=== PATIENT | female | born 1985 | race Caucasian/White ===

== ENCOUNTER 2025-04-13 19:51 | Emergency (ER) | payer MEDICAID, SELFPAY ==
--- OUTSIDE RECORDS SUMMARY | 2025-01-26 08:15 | XMS_ITS ---
Author Organization [facility] Servic es Address [address] [place] [address] Care Team Providers Care Die Presser Name Role Phone Swathi Osorio Primary Care Provider Sangita Miller [phone] REASON FOR VISIT APPT WITH NOLBERTO AT 1:00PM Social History Sex Assigned At : Social History Observation Description Sex Assigned At Female Encounters Encounter Location Date Provider Diagnosis [facility] [address] [facility] [address] 2024 Sangita Miller Plan Of Treatment Next Appt Details Provider Name:Sangita Miller, 04/21/2025 12:30:00 PM, [address] [place], [address], Provider Name:Sharla rincon, 04/21/2025 01:00:00 PM, [address] [place], [address], Provider Name:Tonia Cooper , 06/15/2025 04:00:00 PM, [address], [place], [address], Provider Name:Sangita Miller, 08/04/2025 10:15:00 AM, [address] [facility] [place], [address], Provider Name:Swathi huston, 08/04/2025 11:00:00 AM, [address] [facility] [place], [address], Progress Notes * KEYA GRACIA:1985 (39 yo F)Acc No.[id number]:01/26/2025 Patient: ANDRÉS OLIVEROS Appointment Provider: Florecita Miller :1985 A ge:39 Y S ex:Female Date:01/26/2025 Address:[address] [place], [place] [id number] Pcp:Swathi Osorio Subjective: * Chief Complaints: * A PPT WITH NOLBERTO AT 1:00PM Billing Information: * Procedure Codes: * Electronic signature of NERY Dumont FNP on 04/13/2025 at 08:13 PM EDT Sign off status: Pending * Appointment Provider: Florecita Miller Date: 0 01/26/2025 Generated for Aysha johnson/Johnnie/Larsitting on: 1 08:13 PM EDT
--- OUTSIDE RECORDS SUMMARY | 2025-01-26 09:00 | XMS_ITS ---
Author Organization [facility] Servic es Address [address] [place] [address] Care Team Providers Care Edger Saw Operator Name Role Phone Swathi Osorio Primary Care Provider Parisa Gómez Unavailable [phone] REASON FOR VISIT 1 MONTH F/U Social History Sex Assigned At : Social History Observation Description Sex Assigned At Female Encounters Encounter Location Date Provider Diagnosis [facility] [address] [place] [address] 01/26/2025 Parisa Gómez Plan Of Treatment Next Appt Details Provider Name:Sangita Miller, 04/21/2025 12:30:00 PM, [address] [place], [address], Provider Name:Sharla rincon, 04/21/2025 01:00:00 PM, [address] [place], [address], Provider Name:Tonia Cooper , 06/15/2025 04:00:00 PM, [address], [place], [address], Provider Name:Sangita Miller, 08/04/2025 10:15:00 AM, [address] [place], [address], Provider Name:Swathi huston, 08/04/2025 11:00:00 AM, [address] [facility] [place] [place], [address], Progress Notes * OCTAVIO GRACIAB:1985 (39 yo F)Acc No.[id number]:01/26/2025 Progress Notes Patient: ANDRÉS OLIVEROS Provider: Johnna Gómez :1985 A ge:39 Y S ex:Female Date:01/26/2025 Address:[address] [place], [place] [phone] Pcp:Swathi Osorio Subjective: * Chief Complaints: * 1 MONTH F/U * Electronic signature of Kenneth Gómez NP on 04/13/2025 at 08:13 PM EDT Sign off status: Pending * Provider: Johnna Gómez Date: 0 01/26/2025 Generated for Aysha johnson/Johnnie/Luli on: 1 08:13 PM EDT
--- OUTSIDE RECORDS SUMMARY | 2025-04-13 20:13 | XMS_ITS | Clinical Summary ---
Author Organization [facility] Address [address] 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 Active ascorbic acid (Vitamin C) 500 mg tablet Take 1 tablet (500 mg) by mouth 2 times a day. Active menthol (Biofreeze, menthol,) 4 % gel gel Apply 1 Application topically 3 times a day as needed. Active bisacodyl (Dulcolax, bisacodyl,) 10 mg suppository Insert 1 suppository (10 mg) into the rectum once daily as needed for constipation. Active busPIRone (Buspar) 5 mg tablet Take 1 tablet (5 mg) by mouth 2 times a day. Active cholecalciferol (Vitamin D-3) 25 MCG (1000 UT) capsule Take 1 capsule (25 mcg) by mouth once daily. Active cyclobenzaprine (Flexeril) 5 mg tablet Take 1 tablet (5 mg) by mouth 3 times a day. Active sodium phosphates (Fleet Enema) 19-7 gram/118 mL enema enema Insert 133 mL (1 enema) into the rectum once daily as needed for constipation. Active furosemide (Lasix) 40 mg tablet Take 1 tablet (40 mg) by mouth once daily. Active gabapentin (Neurontin) 600 mg tablet Take 3 tablets (1,800 mg) by mouth 2 times a day. Active potassium phosphate, monobasic, (K-Phos) 500 mg tablet Take 1 tablet (500 mg) by mouth once daily. Active levETIRAcetam (Keppra) 1,000 mg tablet Take 1 tablet (1,000 mg) by mouth once daily. Active levETIRAcetam (Keppra) 1,000 mg tablet Take 2 tablets (2,000 mg) by mouth once daily at bedtime. Active lamoTRIgine (LaMICtal) 200 mg tablet Take 1 tablet (200 mg) by mouth 2 times a day. Active lamoTRIgine (LaMICtal) 25 mg tablet Take 2 tablets (50 mg) by mouth 2 times a day. Active loratadine (Claritin) 10 mg tablet Take 1 tablet (10 mg) by mouth once daily. Active meclizine (Antivert) 25 mg tablet Take 1 tablet (25 mg) by mouth 3 times a day as needed for dizziness. Active midodrine (Proamatine) 2.5 mg tablet Take 1 tablet (2.5 mg) by mouth 3 times daily (morning, midday, late afternoon). Active melatonin 3 mg tablet Take 2 tablets (6 mg) by mouth as needed at bedtime for sleep. Active polyethylene glycol (Glycolax, Miralax) 17 gram packet Take 17 g by mouth every other day. Even days Active oxybutynin (Ditropan) 5 mg tablet Take 1 tablet (5 mg) by mouth 3 times a day as needed. Active bismuth subsalicylate (Pepto Bismol) 262 mg/15 mL suspension Take 30 mL (524 mg) by mouth every 6 hours if needed for indigestion. Active magnesium hydroxide (Garcia Milk of Magnesia) 400 mg/5 mL suspension Take 30 mL by mouth once daily as needed for constipation. Active pyridoxine (Vitamin B-6) 100 mg tablet Take 1 tablet (100 mg) by mouth once daily. Active QUEtiapine (SEROquel) 100 mg tablet Take 1.5 tablets (150 mg) by mouth once daily at bedtime. Active sennosides (Senokot) 8.6 mg tablet Take 1 tablet (8.6 mg) by mouth once daily at bedtime. Active sertraline (Zoloft) 100 mg tablet Take 2 tablets (200 mg) by mouth once daily. Active benzonatate (Tessalon) 100 mg capsule Take 1 capsule (100 mg) by mouth 3 times a day as needed for cough. Do not crush or chew. Active ondansetron (Zofran) 4 mg tablet Take 1 tablet (4 mg) by mouth every 8 hours if needed for nausea or vomiting. Active acetaminophen (Tylenol) 325 mg tablet Take 2 tablets (650 mg) by mouth every 6 hours if needed for mild pain (1 - 3). Max 3gm/24hr Active lactobacillus acidophilus & bulgar (Lactinex) 1 million cell chewable tablet Chew 1 tablet once daily. Start 05/26/24 x 14days Active benzocaine (Orajel) 10 % mucosal gel Use 1 Application in the mouth or throat every 4 hours if needed. Apply to tongue Active buPROPion (Wellbutrin) 75 mg tablet Take 1 tablet (75 mg) by mouth once daily. Active lidocaine 4 % patch Place 1 patch on the skin once daily as needed for mild pain (1 - 3). Remove & discard patch within 12 hours or as directed by MD. Active chlorhexidine (Peridex) 0.12 % solution Use 15 mL in the mouth or throat 2 times a day. Active prazosin (Minipress) 1 mg capsule Take 1 capsule (1 mg) by mouth once daily. Active omeprazole OTC (PriLOSEC OTC) 20 mg EC tablet Take 1 tablet (20 mg) by mouth once daily. Do not crush, chew, or split. Active risperiDONE (RisperDAL) 0.5 mg tablet Take 1 tablet (0.5 mg) by mouth 2 times a day. Active tiZANidine (Zanaflex) 2 mg tablet Take 1 tablet (2 mg) by mouth 2 times a day. 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 Obstructive uropathy 06/07/2024 Hydronephrosis with urinary obstruction due to renal calculus 06/07/2024 Staghorn calculus 06/07/2024 ESBL (extended spectrum beta -lactamase) producing bacteria infection 06/07/2024 Hyponatremia 06/07/2024 Family History Medical History Relation Name Comments Acute myocardial infarction Other Grandparent Cardiac arrhythmia Other Grandparent Primary malignant neoplasm of lung Other Grandp arent Relation Name Status Comments Other Grandparent Social History Tobacco Use Types Packs/Day Years Used Date Smoking Tobacco: Never Smokeless Tobacco: Never Tobacco Cessation:Counseling Given: Not Answered Alcohol Use Standard Drinks/Week Comments Never 0 (1 standard drink = 0.6 oz pur e alcohol) [facility] Utilities Answer Date Recorded In the past 12 months has th e electric, gas, oil, or water company threatened to shut off services in your home? No 06/08/2024 Humiliation, Afraid, Rape, and Kick questionnair e Answer Date Recorded Within the last year, have y ou been afraid of your partner or ex-partner? No 06/08/2024 Within the last year, have y ou been humiliated or emotionally abused in other ways by your partner or ex-partner? No Within the last year, have y ou been kicked, hit, slapped, or otherwise physically hurt by your partner or ex-partner? No 06/08/2024 Within the last year, have y ou been raped or forced to have any kind of sexual activity by your partner or ex-partner? No 06/08/2024 AUDIT-C Answer Date Recorded Q1: How often do you have a drink containing alcohol? Never 06/08/2024 Q2: How many drinks containi ng alcohol do you have on a typical day when you are drinking? Patient does not drink Q3: How often do you have si x or more drinks on one occasion? Never 06/08/2024 Overall Financial Resource Strain (CARDIA) Answe r Date Recorded How hard is it for you to pa y for the very basics like food, housing, medical care, and heating? Not hard at all 06/08/2024 PHQ-2 Answer Date Recorded Patient Health Questionnaire-2 Score 0 06/08/2024 Hunger Vital Sign Answer Date Recorded Within the past 12 months, y ou worried that your food would run out before you got the money to buy more. Never true 06/08/20 24 Within the past 12 months, t he food you bought just didn't last and you didn't have money to get more. Never true 06/08/2024 PRAPARE - Transportation Answer Date Re corded In the past 12 months, has l ack of transportation kept you from medical appointments or from getting medications? No 05/29 In the past 12 months, has l ack of transportation kept you from meetings, work, or from getting things needed for daily living? No 06/08/2024 Housing Stability Vital Sign Answer Reyes e Recorded In the last 12 months, was t here a time when you were not able to pay the mortgage or rent on time? No 06/08/2024 In the past 12 months, how m any times have you moved where you were living? 1 06/08/2024 At any time in the past 12 m [facility], were you homeless or living in a assisted (including now)? No 06/08/2024 Comments Unknown Sex and Gender Information Value Date Recorded Sex Assigned at Not on file Legal Sex Female 1:39 PM EST Gender Identity Not on file Sexual Orientation Not on file Last Filed Vital Signs Vital Sign Reading Time Taken Comments Blood Pressure 112/89 06/22/2024 9:19 AM EST Pulse 103 06/22/2024 9:19 AM EST Temperature 36.5 C (97.7 F) 06/22/2024 9:19 AM EST Respiratory Rate 18 06/22/2024 9:19 AM EST Oxygen Saturation 92% 06/22/2024 9:19 AM EST ra Inhaled Oxygen Concentration - - Weight 107 kg (235 lb 14.3 oz) 06/22/2024 9:19 A M EST Height 152 cm (4' 11.84 ) 06/08/2024 2:00 AM EST Body Mass Index 46.31 06/08/2024 2:00 AM EST Plan of Treatment Health Maintenance Due Date Last Done Comments HIV Screening 1985 Lipid Panel 1985 Yearly Adult Physical 1985 Hepatitis C Screening 10/02/2003 Hepatitis B Vaccines (1 of 3 - 19+ 3-dose series) 2004 Cervical Cancer Screening 2006 HPV/Cotest 2006 Pap Smear 2006 DTaP/Tdap/Td Vaccines (1 - Tdap) 10/02/2007 HPV Vaccines (1 - 3-dose standard series) 2012 Influenza Vaccine (#1) 2025 2, 07/14/2013, 05/22/2009, Additional history exists COVID-19 Vaccine ( season) 2025 08/06/2022, 02/15/2022, 10/09/2020, Additional history exists Diabetes Screening 06/10/2027 06/10/2024, 1 08/10/2023, 06/08/2024 Zoster Vaccines (1 of 2) 10/02/2035 MMR Vaccines Completed 01/31/1998 Pneumococcal Vaccine: Pediatrics and At-Risk Adult Patients Aged Out 07/14/2013 No longer eligible based on patient's age to complete this topic HIB Vaccines Aged Out No longer eligi ble based on patient's age to complete this topic Hepatitis A Vaccines Aged Out No long er eligible based on patient's age to complete this topic IPV Vaccines Aged Out No longer eligi ble based on patient's age to complete this topic Meningococcal Vaccine Aged Out No cal cornel eligible based on patient's age to complete this topic Rotavirus Vaccines Aged Out No longer eligible based on patient's age to complete this topic Procedures Procedure Name Priority Date/Time Associated Diagnosis Comments BASIC METABOLIC PANEL Pending Discharge 06/10/2024 6:07 AM EST from Last 3 Months or Most Recently Relevant to Health Maintenance Results * (ABNORMAL) Basic metabolic panel (06/10/2024 6:07 AM EST) Glucose 132(H) 74 - 99 mg/dL LAB CHEMISTRY METHOD 06/10/2024 7:18 AM EST [facility] [place] [place] [facility] Sodium 134(L) 136 - 145 mmol/L LAB CHEMISTRY METHOD 06/10/2024 7:18 AM EST [facility] [place] [place] [facility] Potassium 3.6 3.5 - 5.3 mmol/L LAB CHEMISTRY METHOD 06/10/2024 7:18 AM EST [facility] [place] [place] [facility] Comment:MILD HEMOLYSIS DETEC ABY. The result may be falsely elevated due to hemolysis or other interferents. Clinical correlation is recommended. Repeat testing may be considered. Chloride 102 98 - 107 mmol/L LAB CHEMISTRY METHOD 06/10/2024 7:18 AM EST [facility] [place] [place] [facility] Bicarbonate 23 21 - 32 mmol/L LAB CHEMISTRY METHOD 06/10/2024 7:18 AM EST [facility] [place] [place] [facility] Anion Gap 13 10 - 20 mmol/L LAB CHEMISTRY METHOD 06/10/2024 7:18 AM EST [facility] [place] [place] [facility] Urea Nitrogen 17 6 - 23 mg/dL LAB CHEMISTRY METHOD 06/10/2024 7:18 AM EST [facility] [place] [place] [facility] Creatinine 0.51 0.50 - 1.05 mg/dL LAB CHEMISTRY METHOD 06/10/2024 7:18 AM EST [facility] [place] [place] [facility] eGFR >90 >60 mL/min/1. 73m*2 LAB CHEMISTRY METHOD 06/10/2024 7:18 AM EST [facility] [place] [place] [facility] Comment: Calculations of estimated GFR are performed using the 2020 CKD-EPI Study Refit equation without the race variable for the IDMS-Traceable creatinine methods. https://jasn.asnjournals.org/content/early/ASN.0291722986 Calcium 8.6 8.6 - 10.3 mg/dL LAB CHEMISTRY METHOD 06/10/2024 7:18 AM EST [facility] [place] [place] [facility] Blood Venous blood specimen / Unknown Venipuncture / Unknown 06/10/2024 6:07 AM EST 06/10/2024 6:34 AM EST Arlene Gallegos STRATEGIC MARKETING ASSOCIATE-CHECKROOM ATTENDANT LAB BLOOD ORDERABLES Fi nal Result [facility] [place] [place] [facility] [id number] [id number] from Last 3 Months or Most Recently Relevant to Health Maintenance Insurance MEDICAID MEDICAID Advance Directives For more information, please contact: [phone] (Available ) Documents on File Type Date Recorded 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 Unable t o reach or identify Proxy presumed Care Teams Malt House Loader Relationship Specialty Start Date End Date Abi Le MD [address] [place] [address] [address] [place] [id number] PCP - General Internal Medicine 06/08/24
--- OUTSIDE RECORDS SUMMARY | 2025-04-13 20:14 | XMS_ITS | Patient Health Record ---
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 Akshat Welsh Unavailable [phone] Sangita Miller Unavailable [phone] Zuly Guzman Unavailable [phone] Shon John Unavailable [phone] Akshat Parson Unavailable [phone] Skylar John Unavailable [phone] Parisa Gómez Unavailable [phone] Allergies Allergen (clinical drug ingredient) Drug/Non Drug Allergy documented on EMR Reaction Allergy Type Onset Date Status amoxicillin / clavulanate Augmentin Unknown Drug Allergy Active Grapefruit Flavor Unknown Drug Allergy Active baclofen Baclofen Unknown Drug Allergy Active Reason For Referral No Information Medications Medication SIG (Take, Route, Frequency, Duration) Notes Start Date End Date Status Meclizine HCl 25 MG Tablet 1 tablet as needed Orally every 12 hrs Active Cyclobenzaprine HCl 5 MG Tablet TAKE 1 TAB BY MOUTH ONCE EVERY DAY Active Acetaminophen Extra Strength 500 MG Tablet 2 tablets Orally every 8 hours; Duration: 30 days As needed for pain or fever greater than 100.1 03/06/2025 05/04/2025 Active Pepto Bismol Active oxyCODONE HCl 5 MG Tablet 1 tablet as needed Orally every 6 hrs Active Pamplin 5-325 tablet Active Bacitracin 500 UNIT/GM Ointment APPLY TOPICALLY TO SITE AROUND SUPRAPUBIC TUBE FOUR TIMES DAILY FOR 5 DAYS External; Duration: 7 Days Active Zanaflex 4 MG Tablet 1 tablet at bedtime as needed Orally Once a day Active LaMICtal 25 MG Tablet 1 tablet Orally; Duration: 30 days Active Naproxen 500 MG Tablet Oral; Duration: 1 5 Days Active HYDROcodone-Acetaminoph en 5-325 MG Tablet Oral; Duration: 4 Days Active Desitin 40 % Paste as directed Externally Active Chlorhexidine 0.12% rinse Acti ve Lidocaine 4 % Patch 1 patch as needed Externally Four times a day Active Advil 200 MG Tablet 1 tablet with food or milk as needed Orally Three times a day Active Albuterol Sulfate (2.5 MG/3ML) 0.083% Nebulization Solution 3 mL as needed Inhalation every 6 hrs Active lamoTRIgine 200 MG Tablet TAKE 1 TAB BY MOUTH TWICE A DAY (SEIZURES) Active levETIRAcetam 1000 MG Tablet 1 tablet Orally every 12 hrs Active Furosemide 40 MG Tablet TAKE 1 TAB BY MO UTH ONCE EVERY DAY (EDEMA) Active Calcium Carbonate 500mg Ac tive Benzonatate 100 MG Capsule 1 capsule as needed Orally Three times a day Active Prazosin HCl 2 MG Capsule 1 capsule at bedtime Orally Once a day; Duration: 30 days 04/23/2025 Active buPROPion HCl 75 MG Tablet 2 tablets Oral daily; Duration: 30 days Active D3 High Potency 25 MCG Capsule TAKE 1 CAP BY MOUTH ONCE EVERY DAY (VITAMIN D DEFICIENCY) Active Midodrine HCl 2.5 MG Tablet TAKE 1 TAB BY MOUTH THREE TIMES A DAY (LOW BP) HOLD IF SBP OVER 130 Active Systane 0.4-0.3 % Solution as directed Ophthalmic Active PriLOSEC OTC 20 MG Tablet Delayed Release 1 tablet 1/2 to 1 hour before morning meal Orally Once a day; Duration: 90 days Active Ondansetron 4 MG Tablet Disintegrating 1 tablet on the tongue and allow to dissolve Orally Once a day Active tiZANidine HCl 2 MG Tablet TAKE 1 TAB BY MOUTH TWICE A DAY (SPASMS) Active Loratadine 10 MG Tablet TAKE 1 TAB BY MO UTH ONCE EVERY DAY (ALLERGIES) Active Vitamin B-6 100 MG Tablet TAKE 1 TAB BY MOUTH ONCE EVERY DAY (SUPPLEMENT) Active Vitamin C 500 MG Tablet TAKE 1 TAB BY MO UTH TWICE A DAY FOR SUPPLEMENTAL VIT C Active Gabapentin 600 MG Tablet TAKE 3 TABS (1800MG) BY MOUTH TWICE A DAY Active Calmoseptine 0.44-20.6 % Ointment as directed Externally 3 times a day; Duration: 30 days 03/10/2025 03/05/2026 Active Depo-Provera 150 MG/ML Suspension Prefilled Syringe 1 mL Intramuscular every 3 months; Duration: 30 days 02/01/2025 05/31/2025 Active Keppra 1000 MG Tablet 1 tablet in AM 2 tablets in PM Orally every 12 hrs; Duration: 90 days 1000mg every morning and 2000mg at bedtime Active QUEtiapine Fumarate 150 MG Tablet 1 tablet at bedtime Orally Once a day; Duration: 30 days Active Myrbetriq 50 MG Tablet Extended Release 24 Hour Oral; Duration: 30 Days Active buPROPion HCl 75 MG Tablet 2 tablets in the AM Orally daily; Duration: 30 days Active busPIRone HCl 30 MG Tablet 1 tablet Orally Twice a day; Duration: 30 days 04/23/2025 Active Prazosin HCl 2 MG Capsule 1 capsule at bedtime Orally Once a day; Duration: 30 days 04/23/2025 Active RisperDAL 0.5 MG Tablet 1 tablet Orally twice a day; Duration: 30 days Active Sertraline HCl 100 MG Tablet 2 tablets Orally Once a day; Duration: 30 days Active Potassium Citrate ER 10 MEQ (1080 MG) Tablet Extended Release 1 tablet with meals Oral 3 times a day; Duration: 30 days Active Melatonin 3 MG Tablet 1 tablet at bedtim e Orally Once a day; Duration: 30 days 11/17/2024 Active Claritin 10 MG Tablet 1 tablet Orally On ce a day Active FiberCon 625 MG Tablet 2 tablets as need ed Orally Three times a day Active Polyethylene Glycol 3350 17 GM Packet 1 packet mixed with 8 ounces of fluid Orally Once a day Active Senokot 8.6 MG Tablet 2 tablets at bedti me as needed Orally Once a day; Duration: 30 days Active LORazepam 0.5 MG Tablet 1 tablet Orally twice a day; Duration: 10 days As needed 12/06/2024 Active Acetaminophen Extra Strength 500 MG Tablet 1 tablet as needed Orally every 8 hours; Duration: 30 days Active oxyBUTYnin Chloride ER 10 MG Tablet Extended Release 24 Hour 1 tablet Orally Once a day; Duration: 30 days Active Social History Tobacco Use: Social History Observation Description Date Details (start date - stop date) Never Smoker NA - NA Sex Assigned At : Social History Observation Description Sex Assigned At Female Social History General Social Info Question Answer Notes Depression Screening (PHQ-9): Little int erest or pleasure in doing things Several days Feeling down, depressed, or hopeless Several day s Trouble falling or staying a sleep, or sleeping too much Not at all Feeling tired or having little energy Not at all Poor appetite or overeating Not at all Feeling bad about yourself-o r that you are a failure or have let yourself or your family down Several days Trouble concentrating on thi ngs, such as reading the newspaper or watching television Not at all Moving or speaking so slowly that other people could have noticed. Or the opposite being so fidgety or restless that you have been moving around a lot more than usual Not at all Thoughts that you would be b angelica off , or of hurting yourself in some way Several days(Consider Suicide Assessment Risk) Total Score 4 Intepretation Minimal Depression Drug/Alcohol: Social Info Question Answer Notes AUDIT-C (Standard) Did you have a drink containing alcohol in the past year? No Points 0 Interpretation Negative Tobacco Use: Social Info Question Answer Notes Tobacco Control (Standard) Tobacco use: Nonsmoker Problems Problem Type SNOMED Code ICD Code Onset Dates Problem Status W/U Status Risk Notes Problem Hypokalemia (90604972) Hypokalemia (E87.6) Active confirmed Problem Moderate recurrent major depression (50334037) Major depressive disorder, recurrent, moderate (F33.1) Active confirmed Problem Posttraumatic stress disorder (87684638) Post-traumatic stress disorder, chronic (F43.12) Active confirmed Problem Muscle weakness (57702952) Muscle weakness (generalized) (M62.81) Active confirmed Problem Calculus of kidney (94354620) Calculus of kidney (N20.0) Active confirmed Problem Neurogenic dysfunction of the urinary bladder (262341762) Neuromuscular dysfunction of bladder, unspecified (N31.9) Active confirmed Problem Mixed incontinence (134082179) Mixed incontinence (N39.46) Active confirmed Problem Oral phase dysphagia (955260243) Dysphagia, oral phase (R13.11) Active confirmed Problem Oropharyngeal dysphagia (12610775) Dysphagia, oropharyngeal phase (R13.12) Active confirmed Problem Unspecified symptoms and signs involving the genitourinary system (R39.9) Active confirmed Problem Dysarthria (4132418) Dysarthria and anarthria (R47.1) Active confirmed Problem Reduced mobility (9984973) Other reduced mobility (Z74.09) Active confirmed Problem Needs assistance at home (068006403) Need for assistance at home and no other household member able to render care (Z74.2) Active confirmed Problem History of urinary stone (006132354) Personal history of urinary calculi (Z87.442) Active confirmed Problem Other cystostomy status (Z93.59) Active confirmed Problem Anxiety (39249614) Anxiety (F41.9) Active confirmed Problem Obesity (277762578) Obesity (BMI 30-39.9) (E66.9) Active confirmed Problem Pressure ulcer (L89.90) Active confirmed Problem Constipation (42627395) Constipation (K59.00) Active confirmed Problem Constipation (12069142) Constipation, unspecified constipation type (K59.00) Active confirmed Problem Edema (692027535) Edema, unspecified type (R60.9) Active confirmed Problem Hydronephrosis (01822092) Hydronephrosis, unspecified hydronephrosis type (N13.30) Active confirmed Problem Cerebral palsy (687065273) Cerebral palsy, unspecified type (G80.9) Active confirmed Problem Dysmenorrhea (178510042) Painful menstrual periods (N94.6) Active confirmed Problem Seizure (12256137) Convulsions, unspecified convulsion type (R56.9) Active confirmed Problem Developmental delay (307196029) Developmental disability (F89) Active confirmed Problem Allergic rhinitis (06521644) Chronic allergic rhinitis (J30.9) Active confirmed Vital Signs Heart Rate 100 /min 03/06/2025 Temperature 98.1 degrees Fahrenheit 03/06/2025 Respiratory Rate 18 /min 12/12/2024 Oximetry 95 % 03/06/2025 Blood pressure diastolic 86 mm Hg 03/06/2025 Height 60 in 03/06/2025 Blood pressure systolic 139 mm Hg 03/06/2025 Weight 230 lbs 03/06/2025 BMI 44.91 kg/m2 03/06/2025 Encounters Encounter Location Date Provider Diagnosis [facility] [address] [place] [address] 11/04/2024 [facility] [address] [place] [address] 11/07/2024 [facility] [address] [place] [address] 11/07/2024 [facility] [address] [place] [address] 11/09/2024 [facility] [address] [place] [address] 11/18/2024 [facility] [address] [place] [address] 11/23/2024 [facility] [address] [place] [address] 11/25/2024 [facility] [address] [place] [address] 11/30/2024 [facility] [address] [place] [address] 12/02/2024 [facility] [address] [place] [address] 12/06/2024 [facility] [address] [place] [address] 12/07/2024 [facility] [address] [place] [address] 12/09/2024 [facility] [address] [place] [address] 12/12/2024 [facility] [address] [place] [address] 12/12/2024 [facility] [address] [place] [address] 12/13/2024 [facility] [address] [place] [address] 12/14/2024 [facility] [address] [place] [address] 12/19/2024 [facility] [address] [place] [address] 01/03/2025 [facility] [address] [place] [address] 01/10/2025 [facility] [address] [place] [address] 01/20/2025 [facility] [address] [place] [address] 01/23/2025 [facility] [address] [place] [address] 01/24/2025 [facility] [address] [place] [address] 01/24/2025 [facility] [address] [place] [address] 01/24/2025 [facility] [address] [place] [address] 01/25/2025 [facility] [address] [place] [address] 01/25/2025 [facility] [address] [place] [address] 02/08/2025 [facility] [address] [place] [address] 02/14/2025 [facility] [address] [place] [address] 02/21/2025 [place] [address] [place] [address] 02/21/2025 [facility] [address] [place] [address] 02/21/2025 [facility] [address] [place] [address] 03/07/2025 [facility] [address] [place] [address] 03/07/2025 [facility] [address] [place] [address] 03/09/2025 [facility] [address] [place] [address] 03/10/2025 Swathi Osorio Pressure ulcer L89.9 0 [facility] [address] [place] [address] 03/15/2025 Swathi Osorio [facility] [address] [place] [address] 03/29/2025 Swathi Osorio [facility] [place] [address] 03/30/2025 Swathi Osorio [facility] [place] [address] 03/31/2025 [place] [address] [place] [address] 03/31/2025 Swathimanas Osorio [place] [address] [place] [address] 01/03/2025 [facility] [place] [address] [place] [address] 01/03/2025 [facility] [address] [place] [address] 01/23/2025 Sangita Paul [facility] [address] [place] [address] 12/12/2024 Sangita Miller [facility] [address] [place] [address] 12/01/2024 Sangita Paul [facility] [address] [place] [address] 01/30/2025 Sangita Miller Lack of access to transportation Z91.89 [place] [address] [place] [address] 03/06/2025 Swathi Osorio Generalized pain R52 ; UTI (urinary tract infection) N39.0 ; Constipation K59.00 and Hypotension I95.9 [place] [address] [place] [address] 12/01/2024 Akshat Parson Major depressive disorder, recurrent, moderate F33.[address] [address] 02/01/2025 Swathi Osorio Painful menstrual periods N94.[address] [address] 02/01/2025 Sangita Miller Lack of access to transportation Z91.[address] [address] 03/06/2025 Sangita Miller Lack of access to transportation Z91.[address] [place] [address] 01/30/2025 Akshat Welsh Cracked tooth K03.81 ; Encounter for dental examination and cleaning with abnormal findings Z01.21 and Other dental procedure status Z98.[address] [address] 12/06/2024 Kip Soviak Anxiety F41.[address] [address] 01/23/2025 Kip Soviak Anxiety F41.[address] [place] [address] 11/04/2024 Parisa Gómez Cerebral palsy, unspecified type G80.9 ; Major depressive disorder, recurrent, moderate F33.1 ; Neuromuscular dysfunction of bladder, unspecified N31.9 ; Anxiety F41.9 ; Constipation, unspecified constipation type K59.00 and Help needed for obtaining assistive device Z75.[address] [address] 12/12/2024 Skylar John Mixed incontinence N39.46 ; Cerebral palsy, unspecified type G80.9 ; Anxiety F41.9 ; Muscle weakness (generalized) M62.81 ; Developmental disability F89 ; Encounter to establish care with new provider Z76.89 and Convulsions, unspecified convulsion type R56.[address] [address] 11/04/2024 Sangita Miller [address] [address] 12/06/2024 Sangita Miller Assessments Encounter Date Diagnosis (ICD Code) Assessment Notes Treatment Notes Treatment Clinical Notes Section Notes 02/01/2025 Painful menstrual periods (ICD-10 - N94.6) Patient has never been sexually active. She is experiencing heavy menses and pain. Cycles are regular, monthly. We did discuss possible PST MANAGER evaluation. She requires tayler lift for transfering. Discussed control pills vs. Depo Provera. Patient would like to proceed with Depo Provera. 03/06/2025 Generalized pain (ICD-10 - R52) 03/10/2025 Pressure ulcer (ICD-10 - L89.90) 03/06/2025 Lack of access to transportation (ICD-10 - Z91.89) Pt transported to and from appointment 03/06/2025 UTI (urinary tract infection) (ICD-10 - N39.0) Continue fosfomycin as directed by ER until gone. 02/01/2025 Lack of access to transportation (ICD-10 - Z91.89) Pt transported to and from appointment 11/04/2024 Cerebral palsy, unspecified type (ICD-10 - G80.9) Hx of cerebral palsy. Continue with current medication regimen and monitor for any changes in muscle tone or adverse effects. Discussed importance of stretching and strenthening exercises at home. Adaptive equipment request have been sent. Patient verbalizes understanding. 12/01/2024 Major depressive disorder, recurrent, moderate (ICD-10 - F33.1) 12/06/2024 Anxiety (ICD-10 - F41.9) Patient will increase buspirone to 30 mg twice a day, patient will also increase prazosin to 2 mg and add lorazepam 0.5 mg as needed for increased anxiety. Follow up in 30 days to discuss and evaluate. Recommended treatment is: _ FDA approved medication for this age group include Selective Serotonin Reuptake Inhibitors (SSRI) and Selective Norepinephrine Reuptake Inhibitors (SNRI). . Selective serotonin reuptake inhibitors? can cause nausea, headache, upset stomach, diarrhea, constipation, anxiety, irritability, and sexual dysfunction. . Please monitor for worsening of symptoms, especially suicidal ideations or morbid thoughts, and call office and or go to the emergency department immediately. Pt does not endorse exhibiting symptoms aligning with ellen. . The patient verbalizes understanding with all questions answered thoroughly and is in agreement with treatment plan. . Continue current treatment plan Patient/Guardian will call sooner if symptoms worsen. Patient understands to go to ER if needed if symptoms become severe. Crisis Intervention plan was discussed and agreed upon. Patient/Guardian will call 911 in case of emergency. Emergency contact information was provided to the patient/guardian. 12/12/2024 Mixed incontinence (ICD-10 - N39.46) 12/12/2024 Cerebral palsy, unspecified type (ICD-10 - G80.9) 01/23/2025 Anxiety (ICD-10 - F41.9) Recommended treatment is: _ FDA approved medication for this age group include Selective Serotonin Reuptake Inhibitors (SSRI) and Selective Norepinephrine Reuptake Inhibitors (SNRI). . Selective serotonin reuptake inhibitors? can cause nausea, headache, upset stomach, diarrhea, constipation, anxiety, irritability, and sexual dysfunction. . Please monitor for worsening of symptoms, especially suicidal ideations or morbid thoughts, and call office and or go to the emergency department immediately. Pt does not endorse exhibiting symptoms aligning with ellen. . The patient verbalizes understanding with all questions answered thoroughly and is in agreement with treatment plan. . Continue current treatment plan Patient/Guardian will call sooner if symptoms worsen. Patient understands to go to ER if needed if symptoms become severe. Crisis Intervention plan was discussed and agreed upon. Patient/Guardian will call 911 in case of emergency. Emergency contact information was provided to the patient/guardian. 01/30/2025 Lack of access to transportation (ICD-10 - Z91.89) Pt transported to and from appointment 01/30/2025 Cracked tooth (ICD-10 - K03.81) 01/30/2025 Encounter for dental examination and cleaning with abnormal findings (ICD-10 - Z01.21) 12/12/2024 Anxiety (ICD-10 - F41.9) 11/04/2024 Major depressive disorder, recurrent, moderate (ICD-10 - F33.1) Discussed setting up appointment with [facility] behvaioral health provider for further treatment and medication management. Discussed calling 911 or goig to ER if SI/HI presents. Patient verbalizes understanding. 03/06/2025 Constipation (ICD-10 - K59.00) Patient had episode of constipation last week. Has BM this morning. Still feels constipated. She does have 3 PRN medications available; MiraLax, Colace, and senakot. I encourage care provider to utilize PRN medications. 03/06/2025 Hypotension (ICD-10 - I95.9) Patient has not been taking midodrine due to parameters. Care provider states it has been over 3 weeks now. Will discontinue midodrine. 11/04/2024 Neuromuscular dysfunction of bladder, unspecified (ICD-10 - N31.9) Continue following with Urology in [facility] for management and mdeication as prescribed. Paperwork faxed for urinary incontinece supplies. 12/12/2024 Muscle weakness (generalized) (ICD-10 - M62.81) 01/30/2025 Other dental procedure status (ICD-10 - Z98.818) 11/04/2024 Anxiety (ICD-10 - F41.9) Discussed setting up an appointment with [facility] behavioral health provider for further treatment and medication management. Discussed calling 911 or going to ER if SI/HI presents. Patient verbalizes understanding. 11/04/2024 Constipation, unspecified constipation type (ICD-10 - K59.00) Discussed with patient importance of encouraging fluid intake throughout day, adding more natural fiber intake with fruits and vegetables.Disc ussed using stool softener daily to mainitain regular bowel movements. Colace sent to [facility]. 12/12/2024 Developmental disability (ICD-10 - F89) 12/12/2024 Encounter to establish care with new provider (ICD-10 - Z76.89) Patient presents to establish care in our clinic. Counseled on getting at least 150mins/week of physical activity, maintaining a diet rich in fruits and vegetables and moderation of alcohol intake. Patient can follow up annually for physical exam and PRN. Patient verbalized understanding. Patients care is complex. Will follow up in 4 weeks. Would like an updated medication list from pharmacy or from care provider. Scripts for Shower care, briefs and perianal wipes given to case management assistant. Patient will need the shower chair for the remainder of her life to assist in completing her activities of daily living safely. Patient is dependent upon care givers for bathing, transferring and uses a electric wheel chair for transportation. Discussed preventive care including vaccinations, vision care, dental care, HTN screening, depression screening, cancer screening, and women's or men's health as appropriate for age and risk factors. Follow up in one month. Patient will need one hour for appointments. 11/04/2024 Help needed for obtaining assistive device (ICD-10 - Z75.8) Discussed need of shower chair, raised toilet seat. digital BP cuff, tayler sling, and urinary incontinence supplies. Rx and paperwork faxed for supplies. 12/12/2024 Convulsions, unspecified convulsion type (ICD-10 - R56.9) Keppra refill sent to [facility] [place]. Patient has been with out Keppra for 2 days. All future refills to be sent to [facility] pharmacy and placed in bubble packs. 12/12/2024 Other Body Mass Index: Care Instructions material was printed 02/01/2025 Other Body Mass Index: Care Instructions material was published, Body Mass Index: Care Instructions material was printed 03/06/2025 Other Body Mass Index: Care Instructions material was published, Body Mass Index: Care Instructions material was printed Plan Of Treatment Next Appt Details Provider Name:Sangita Miller, 04/21/2025 12:30:00 PM, [address] [place], [address], Provider Name:Sharla rincon, 04/21/2025 01:00:00 PM, [address], [place], [address], Provider Name:Tonia Kenneth , 06/15/2025 04:00:00 PM, [address], [place], [address], Provider Name:Sangita Miller, 08/04/2025 10:15:00 AM, [address] [place], [address], Provider Name:Swathi huston, 08/04/2025 11:00:00 AM, [address], [place], [address], Insurance Providers Payer Name Payer Address Payer Phone Subscriber Number Group Number Insured Name Patient Relationship to Insured Coverage Start Date Coverage End Date [place] [address] [place] [address] [id number] ANDRÉS GRACIA Self - patient is the insured 5 DENTAL [place] [address] [place] [address] [id number] ANDRÉS GRACIA Self - patient is the insured 5 Medical (General) History Medical History History ICD Code Cerebral Palsy Scoliosis Seizures kidney stones Surgical History Surgery Date(Month/Year) Tendon released in upper legs 1988 Surgery for pigeon chest 1997 Stents for Kidney stones Hospitalization History Reason Date(Month/Year) flu 2024
[2025-04-13 20:22] VITALS: PULSE 101; TEMP 37.4; O2SAT 95; BMI 44.9
--- NOTE | 2025-04-13 20:30 | ED.GENADUL1 ---
HPI HPI - General Adult General Chief complaint: Urogenital-Female Stated complaint: ABOMINAL PAIN LEFT SIDE/ HAS KIDNEY STONES Time Seen by Provider: 04/13/25 20:00 History of Present Illness HPI narrative: This 39-year-old female with a history of cerebral palsy who is wheelchair dependent and has a suprapubic Naidu catheter and a history of kidney stones presents for evaluation of left flank pain with radiation into the left lower quadrant with nausea. She has not had any vomiting. She also has been having bowel issues with intermittent constipation. She has as needed orders for senna and MiraLAX. She took a stool softener earlier today but has not had a bowel movement. She was recently seen by her [facility] urologist and told that she had kidney stones in both kidneys. Is unclear if she had any ureteral stones at that time. She was also seen by her residence life director for her bowel issues. Upon arrival she has a low-grade fever at 99.4. She denies any chest pain or shortness of breath. She is here with her construction foreman. She typically gets her care at [facility] but states that they are mean to her there so she came to this facility instead. She is also currently on doxycycline for a small sore underneath her abdominal fold. Related Data Home Medications ?Medication ?Instructions ?Recorded ?Confirmed acetaminophen 500 mg tablet mg 04/13/25 ascorbic acid (vitamin C) 500 mg 04/13/25 tablet (Vitamin C) bupropion HCl 75 mg tablet mg PO 04/13/25 buspirone 30 mg tablet mg 04/13/25 buspirone 5 mg tablet mg 04/13/25 cholecalciferol (vitamin D3) 25 04/13/25 mcg (1,000 unit) capsule cyclobenzaprine 5 mg tablet mg 04/13/25 docusate sodium 100 mg capsule mg PO 04/13/25 doxycycline hyclate 100 mg capsule mg 04/13/25 furosemide 40 mg tablet mg 04/13/25 gabapentin 600 mg tablet mg 04/13/25 lamotrigine 200 mg tablet mg 04/13/25 melatonin 3 mg tablet mg 04/13/25 melatonin 5 mg tablet mg 04/13/25 potassium phosphate, monobasic 500 1,000 mg PO QID 04/13/25 04/13/25 mg soluble tablet (K-Phos Original) Allergies Allergy/AdvReac Type Severity Reaction Status Date / Time amoxicillin (From Augmentin) Allergy Intermediate Unknown Verified 04/13/25 20:32 clavulanic acid (From Allergy Intermediate Unknown Verified 04/13/25 20:32 Augmentin) Opioid HPI Opioid Management Most Recent Opioid Data: Last Pain Scale 9 Today, 20:52 Review of Systems ROS Status of ROS 10 or more systems reviewed and unremarkable except as noted in history and below PFSH PFSH Social History Little interest or pleasure in doing things: not at all Feeling down, depressed, or hopeless: not at all Exam Narrative Exam Narrative: Vital signs and Nursing Notes reviewed: Patient's temperature is mildly elevated 99.4, she has normal respiratory rate, pulse is mildly elevated at 101, she is not hypoxic with pulse ox of 95% on room air General: Awake, alert, oriented, chronically disabled adult female, no respiratory distress-she is able to provide a reasonable history HEENT: Normocephalic atraumatic, mucous membranes are moist and pink, eyes are clear, normal conjunctiva, vision is grossly intact, posterior pharynx is normal in appearance. Chest: Lungs are clear to auscultation with good air entry, there is no wheezing rhonchi or rales appreciated no accessory muscle use, patient is speaking in complete sentences-no chest wall tenderness to palpation CVS: Regular rate and rhythm S1-S2, no murmurs rubs or gallops, pulses are brisk and equal bilaterally ABD: Obese, soft, nondistended, mild tenderness in the left lower quadrant, no rebound guarding or rigidity Extremities: He is muscle wasting of the lower extremities with mild flexion contracture of the feet Skin: Normal in appearance without rash,pallor, petechiae or purpura Neuro: At baseline with a history of cerebral palsy Constitutional Vital Signs, click to edit/add: Last Vital Signs Temp 99.4 F 04/13/25 20:22 Pulse 101 H 04/13/25 20:22 Resp 16 04/13/25 20:22 Pulse Ox 95 04/13/25 20:22 O2 Del Method Room Air 04/13/25 20:22 Course Vital Signs Vital signs: Vital Signs Temperature 99.4 F 04/13/25 20:22 Pulse Rate 101 H 04/13/25 20:22 Respiratory Rate 16 04/13/25 20:22 Pulse Oximetry 95 04/13/25 20:22 Oxygen Delivery Method Room Air 10/16/25 20:22 Temperature 99.4 F 04/13/25 20:22 Pulse Rate 101 H 04/13/25 20:22 Respiratory Rate 16 04/13/25 20:22 Pulse Oximetry 95 04/13/25 20:22 Oxygen Delivery Method Room Air 04/13/25 20:22 Medical Decision Making MDM Narrative Medical decision making narrative: This 39-year-old female with a history of kidney stones and cerebral palsy who has a suprapubic catheter is brought to the emergency department by her construction foreman for evaluation of left flank pain and left lower quadrant abdominal pain. The patient sees Dr. Santo, Urology at [facility]. She states she saw him on Thursday and prior to that had an ultrasound and KUB. She was told that she had a lot of kidney stones bilaterally. She was told she needed to follow-up closely if she started to have pain. Patient started having left lower quadrant abdominal pain in the past 24 hours with nausea. She has not vomited. She does have a suprapubic catheter. She is on oral doxycycline for a skin infection underneath her abdominal pannus. She is awake alert oriented, vital signs are stable with a mild elevation in her temperature at 99.4 and a pulse of 101. An IV was placed and she was medicated with IV fluids, Zofran and Toradol. On reevaluation her nausea has improved but she is still having pain and was given IV morphine for better pain control. Her white count is elevated at 15.4 with a stable hemoglobin. Electrolytes are normal. Lactic acid is 1.1. Urine is positive for nitrites, greater than 100 white blood cells per high-power field and culture is pending. Her construction foreman did state to me that she is colonized which makes sense since she has a suprapubic Naidu catheter. She was empirically treated with IV Cipro pending culture results. CT scan abdomen pelvis shows a large amount of constipation and 9 mm stone in the left uteropelvic junction with hydronephrosis. Her BUN and creatinine are stable. Due to the fact that she is a [facility] patient I consulted with [facility] urology. The plan is to send her home with pain medication, nausea medication, oral antibiotics and close follow-up with urology at [facility] for further evaluation and management. The patient and her construction foreman are in agreement with this plan. She will be discharged home with a prescription for Zofran, Cipro and Percocet to use until she can be seen by urology. She also is on as needed medications for constipation that I suggested she take on a daily basis especially in light of the fact that she is going to be on narcotic analgesics. Lab Data Lab results reviewed: Yes I reviewed the patient's lab results Labs: Lab Results 04/13/25 04/13/25 Range/Units 20:30 21:20 WBC 15.2 H (4.0-11.0) 10^3/uL RBC 4.78 (4.20-5.40) 10^6/uL Hgb 12.0 (12.0-16.0) g/dL Hct 38.8 (36.0-48.0) % MCV 81.2 (81.0-99.0) fL MCH 25.1 L (26.7-34.0) pg MCHC 30.9 (29.9-35.2) g/dL RDW 15.9 H (11.0-15.0) % Plt Count 258 (150-450) 10^3/uL MPV 10.0 (9.5-13.5) fL Neut % (Auto) 84.2 H (43.0-75.0) % Lymph % (Auto) 9.0 L (20.5-60.0) % [place] % (Auto) 4.9 (1.7-12.0) % Eos % (Auto) 1.1 (0.9-7.0) % Baso % (Auto) 0.3 (0.2-2.0) % Neut # (Auto) 12.8 H (1.4-6.5) 10^3/uL Lymph # (Auto) 1.4 (1.2-3.8) 10^3/uL Vernon # (Auto) 0.7 (0.3-0.8) 10^3/uL Eos # (Auto) 0.2 (0.0-0.7) 10^3/uL Baso # (Auto) 0.1 (0.0-0.1) 10^3/uL Abs Immat Gran (auto) 0.07 H (0.00-0.03) 10^3/uL Imm/Tot Granulo (auto) 0.5 (0.0-0.5) % Sodium 140 (136-145) mmol/L Potassium 4.1 (3.5-5.1) mmol/L Chloride 101 (98-107) mmol/L Carbon Dioxide 28.4 (21.0-32.0) mmol/L Anion Gap 14.7 BUN 18.0 (7.0-18.0) mg/dL Creatinine 0.70 (0.55-1.02) mg/dL Est GFR ( Amer) >60 (>=60 mL/min/1.73m^2) Est GFR (Non-Af Amer) >60 (>=60 mL/min/1.73m^2) BUN/Creatinine Ratio 25.7 Glucose 122 H (74-106) mg/dL Lactate 1.1 (0.4-2.0) mmol/L Calcium 9.5 (8.5-10.1) mg/dL Total Bilirubin 0.2 (0.2-1.0) mg/dL AST 6 L (15-37) U/L ALT 23 (14-59) U/L Alkaline Phosphatase 117 H (46-116) U/L Total Protein 8.9 H (6.4-8.2) g/dL Albumin 3.7 (3.4-5.0) g/dL Globulin 5.2 g/dL Albumin/Globulin Ratio 0.7 Urine Color Lt. yellow (YELLOW) Urine Clarity Cloudy A (CLEAR) Urine pH 7.0 (5.0-9.0) Ur Specific [place] 1.010 (1.005-1.025) Urine Protein Trace (NEG/TRACE) mg/dL Urine Glucose (UA) Negative (NEGATIVE) mg/dL Urine Ketones Negative (NEGATIVE) mg/dL Urine Occult Blood Trace-l (NEGATIVE) Urine Nitrite Positive A (NEGATIVE) Urine Bilirubin Negative (NEGATIVE) Urine Urobilinogen 0.2 (0.2-1.0) EU/dL Ur Leukocyte Esterase Large A (NEGATIVE) Urine RBC 0-2 (0-2) #/HPF Urine WBC >100 A (NONE SEEN) #/HPF Ur Squamous Epith Cells Few A (NONE/RARE) #/LPF Urine Crystals Seen A (None Seen) #/HPF Triple Phos Crystals Rare Urine Bacteria Large A (NONE SEEN) #/HPF Urine Casts Seen A (NONE SEEN) #/LPF Hyaline Casts Rare Urine Mucus Trace A (NONE SEEN) Ur Culture Indicated? Yes-[facility] Imaging Data CT scan - abdomen: Attestation: I have reviewed the pertinent imaging results. Radiologist's impression: ITS Impressions Abdomen/Pelvis CT 04/13/25 20:48 IMPRESSION: There is a 9 mm stone in the proximal left ureter near the ureteropelvic junction. There is left-sided hydronephrosis. There are nonobstructing stones in the renal collecting systems bilaterally measuring up to 1.2 cm in greatest dimension on the left and 2.1 cm in greatest dimension on the right. There is a moderate to large amount of stool in the colon suggesting constipation. Impression dictated by: Valentin Cuevas M.D. 04/13/2025 9:51 PM Dictation Location: [employer] Electronically authenticated by: [id number] Y Date: 04/13/2025 21:51 Discharge Plan Discharge Chief Complaint: Urogenital-Female Clinical Impression: Urinary tract infection, Kidney stone on left side, Constipation Patient Disposition: Home, Self-Care Time of Disposition Decision: 22:46 Condition: Good Prescriptions / Home Meds: No Action K-Phos Original 500 mg tablet,soluble 1,000 mg PO QID lamotrigine 200 mg tablet furosemide 40 mg tablet buspirone 5 mg tablet gabapentin 600 mg tablet doxycycline hyclate 100 mg capsule melatonin 3 mg tablet acetaminophen 500 mg tablet ascorbic acid (vitamin C) [Vitamin C] 500 mg tablet buspirone 30 mg tablet bupropion HCl 75 mg tablet PO docusate sodium 100 mg capsule PO cholecalciferol (vitamin D3) 25 mcg (1,000 unit) capsule cyclobenzaprine 5 mg tablet melatonin 5 mg tablet Print Language: Wallisian Instructions: Constipation (DC), Kidney Stones (ED), Hydronephrosis (ED) Referrals: LOUISA JACOBSEN [Primary Care Provider] - 1 week
--- NOTE | 2025-04-13 20:48 | CT_ITS ---
[address] [address] Patient Name: ANDRÉS GRACIA MRN: [id number] date: 1985 Sex: F Assigned Patient Location: ER Current Patient Location: .[facility] Accession/Order Number: [id number] Exam Date: 04/13/2025 21:08 Report Date: 04/13/2025 21:51 At the request of: ADENIKE SOSA MD Procedure: CT abdomen pelvis wo con CT abdomen pelvis wo con 04/13/2025 9:18 PM SIGNS AND SYMPTOMS: ^Left flank pain, bowel issues TECHNIQUE: Multidetector ct axial images of the abdomen and pelvis were obtained without IV contrast. Multiplanar reformats were performed and reviewed to further define anatomy and possible pathology. CT was performed with one or more of the following dose reduction techniques: Automated exposure control, adjustment of the mA and/or kV according to patient size, or use of iterative reconstruction technique. COMPARISON: None. FINDINGS: Lower Chest: Within normal limits. ABDOMEN: Liver: Within normal limits. Bile Ducts: Normal caliber. Gallbladder: No calcified gallstones. Normal caliber wall. Pancreas: Within normal limits. Spleen: Within normal limits. Adrenals: Within normal limits. Kidneys: There is left-sided hydronephrosis. There are nonobstructing stones in the renal collecting systems bilaterally measuring up to 1.2 cm in greatest dimension on the left and 2.1 cm in greatest dimension on the right. Pelvis: Reproductive Organs: No pelvic masses. Ureters: There is a 9 mm stone in the proximal left ureter near the ureteropelvic junction. Bladder: There is a suprapubic catheter. Bowel: There are uncomplicated colonic diverticula. There is no evidence of bowel obstruction. There is a moderate to large amount of stool in the colon suggesting constipation. Mesenteric Lymph Nodes: No enlarged mesenteric lymph nodes. Peritoneum: No ascites or free air, no fluid collection. Vessels: within normal limits Retroperitoneum: Within normal limits. Abdominal Wall: Within normal limits. Bones: Degenerative changes are noted in the hips and sacroiliac joints. Degenerative changes are noted in the lumbar spine. CT/CT abdomen pelvis wo con IMPRESSION: There is a 9 mm stone in the proximal left ureter near the ureteropelvic junction. There is left-sided hydronephrosis. There are nonobstructing stones in the renal collecting systems bilaterally measuring up to 1.2 cm in greatest dimension on the left and 2.1 cm in greatest dimension on the right. There is a moderate to large amount of stool in the colon suggesting constipation. Impression dictated by: Valentin Cuevas M.D. 04/13/2025 9:51 PM Dictation Location: [place] [address] Electronically authenticated by: [id number] Y Date: 04/13/2025 21:51
[2025-04-13] MEDS: KETOROLAC TROMETHAMINE 30 MG/ML VIAL IVP (21:01)
[2025-04-13] MEDS: 0.9 % SODIUM CHLORIDE 1,000 ML 1000 ML IV (21:01)
[2025-04-13 21:03] LABS: Hematocrit 38.8 % (36.0-48.0); Hemoglobin 12.0 g/dL (12.0-16.0); Immature Granulocytes Abs Auto 0.07 10^3/uL (0.00-0.03); Immature Granulocytes Pct Auto 0.5 % (0.0-0.5); Lymphocytes Absolute Auto 1.4 10^3/uL (1.2-3.8); Mean Corpuscular HGB Conc 30.9 g/dL (29.9-35.2); Mean Corpuscular Hemoglobin 25.1 pg (26.7-34.0); Mean Corpuscular Volume 81.2 fL (81.0-99.0); Platelet Count 258 10^3/uL (150-450); Red Blood Count 4.78 10^6/uL (4.20-5.40); White Blood Count 15.2 10^3/uL (4.0-11.0)
[2025-04-13 21:22] LABS: Lactate/Lactic Acid 1.1 mmol/L (0.4-2.0)
[2025-04-13 21:25] LABS: Alanine Aminotransferase 23 U/L (14-59); Albumin Globulin Ratio 0.7; Albumin Level 3.7 g/dL (3.4-5.0); Alkaline Phosphatase 117 U/L (46-116); Anion Gap 14.7; Aspartate Amino Transferase 6 U/L (15-37); Blood Urea Nitrogen 18.0 mg/dL (7.0-18.0); Calcium 9.5 mg/dL (8.5-10.1); Carbon Dioxide 28.4 mmol/L (21.0-32.0); Chloride 101 mmol/L (98-107); Estimated GFR (African America >60 (>=60 mL/min/1.73m^2); Estimated GFR (Non-African Ame >60 (>=60 mL/min/1.73m^2); Globulin 5.2 g/dL; Glucose 122 mg/dL (74-106); Potassium 4.1 mmol/L (3.5-5.1); Sodium 140 mmol/L (136-145); Total Protein 8.9 g/dL (6.4-8.2)
[2025-04-13 21:26] LABS: Glucose Urine UA NEGATIVE (NEGATIVE)
[2025-04-13 21:36] LABS: Crystals Seen? Seen #/HPF (None Seen); Urine Culture Indicated YES-FRMC
[2025-04-13 21:38] LABS: Cast Seen? SEEN #/LPF (NONE SEEN)
[2025-04-13] MEDS: MORPHINE SULFATE 4 MG/ML VIAL IV (22:26)
[2025-04-13] MEDS: CIPROFLOXACIN IN 5 % DEXTROSE 400 MG/200 ML PREMIX 200 MG IV (22:26)
[2025-04-13] MEDS: OXYCODONE HCL/ACETAMINOPHEN 5MG/325MG 1 TAB PO (23:40)
[2025-04-13] MEDS: ONDANSETRON 4 MG RAPDIS TABLET SL (23:40)
[2025-04-13] MEDS: OXYCODONE HCL/ACETAMINOPHEN 5MG/325MG 2 TAB PO (23:40)
--- NOTE | 2025-04-13 23:59 | PC.NURSE ---
Patient arrived to ED in personal electric wheelchair. She has hx of cerebral palsy and is non ambulatory. She is a tayler lift at home for transfers and has her own lift under her at time of arrival. Our tayler lift isnt compatible with her sling, so a slide sheet is used along with three nurses and her personal chiropractic care to transfer the patient from wheelchair to bed.
== END 2025-04-14 00:07 | disposition home or self-care (01) ==
PROVIDERS: Emergency Provider Emergency Medicine
DX: N13.6 Pyonephrosis (principal); G80.9 Cerebral palsy, unspecified; Z99.3 Dependence on wheelchair; Z87.442 Personal history of urinary calculi; R50.9 Fever, unspecified; K59.00 Constipation, unspecified; R11.0 Nausea
CPT/HCPCS: 36415; 74176; 80053; 81001; 83605; 85025; 87086; 87088; 87186; 96365; 96375; 99285; J0744; J1885; J2270; J2405; Q0162

== ENCOUNTER 2025-04-22 16:19 | Emergency (ER) | payer MEDICAID, SELFPAY ==
--- OUTSIDE RECORDS SUMMARY | 2025-04-10 09:00 | XMS_ITS | Encounter Summary ---
Author Organization [facility] Address [facility] [address] Care Team Providers Care Sales Operations Director Name Role Phone Isaias Saleh MD Unavailable [phone] Source Comments In the event this information is protected by the Federal Confidentiality of Alcohol and Drug AbusePatient Records regulations: The Federal rules restrict any use of the information to criminally investigate or prosecute any alcohol or drug abuse patient.[facility] Reason for Referral * MRI/CT (Routine) - AuthorizedSpecialtyDiagnoses / ProceduresReferred By ContactReferred To ContactCT IMAGING Diagnoses Calculus of kidney Procedures CT FLANK WO IVCON CT ABD & PELVIS W/O CONTRAST Axel Ruth MD [address] [place] [address] Phone: tel: fax: [facility] [address] Referral IDStatusReasonStart DateExpiration DateVisits RequestedVisits [id number] Auto-Generated Referral Reason for Visit * ReasonCommentsEstablished Patient Encounter Details DateTypeDepartmentCare Team (Latest Contact Info)Rmsrfxdvgpl81/13/2025 9:00 AM EDTOffice Visit Urology [address] [address] Axel Ruth MD [address] [place] [address] Neurogenic bladder (Primary Dx); Calculus of kidney; Presence of indwelling urinary catheter; Recurrent urinary tract infection Social History Tobacco UseTypesPacks/DayYears UsedDateSmoking Tobacco: NeverSmokeless Tobacco: NeverAlcohol UseStandard Drinks/WeekCommentsNot Asked0 (1 standard drink = 0.6 oz pure alcohol)[facility] UtilitiesAnswerDate RecordedIn the past 12 months has the electric, gas, oil, or water [employer] threatened to shut off services in your home?No08/10/2024Overall Financial Resource Strain (CARDIA)AnswerDate Recorded How hard is it for you to pay for the very basics like food, housing, medical care, and heating?Not hard at all07/22/2022Hunger Vital SignAnswerDate Recorded Within the past 12 months, you worried that your food would run out before you got the money to buymore.Never true08/10/2024Within the past 12 months, the food you bought just didn't last and you didn't have money to get more.Never true 08/10/2024PRAPARE - TransportationAnswerDate RecordedIn the past 12 months, has lack of transportation kept you from medical appointments or from getting medications?No08/10/2024In the past 12 months, has lack of transportation kept you from meetings, work, or from getting things needed for daily living?No 08/10/2024Housing Stability Vital SignAnswerDate RecordedUnable to Pay for Housing in the Last YearNot on file10/06/2023In the last 12 months, how many places have you lived?In the last 12 months, was there a time when you did not have a steady place to sleep or slept in ashelter (including now)?No 10/06/2023Housing Stability Vital SignAnswerDate RecordedIn the last 12 months, was there a time when you were not able to pay the mortgage or rent on time?No 08/10/2024In the past 12 months, how many times have you moved where you were living?t any time in the past 12 months, were you homeless or living in a intermediate (including now)?No08/10/2024rea Deprivation IndexAnswerDate RecordedNational Score (1-100), lower number is lower hdcq516911/17/2024State Score (1-10), lower number is lower [id number] from: https://www.neighborhoodatlas.[facility].edu/. Last address used for calculation3 spring11/17/2024CommentsNoSex and Gender Information ValueDate RecordedSex Assigned at LzcklUfophc80/30/2025 6:31 PM ESTLegal Sex Kmrifq7405/30/2012 8:16 AM ESTGender FggtornbEbwehd89/30/2025 6:31 PM ESTSexual OrientationNot on filedocumented as of this encounter Functional Status * Are you deaf or do you have serious difficulty hearing?AnswerDate of FifqsaucckRwtvtzQz50/12/2025 2:00 PM Ashli Mcgrath RN * Are you blind or do you have serious difficulty seeing, even when wearing glasses?AnswerDate of GsfebizaodAvyrhaQj58/12/2025 2:00 PM Ashli Mcgrath RN * Do you have serious difficulty walking or climbing stairs?AnswerDate of MkfydrzdtcPdlujjFyl17/12/2025 2:00 PM Ashli Mcgrath RN * Do you have difficulty dressing or bathing?AnswerDate of AssessmentAuthorYes 08/10/2024 2:00 PM Ashli Mcgrath RN * Because of a physical, mental, or emotional condition, do you have difficulty doing errands alone such as visiting a doctor's office or shopping?AnswerDate of FbypuftzwzGmcwmzKki76/12/2025 2:00 PM Ashli Mcgrath RN documented as of this encounter Mental Status * Because of a physical, mental, or emotional condition, do you have serious difficulty concentrating, remembering, or making decisions?AnswerEntry Date JhzhzkYpn23/12/2025 2:00 PM Ashli Mcgrath RN documented in this encounter Progress Notes * Axel Ruth MD - 04/10/2025 9:28 AM EDT [facility] NEW PATIENT HISTORY AND PHYSICAL EXAM PATIENT INFO: Devorah Lerma 39 year old PCP: No primary care provider on file. Date of Service: April 10, 2025 CHIEF COMPLAINT: Nephrolithiasis HPI: Recording using ambient Bliz[employer] software for draft documentation of the visit was discussed with the patient/authorized manufacturers representative; all questions welcomed and answered. Patient/authorized manufacturers representative agreed to proceed The patient is a 39-year-old female on wheel chair with nephrolithiasis and a chronic indwelling urinary catheter, presenting for evaluation of recurrent urinary tract infections and follow-up of kidney stones. Accompanied by Saundra. Interval Visit 08/31/24 38 year old year-old female with bilateral nephrolithiasis, recent right PCNL. Preoperative imagingshowed a left staghorn stone. She already had a right PCNL with antegrade URS and laser lithotripsyto address her right stone burden on 08/08/24, she underwent left PCNL on 08/22/24 Stone composition Calculus Composition 1 90% Calcium Phosphate 80% Calcium Phosphate 80% Calcium Phosphate 90% Calcium Phosphate Calculus Composition 2 10% Minor Components 20% Magnesium Ammonium Phosphate 20% Magnesium AmmoniumPhosphate 10% Minor Components Stone culture proteus and yovana glabrata We will keep the patient on ow dose of Cipro 250 mg for 6 months, we will start her on Methenamine 1 gr bid for 6 months, no other oral alternative to protect her due to multiple Abx allergies We will increase dose of anticholinergic Ditropan to 10 mg daily Interval Visit 11/03/24 The patient is a 39-year-old female with a history of nephrolithiasis, presenting for follow-up. Nephrolithiasis: - History of nephrolithiasis with previous PCNL surgeries on both the right and left sides. - Previously prescribed ciprofloxacin 250 mg daily; discontinued after a few weeks by retirement physicians. - Recent ER visit on 10/26 for left flank pain, catheter dysfunction, and UTI. - Pain was described as sharp and localized to the left side and lower back; has since resolved. - Currently no pain, no ever or chills - Currently residing in a alf; uncertain about current medication administration. KUB Not conclusive evidence of a right kidney stone. US not performed Interval Visit 04/10/25 The patient is a 39-year-old female with a history of nephrolithiasis, presenting for follow-up. Nephrolithiasis: - Known bilateral renal calculi. - 2 ED visits since October due to renal pain. - Passed a stone approximately one month ago. - Reports frequent UTIs, with one hospitalization. - Current antibiotic therapy with clindamycin BID for a cutaneous infection. - Indwelling urinary catheter, changed every four weeks. - Recent catheter change noted to be difficult, with crystallization observed. IMAGING: Imaging Reviewed. Radiology report may be copied below for ease of reference. Imaging: - Renal imaging: Bilateral nephrolithiasis; nonobstructing. Left kidney with small calculi; right kidney with larger calculi. Ultrasound on 04/03/25 NO HYDRONEPHROSIS. BILATERAL NEPHROLITHIASIS, right several less than 1.1 cm nonobstructing right renal stones, worse since 11/15/2024, left 1 cm nonobstructing left upper renal stone, improved since 11/15/2024. KUB on 04/03/25: Right side nephrolithiasis, unchanged PATHOLOGY: Stone Analysis: as above Urine Culture LABS: Creatinine Date Value Ref Range Status 08/25/2024 0.40 (L) 0.58 - 0.96 mg/dL Final 08/24/2024 0.53 (L) 0.58 - 0.96 mg/dL Final 08/23/2024 0.63 0.58 - 0.96 mg/dL Final 08/22/2024 0.57 (L) 0.58 - 0.96 mg/dL Final URINALYSIS: Specific [place], Ur Date Value Ref Range Status 08/22/2024 1.010 1.005 - 1.030 Final Glucose, Urine Date Value Ref Range Status 08/22/2024 Negative Negative Final Bilirubin, Urine Date Value Ref Range Status 08/22/2024 Negative Negative Final Ketones, Urine Date Value Ref Range Status 08/22/2024 Negative Negative Final Hemoglobin/Blood,Ur Date Value Ref Range Status 08/22/2024 Trace (A) Negative Final Protein, Urine Date Value Ref Range Status 08/22/2024 Negative Negative Final Nitrites Date Value Ref Range Status 08/22/2024 Positive (A) Negative Final WBC, Urine Date Value Ref Range Status 08/22/2024 >20 /HPF (A) 0-5 /HPF Final HISTORIES PAST MEDICAL HISTORY Diagnosis Date Anxiety and depression Cauda equina syndrome with neurogenic bladder (HCC) Cerebral palsy (HCC) History of COVID-19 Nephrolithiasis Obesity Other specified infantile cerebral palsy Recurrent UTI Urge incontinence PAST SURGICAL HISTORY Procedure Laterality Date PAST SURGICAL HISTORY OF ureteral stent PAST SURGICAL HISTORY OF Right ureteral stent extraction SOCIAL HISTORY[1] ALLERGIES: ALLERGIES Allergen Reactions Baclofen Mental Status Change The pt has seizures from this medication Amoxicillin-Pot Cla* Diarrhea masssive amounts of diarrhea stools UP TO HER ELBOWS Grapefruit Other: See Comments MEDICATIONS: Current Outpatient Medications Medication Sig CALCIUM CITRATE PO Take by mouth. oxybutynin ER (DITROPAN XL) 10 mg 24 hr tablet Take 1 tablet by mouth once daily. ondansetron (ZOFRAN) 4 mg tablet Take 1 tablet by mouth every 8 hours as needed for nausea/vomitingfor up to 30 doses. acetaminophen (TYLENOL) 325 mg tablet Take 2 tablets by mouth every 6 hours as needed for pain for up to 40 doses. (Patient taking differently: Take 1,000 mg by mouth every 6 hours as needed for pain.) Ibuprofen 200 mg cap Take 3 capsules by mouth every 8 hours as needed for pain (for pain). lamoTRIgine (LAMICTAL) 25 mg tablet Take 50 mg by mouth two times a day. Take with lamotrigine 200 mg to total 250 mg Senna 8.6 mg tab Take 8.6 mg by mouth daily at bedtime. (Patient taking differently: Take 8.6 mg bymouth once daily as needed for constipation.) buPROPion (WELLBUTRIN) 75 mg tablet Take 75 mg by mouth once daily. calcium carbonate (TUMS) 500 mg chew Take 500 mg by mouth every 8 hours as needed (indigestion). cholecalciferol (VITAMIN D3) 1,000 unit tab tablet Take 1,000 Units by mouth once daily. omeprazole (PRILOSEC) 20 mg capsule Take 20 mg by mouth once daily. Chlorhexidine Gluconate (PERIDEX) 0.12 % solution Use 15 mL as instructed every 12 hours as needed (mouth pain). lidocaine (SALONPAS) 4 % patch Apply 1 Patch as directed at bedtime as needed. prazosin (MINIPRESS) 1 mg cap Take 1 mg by mouth daily at bedtime. oxybutynin (DITROPAN) 5 mg tablet Take 1 tablet by mouth three times a day. (Patient taking differently: Take 1 tablet by mouth three times a day.) bismuth subsalicylate (BISMATROL) 262 mg/15 mL oral liquid Take 30 mL by mouth every 6 hours as needed. Until diarrhea stops, for a total of 16 ounces, then d/c. zinc oxide-cod liver oil (DESITIN 40%) 40 % paste Apply 1 application to affected area as needed. ascorbic acid, vitamin C, (VITAMIN C) 500 mg tablet Take 500 mg by mouth two times a day. busPIRone (BUSPAR) 5 mg tablet Take 5 mg by mouth two times a day. (Patient taking differently: Take 30 mg by mouth two times a day.) polyethylene glycol 3350 17 gram packet Take 17 g by mouth once daily. Dissolve dose in 4 - 8 ounces of liquid and take as directed. tiZANidine (ZANAFLEX) 2 mg tablet Take 2 mg by mouth two times a day. pyridoxine, vitamin B6, (VITAMIN B6) 100 mg tablet Take 100 mg by mouth once daily. melatonin 3 mg capsules Take 6 mg by mouth daily at bedtime. bisacodyl (DULCOLAX) 10 mg supp 10 mg by RECTAL route once daily as needed for constipation (if no results from MOM). cyclobenzaprine (FLEXERIL) 5 mg tablet Take 5 mg by mouth three times a day. For bladder spasm potassium phosphate, monobasic (K-PHOS ORIGINAL) 500 mg tablet Take 500 mg by mouth once daily. furosemide (LASIX) 40 mg tablet Take 40 mg by mouth once daily. loratadine (CLARITIN) 10 mg tablet Take 10 mg by mouth once daily. QUEtiapine 150 mg tablet Take 150 mg by mouth daily at bedtime. risperiDONE (RISPERDAL) 0.5 mg tablet Take 0.5 mg by mouth twice daily. GABAPENTIN 600 MG TAB Take 1,800 mg by mouth three times a day. lamoTRIgine (LAMICTAL) 200 mg tablet Take 200 mg by mouth two times a day. Take with 2 x 25 mg tablet to total 250 mg sertraline (ZOLOFT) 100 mg tablet Take 200 mg by mouth once daily. levETIRAcetam (KEPPRA) 1,000 mg tablet Take by mouth. Take 1 tablet (1000 mg) in AM and 2 tablets (2000 mg) in PM ciprofloxacin HCl (CIPRO) 500 mg tablet TAKE 1 TABLET BY MOUTH TWICE DAILY HOLD ZANAFLEX WHILE USING (Patient not taking: Reported on 04/10/2025) oxybutynin ER (DITROPAN XL) 10 mg 24 hr tablet Take 1 tablet by mouth once daily. (Patient not taking: Reported on 04/10/2025) Methenamine Hippurate (HIPREX) 1 gram tablet Take 1 tablet by mouth two times a day. (Patient not taking: Reported on 04/10/2025) guaiFENesin (MUCINEX) 600 mg 12 hr tablet Take 1 tablet by mouth two times a day as needed for cold/allergy symptoms. (Patient not taking: Reported on 04/10/2025) albuterol (PROVENTIL) 2.5 mg /3 mL (0.083 %) nebulizer solution Use 2.5 mg via nebulizer every 6 hours as needed for wheezing/shortness of breath. (Patient not taking: Reported on 04/10/2025) benzonatate (TESSALON PERLE) 100 mg capsule Take 100 mg by mouth every 8 hours as needed for cough.(Patient not taking: Reported on 04/10/2025) meclizine (ANTIVERT) 25 mg tab Take 25 mg by mouth every 8 hours as needed (dizziness). (Patient not taking: Reported on 04/10/2025) menthol (BIOFREEZE, MENTHOL,) 4 % topical gel Apply 1 Application to affected area every 8 hours asneeded (low back pain). (Patient not taking: Reported on 04/10/2025) sodium phosphate-sodium bisphosphate (FLEET ENEMA) enema 1 Enema by RECTAL route once daily as needed for constipation (if no results from suppository). (Patient not taking: Reported on 04/10/2025) midodrine (PROAMATINE) 2.5 mg tablet Take 2.5 mg by mouth three times daily. (Patient not taking: Reported on 04/10/2025) magnesium hydroxide (MOM) 400 mg/5 mL suspension Take 30 mL by mouth once daily as needed for constipation (if no BM in 3 days). (Patient not taking: Reported on 04/10/2025) No current facility-administered medications for this visit. REVIEW OF SYSTEMS Skin: (+) abdominal open lesion General: In Wheelchair No weight loss, malaise or fevers., SEE HPI Respiratory: Negative for cough, wheezing or shortness of breath. Cardiovascular: Negative for chest pain, leg swelling or palpitations. Anticoagulation meds - No Genitourinary: see HPI PHYSICAL EXAMINATION LMP 02/06/2009 There is no height or weight on file to calculate BMI. General: No acute distress Cardiovascular: No Cyanosis, No edema. Respiratory: Non labored breathing, no cough, no use of accessory muscles. PROBLEMS & PLAN: 1. Calculus of kidney, bilateral kidney stones, non obstructive - ICD9: 592.0, ICD10: N20.0 2. Neurogenic bladder 3. Presence of indwelling urinary catheter - ICD9: V45.89, ICD10: Z96.0 4. Recurrent urinary tract infection - ICD9: 599.0, ICD10: N39.0 - Bilateral renal calculi noted, with larger stones on the right side. Previous CT scan was orderedbut not completed; reordering CT scan to assess for any changes in stone size or position. - Scheduled follow-up in [address] results and evaluate the need for further intervention. - Advised patient to monitor for symptoms such as fever, infection, or pain and to report any emergency room visits related to these symptoms. - Catheter changes every 4 weeks; recent difficulty with catheter removal due to crystallization noted. Advised that urine samples for culture should be taken during catheter changes if infection is suspected. No additional antibiotics prescribed at this time. - Multiple recent UTIs reported. Currently on clindamycin twice daily for a separate skin infection. Urine appears clear; emphasized the importance of obtaining urine samples during catheter changes for accurate culture results. Monitor for signs of infection and report any new symptoms. The patient decided to proceed with the above plan. The patient was given the opportunity to have all questions answered and appeared to be satisfied with our discussion. Some elements of this note may be copied from previous versions, however, all data and information has been reviewed and verified and is accurate for today October 06, 2024 Axel Ruth MD Urology Associate Staff Electronically signed Medical Decision Making: Problems: Moderate: 2+ stable chronic illnesses Data: Unique test result(s) reviewed: 1 Independent interpretation of test from other physician/QHCP Risk: Moderate: Moderate risk from testing/treatment Medical Decision Making Level: 4 - Moderate [1] Social History Tobacco Use Smoking status: Never Smokeless tobacco: Never documented in this encounter Plan of Treatment DateTypeDepartmentCare Team (Latest Contact Info)Ztspynwomdm59/30/2025 11:30 AM EDTOffice Visit Gynecology [address] [place] [phone] Shaye Pittman DO [address] [place] [address] Menorrhagia with regular cycle [N92.0] Patient interested in injections to help her hqunxkg8105/01/2025 9:20 AM ESTHospital Encounter Admitting [address] [place] [address] Axel Ruth MD [address] [place] [address] Nephrolithiasis [N20.0]05/01/2025 9:20 AM EST - 05/01/2025 12:00 PM ESTSurgery Admitting [address] [place] [id number] Axel Ruth MD [address] [place] [address] CYSTOURETHROSCOPY W/ URETEROSCOPY AND/OR PYELOSCOPY W/ LITHOTRIPSY INCLUDE INSERTION OF INDWELLING URETERAL STENT05/04/2025 10:30 AM ESTOffice Visit Urology [address] [address] Axel Ruth MD [address] [place] [address] Surgical consult will bring cyidvzh9007/11/2025 9:00 AM ESTAppointment Radiology [address] [address] [address] FLANK WO IVCON07/11/2025 9:30 AM ESTOffice Visit Urology [address] [address] Farzana Davis APRN.ELECTRICIAN [employer]ING [address] [place] [address] 3 month f/u with CT prior per cc chartNameTypePriorityAssociated DiagnosesOrder ScheduleCT FLANK WO IVCONRadiologyRoutine Calculus of kidney Expected: 07/11/2025, Expires: 05/10/2026NamePriorityAssociated Diagnoses Date/TimeCYSTOURETHROSCOPY W/ URETEROSCOPY AND/OR PYELOSCOPY W/ LITHOTRIPSY INCLUDE INSERTION OF INDWELLING URETERAL STENT Nephrolithiasis 05/01/2025 9:20 AM ESTdocumented as of this encounter Visit Diagnoses Diagnosis Neurogenic bladder- Primary Neurogenic bladder, NOS Calculus of kidney Presence of indwelling urinary catheter Other postprocedural status Recurrent urinary tract infection Urinary tract infection, site not specified Nephrolithiasis Calculus of kidney documented in this encounter Care Teams Team MemberRelationshipSpecialtyStart DateEnd Date Isaias Saleh MD [address] [facility] [place] [id number] ReferringUrology02/26/22documented as of this encounter
--- OUTSIDE RECORDS SUMMARY | 2025-04-14 11:44 | XMS_ITS | Encounter Summary ---
Author Organization [facility] Address [address] [place] [address] Care Team Providers Care Cold Rolling Coordinator Name Role Phone sIaias Saleh MD Unavailable [phone] William Cruz CNP Unavailable [phone] Source Comments In the event this information is protected by the Federal Confidentiality of Alcohol and Drug AbusePatient Records regulations: The Federal rules restrict any use of the information to criminally investigate or prosecute any alcohol or drug abuse patient.[facility] Reason for Referral * Transition of Care (Routine)SpecialtyDiagnoses / ProceduresReferred By Contact Referred To ContactINFECTIOUS DISEASES [facility] [address] [place] [phone] Phone: tel: Referral IDStatusReasonStart DateExpiration DateVisits RequestedVisits Authorized PCP Requested Referral Reason for Visit * ReasonCommentsFlank PainSeen at OSH and told she has left kidney stone, unable to flush suprapubic catheter this morning * Auth/Cert (Routine)SpecialtyDiagnoses / ProceduresReferred By ContactReferred To ContactHOSP INPATIENT Diagnoses Kidney stone Kidney stones Procedures [facility] [address] [place] [address] Phone: tel: Referral IDStatusReasonStart DateExpiration DateVisits RequestedVisits [id number] Encounter Details DateTypeDepartmentCare Team (Latest Contact Info)Zhcwjfafvgy44/17/2025 11:44 AM EDT - 04/16/2025 4:01 PM EDTHospital Encounter [facility] G[address] [place] [address] Maribell Alba MD [address] [id number] Kidney stone [N20.0] Discharge Disposition: Home Social History Tobacco UseTypesPacks/DayYears UsedDateSmoking Tobacco: NeverSmokeless Tobacco: NeverAlcohol UseStandard Drinks/WeekCommentsNot Asked0 (1 standard drink = 0.6 oz pure alcohol)Overall Financial Resource Strain (CARDIA)AnswerDate RecordedHow hard is it for you to pay for the very basics like food, housing, medical care, and heating?Not hard at all07/22/2022Housing Stability Vital SignAnswerDate RecordedUnable to Pay for Housing in the Last YearNot on file10/06/2023In the last 12 months, how many places have you lived?In the last 12 months, was there a time when you did not have a steady place to sleep or slept in a half-way (including now)?No10/06/2023Housing Stability Vital SignAnswerDate RecordedIn the last 12 months, was there a time when you were not able to pay the mortgage or rent on time?No08/10/2024In the past 12 months, how many times have you moved where you were living?t any time in the past 12 months, were you homeless or living in a half-way (including now)?No08/10/2024 Hunger Vital SignAnswerDate RecordedWithin the past 12 months, you worried that your food would run out before you got the money to buymore.Never true04/16/2025 Within the past 12 months, the food you bought just didn't last and you didn't have money to get more.Never true04/16/2025PRAPARE - TransportationAnswerDate RecordedIn the past 12 months, has lack of transportation kept you from medical appointments or from getting medications?No04/16/2025In the past 12 months, has lack of transportation kept you from meetings, work, or from getting things needed for daily living?No04/16/2025Housing Stability Vital SignAnswerDate RecordedIn the last 12 months, was there a time when you were not able to pay the mortgage or rent on time?No04/16/2025Number of Times Moved in the Last Year Not on file04/16/2025t any time in the past 12 months, were you homeless or living in a half-way (including now)?No04/16/2025HC UtilitiesAnswerDate Recorded In the past 12 months has the electric, gas, oil, or water company threatened to shut off services in your home?04/16/2025rea Deprivation IndexAnswerDate RecordedNational Score (1-100), lower number is lower zrpm702311/17/2024State Score (1-10), lower number is lower vbfe618Data from: https://www.neighborhoodatlas.medicine.[facility].edu/. Last address used for calculation3 spring11/17/2024CommentsNoSex and Gender Information ValueDate RecordedSex Assigned at XfdtvDmmvnk68/30/2025 6:31 PM ESTLegal Sex Qkfnub9305/30/2012 8:16 AM ESTGender LhgdcpduLxvoyd71/30/2025 6:31 PM ESTSexual OrientationNot on filedocumented as of this encounter Last Filed Vital Signs Vital SignReadingTime TakenCommentsBlood Hcjbxdtw759/7204/16/2025 1:35 PM EDT Ndlft008004/16/2025 1:35 PM ZZBDfgqssuqxag95.3 ??C (97.3 ??F)04/16/2025 7:16 AM EDTRespiratory Xzbd9114 1:35 PM EDTOxygen Lbcsyyvzgf86%04/16/2025 7:16 AM EDTInhaled Oxygen Concentration--Rxagmh422.3 kg (230 lb)04/14/2025 11:43 AM CKDSrjyos497.4 cm (5')04/14/2025 11:43 AM EDTBody Mass Index44.9204/14/2025 11:43 AM EDTdocumented in this encounter Functional Status * Are you deaf or do you have serious difficulty hearing?AnswerDate of BjgxeekjmqXtftpnGu57/19/2025 3:00 PM Bernice Carmona RN * Are you blind or do you have serious difficulty seeing, even when wearing glasses?AnswerDate of VurbxzapvgYarluwVr10/19/2025 3:00 PM Bernice Carmona RN * Do you have serious difficulty walking or climbing stairs?AnswerDate of XkmixnabvgHgiareOud15/19/2025 3:00 PM Bernice Carmona RN * Do you have difficulty dressing or bathing?AnswerDate of AssessmentAuthorYes 04/16/2025 3:00 PM Bernice Carmona RN * Because of a physical, mental, or emotional condition, do you have difficulty doing errands alone such as visiting a doctor's office or shopping?AnswerDate of FbasvepgfjUpytztDj93/19/2025 3:00 PM Bernice Carmona RN documented as of this encounter Mental Status * Because of a physical, mental, or emotional condition, do you have serious difficulty concentrating, remembering, or making decisions?AnswerEntry Date LrknmzKl79/19/2025 3:00 PM Bernice Carmona RN documented in this encounter Discharge Instructions * Discharge Instr - Other Orders* Godwin Mcmahon MD - 04/15/2025 3:16 PM EDT Instructions for My Care at Home or Healthcare Facility Cystoscopies and other Genitourinary Endoscopy The following instructions will help you know what to expect in the days following your procedure. Do not, however, hesitate to call if you have questions or concerns. Activities You can resume your normal activities as tolerated. Diet Start with clear liquids or light foods and if you are feeling well enough, progress to your normaleating pattern. Make sure to drink a lot of fluids to keep your urine clear. Pain Control You may use acetaminophen (Tylenol??), or naproxen (Aleve??), or ibuprofen (Advil??/Motrin??) for discomfort. Be sure to eat something before taking naproxen (Aleve??) or ibuprofen. Antibiotics: Please take Cefdinir 300 mg po twice daily x 7 days Special Instructions You will be required to urinate before leaving the recovery room. The first few times you urinate, you may feel some burning and your urine may be somewhat bloody. Gradually your urine should clear and become more yellow in color. Drinking lots of fluids is important and will help speed this process. If you start to pass large clots or have a fever of 102 or greater, please notify the doctor???s office or call the [facility] batch plant operator at [phone] and ask for the urology resident loss prevention associate. If you are unable to urinate after 8 hours and become uncomfortable, go to the [facility] Emergency Room. If a catheter is in place, empty the bag when full. Follow the instructions given to you in the hospital. Your catheter will be removed during your office visit. Follow up: If not already arranged, the physician's office should call or mail you follow- up information. Please call the physician's office or appointment line ([phone]) if you do not receive your follow-up appointment, it is not listed at the end of this document, or if you need to reschedule as the cur rently scheduled appointment is inconvenient for you. What is a ureteral stent? A ureteral stent (also called a double J stent) is a soft, hollow tube about 10- to 12 inches long made of a flexible plastic material. It is a very thin tube about the size of a coffee swizzle stick. It isplaced in the ureter, which is the muscular tube that drains urine from the kidney to the bladder. Each end of the stent is shaped like a pigtail. One end of the tube sits in the kidney, and one endsits in the bladder as an anchor. What does a ureteral stent do? A ureteral stent holds the ureter open. Without thestent, urine may not be able to drain from the kidney to the bladder. The stent is kept in place until swelling from the procedure goes down or any blockage has been cleared. When is a ureteral stent used? A stent is used in a number of situations. Your surgeon will decide if a stent is necessary at the end of your procedure. Does a ureteral stent cause any symptoms? The degree of discomfort varies from patient topatient. Some patients do not experience any symptoms while the stent is in place.However, when there are symptoms, one of the more commonly seen is bladder irritation. Bladder irritation can cause: ? an increase in the number of times needed to pass urine (frequency) ? a feeling of the need to pass urine ???right now??? (urgency) ? a feeling that the bladder has not completely emptied ? painful urination, including a burning sensation, bladder and kidney pain, and/ or groin pain Some patients experience leakage of urine, especially women. Stents can also make you feel tired. Almost every patient will see blood in his/her urine while the stent is in place. The bleeding can ???come and go.?? Please note that you may actually see more blood in your urine as you start to feel better. This is because as you feel better, you begin to increase your activity. Activity causes the stent to irritate the lining of the bladder and ureter as it moves up and down with your movements. Your urine may range incolor from pink to mckeon red. Stent At-Home Instructions One third of patients will have some cramps in the kidney after the stent is removed that usually resolves after 48 hours. Follow these steps to decrease or relieve any symptoms you may have while the ureteral stent is in place: ? Drink liquids. The most important step is to drink 1?? to 2 liters of fluids a day. Fluids keep the ureter clear and draining well, decrease the amount of blood in the urine, and reduce the risk ofinfection. Fluids also help keep kidney stones and bladder stones from redeveloping. ? Take medications as prescribed. The most common medication used to treat ureteral stent ???spasms?? is oxybutynin or ditropan. Sometimes Flomax?? is used as well or instead. These medications calmdown the ureter and bladder. (They act like a ???sedative?? for the urinary tract.) ? Take pain medication only as needed. Narcotic pain pills are known to cause constipation, which can make your symptoms worse. ? Use heat to increase your comfort level. Taking a hot shower or bath or using a heating pad can increase your comfort level. (Be CAREFUL. Don???t keep the temperature so high that you might burn yourself) Pain while passing urine, should improve with TIME and by taking your medications as directed untilyour stents are finally removed. How is a stent removed? Typically, a stent is removed using a cystoscope. Cystoscopy is an outpatient procedure that only takes a few minutes to perform and causes very little discomfort. It is performed in aprocedure room on floor Q9. A cystoscope is a small flexible scope that is inserted into the urethra. Before the cystoscope is inserted, a local anesthetic gel (lidocaine) is used to numb the urethra. Because this is an in-office procedure, you do NOT need a stage driver to take you home. Also, there are no dietary restrictions before your procedure. You may eat and drink as you normally do. Please takeall of your medications as directed. There is no need to stop taking blood thinners such as coumadin or aspirin. Your urologist may decide to attach a ???pull-out?? string to the stent. This string hangs out of the urethra (the opening where urine exits the body). The stent is easily removed by pulling on the string that is attached to the stent. On rare occasions, the string breaks and the stent can???t be easily removed. In this case, the stent is removed by cystoscopy. Note: If a string is left, it is uncommon for a stent to fall out on its own. If you notice that the stent has passed with your urine, please call the office. It may or may not need to be replaced. When can my stent be removed? You will be told when your stent can be removed. For stents with ???pull-out?? strings attached, the stents are usually removed 3 to 4 days after the procedure. In most patients, ureteral stents need to remain in place for a longer period of time (typically 5-14 days).If you do not have a stent with a ???pull-out??? string attached or the string breaks anddoesn???t come out, an in-office appointment needs to be made to have the stent removed.Please call your doctor???s office to make an appointment and/or to check if one has already been made for you. When should I call my doctor???s office for possible immediate help? Call the doctor???s office: - If your urine is the color of tomato juice or if you are seeing blood clots. - If you are having constant and unbearable pain associated with the stent. - If you have symptoms of a urinary tract infection (temperature > than 101F) pain while passingurine, or generally not feeling well). - It the stent gets dislodged or falls out. - If you notice a significant change in the amount of blood in your urine. - If you need to be reassured that the symptoms you are having are normal parts of the healing process. Follow Up: YOU HAVE FOLLOW UP WITH DR. MELGAR on 05/04, FOLLOW UP HAS BEEN REQUESTED FOR AN EARLIER DATE. IFYOU DO NOT HEAR ANYTHING BY THE MIDDLE OF THE WEEK CALL THE NUMBERS BELOW Important Phone Numbers to make appointments: Urology Office and Appointment Line: [phone] [facility] (Not Urology) Appointment Line: [phone] [facility] Radiology: [phone] [facility] Interventional Radiology: [phone] Outpatient Lab: [phone] or [phone] documented in this encounter Medications at Time of Discharge MedicationSigDispense QuantityRefillsLast FilledStart DateEnd Date ondansetron (ZOFRAN) 4 mg tablet Take 1 tablet by mouth every 8 hours as needed for nausea/vomiting for up to 30 doses. 30 tablet 08/25/2024 Ibuprofen 200 mg cap Take 3 capsules by mouth every 8 hours as needed for pain (for pain).08/10/2024 albuterol (PROVENTIL) 2.5 mg /3 mL (0.083 %) nebulizer solution Use 2.5 mg via nebulizer every 6 hours as needed for wheezing/shortness of breath. lamoTRIgine (LAMICTAL) 25 mg tablet Take 50 mg by mouth two times a day. Take with lamotrigine 200 mg to total 250 mg Senna 8.6 mg tab Take 8.6 mg by mouth daily at bedtime. buPROPion (WELLBUTRIN) 75 mg tablet Take 75 [...] Take 1 mg by mouth daily at bedtime.07/13/2024 bismuth subsalicylate (BISMATROL) 262 mg/15 mL oral liquid Take 30 mL by mouth every 6 hours as needed. Until diarrhea stops, for a total of 16 ounces, then d/c. 473 mL zinc oxide-cod liver oil (DESITIN 40%) 40 % paste Apply 1 application to affected area as needed.10/08/2023 ascorbic acid, vitamin C, (VITAMIN C) 500 mg tablet Take 500 mg by mouth two times a day. busPIRone (BUSPAR) 5 mg tablet Take 5 mg by mouth two times a day. polyethylene glycol 3350 17 gram packet Take 17 g by mouth once daily. Dissolve dose in 4 - 8 ounces of liquid and take as directed. tiZANidine (ZANAFLEX) 2 mg tablet Take 2 mg by mouth two times a day.05/24/2023 pyridoxine, vitamin B6, (VITAMIN B6) 100 mg [...] three times a day. For bladder spasm sodium phosphate-sodium bisphosphate (FLEET ENEMA) enema 1 Enema by RECTAL route once daily as needed for constipation (if no results from suppository). potassium phosphate, monobasic (K-PHOS ORIGINAL) 500 mg [...] Take 200 mg by mouth once daily. 0 levETIRAcetam (KEPPRA) 1,000 mg tablet Take by mouth. Take 1 tablet (1000 mg) in AM and 2 tablets (2000 mg) in PM 0 tamsulosin (FLOMAX) 0.4 mg Take 1 capsule by mouth once daily. Stop two days after your stent is removed. 30 capsule 04/16/2025 12:40 PM EDT1 acetaminophen (TYLENOL) 500 mg tablet Take 2 tablets by mouth every 6 hours as needed for pain. 120 tablet 04/16/2025 12:40 PM EDT1 oxybutynin (DITROPAN) 5 mg tablet Take 1 tablet by mouth three times a day. 90 tablet 04/16/2025 12:40 PM EDT1 cefdinir (OMNICEF) 300 mg capsule Take 1 capsule by mouth two times a day for 7 days. 14 capsule 04/16/2025 12:40 PM EDT151 CALCIUM CITRATE PO Take by mouth.documented as of this encounter Progress Notes * Godwin Mcmahon MD - 04/16/2025 4:01 PM EDT Documentation Query Please specify a diagnosis associated with the Clinical Indicators for this patient Obesity Class 3 This document will become part of the patient's medical record. * Vin Vogt RN - 04/16/2025 12:16 PM EDT CARE MANAGEMENT: ASSESSMENT AND DISCHARGE PLAN SERVICE DATE: April 16, 2025 SERVICE TIME: 12:16 PM PCP: No primary care provider on file. Primary Contact: Extended Emergency Contact Information Primary Emergency Contact: ISRA ESCOBEDO Mobile Relation: Brother Secondary Emergency Contact: Yenny Lerma Mobile Relation: Sister Preferred language: [place]IZ[place] Mother: LÁZARO ESCOBEDO Admission Status: Inpatient Insurance Provider: [place] Discharge Planning requested by: Per Department Practice Potential Transition Plans No Services Indicated Advance Directives Current Living Arrangements and Support Lives with: Alone Type of Residence: Assisted Living Facility Does the patient have to climb stairs at home?: No Support: Other: See Comment USP/Nurse How do you manage to accomplish the following: Needs Assistance: Ambulation, Bathe/Shower, Dress, Meals/Meal Prep, Medication Management, Going tothe bathroom Dependent: Transportation to appointments/community Current Services/Equipment Current Post-Acute Service(s): DME Current DME Type: Wheelchair-electric Discharge Planning Patient Goal(s): General wellness, Be able to go home [place] of Choice Explained: [place] of [place] Given: No Reason Not Given: No placements necessary Are you interested in bedside delivery of your medications? Yes Discharge Planning Participant(s): Family Patient/Family Comments: Caregiver Assessment: Caregiver is ready, willing and able to meet the patient's needs as recommended by the inter-professional team: Yes Name of Caregiver: AL and nurse Transport at Discharge: Transportation Arrangements: Car Needs Prior to Discharge: Needs Prior to Discharge: None, Ready for Discharge Post-Acute Discharge Plan: At this time, the patient has no skilled needs. CM will continue to follow for post-acute needs based on hospital course. The patient will be transported home at d/c by AL via private auto. SIGNATURE: Vin Vogt RN PATIENT NAME: Devorah Lerma DATE: April 16, 2025 TIME: 12:16 PM * Godwin Mcmahon MD - 04/16/2025 7:09 AM EDT Images from the original note were not included. [facility] UROLOGY POST OP CHECK Name: Devorah Lerma Bed: G090 033/G090-33 Date: 04/16/2025 After Hours Urology Service Pager: [phone] ASSESSMENT AND PLAN Devorah Lerma is a 39 year old female with PMHx of Cerebral palsy, SPT, and nephrolithiasis s/p right PCNL in July who presents today for sudden onset left flank pain found to have 8 mm UPJ stone on left kidney with hydro now status post left ureteral stent on 04/15/25. Interval/daily plan: - AFVSS, SBP: 110-140s, H:R 70-100s, on RA - WC: 8.91 (9.88), Hb: 9.8 (9.8), Cr: 0.65 (0.87) - Robust UOP: 3.3L, culture growing mixed microbiota - Doing significantly better Daily Plan: - Continue flomax, PRN trospium - Pain control with PO analgesia - Will ask lab to speciate her urine culture - Confirm with ID home going abx plan, likely home today - Will ask for earlier f/u with stone team #Neuro - Pain control with PO analgesia #CV/Resp -HDS -Encourage IS -HTN monitor SBP #GI -Diet: Regular -Colace, Zofran # -SCr: stable -UOP: Continue to monitor -Lisa: Continue SPT to gravity drainage - IVF: 100cc/hr #Activity - OOB to chair and Ambulate with assistance. Stressed importance of getting out of bed #DVT prophylaxis - SCDs, SQH #ID/Antibiotics - Perioperative antibiotics - Zosyn #Secondary Dx/Complications- The following problems are present on admission at this time: Cerebral Palsy POA: Yes, continue routine care Neurogenic Bladder POA: Yes, continue SPT to gravity drainge Nephrolithiasis POA: Yes, now s/p above mentioned surgery Godwin Mcmahon MD Urology Resident PGY-2 Pager: [phone] Kidney Transplant Pager: [phone] For weekend or after hours issues [place] [phone] ([facility]) or [phone] ([place]) SUBJECTIVE -See above OBJECTIVE: Vital Signs BP 113/53 Pulse 73 Temp 36.7 ??C (98.1 ??F) (Oral) Resp 20 Ht 152.4 cm (5') Wt 104.3 kg (230 lb) LMP 02/06/2009 SpO2 91% BMI 44.92 kg/m?? Input and Output Intake/Output Summary (Last 24 hours) at 04/16/2025 0709 Last data filed at 04/16/2025 0459 Gross per 24 hour Intake 3590 ml Output 3375 ml Net 215 ml Participation of a fellow, resident, medical student, or advanced practice provider student in performing the sensitive examination was discussed with the patient or authorized claim representative. The patient or authorized claim representative has agreed to proceed with the sensitive examination. Physical Exam General: Well-appearing, no acute distress CV: Warm and well perfused Lungs: Unlabored breathing on RA Abdomen: soft, non-tender, non-distended, no flank tenderness : SPT draining clear pink Recent Labs 04/16/25 0039 04/15/25 0641 04/14/25 1247 WBC 8.91 9.88 11.47* HB 9.8* 9.8* 10.3* HCT 31.8* 31.9* 34.1* PLT 164 175 205 NA 140 136 135* K 3.7 4.5 5.1 CHLOR 100 101 99 CO2 27 25 27 BUN 15 22* 22* CREAT 0.65 0.87 0.89 GLUC 179* 131* 113* Imaging Reviewed * Annelise Breaux MD - 04/15/2025 9:06 PM EDT Images from the original note were not included. [facility] UROLOGY POST OP CHECK Name: Devorah Lerma Bed: G090 033/G090-33 Date: 04/15/2025 After Hours Urology Service Pager: [phone] ASSESSMENT AND PLAN Devorah Lerma is a 39 year old female with PMHx of Cerebral palsy, SPT, and nephrolithiasis s/p right PCNL in July who presents today for sudden onset left flank pain found to have 8 mm UPJ stone on left kidney with hydro now status post left ureteral stent on 04/15/25. Interval/daily plan: - AF, SBP: 130-140s, HR: 90s, on RA - WC 9.88 (11), Scr 0.87, UOP 800cc in OR, 650cc since SPT placement - Tolerating Regular Diet, pain well controlled and improved since OR Daily Plan: - Continue flomax, PRN trospium - Pain control with PO analgesia - IV meropenem perioperatively #Neuro - Pain control with PO analgesia #CV/Resp -HDS -Encourage IS -HTN monitor SBP #GI -Diet: Regular -Colace, Zofran # -SCr: stable -UOP: Continue to monitor -Lisa: Continue SPT to gravity drainage - IVF: 100cc/hr #Activity - OOB to chair and Ambulate with assistance. Stressed importance of getting out of bed #DVT prophylaxis - SCDs, SQH #ID/Antibiotics - Perioperative antibiotics - Zosyn #Secondary Dx/Complications- The following problems are present on admission at this time: Cerebral Palsy POA: Yes, continue routine care Neurogenic Bladder POA: Yes, continue SPT to gravity drainge Nephrolithiasis POA: Yes, now s/p above mentioned surgery Annelise Breaux MD Resident PGY-2 [facility] Pager [phone] After hours and on weekend loss prevention associate pager [phone] SUBJECTIVE -See above OBJECTIVE: Vital Signs BP 138/73 Pulse 94 Temp 37.2 ??C (99 ??F) (Oral) Resp 20 Ht 152.4 cm (5') Wt 104.3 kg (230 lb) LMP 02/06/2009 SpO2 91% BMI 44.92 kg/m?? Input and Output Intake/Output Summary (Last 24 hours) at 04/15/2025 2106 Last data filed at 04/15/2025 1816 Gross per 24 hour Intake 2300 ml Output 2125 ml Net 175 ml Participation of a fellow, resident, medical student, or advanced practice provider student in performing the sensitive examination was discussed with the patient or authorized claim representative. The patient or authorized claim representative has agreed to proceed with the sensitive examination. Physical Exam General: Well-appearing, no acute distress CV: Warm and well perfused Lungs: Unlabored breathing on RA Abdomen: soft, non-tender, non-distended, no flank tenderness : SPT draining clear pink Recent Labs 04/15/25 0641 04/14/25 1247 WBC 9.88 11.47* HB 9.8* 10.3* HCT 31.9* 34.1* PLT 175 205 NA 136 135* K 4.5 5.1 CHLOR 101 99 CO2 25 27 BUN 22* 22* CREAT 0.87 0.89 GLUC 131* 113* Imaging Reviewed * Godwin Mcmahon MD - 04/15/2025 6:36 AM EDT Images from the original note were not included. [facility] UROLOGY PROGRESS NOTE Name: Devorah Lerma Bed: [id number] Date: 04/15/2025 After Hours Urology Service Pager: [phone] ASSESSMENT AND PLAN Devorah Lerma is a 39 year old female with PMHx of Cerebral palsy, SPT, and nephrolithiasis s/p right PCNL in July who presents today for sudden onset left flank pain found to have 8 mm UPJ stone on left kidney with hydro. Interval/daily plan: - AF, SBP: 100-120s, HR: 80-100s, on 0.5L NC - SPT catheter exchanged in the ED, UA appeared dirty expected iso of chronic lisa, culture in progress, 300 cc - AM labs in process - Endorsing severe L flank pain Daily Plan: - To OR for Cystoscopy with Left Ureteral Stent Placement - Ok for diet afterwards - Possible PM discharge #Neuro - Pain control with PO/IV analgesia #CV/Resp -HDS -Encourage IS -HTN monitor SBP #GI -Diet: NPO, ok for diet afterwards -Colace, Zofran # -SCr: stable -UOP: Continue to monitor -Lisa: Continue SPT to gravity drainage #Activity - OOB to chair and Ambulate with assistance. Stressed importance of getting out of bed #DVT prophylaxis - SCDs, SQH #ID/Antibiotics - Perioperative antibiotics - Zosyn #Secondary Dx/Complications- The following problems are present on admission at this time: Cerebral Palsy POA: Yes, continue routine care Neurogenic Bladder POA: Yes, continue SPT to gravity drainge Nephrolithiasis POA: Yes, now s/p above mentioned surgery #Discharge teaching - routine #Disposition - pending course Plan discussed with Dr. Meneses. Godwin Mcmahon MD Urology Resident PGY-2 Pager: [phone] Kidney Transplant Pager: [phone] For weekend or after hours issues [place] [phone] ([facility]) or [phone] ([place]) SUBJECTIVE -See above OBJECTIVE: Vital Signs BP 101/54 Pulse 81 Temp 36.4 ??C (97.5 ??F) (Oral) Resp 18 Ht 152.4 cm (5') Wt 104.3 kg (230 lb) LMP 02/06/2009 SpO2 100% BMI 44.92 kg/m?? Input and Output Intake/Output Summary (Last 24 hours) at 04/15/2025 0637 Last data filed at 04/15/2025 0559 Gross per 24 hour Intake 0 ml Output 300 ml Net -300 ml Urine output 300 cc Drains N/A Participation of a fellow, resident, medical student, or advanced practice provider student in performing the sensitive examination was discussed with the patient or authorized claim representative. The patient or authorized claim representative has agreed to proceed with the sensitive examination. Physical Exam General: Well-appearing, no acute distress CV: Warm and well perfused Lungs: Unlabored breathing on RA Abdomen: soft, non-tender, non-distended : Lisa catheter present and Urine clear, significant L CVA tenderness Recent Labs 04/14/25 1247 WBC 11.47* HB 10.3* HCT 34.1* PLT 205 NA 135* K 5.1 CHLOR 99 CO2 27 BUN 22* CREAT 0.89 GLUC 113* Imaging Reviewed documented in this encounter Consult Notes * Sonal Hutchinson MD - 04/16/2025 8:53 AM EDT Images from the original note were not included. INFECTIOUS DISEASE CONSULT SERVICE PROGRESS NOTE Date: April 16, 2025 Patient Name: Devorah Lerma Interval Events: s/p cystoscopy and insertion of indwelling JJ stent MEDICATIONS Medications reviewed. Current Facility-Administered Medications Medication Dose Route Frequency furosemide 40 mg tab(s) (LASIX) 40 mg ORAL DAILY prazosin 1 mg cap(s) (MINIPRESS) 1 mg ORAL AT BEDTIME bisacodyl 10 mg suppository (DULCOLAX) 10 mg RECTAL DAILY PRN bismuth subsalicylate 524 mg oral liquid (BISMATROL) 524 mg ORAL q 6 H PRN calcium carbonate 500 mg chewable tab(s) (TUMS) 500 mg ORAL q 8 H PRN polyethylene glycol 3350 17 g packet 17 g ORAL DAILY senna 8.6 mg tab(s) (SENOKOT) 8.6 mg ORAL DAILY PRN buPROPion 75 mg tab(s) (WELLBUTRIN) 75 mg ORAL DAILY busPIRone 30 mg tab(s) (BUSPAR) 30 mg ORAL BID QUEtiapine 150 mg tab(s) (SEROquel) 150 mg ORAL AT BEDTIME sertraline 200 mg tab(s) (ZOLOFT) 200 mg ORAL DAILY acetaminophen 1,000 mg tab(s) (TYLENOL) 1,000 mg ORAL q 6 H cyclobenzaprine 5 mg tab(s) (FLEXERIL) 5 mg ORAL TID gabapentin 1,800 mg tab(s) (NEURONTIN) 1,800 mg ORAL TID lamoTRIgine (LaMICtal) tab(s) 250 mg 250 mg ORAL BID levETIRAcetam 1,000 mg tab(s) (KEPPRA) 1,000 mg ORAL DAILY levETIRAcetam 2,000 mg tab(s) (KEPPRA) 2,000 mg ORAL AT BEDTIME lidocaine 4 % 1 patch (SALONPAS) 1 patch TRANSDERMAL AT BEDTIME PRN docusate sodium 100 mg cap(s) (COLACE) 100 mg ORAL BID NaCl 0.9% iv flush bag 20 mL INTRAVENOUS PRN lactated ringers iv infusion 100 mL/hr INTRAVENOUS CONTINUOUS traMADol 50 mg tab(s) (ULTRAM) 50 mg ORAL q 6 H PRN ondansetron (PF) 4 mg injection (ZOFRAN) 4 mg INTRAVENOUS q 6 H PRN heparin 5,000 Units injection 5,000 Units SUBCUTANEOUS q 8 H trospium 20 mg tab(s) (SANCTURA) 20 mg ORAL BID AC pantoprazole DR 20 mg tab(s) (PROTONIX) 20 mg ORAL DAILY (6 AM) phosphorus 500 mg tab(s) (K PHOS NEUTRAL) 500 mg ORAL AT BEDTIME melatonin 6 mg tab(s) 6 mg ORAL DAILY (8 PM) meropenem 1 g in NaCl 0.9% 100 mL Vial-Bag (MERREM) 1 g INTRAVENOUS q 8 H tamsulosin 0.4 mg cap(s) (FLOMAX) 0.4 mg ORAL DAILY EXAMINATION: BP 113/69 Pulse 92 Temp 36.7 ??C (98.1 ??F) (Oral) Resp 19 Ht 152.4 cm (5') Wt 104.3 kg (230 lb) LMP 02/06/2009 SpO2 97% BMI 44.92 kg/m?? Temp (24hrs), Av.9 ??C (98.5 ??F), Min:36.5 ??C (97.7 ??F), Max:37.6 ??C (99.7 ??F) GENERAL APPEARANCE: awake in no acute distress SKIN: negative rash HEAD/SINUSES: No significant findings. EYES: conjunctiva clear ABDOMEN: Soft, Nontender, nondistended NEURO: Alert, following commands LABORATORY DATA: WBC (k/uL) Date Value 04/16/2025 8.91 04/15/2025 9.88 04/14/2025 11.47 03/06/2009 6.90 Hemoglobin (g/dL) Date Value 04/16/2025 9.8 04/15/2025 9.8 04/14/2025 10.3 03/06/2009 12.9 Platelet Count (k/uL) Date Value 04/16/2025 164 04/15/2025 175 04/14/2025 205 03/06/2009 230 Creatinine (mg/dL) Date Value 04/16/2025 0.65 04/15/2025 0.87 04/14/2025 0.89 03/06/2009 0.58 MICROBIOLOGY DATA: reviewed IMAGING DATA: reviewed ASSESSMENT: Problem list carried forward from most recent note and updated as needed 39 year old F with cerebral palsy,. s/p SPT, nephrolithiasis s/p R percutaneous nephrolithotomy 08/09/2024, stone cx on 08/09 with Pseudomonas, E faecalis, proteus mirabilis Admitted on 08/22/2024, with ESBL E coli in urine cx; s/p L percutaneous lithotomy on 08/23/2024. Stone cx few Proteus mirabilis and few C glabrata Had abd pain, OSH CT 04/13 with L sided hydro and nonobstructing stones in renal collecting systemps, 9mm stone in proximal L ureter near the ureteropelvic junction Presented at ER here on 04/14 as unable to flush the SPT, flank pain, urinary leakage; SPT changed in ER and admitted s/p cystoscopy and insertion of indwelling JJ stent Urine cx with mixed microbiota on 04/14 but is now updated to in process Prior stone cx in 07/2024 with few proteus mirabilis She has been afebrile RECOMMENDATIONS: Continue meropenem Per team would like to d/c today; pt would also like to leave today to see her mom Can switch to cefdinir 300 mg po BID x 7days on discharge Advised team to follow pending urine cultures I have performed the following services under complex antimicrobial therapy counseling and treatment: Engaged in complex medical decision-making associated with antimicrobial prescribing. Sonal Hutchinson MD Staff, Department of Infectious Disease April 16, 2025 9:31 AM * Sonal Hutchinson MD - 04/15/2025 8:20 AM EDTAssociated Order(s): CONSULT TO INFECTIOUS DISEASES INITIAL CONSULT INFECTIOUS DISEASE SERVICE DATE: 04/15/2025 We were asked to evaluate Miss Devorah Lerma, a 39 year old yo female by Dr. Daryl Meneses for UTI. Our findings and recommendations will be communicated through the shared medical record. Subjective HPI: 39 year old F with cerebral palsy,. s/p SPT, nephrolithiasis s/p R percutaneous nephrolithotomy 08/09/2024. Stone cx on 08/09 with Pseudomonas, E faecalis, proteus mirabilis. Admitted on 08/22/2024, with ESBL E coli in urin cx. Underwent L percutaneous lithotomy on 08/23/2024. Stone cx few Proteus mirabilis and few C glabrata. Followed by Urology. Was previously on low dose cipro 250 mg and methenamine. She had abd pain and was seen at OSH Er, underwent CT abd pelvis on 04/13 with L sided hydro andnonobstructing stones in renal collecting systemps, 9mm stone in proximal L ureter near the ureteropelvic junction. Presented at ER here on 04/14 as unable to flush the SPT. Has also been having L flank pain and urinary leakage. Admitted and SPT was changed in ER. Started on piptazo. Currently afebrile. Per pt she had nausea, no vomiting. Still has L flank pain. She is constipated. No SELLERS, sore throat.Has runny nose from allergies. Also has cough, but no sputum, no Shortness of Breath or chest pain.No new joint pains. Current other medications reviewed. Current Facility-Administered Medications Medication Dose Route Frequency furosemide 40 mg tab(s) (LASIX) 40 mg ORAL DAILY prazosin 1 mg cap(s) (MINIPRESS) 1 mg ORAL AT BEDTIME bisacodyl 10 mg suppository (DULCOLAX) 10 mg RECTAL DAILY PRN bismuth subsalicylate 524 mg oral liquid (BISMATROL) 524 mg ORAL q 6 H PRN calcium carbonate 500 mg chewable tab(s) (TUMS) 500 mg ORAL q 8 H PRN polyethylene glycol 3350 17 g packet 17 g ORAL DAILY senna 8.6 mg tab(s) (SENOKOT) 8.6 mg ORAL DAILY PRN buPROPion 75 mg tab(s) (WELLBUTRIN) 75 mg ORAL DAILY busPIRone 30 mg tab(s) (BUSPAR) 30 mg ORAL BID QUEtiapine 150 mg tab(s) (SEROquel) 150 mg ORAL AT BEDTIME sertraline 200 mg tab(s) (ZOLOFT) 200 mg ORAL DAILY acetaminophen 1,000 mg tab(s) (TYLENOL) 1,000 mg ORAL q 6 H cyclobenzaprine 5 mg tab(s) (FLEXERIL) 5 mg ORAL TID gabapentin 1,800 mg tab(s) (NEURONTIN) 1,800 mg ORAL TID lamoTRIgine (LaMICtal) tab(s) 250 mg 250 mg ORAL BID levETIRAcetam 1,000 mg tab(s) (KEPPRA) 1,000 mg ORAL DAILY levETIRAcetam 2,000 mg tab(s) (KEPPRA) 2,000 mg ORAL AT BEDTIME lidocaine 4 % 1 patch (SALONPAS) 1 patch TRANSDERMAL AT BEDTIME PRN docusate sodium 100 mg cap(s) (COLACE) 100 mg ORAL BID NaCl 0.9% iv flush bag 20 mL INTRAVENOUS PRN lactated ringers iv infusion 100 mL/hr INTRAVENOUS CONTINUOUS traMADol 50 mg tab(s) (ULTRAM) 50 mg ORAL q 6 H PRN HYDROmorphone 0.2 mg injection (DILAUDID) 0.2 mg INTRAVENOUS q 3 H PRN ondansetron (PF) 4 mg injection (ZOFRAN) 4 mg INTRAVENOUS q 6 H PRN heparin 5,000 Units injection 5,000 Units SUBCUTANEOUS q 8 H piperacillin-tazobactam iv piggyback 3.375 g in dextrose (iso-osmotic) 50 mL (ZOSYN) 3.375 g INTRAVENOUS q 6 H lidocaine patch - REMOVE OTHER ONCE And lidocaine - VERIFY PATCH OTHER ONCE trospium 20 mg tab(s) (SANCTURA) 20 mg ORAL BID AC pantoprazole DR 20 mg tab(s) (PROTONIX) 20 mg ORAL DAILY (6 AM) phosphorus 500 mg tab(s) (K PHOS NEUTRAL) 500 mg ORAL AT BEDTIME Immunization History Administered Date(s) Administered COVID-19 original vaccine, age 5 yr - 11 yr, monovalent (Animated Speech) 02/15/2022 COVID-19 original vaccine, full dose, monovalent (MODERNA) 09/11/2020 10/09/2020 COVID-19 vaccine, age 12+ yr, bivalent (MODERNA) 08/06/2022 PAST MEDICAL HISTORY Diagnosis Date Anxiety and depression Cauda equina syndrome with neurogenic bladder (HCC) Cerebral palsy (HCC) History of COVID-19 Nephrolithiasis Obesity Other specified infantile cerebral palsy Recurrent UTI Urge incontinence PAST SURGICAL HISTORY Procedure Laterality Date PAST SURGICAL HISTORY OF ureteral stent PAST SURGICAL HISTORY OF Right ureteral stent extraction SOCIAL HISTORY[1] No family history on file. ALLERGIES Allergen Reactions Baclofen Mental Status Change The pt has seizures from this medication Amoxicillin-Pot Cla* Diarrhea masssive amounts of diarrhea stools UP TO HER ELBOWS Grapefruit Other: See Comments REVIEW OF SYSTEMS: All other systems reviewed and negative unless otherwise stated in the HPI Objective PHYSICAL EXAM: BP 119/62 Pulse 94 Temp 37.4 ??C (99.3 ??F) (Oral) Resp 18 Ht 152.4 cm (5') Wt 104.3 kg (230 lb) LMP 02/06/2009 SpO2 92% BMI 44.92 kg/m?? Temp (24hrs), Av ??C (98.6 ??F), Min:36.4 ??C (97.5 ??F), Max:37.5 ??C (99.5 ??F) GENERAL APPEARANCE: awake in no acute distress SKIN: negative rash HEAD/SINUSES: No significant findings. EYES: conjunctiva clear OROPHARYNX: dry oral mucosa LUNGS: Clear to auscultation anteriorly HEART: Regular rate and rhythm ABDOMEN: Soft, +SPT EXTREMITIES: B edema NEURO: Alert, following commands LABS: WBC (k/uL) Date Value 04/14/2025 11.47 08/25/2024 5.19 08/24/2024 8.32 08/23/2024 5.90 08/22/2024 7.77 03/06/2009 6.90 Creatinine (mg/dL) Date Value 04/14/2025 0.89 08/25/2024 0.40 08/24/2024 0.53 08/23/2024 0.63 08/22/2024 0.57 03/06/2009 0.58 Lab Results Component Value Date NEUTP 83.0 04/14/2025 NEUTP 62.9 03/06/2009 ABSNEUT 9.52 04/14/2025 ABSNEUT 4.34 03/06/2009 LYMPHP 8.6 04/14/2025 LYMPHP 25.7 03/06/2009 ABSLYMPH 0.99 04/14/2025 ABSLYMPH 1.77 03/06/2009 ABSMONO 0.71 04/14/2025 ABSMONO 0.55 03/06/2009 EODINP 1.6 04/14/2025 EODINP 3.0 03/06/2009 ABSEOSIN 0.18 04/14/2025 ABSEOSIN 0.21 03/06/2009 BASOP 0.3 04/14/2025 BASOP 0.4 03/06/2009 ABSBASO 0.03 04/14/2025 ABSBASO 0.03 03/06/2009 Lab Results Component Value Date PLT 205 04/14/2025 PLT 230 03/06/2009 HB 10.3 04/14/2025 HB 12.9 03/06/2009 HCT 34.1 04/14/2025 HCT 40.8 03/06/2009 ALB 3.9 08/22/2024 CA 9.9 04/14/2025 CA 9.9 03/06/2009 TBILI 0.2 08/22/2024 ALKPHOS 98 08/22/2024 AST 26 08/22/2024 GLUC 113 04/14/2025 GLUC 78 03/06/2009 BUN 22 04/14/2025 BUN 13 03/06/2009 NA 135 04/14/2025 NA 140 03/06/2009 K 5.1 04/14/2025 K 4.5 03/06/2009 CHLOR 99 04/14/2025 CHLOR 103 03/06/2009 CO2 27 04/14/2025 CO2 27 03/06/2009 ANION 9 04/14/2025 ANION 10 03/06/2009 ALT 23 08/22/2024 MICROBIOLOGY: 04/14/2025 urine cx pending IMAGING: reviewed Impression/Recommendations 39 year old F with cerebral palsy,. s/p SPT, nephrolithiasis s/p R percutaneous nephrolithotomy 08/09/2024, stone cx on 08/09 with Pseudomonas, E faecalis, proteus mirabilis Admitted on 08/22/2024, with ESBL E coli in urine cx; s/p L percutaneous lithotomy on 08/23/2024. Stone cx few Proteus mirabilis and few C glabrata Had abd pain, OSH CT 04/13 with L sided hydro and nonobstructing stones in renal collecting systemps, 9mm stone in proximal L ureter near the ureteropelvic junction Presented at ER here on 04/14 as unable to flush the SPT, flank pain, urinary leakage; SPT changed in ER and admitted PLAN: Can switch piptazo to meropenem 1 g IV q 8 hours pending cultures Follow urine cx Plans for cystoscopy with L ureteral stent placement I have performed the following services under complex antimicrobial therapy counseling and treatment: Engaged in complex medical decision-making associated with antimicrobial prescribing. Thank you very much for inviting us to participate in the care of this patient. SIGNATURE: Sonal Hutchinson MD PATIENT NAME: Devorah Lerma DATE: April 15, 2025 TIME: 8:20 AM [1] Social History Tobacco Use Smoking status: Never Smokeless tobacco: Never documented in this encounter ED Notes * May Layton RN - 04/14/2025 8:38 PM EDT Pt's family member at bedside departed with pt's personal motorized wheelchair. * Chelsea Orellana RN - 04/14/2025 12:24 PM EDT Pt presents to ED with left sided flank pain, inability to flush suprapubic catheter this AM, Pt has diagnosis of renal stones in bilateral ureters. Pt endorsing feeling weak and fatigued. Denies fevers at home, Pt is afebrile upon arrival to ED with a low grade temp of 99.5 F. Pt denies chills. * Maribell Alba MD - 04/14/2025 11:55 AM EDTAssociated Order(s): US BLADDER (POC) ED USE ONLY ED Provider Note Patient Name: Devorah Lerma : 1985 SERVICE DATE: 04/14/25 History Patient presents with: Flank Pain: Seen at OSH and told she has left kidney stone, unable to flush suprapubic catheter this morning 39 year old female with pmh seizure disorder, cerebral palsy, suprapubic catheter, recurrent UTI, obesity, cauda equina presenting for suprapubic catheter complaint. She recently had a left sided 8 mm ureteral stone diagnosed at OSH last night. Since then, patient has had no drainage out of her suprapubic catheter. Home health has been unable to flush the catheter. She has chronic abdominal woundbut her left flank pain is new. Caregivers present also reports that patient has had some urine leakage suspected from her vagina. She usually has no urine leakage due to the presence of her suprapubic catheter. Patient is currently endorsing nausea but no vomiting or diarrhea. She is also endorsing chills but no objective fever. She is denying chest pain, shortness of breath, headache. Chart review shows: Sees Dr. Ruth for urology care, last visit 04/10. Per that note, patient has recurrent bilateral nephrolithiasis. She had a right PCNL with anterograde URS and laser lithotripsy for rightstone burden on 08/08 and another left PCNL for left staghorn stone on 08/22 PAST MEDICAL HISTORY Diagnosis Date ??? Anxiety and depression ??? Cauda equina syndrome with neurogenic bladder (HCC) ??? Cerebral palsy (HCC) ??? History of COVID-19 ??? Nephrolithiasis ??? Obesity ??? Other specified infantile cerebral palsy ??? Recurrent UTI ??? Urge incontinence PAST SURGICAL HISTORY Procedure Laterality Date ??? PAST SURGICAL HISTORY OF ureteral stent ??? PAST SURGICAL HISTORY OF Right ureteral stent extraction No family history on file. Social History[1] ALLERGIES Allergen Reactions ??? Baclofen Mental Status Change The pt has seizures from this medication ??? Amoxicillin-Pot Cla* Diarrhea masssive amounts of diarrhea stools UP TO HER ELBOWS ??? Grapefruit Other: See Comments Review of Systems Physical Exam Vitals [04/14/25 1143] BP Pulse Temp Temp src Resp SpO2 Weight Height 117/82 (!) 109 36.8 ??C (98.2 ??F) Oral 20 95 % 104.3 kg (230 lb) 1.524 m (5') Physical Exam Constitutional: General: She is not in acute distress. Appearance: She is obese. She is ill-appearing. She is not toxic-appearing. HENT: Head: Normocephalic and atraumatic. Mouth/Throat: Mouth: Mucous membranes are dry. Pharynx: Oropharynx is clear. Cardiovascular: Rate and Rhythm: Regular rhythm. Tachycardia present. Pulses: Normal pulses. Heart sounds: Normal heart sounds. No murmur heard. No friction rub. No gallop. Pulmonary: Effort: No respiratory distress. Breath sounds: Normal breath sounds. No stridor. No wheezing, rhonchi or rales. Abdominal: General: There is no distension. Palpations: Abdomen is soft. Tenderness: There is abdominal tenderness (Left-sided abdominal tenderness). There is left CVA tenderness. There is no right CVA tenderness, guarding or rebound. Comments: Prepubic catheter in place, no obvious erythema or swelling around the insertion site Musculoskeletal: Right lower leg: No edema. Left lower leg: No edema. Skin: General: Skin is warm and dry. Capillary Refill: Capillary refill takes less than 2 seconds. Coloration: Skin is not jaundiced or pale. Findings: No erythema or rash. Neurological: Mental Status: She is alert and oriented to person, place, and time. Mental status is at baseline. Diagnostic Testing ED Labs Ordered and Reviewed - No data to display Limited Ultrasound Bladder Examination US BLADDER (POC) ED USE ONLY Date/Time: 04/15/2025 9:10 AM Performed by: Maribell Alba MD Authorized by: Maribell Alba MD Indication: Patient has Urinary retention and requires examination for assessment for outlet obstruction. Procedure in detail: Using the curvilinear probe, the bladder was examined in both axial and sagittal planes and volumetrically was No Yes still images or video images were saved for this exam. Conclusion: Ultrasound of bladder was Negative for urinary outflow obstruction. This limited imaging study was performed by: Resident/KATHI with Attending supervision. Dr. alba supervised and interpreted this ultrasound exam. I was present for the entire procedure. Maribell Alba MD ED Course / Clinical Impression ED Course as of 04/14/252124 Charly Hernandez's Documentation ThuApr 14, 2025 1309 WBC(!): 11.47 1309 Desatting to 90 while sleeping, was put on 0.5 L NC 1411 Performed bladder scan, bladder appears decompressed, balloon adequately placed, no obvious obstruction 1533 Severe flank pain, will give Percocet 1650 Inserted new suprapubic catheter, no drainage yet Clinical Impressions as of 04/14/252124 Left nephrolithiasis Suprapubic catheter dysfunction, initial encounter Hydronephrosis with urinary obstruction due to ureteral calculus MDM / Disposition / Plan 39 year old female with pmh seizure disorder, cerebral palsy, suprapubic catheter, recurrent UTI, obesity, cauda equina presenting for suprapubic catheter complaint and left-sided flank pain. Patientwas seen at an outside hospital yesterday and was diagnosed with an 8 mm left ureteral stone. Sincelast night her suprapubic catheter has had no output. Initially tachycardic, normotensive, satting well room air, afebrile. Exam shows left-sided abdominal tenderness and left CVA tenderness, suprapubic catheter in place with no obvious erythema or swelling around the insertion site, 300 mL dark yellow urine in Lisa bag. Lab work shows mild leukocytosis. Bladder ultrasound shows decompressed bladder with suprapubic catheter in place. Due to unclear issues with suprapubic catheter, it was replaced and small urine drained into bag. CT abdomen pelvis from outside hospital showed left ureteral stone 8 mm in size with hydronephrosis. Patient's symptoms were managed with Toradol, Percocet, Zofran, and she was given a total of 1.5 L IV fluid. Urology was consulted and recommended admission for ureteral stenting tomorrow. History and Record Review External record(s) reviewed: prior outpatient record and prior labs/imaging. Findings from review of outpatient records: OP meds Findings from review of prior labs/imaging: Previous Renal Function Panel Reviewed 08/24/2024: BUN 10; Creatinine 0.53 (L); Estimated Glomerular Filtration Rate 122 08/25/2024: BUN 5 (L); Creatinine 0.40 (L); Estimated Glomerular Filtration Rate 130 04/14/2025: BUN 22 (H); Creatinine 0.89; Estimated Glomerular Filtration Rate 85 Previous CBC Reviewed 08/24/2024: Hemoglobin 9.8 (L); Platelet Count 221; WBC 8.32 08/25/2024: Hemoglobin 8.3 (L); Platelet Count 166; WBC 5.19 04/14/2025: Hemoglobin 10.3 (L); Platelet Count 205; WBC 11.47 (H) Differential Diagnoses - Left ureteral stone is more likely for the following reason(s): consistent with imaging and suggested by H&P - Hydronephrosis is more likely for the following reason(s): suggested by H&P and consistent with imaging - UTI is more likely for the following reason(s): Pending UA at time of signout, suggested by H&P - Pyelonephritis is less likely for the following reason(s): no evidence on imaging Management Management of the patient was discussed with:quality compliance consultant, admitting team, quality compliance consultant and admitting team Radiology Reports US BLADDER (POC) ED USE ONLY Final Result XR CHEST 1V FRONTAL PORT Final Result IMPRESSION: Shallow lung volumes. No focal infiltrate or consolidation. Information Assurance Engineer: PSCB Transcribe Date/Time: Apr 14 2025 2:03P Dictated by : REID DANIELLE MD This examination was interpreted and the report reviewed and electronically signed by: REID DANIELLE MD on Apr 14 2025 2:07PM EST Meds Given During Visit ED Medication Administration from 04/14/2025 1136 to 04/14/2025 2204 Date/Time Order Dose Route Action 04/14/2025 1313 EDT keTORolac 15 mg injection (Toradol) 15 mg INTRAVENOUS Given 04/14/2025 1313 EDT ondansetron (PF) 4 mg injection (ZOFRAN) 4 mg INTRAVENOUS Given 04/14/2025 1321 EDT lactated ringers 500 mL iv bolus 500 mL INTRAVENOUS New Bag/Syringe/Bottle 04/14/2025 1351 EDT lactated ringers 500 mL iv bolus 0 mL INTRAVENOUS Infusion Complete 04/14/2025 1612 EDT oxyCODONE-acetaminophen 5-325 mg 2 tablet (PERCOCET) 2 tablet ORAL Given 04/14/2025 1730 EDT lactated ringers 1,000 mL iv bolus 1,000 mL INTRAVENOUS New Bag/Syringe/Bottle 04/14/2025 1845 EDT lactated ringers 1,000 mL iv bolus -- INTRAVENOUS Rate/Dose Change 04/14/20251952 EDT lactated ringers 1,000 mL iv bolus 0 mL INTRAVENOUS Infusion Complete 04/14/20251999 EDT lactated ringers 1,000 mL iv bolus 0 mL INTRAVENOUS Infusion Complete 04/14/20252099 EDT risperiDONE 0.5 mg tab(s) (RisperDAL) 0.5 mg ORAL Not Given 04/14/20252099 EDT levETIRAcetam 1,000 mg tab(s) (KEPPRA) 1,000 mg ORAL Not Given 04/14/20252099 EDT potassium phosphate, monobasic 500 mg tab(s) (K-PHOS Original) 500 mg ORAL Not Given 04/14/20252099 EDT lactated ringers iv infusion -- INTRAVENOUS Canceled Entry 04/14/20251919 EDT acetaminophen 1,000 mg tab(s) (TYLENOL) 1,000 mg ORAL Given 04/14/20251919 EDT lidocaine 4 % 1 patch (SALONPAS) 1 patch TRANSDERMAL Given Disposition The patient was admitted. Counseled patient regarding radiology results, suspected diagnosis and lab results. Admitted to Regular Nursing Floor. SIGNATURE: MD VIN Potter JAMES 04/14/252150 Attending Note I evaluated the patient and personally participated in the nunez components. I agree with the resident's findings and plan with the following revisions and/or additions: Past Medical History Active Ambulatory Problems Seizure disorder (HCC) Date Noted: 03/06/2009 Cerebral palsy (HCC) Date Noted: 03/06/2009 Recurrent UTI Date Noted: 03/06/2009 Suprapubic catheter (HCC) Date Noted: 03/11/2022 Flank pain Date Noted: 03/11/2022 Chronic bilateral low back pain without sciatica Date Noted: 03/11/2022 Gallstones Date Noted: 03/11/2022 Staghorn calculus Date Noted: 05/24/2022 Hyperoxaluria Date Noted: 11/18/2022 Pyuria Date Noted: 11/18/2022 Abnormal urinalysis Date Noted: 06/30/2023 Renal calculi Date Noted: 10/03/2023 Chest pain on breathing Date Noted: 10/04/2023 Obesity, Class III, BMI >= 40 Date Noted: 10/05/2023 Dysphagia Date Noted: 10/07/2023 Enterococcal infection Date Noted: 10/08/2023 Proteus mirabilis infection Date Noted: 10/08/2023 Cauda equina syndrome (HCC) Date Noted: 07/21/2024 Anxiety and depression Date Noted: 07/22/2024 COVID-19 Date Noted: 07/22/2024 Orthostatic hypotension Date Noted: 07/22/2024 GERD (gastroesophageal reflux disease) Date Noted: 07/22/2024 Other specified anemias Date Noted: 07/22/2024 Influenza A Date Noted: 07/31/2024 Pseudomonas infection Date Noted: 08/01/2024 Enterococcus faecalis infection Date Noted: 08/01/2024 Nephrolithiasis Date Noted: 08/01/2024 Acute respiratory failure with hypoxia (HCC) Date Noted: 08/03/2024 Stridor Date Noted: 08/03/2024 Kidney stone Date Noted: 08/22/2024 Resolved Ambulatory Problems No Resolved Ambulatory Problems Past Medical History: No date: Cauda equina syndrome with neurogenic bladder (HCC) No date: History of COVID-19 No date: Obesity No date: Other specified infantile cerebral palsy No date: Urge incontinence Medications: No current facility-administered medications on file prior to encounter. Current Outpatient Medications on File Prior to Encounter Medication Sig ??? CALCIUM CITRATE PO Take by mouth. ??? ciprofloxacin HCl (CIPRO) 500 mg tablet TAKE 1 TABLET BY MOUTH TWICE DAILY HOLD ZANAFLEX WHILE USING (Patient not taking: Reported on 04/10/2025) ??? oxybutynin ER (DITROPAN XL) 10 mg 24 hr tablet Take 1 tablet by mouth once daily. ??? oxybutynin ER (DITROPAN XL) 10 mg 24 hr tablet Take 1 tablet by mouth once daily. (Patient not taking: Reported on 04/10/2025) ??? Methenamine Hippurate (HIPREX) 1 gram tablet Take 1 tablet by mouth two times a day. (Patient not taking: Reported on 04/10/2025) ??? ondansetron (ZOFRAN) 4 mg tablet Take 1 tablet by mouth every 8 hours as needed for nausea/vomiting for up to 30 doses. ??? acetaminophen (TYLENOL) 325 mg tablet Take 2 tablets by mouth every 6 hours as needed for pain for up to 40 doses. (Patient taking differently: Take 1,000 mg by mouth every 6 hours as needed for pain.) ??? Ibuprofen 200 mg cap Take 3 capsules by mouth every 8 hours as needed for pain (for pain). ??? guaiFENesin (MUCINEX) 600 mg 12 hr tablet Take 1 tablet by mouth two times a day as needed for cold/allergy symptoms. (Patient not taking: Reported on 04/10/2025) ??? albuterol (PROVENTIL) 2.5 mg /3 mL (0.083 %) nebulizer solution Use 2.5 mg via nebulizer every 6 hours as needed for wheezing/shortness of breath. (Patient not taking: Reported on 04/10/2025) ??? lamoTRIgine (LAMICTAL) 25 mg tablet Take 50 mg by mouth two times a day. Take with lamotrigine 200 mg to total 250 mg ??? Senna 8.6 mg tab Take 8.6 mg by mouth daily at bedtime. (Patient taking differently: Take 8.6 mg by mouth once daily as needed for constipation.) ??? buPROPion (WELLBUTRIN) 75 mg tablet Take 75 mg by mouth once daily. ??? calcium carbonate (TUMS) 500 mg chew Take 500 mg by mouth every 8 hours as needed (indigestion). ??? cholecalciferol (VITAMIN D3) 1,000 unit tab tablet Take 1,000 Units by mouth once daily. ??? benzonatate (TESSALON PERLE) 100 mg capsule Take 100 mg by mouth every 8 hours as needed for cough. (Patient not taking: Reported on 04/10/2025) ??? omeprazole (PRILOSEC) 20 mg capsule Take 20 mg by mouth once daily. ??? Chlorhexidine Gluconate (PERIDEX) 0.12 % solution Use 15 mL as instructed every 12 hours as needed (mouth pain). ??? lidocaine (SALONPAS) 4 % patch Apply 1 Patch as directed at bedtime as needed. ??? meclizine (ANTIVERT) 25 mg tab Take 25 mg by mouth every 8 hours as needed (dizziness). (Patient not taking: Reported on 04/10/2025) ??? menthol (BIOFREEZE, MENTHOL,) 4 % topical gel Apply 1 Application to affected area every 8 hours as needed (low back pain). (Patient not taking: Reported on 04/10/2025) ??? prazosin (MINIPRESS) 1 mg cap Take 1 mg by mouth daily at bedtime. ??? oxybutynin (DITROPAN) 5 mg tablet Take 1 tablet by mouth three times a day. (Patient taking differently: Take 1 tablet by mouth three times a day.) ??? bismuth subsalicylate (BISMATROL) 262 mg/15 mL oral liquid Take 30 mL by mouth every 6 hours asneeded. Until diarrhea stops, for a total of 16 ounces, then d/c. ??? zinc oxide-cod liver oil (DESITIN 40%) 40 % paste Apply 1 application to affected area as needed. ??? ascorbic acid, vitamin C, (VITAMIN C) 500 mg tablet Take 500 mg by mouth two times a day. ??? busPIRone (BUSPAR) 5 mg tablet Take 5 mg by mouth two times a day. (Patient taking differently:Take 30 mg by mouth two times a day.) ??? polyethylene glycol 3350 17 gram packet Take 17 g by mouth once daily. Dissolve dose in 4 - 8 ounces of liquid and take as directed. ??? tiZANidine (ZANAFLEX) 2 mg tablet Take 2 mg by mouth two times a day. ??? pyridoxine, vitamin B6, (VITAMIN B6) 100 mg tablet Take 100 mg by mouth once daily. ??? melatonin 3 mg capsules Take 6 mg by mouth daily at bedtime. ??? bisacodyl (DULCOLAX) 10 mg supp 10 mg by RECTAL route once daily as needed for constipation (ifno results from MOM). ??? cyclobenzaprine (FLEXERIL) 5 mg tablet Take 5 mg by mouth three times a day. For bladder spasm ??? sodium phosphate-sodium bisphosphate (FLEET ENEMA) enema 1 Enema by RECTAL route once daily as needed for constipation (if no results from suppository). (Patient not taking: Reported on 04/10/2025) ??? potassium phosphate, monobasic (K-PHOS ORIGINAL) 500 mg tablet Take 500 mg by mouth once daily. ??? furosemide (LASIX) 40 mg tablet Take 40 mg by mouth once daily. ??? loratadine (CLARITIN) 10 mg tablet Take 10 mg by mouth once daily. ??? midodrine (PROAMATINE) 2.5 mg tablet Take 2.5 mg by mouth three times daily. (Patient not taking: Reported on 04/10/2025) ??? magnesium hydroxide (MOM) 400 mg/5 mL suspension Take 30 mL by mouth once daily as needed for constipation (if no BM in 3 days). (Patient not taking: Reported on 04/10/2025) ??? QUEtiapine 150 mg tablet Take 150 mg by mouth daily at bedtime. ??? risperiDONE (RISPERDAL) 0.5 mg tablet Take 0.5 mg by mouth twice daily. ??? GABAPENTIN 600 MG TAB Take 1,800 mg by mouth three times a day. ??? lamoTRIgine (LAMICTAL) 200 mg tablet Take 200 mg by mouth two times a day. Take with 2 x 25 mg tablet to total 250 mg ??? sertraline (ZOLOFT) 100 mg tablet Take 200 mg by mouth once daily. ??? levETIRAcetam (KEPPRA) 1,000 mg tablet Take by mouth. Take 1 tablet (1000 mg) in AM and 2 tablets (2000 mg) in PM Physical Examination: General Appearance: Age-appropriate patient in no distress HENT: NCAT, moist mucous membranes, no gross deformities, normal conjunctive and sclera Lungs: Clear bilaterally without rales, rhonchi, or wheezes, good air entry Cardiac: Regular rhythm, normal rate Abd: Nondistended, obese with SP catheter in place without bleeding or surrounding erythema, normalbowel sounds, grossly benign Neuro: Alert, appropriate with normal speech Emergency Department Course: The Electronic Medical Records have been reviewed ED Medication Administration from 04/14/2025 1136 to 04/14/2025 2204 Date/Time Order Dose Route Action 04/14/2025 1313 EDT keTORolac 15 mg injection (Toradol) 15 mg INTRAVENOUS Given 04/14/2025 1313 EDT ondansetron (PF) 4 mg injection (ZOFRAN) 4 mg INTRAVENOUS Given 04/14/2025 1321 EDT lactated ringers 500 mL iv bolus 500 mL INTRAVENOUS New Bag/Syringe/Bottle 04/14/2025 1351 EDT lactated ringers 500 mL iv bolus 0 mL INTRAVENOUS Infusion Complete 04/14/2025 1612 EDT oxyCODONE-acetaminophen 5-325 mg 2 tablet (PERCOCET) 2 tablet ORAL Given 04/14/2025 1730 EDT lactated ringers 1,000 mL iv bolus 1,000 mL INTRAVENOUS New Bag/Syringe/Bottle 04/14/2025 1845 EDT lactated ringers 1,000 mL iv bolus -- INTRAVENOUS Rate/Dose Change 04/14/2025 1953 EDT lactated ringers 1,000 mL iv bolus 0 mL INTRAVENOUS Infusion Complete 04/14/20251999 EDT lactated ringers 1,000 mL iv bolus 0 mL INTRAVENOUS Infusion Complete 04/14/20252099 EDT risperiDONE 0.5 mg tab(s) (RisperDAL) 0.5 mg ORAL Not Given 04/14/20252099 EDT levETIRAcetam 1,000 mg tab(s) (KEPPRA) 1,000 mg ORAL Not Given 04/14/20252099 EDT potassium phosphate, monobasic 500 mg tab(s) (K-PHOS Original) 500 mg ORAL Not Given 04/14/20252099 EDT lactated ringers iv infusion -- INTRAVENOUS Canceled Entry 04/14/20251919 EDT acetaminophen 1,000 mg tab(s) (TYLENOL) 1,000 mg ORAL Given 04/14/20251919 EDT lidocaine 4 % 1 patch (SALONPAS) 1 patch TRANSDERMAL Given SEE ABOVE ED STAFF ATTENDING [facility] Emergency Department Diagnosis Clinical Impression ICD-10-CM 1. Left nephrolithiasis N20.0 SURGICAL REQUEST - ADD ON CASE 2. Suprapubic catheter dysfunction, initial encounter T83.010A 3. Hydronephrosis with urinary obstruction due to ureteral calculus N13.2 Medical decision making: The patient is resting comfortably in bed, nontoxic, cooperative, NAD, and appropriate for Regular Nursing Floor admission at this time. Given an opportunity to ask questions and all were answered, and agrees with plan. There is no indication for ICU care and the patient is stable. Disposition: Admit to regular nursing floor Condition: Improved and stable Maribell Alba MD, FACEP Signature: Maribell Alba MD Date: 04/15/2025 Time: 8:18 AM MARIBELL ALBA 04/15/25 0821 [1] Social History Tobacco Use ??? Smoking status: Never ??? Smokeless tobacco: Never Substance and Sexual Activity ??? Alcohol use: Not on file ??? Drug use: Not on file ??? Sexual activity: Not on file MARIBELL ALBA 04/15/25 0912 * New Snider MD - 04/14/2025 11:47 AM EDT ED TRIAGE PROVIDER NOTE Patient Name: Devorah Lerma Service Date: 04/14/25 BRIEF HPI: This is a 39 year old female who presents to the ED with: 39-year-old female with history of suprapubic catheter was diagnosed with a reported 8 mm left- sided ureteral stone at an outside hospital. She is followed by urology at our institution. This morning she noted that she did not have any significant urine output from her suprapubic catheter and her home health aide was unable to flush it. She does complain of some left sided flank pain. BRIEF EXAM: NAD Awake and Alert Non labored breathing INITIAL WORKUP AND DECISION MAKING: Orders Placed This Encounter BASIC METABOLIC PNL CBC + DIFF PT/INR Urinalysis w Microscopic, reflex Culture SIGNATURE: New Snider MD documented in this encounter Miscellaneous Notes * Plan of Care - Arlene Sharma [facility] - 04/16/2025 2:55 PM EDT Images from the original note were not included. DISCHARGE MEDICATION REVIEW BY PHARMACY Patient Name: Devorah Lerma Account #: Data Unavailable Admission Date: 04/14/2025 Date of Contact: April 16, 2025 Time of Contact: 2:55 PM Medication list was reviewed by a Pharmacist for drug interactions or drug related problems:Yes Below is a summary of pharmacist recommendations discussed with LIP: No recommendations at this time from discharge medication list. Arlene Sharma [facility] Pager: [phone] 04/16/2025 2:55 PM Medication List START taking these medications cefdinir 300 mg capsule Commonly known as: OMNICEF Take 1 capsule by mouth two times a day for 7 days. tamsulosin 0.4 mg Commonly known as: FLOMAX Take 1 capsule by mouth once daily. Stop two days after your stent is removed. CHANGE how you take these medications acetaminophen 500 mg tablet Commonly known as: TYLENOL Take 2 tablets by mouth every 6 hours as needed for pain. What changed: medication strength how much to take * oxybutynin ER 10 mg 24 hr tablet Commonly known as: DITROPAN XL Take 1 tablet by mouth once daily. What changed: Another medication with the same name was removed. Continue taking this medication, and follow the directions you see here. * oxybutynin 5 mg tablet Commonly known as: DITROPAN Take 1 tablet by mouth three times a day. What changed: Another medication with the same name was removed. Continue taking this medication, and follow the directions you see here. * This list has 2 medication(s) that are the same as other medications prescribed for you. Read thedirections carefully, and ask your doctor or other care provider to review them with you. CONTINUE taking these medications bisacodyl 10 mg Supp Commonly known as: DULCOLAX bismuth subsalicylate 262 mg/15 mL oral liquid Commonly known as: BISMATROL Take 30 mL by mouth every 6 hours as needed. Until diarrhea stops, for a total of 16 ounces, then d/c. buPROPion 75 mg tablet Commonly known as: WELLBUTRIN busPIRone 5 mg tablet Commonly known as: BUSPAR CALCIUM CITRATE PO Chlorhexidine Gluconate 0.12 % solution Commonly known as: PERIDEX cholecalciferol 1,000 unit Tab tablet Commonly known as: VITAMIN D3 cyclobenzaprine 5 mg tablet Commonly known as: FLEXERIL furosemide 40 mg tablet Commonly known as: LASIX gabapentin 600 mg tablet Commonly known as: NEURONTIN Ibuprofen 200 mg Cap Take 3 capsules by mouth every 8 hours as needed for pain (for pain). * lamoTRIgine 25 mg tablet Commonly known as: LaMICtal * lamoTRIgine 200 mg tablet Commonly known as: LaMICtal levETIRAcetam 1,000 mg tablet Commonly known as: KEPPRA lidocaine 4 % patch Commonly known as: SALONPAS loratadine 10 mg tablet Commonly known as: CLARITIN melatonin 3 mg capsules omeprazole 20 mg capsule Commonly known as: PriLOSEC ondansetron 4 mg tablet Commonly known as: ZOFRAN Take 1 tablet by mouth every 8 hours as needed for nausea/vomiting for up to 30 doses. polyethylene glycol 3350 17 gram packet potassium phosphate, monobasic 500 mg tablet Commonly known as: K-PHOS Original prazosin 1 mg Cap Commonly known as: MINIPRESS pyridoxine (vitamin B6) 100 mg tablet Commonly known as: VITAMIN B6 QUEtiapine 150 mg tablet risperiDONE 0.5 mg tablet Commonly known as: RisperDAL senna 8.6 mg Tab sertraline 100 mg tablet Commonly known as: ZOLOFT tiZANidine 2 mg tablet Commonly known as: ZANAFLEX TUMS 500 mg Chew Generic drug: calcium carbonate VITAMIN C 500 mg tablet Generic drug: ascorbic acid (vitamin C) zinc oxide-cod liver oil 40 % paste Commonly known as: DESITIN 40% Apply 1 application to affected area as needed. * This list has 2 medication(s) that are the same as other medications prescribed for you. Read thedirections carefully, and ask your doctor or other care provider to review them with you. STOP taking these medications benzonatate 100 mg capsule Commonly known as: TESSALON PERLE BIOFREEZE (MENTHOL) 4 % topical gel Generic drug: menthol ciprofloxacin HCl 500 mg tablet Commonly known as: CIPRO guaiFENesin 600 mg 12 hr tablet Commonly known as: MUCINEX magnesium hydroxide 400 mg/5 mL suspension Commonly known as: MOM meclizine 25 mg Tab Commonly known as: ANTIVERT Methenamine Hippurate 1 gram tablet Commonly known as: HIPREX midodrine 2.5 mg tablet Commonly known as: PROAMATINE ASK your doctor about these medications albuterol 2.5 mg /3 mL (0.083 %) nebulizer solution Commonly known as: PROVENTIL FLEET ENEMA enema Generic drug: sodium phosphate-sodium bisphosphate Where to Get Your Medications These medications were sent to [facility] [address] [place] [address] Hours: Thursday-Thursday 7am-8pm, Thursday, Thursday and Holidays 9am-5pm acetaminophen 500 mg tablet cefdinir 300 mg capsule oxybutynin 5 mg tablet tamsulosin 0.4 mg * Plan of Care - Mike Gaffney CPhT - 04/16/2025 8:37 AM EDT Images from the original note were not included. PHARMACY BEDSIDE DELIVERY SERVICE Patient Name: Devorah Lerma The marked outpatient medications were Filled at: [facility] and delivered to the patient's bedside to PT Medication List START taking these medications cefdinir 300 mg capsule Commonly known as: OMNICEF Take 1 capsule by mouth two times a day for 7 days. DELIVERED tamsulosin 0.4 mg Commonly known as: FLOMAX Take 1 capsule by mouth once daily. Stop two days after your stent is removed. DELIVERED CHANGE how you take these medications acetaminophen 500 mg tablet Commonly known as: TYLENOL Take 2 tablets by mouth every 6 hours as needed for pain. What changed: medication strength how much to take DELIVERED * oxybutynin ER 10 mg 24 hr tablet Commonly known as: DITROPAN XL Take 1 tablet by mouth once daily. What changed: Another medication with the same name was removed. Continue taking this medication, and follow the directions you see here. * oxybutynin 5 mg tablet Commonly known as: DITROPAN Take 1 tablet by mouth three times a day. What changed: Another medication with the same name was removed. Continue taking this medication, and follow the directions you see here. DELIVERED * This list has 2 medication(s) that are the same as other medications prescribed for you. Read thedirections carefully, and ask your doctor or other care provider to review them with you. CONTINUE taking these medications bisacodyl 10 mg Supp Commonly known as: DULCOLAX bismuth subsalicylate 262 mg/15 mL oral liquid Commonly known as: BISMATROL Take 30 mL by mouth every 6 hours as needed. Until diarrhea stops, for a total of 16 ounces, then d/c. buPROPion 75 mg tablet Commonly known as: WELLBUTRIN busPIRone 5 mg tablet Commonly known as: BUSPAR CALCIUM CITRATE PO Chlorhexidine Gluconate 0.12 % solution Commonly known as: PERIDEX cholecalciferol 1,000 unit Tab tablet Commonly known as: VITAMIN D3 cyclobenzaprine 5 mg tablet Commonly known as: FLEXERIL furosemide 40 mg tablet Commonly known as: LASIX gabapentin 600 mg tablet Commonly known as: NEURONTIN Ibuprofen 200 mg Cap Take 3 capsules by mouth every 8 hours as needed for pain (for pain). * lamoTRIgine 25 mg tablet Commonly known as: LaMICtal * lamoTRIgine 200 mg tablet Commonly known as: LaMICtal levETIRAcetam 1,000 mg tablet Commonly known as: KEPPRA lidocaine 4 % patch Commonly known as: SALONPAS loratadine 10 mg tablet Commonly known as: CLARITIN melatonin 3 mg capsules omeprazole 20 mg capsule Commonly known as: PriLOSEC ondansetron 4 mg tablet Commonly known as: ZOFRAN Take 1 tablet by mouth every 8 hours as needed for nausea/vomiting for up to 30 doses. polyethylene glycol 3350 17 gram packet potassium phosphate, monobasic 500 mg tablet Commonly known as: K-PHOS Original prazosin 1 mg Cap Commonly known as: MINIPRESS pyridoxine (vitamin B6) 100 mg tablet Commonly known as: VITAMIN B6 QUEtiapine 150 mg tablet risperiDONE 0.5 mg tablet Commonly known as: RisperDAL senna 8.6 mg Tab sertraline 100 mg tablet Commonly known as: ZOLOFT tiZANidine 2 mg tablet Commonly known as: ZANAFLEX TUMS 500 mg Chew Generic drug: calcium carbonate VITAMIN C 500 mg tablet Generic drug: ascorbic acid (vitamin C) zinc oxide-cod liver oil 40 % paste Commonly known as: DESITIN 40% Apply 1 application to affected area as needed. * This list has 2 medication(s) that are the same as other medications prescribed for you. Read thedirections carefully, and ask your doctor or other care provider to review them with you. You might also be taking other medications not listed above. If you have questions about any of your other medications, talk to the person who prescribed them or your Primary Care Provider. STOP taking these medications benzonatate 100 mg capsule Commonly known as: TESSALON PERLE BIOFREEZE (MENTHOL) 4 % topical gel Generic drug: menthol ciprofloxacin HCl 500 mg tablet Commonly known as: CIPRO guaiFENesin 600 mg 12 hr tablet Commonly known as: MUCINEX magnesium hydroxide 400 mg/5 mL suspension Commonly known as: MOM meclizine 25 mg Tab Commonly known as: ANTIVERT Methenamine Hippurate 1 gram tablet Commonly known as: HIPREX midodrine 2.5 mg tablet Commonly known as: PROAMATINE ASK your doctor about these medications albuterol 2.5 mg /3 mL (0.083 %) nebulizer solution Commonly known as: PROVENTIL FLEET ENEMA enema Generic drug: sodium phosphate-sodium bisphosphate Mike Gaffney CPhT April 16, 2025 8:37 AM documented in this encounter Plan of Treatment DateTypeDepartmentCare Team (Latest Contact Info)Plpeew[place]ago06/30/2025 11:30 AM EDTOffice Visit Gynecology [address] [phone] Shaye Pittman DO [address] [place] [address] Menorrhagia with regular cycle [N92.0] Patient interested in injections to help her ujxwyzo9305/01/2025 9:20 AM ESTHospital Encounter Admitting [facility] [place] [address] Axel Ruth MD [address] [place] [address] Nephrolithiasis [N20.0]05/01/2025 9:20 AM EST - 05/01/2025 12:00 PM ESTSurgery Admitting [address] [place] [address] [place] [address] [place] [id number] CYSTOURETHROSCOPY W/ URETEROSCOPY AND/OR PYELOSCOPY W/ LITHOTRIPSY INCLUDE INSERTION OF INDWELLING URETERAL STENT05/04/2025 10:30 AM ESTOffice Visit Urology [address] [address] Axel Ruth MD [address] [place] [address] Surgical consult will bring ocaedax9507/11/2025 9:00 AM ESTAppointment Radiology [address] [address] [address] FLANK WO IVCON07/11/2025 9:30 AM ESTOffice Visit Urology [address] [address] Farzana Davis, EVA.[employer] [address] [place] [address] 3 month f/u with CT prior per cc chartNamePriorityAssociated DiagnosesDate/Time CYSTOURETHROSCOPY W/ URETEROSCOPY AND/OR PYELOSCOPY W/ LITHOTRIPSY INCLUDE INSERTION OF INDWELLING URETERAL STENT Nephrolithiasis 05/01/2025 9:20 AM ESTdocumented as of this encounter Procedures Procedure NamePriorityDate/TimeAssociated DiagnosisCommentsLAB EXTRA TUBES Tpxbipw7904/16/2025 5:38 AM EDT EXTRA DRAW TTLKNJmlfdsw99/19/2025 5:38 AM EDTURINE VMATQSPOhmrrwj37/19/2025 5:09 AM EDT URINALYSIS (WITH MICROSCOPIC) WITH CULTURE IF KQTLHMCFJEdafyqr39/19/2025 5:09 AM EDT COMPLETE BLOOD SQERHAeetvmj86/19/2025 12:39 AM EDT BASIC METABOLIC XZFVLHpxyqrt24/19/2025 12:39 AM EDT CYSTO W/INSERT URETERAL STENT04/15/2025 2:13 PM EDT Left nephrolithiasis HCG QUAL [id number] 1:12 PM EDT COMPLETE BLOOD OZSQLZgltulu93/18/2025 6:41 AM EDT BASIC METABOLIC KJVTJWnxqmdf28/18/2025 6:41 AM EDT URINE PFBJTZVSJUI74/17/2025 7:35 PM EDT URINALYSIS (WITH MICROSCOPIC) WITH CULTURE IF WPTGQIGHTGRRO76/17/2025 7:35 PM EDT US BLADDER (POC) ED USE KXZCLGIN58/17/2025 3:07 PM EDT XR CHEST 1V FRONTAL LDOHMFXM92/17/2025 2:02 PM EDT CYSTATIN CAdd-on04/14/2025 12:47 PM EDT PROTHROMBIN RMCMVLFE75/17/2025 12:47 PM EDT CBC + XNMQMPQA71/17/2025 12:47 PM EDT BASIC METABOLIC NLCFMOMUG56/17/2025 12:47 PM EDT documented in this encounter Results * EXTRA DRAW URINE (04/16/2025 5:38 AM EDT)Specimen (Source)Anatomical Location / LateralityCollection Method / VolumeCollection TimeReceived TimeUrineURINE SPECIMEN / Irtbknn3704/16/2025 5:38 AM EDT1 5:38 AM EDT Narrative Authorizing ProviderResult TypeResult StatusMaribell Alba MDLABORATORYFinal ResultPerforming OrganizationAddressCity/State/ZIP CodePhone Number [facility] [address] [place] [address], * URINE CULTURE IF INDICATED (04/16/2025 5:09 AM EDT)ComponentValueRef RangeTest MethodAnalysis TimePerformed AtPathologist SignatureCulture, Urine<10,000 CFU/ml Normal urogenital flora04/17/2025 7:00 AM [facility]TC[facility] Specimen (Source)Anatomical Location / LateralityCollection Method / Volume Collection TimeReceived TimeUrineURINE SPECIMEN OBTAINED VIA SUPRAPUBIC INDWELLING URINARY CATHETER / UnknownNon Blood / Jclngsn3104/16/2025 5:09 AM EDT 04/16/2025 5:36 AM EDT Narrative Authorizing ProviderResult TypeResult StatusMaribell Alba MDMICROBIOLOGYFinal ResultPerforming OrganizationAddressCity/State/ZIP CodePhone Number [facility] [address] * (ABNORMAL) URINALYSIS (WITH MICROSCOPIC) WITH CULTURE IF INDICATED (04/16/2025 5:09 AM EDT)ComponentValueRef RangeTest MethodAnalysis TimePerformed At Pathologist GlocueqwcXvqazGsnetkTfbsns78/19/2025 6:25 AM [facility] LABClarityCloudy(A)Clear04/16/2025 6:25 AM [facility] Glucose, QfvstHwjpkoxrTmliukut16/19/2025 6:25 AM [facility] Bilirubin, PtytrWbfwbelbAmxeavfa20/19/2025 6:25 AM [facility] LABKetones, VxjzbEzxbmuaqUcibjkok06/19/2025 6:25 AM [facility] LABSpecific [place], Ur1.0191.005 - 1.5681304/16/2025 6:25 AM [facility] LABHemoglobin/Blood,Ur2+(A)Uvzzpndt90/19/2025 6:25 AM [facility] LABpH, Urine7.05.0 - 8.010 6:25 AM [facility] LABProtein, Urine1+(A)Eiouzmbu33/19/2025 6:25 AM [facility] LABUrobilinogen1.0 EU/dL0.2-1.0 EU/dL04/16/2025 6:25 AM [facility] WOQQgututejCyaiwrllJusbsrli74/19/2025 6:25 AM [facility] LABLeuk Esterase3+(A)Uuvykwtn81/19/2025 6:25 AM [facility] WBC, Urine>20 /HPF(A)0-5 /HPF04/16/2025 6:25 AM [facility] RBC, Urine>20 /HPF(A)0-2 /HPF04/16/2025 6:25 AM [facility] Bacteria uL1,140.6(H)Negative uL04/16/2025 6:25 AM [facility] LABSquamous Epithelial CellsModerate/HPF04/16/2025 6:25 AM [facility] LABCasts, Hyaline4-10 /LPF(A)0 /LP04/16/2025 6:25 AM [facility] LABSpecimen (Source)Anatomical Location / LateralityCollection Method / VolumeCollection TimeReceived TimeUrineURINE SPECIMEN OBTAINED VIA SUPRAPUBIC INDWELLING URINARY CATHETER / UnknownNon Blood / Xwuevuf3704/16/2025 5:09 AM EDT1 5:36 AM EDT Narrative [facility] - 04/16/2025 6:25 AM EDT Urine received in non-preservative tube. Interpret results with caution. To ensure optimal and accurate results, transfer urine to the BD Vacutainer Plus urine preservative tube. This test was developed and its performance characteristics determined by [facility]'s [facility] Pathology and Laboratory Medicine [place] ([facility]). It has not been cleared or approved by the FDA. -[facility] is regulated under CLIA as qualified to perform high-complexity testing. Thistest is used for clinical purposes. It should not be regarded as investigational or for research. Authorizing ProviderResult TypeResult StatusMaribell Alba MDLABORATORYFinal ResultPerforming OrganizationAddressCity/State/ZIP CodePhone Number [facility] [address] * (ABNORMAL) BASIC METABOLIC PANEL (04/16/2025 12:39 AM EDT)ComponentValueRef RangeTest MethodAnalysis TimePerformed AtPathologist EyoxrqubdCazkqok866(H)74 - 99 mg/dL04/16/2025 1:55 AM [facility] LABComment: The [place] Diabetes Association (ADA) provides guidance for cutoff values for fasting glucose andrandom glucose. The ADA defines fasting as no caloric intake for at least 8 hours. Fasting plasma glucose results between 100 to 125 mg/dL indicate increased risk for diabetes (prediabetes). Fasting plasma glucose results greater than or equal to 126 mg/dL meet the criteria for diagnosis of diabetes. In the absence of unequivocal hyperglycemia, results should be confirmed by repeat testing. In a patient with classic symptoms of hyperglycemia or hyperglycemic crisis, random plasma glucose results greater than or equal to 200 mg/dL meet the criteria for diagnosis of diabetes. Reference: Standards of Medical Care in Diabetes 2016, [place] Diabetes Association. Diabetes Care. 2016.39(Suppl 1). JYZ769 - 21 mg/dL04/16/2025 1:55 AM [facility] LABCreatinine0.65 0.58 - 0.96 mg/dL04/16/2025 1:55 AM [facility] OXDGxolmc836174 - 144 mmol/L1 1:55 AM [facility] LABPotassium3.73.7 - 5.1 mmol/L1 1:55 AM [facility] QHJEohzixmr39480 - 107 mmol/L 04/16/2025 1:55 AM [facility] RWFJI94026 - 30 mmol/L1 1:55 AM [facility] LABAnion Zsn534 - 15 mmol/L1 1:55 AM [facility] LABCalcium, Total9.48.5 - 10.2 mg/dL04/16/2025 1:55 AM [facility] LABEstimated Glomerular Filtration Dxbx336>=60 mL/min/1.73m 04/16/2025 1:55 AM [facility] LABComment:Estimated Glomerular Filtration Rate (eGFR) is calculated using the 2020 CKD-EPI creatinine equation. This equation utilizes serum creatinine, sex, and age as parameters. The creatinine assay has traceable calibration to isotope dilution-mass spectrometry. Refer to KDIGO guidelines for clinical interpretation. In patients with unstable renal function, e.g. those with acute kidney injury, the eGFRmay not accurately reflect actual GFR.Specimen (Source)Anatomical Location / LateralityCollection Method / VolumeCollection TimeReceived TimeBloodBLOOD SPECIMEN / UnknownVenipuncture / Rqmqzip4904/16/2025 12:39 AM EDT1 1:06 AM EDT Narrative Authorizing ProviderResult TypeResult StatusMaribell Alba MDLABORATORYFinal ResultPerforming OrganizationAddressCity/State/ZIP CodePhone Number [facility] [address] * (ABNORMAL) COMPLETE BLOOD COUNT (04/16/2025 12:39 AM EDT)ComponentValueRef RangeTest MethodAnalysis TimePerformed AtPathologist SignatureWBC8.913.70 - 11.00 k/uL04/16/2025 1:28 AM EDTCKETTERING MEMOR[facility] MAIN LABRBC3.87(L)3.90 - 5.20 m/uL04/16/2025 1:28 AM [facility] LABHemoglobin9.8(L)11.5 - 15.5 g/dL04/16/2025 1:28 AM [facility] DQLZbqezctbbp64.8(L)36.0 - 46.0 %04/16/2025 1:28 AM [facility] LOZDXH54.280.0 - 100.0 fL 04/16/2025 1:28 AM [facility] PQRIFN22.3(L)26.0 - 34.0 pg 04/16/2025 1:28 AM [facility] OWLZKSO22.830.5 - 36.0 g/dL 04/16/2025 1:28 AM [facility] LABRDW-CV15.9(H)11.5 - 15.0 % 04/16/2025 1:28 AM [facility] LABPlatelet Kweqy060947 - 400 k/uL 04/16/2025 1:28 AM [facility] XEIPLI02.99.0 - 12.7 fL04/16/2025 1:28 AM [facility] LABAbsolute nRBC<0.01<0.01 k/uL04/16/2025 1:28 AM [facility] LABSpecimen (Source)Anatomical Location / LateralityCollection Method / VolumeCollection TimeReceived TimeBloodBLOOD SPECIMEN / UnknownVenipuncture / Kodvpgf7104/16/2025 12:39 AM EDT1 1:06 AM EDT Narrative Authorizing ProviderResult TypeResult StatusJocelinemayte Alba [facility]PITALORATORYFinal ResultPerforming OrganizationAddressCity/State/ZIP CodePhone Number [facility] [address] [place] [id number], * HCG, QUALITATIVE, URINE (04/15/2025 1:12 PM EDT)ComponentValueRef RangeTest MethodAnalysis TimePerformed AtPathologist SignatureHCG Qualitative, JleroAczrtzpmDhiyctqp24/18/2025 1:39 PM EDTCKETTERING MEMORIAL [facility] MAIN LABComment: This test is intended to aid in the early detection of . Very dilute urine samples, as indicated by a low specific gravity, may not contain claim representative levels of hCG. This test detects intact hCG only. This test does not reliably detect hCG degradation products, including free-beta subunit and beta-core fragment. Therefore, this test may show reduced reactivity in urine after 8 weeks gestation. A number of conditions other than , including trophoblastic disease and certain non-trophoblastic neoplasms cause elevated levels of hCG. As with any assay employing mouse antibodies, the possibility exists for interference by human anti-mouse antibodies (HAMA) in the specimen. The test provides a presumptive diagnosis for .Specimen (Source)Anatomical Location / LateralityCollection Method / VolumeCollection TimeReceived TimeUrineURINE SPECIMEN / UnknownNon Blood / Zolgwzd0704/15/2025 1:12 PM EDT1 1:16 PM EDT Narrative Authorizing ProviderResult TypeResult Kimberlee Kevin Queen JOLIEPARADISETORYFinal ResultPerforming OrganizationAddressCity/State/ZIP CodePhone Number [facility] [address] [place] [phone], * (ABNORMAL) BASIC METABOLIC PANEL (04/15/2025 6:41 AM EDT)ComponentValueRef RangeTest MethodAnalysis TimePerformed AtPathologist FuneupofoZabocoe524(H)74 - 99 mg/dL04/15/2025 8:48 AM EDCH[facility] MAIN LABComment: The [place] Diabetes Association (ADA) provides guidance for cutoff values for fasting glucose andrandom glucose. The ADA defines fasting as no caloric intake for at least 8 hours. Fasting plasma glucose results between 100 to 125 mg/dL indicate increased risk for diabetes (prediabetes). Fasting plasma glucose results greater than or equal to 126 mg/dL meet the criteria for diagnosis of diabetes. In the absence of unequivocal hyperglycemia, results should be confirmed by repeat testing. In a patient with classic symptoms of hyperglycemia or hyperglycemic crisis, random plasma glucose results greater than or equal to 200 mg/dL meet the criteria for diagnosis of diabetes. Reference: Standards of Medical Care in Diabetes 2016, [place] [employer]. Diabetes Care. 2016.39(Suppl 1). BUN22(H)7 - 21 mg/dL04/15/2025 8:48 AM [facility] LABCreatinine 0.870.58 - 0.96 mg/dL04/15/2025 8:48 AM [facility] QKQNwyzwq418126 - 144 mmol/L1 8:48 AM [facility] LABPotassium4.53.7 - 5.1 mmol/L1 8:48 AM [facility] QFKSepabpqm41553 - 107 mmol/L1 8:48 AM [facility] MEKLR67873 - 30 mmol/L 04/15/2025 8:48 AM [facility] LABAnion Ulg280 - 15 mmol/L 04/15/2025 8:48 AM [facility] LABCalcium, Total9.28.5 - 10.2 mg/dL 04/15/2025 8:48 AM [facility] LABEstimated Glomerular Filtration Rate87>=60 mL/min/1.73m 04/15/2025 8:48 AM [facility] LABComment:Estimated Glomerular Filtration Rate (eGFR) is calculated using the 2020 CKD-EPI creatinine equation. This equation utilizes serum creatinine, sex, and age as parameters. The creatinine assay has traceable calibration to isotope dilution-mass spectrometry. Refer to KDIGO guidelines for clinical interpretation. In patients with unstable renal function, e.g. those with acute kidney injury, the eGFRmay not accurately reflect actual GFR.Specimen (Source)Anatomical Location / LateralityCollection Method / VolumeCollection TimeReceived TimeBloodBLOOD SPECIMEN / UnknownVenipuncture / Gfvatsv0504/15/2025 6:41 AM EDT1 7:02 AM EDT Narrative Authorizing ProviderResult TypeResult StatusJohn R Alba MDLABORATORYFinal ResultPerforming OrganizationAddressCity/State/ZIP CodePhone Number [facility] [address] * (ABNORMAL) COMPLETE BLOOD COUNT (04/15/2025 6:41 AM EDT)ComponentValueRef RangeTest MethodAnalysis TimePerformed AtPathologist SignatureWBC9.883.70 - 11.00 k/uL04/15/2025 8:24 AM EDTCKETTERING [facility] MA[facility] LABRBC3.86(L)3.90 - 5.20 m/uL04/15/2025 8:24 AM [facility] LABHemoglobin9.8(L)11.5 - 15.5 g/dL04/15/2025 8:24 AM [facility] YPBEfzgjvddsw37.9(L)36.0 - 46.0 %04/15/2025 8:24 AM [facility] OESMZK44.680.0 - 100.0 fL 04/15/2025 8:24 AM [facility] LAKXNE09.4(L)26.0 - 34.0 pg 04/15/2025 8:24 AM [facility] WJKMTWT50.730.5 - 36.0 g/dL 04/15/2025 8:24 AM [facility] LABRDW-CV16.2(H)11.5 - 15.0 % 04/15/2025 8:24 AM [facility] LABPlatelet Ayrdk090046 - 400 k/uL 04/15/2025 8:24 AM [facility] YLLMLU01.59.0 - 12.7 fL04/15/2025 8:24 AM [facility] LABAbsolute nRBC<0.01<0.01 k/uL04/15/2025 8:24 AM [facility] LABSpecimen (Source)Anatomical Location / LateralityCollection Method / VolumeCollection TimeReceived TimeBloodBLOOD SPECIMEN / UnknownVenipuncture / Zdzyqmh3304/15/2025 6:41 AM EDT1 7:03 AM EDT Narrative Authorizing ProviderResult TypeResult StatusMaribell Alba MDLABORATORYFinal ResultPerforming OrganizationAddressCity/State/ZIP CodePhone Number [facility] [address] [place] [address], * (ABNORMAL) URINE CULTURE IF INDICATED (04/14/2025 7:35 PM EDT)ComponentValue Ref RangeTest MethodAnalysis TimePerformed AtPathologist SignatureCulture, UrineMixed microbiota:04/18/2025 6:52 AM EDTCKETTERING MEM[facility]IAL [facility] MAIN LABCulture, Urine>=100,000 CFU/ml Proteus mirabilis(A) MINIMUM INHIBITORY CONCENTRATION(VITEK) 04/18/2025 6:52 AM EDTCKETTERING MEMORIAL [facility] MAIN LABComment:Culture, Urine10,000 - <50,000 CFU/ml Klebsiella pneumoniae(A)04/18/2025 6:52 AM EDTCKETTERING MEMORIAL [facility] MAIN LABComment:Insignificant colony count. No further workup.Specimen (Source) Anatomical Location / LateralityCollection Method / VolumeCollection Time Received TimeUrineMID-STREAM URINE SPECIMEN / UnknownNon Blood / Unknown 04/14/2025 7:35 PM EDT1 8:00 PM EDT Narrative [facility] - 04/18/2025 6:52 AM EDT Testing or reporting of additional agents was requested. This test was developed and its performance characteristics determined by the [facility]'s [facility] Laboratory Medicine [place] ([facility]). It has not been cleared or approved by the FDA. [facility] is regulated under CLIA as qualified to perform high-complexity testing. This test is used for clinical purposes. It should not be regarded as investigational or for research. OrganismAntibioticMethodSusceptibilityProteus mirabilisAmpicillinMINIMUM INHIBITORY CONCENTRATION(VITEK) >=32: Resistant Proteus mirabilisCefazolinMINIMUM INHIBITORY CONCENTRATION(VITEK) <=4: Susceptible Comment:For uncomplicated urinary tract infections, cefazolin results can be used to predict susceptibilityor resistance to cephalexin.Proteus mirabilis CeftriaxoneMINIMUM INHIBITORY CONCENTRATION(VITEK) <=1: Susceptible Proteus mirabilisCefepimeMINIMUM INHIBITORY CONCENTRATION(VITEK) <=1: Susceptible Proteus mirabilisErtapenemMINIMUM INHIBITORY CONCENTRATION(VITEK) <=0.5: Susceptible Proteus mirabilisMeropenemMINIMUM INHIBITORY CONCENTRATION(VITEK) <=0.25: Susceptible Proteus mirabilisAmpicillin/SulbactMINIMUM INHIBITORY CONCENTRATION(VITEK) 4: Susceptible Proteus mirabilisPiperacillin/TazobacMINIMUM INHIBITORY CONCENTRATION(VITEK) <=4: Susceptible Proteus mirabilisGentamicinMINIMUM INHIBITORY CONCENTRATION(VITEK) <=1: Susceptible Proteus mirabilisTobramycinMINIMUM INHIBITORY CONCENTRATION(VITEK) <=1: Susceptible Proteus mirabilisTrimeth sulfamethMINIMUM INHIBITORY CONCENTRATION(VITEK) >=320: Resistant Proteus mirabilisCiprofloxacinMINIMUM INHIBITORY CONCENTRATION(VITEK) >=4: Resistant Proteus mirabilisNitrofurantoinMINIMUM INHIBITORY CONCENTRATION(VITEK) 64: Resistant Authorizing ProviderResult TypeResult StatusDenangie Snider [facility] REGION[facility] MEDICAL CENTERICROBIOLOGYEdited Result - FinalPerforming OrganizationAddressCity/State/ZIP CodePhone Number [facility] [address] * (ABNORMAL) URINALYSIS (WITH MICROSCOPIC) WITH CULTURE IF INDICATED (04/14/2025 7:35 PM EDT)ComponentValueRef RangeTest MethodAnalysis TimePerformed At Pathologist PdbvlbsmiTtjaeQcqcsdViiyyr90/17/2025 8:20 PM EDTCLEVEL[facility] MAIN LABClarityTurbid(A)Clear04/14/2025 8:20 PM EDTCLEVELAND [facility]INIC [facility] LAB Glucose, HfxdvWjqotclqKaxlbdum66/17/2025 8:20 PM [facility]TCP[facility] Bilirubin, PxenqSxivujybAfkmhyps21/17/2025 8:20 PM EDTCLEVELAND CLINIC MAIN LABKetones, FlbwqTsjmcrrpBitprsdo63/17/2025 8:20 PM EDTCLEVELAND CLINIC MAIN LABSpecific [place], Ur1.0171.005 - 1.0496504/14/2025 8:20 PM EDTCPARKVIEW [facility]ALTHAND [facility]IN[facility] MAIN LABHemoglobin/Blood,Ur2+(A)Jpblymfo08/17/2025 8:20 PM EDTCLEVELAND CLINIC MAIN LABpH, Urine6.55.0 - 8.010 8:20 PM EDTCKETTERING [facility] LABProtein, UrineTrace(A)Olwlhggz57/17/2025 8:20 PM EDTCKETTERING [facility] MAIN LABUrobilinogen0.2 EU/dL0.2-1.0 EU/dL04/14/2025 8:20 PM EDTCKETTERING [facility]IN TTIEbufavkiBirfhdquKonvofix61/17/2025 8:20 PM EDTCKETTERING [facility] MAIN LABLeuk Esterase3+(A)Qhuueemz04/17/2025 8:20 PM EDTCKETTERING MEM[facility] MAIN LABWBC, Urine>20 /HPF(A)0-5 /HPF04/14/2025 8:20 PM EDTCKETTERING [facility] MAIN LABRBC, Urine>20 /HPF(A)0-2 /HPF04/14/2025 8:20 PM EDTCKETTERING [facility] MAIN LABBacteria uL7,080.3(H)Negative uL04/14/2025 8:20 PM EDTCKETTERING MEMORIAL [facility] MAIN LABSquamous Epithelial CellsModerate/HPF04/14/2025 8:20 PM EDCH[facility] MAIN LABCasts, Hyaline4-10 /LPF(A)0 /LPF10 8:20 PM EDTCKETTERING MEMORIAL [facility] MAIN LABSpecimen (Source)Anatomical Location / LateralityCollection Method / VolumeCollection TimeReceived TimeUrineMID-STREAM URINE SPECIMEN / UnknownNon Blood / Ykpyifw4604/14/2025 7:35 PM EDT1 8:00 PM EDT Narrative [facility] - 04/14/2025 8:20 PM EDT This test was developed and its performance characteristics determined by [facility]'s Daryl Townsend [facility] Pathology and Laboratory Medicine [place] (- [facility]). It has not been cleared or approved by the FDA. [facility] is regulated under CLIA as qualified to perform high-complexity testing. This test is used for clinical purposes. It should not be regarded as investigational or for research. Authorizing ProviderResult TypeResult StatusNew Snider MDLABORATORYFinal Result Performing OrganizationAddressCity/State/ZIP CodePhone Number [facility] [address] [place] [address], [place] * US BLADDER (POC) ED USE ONLY (04/14/2025 3:07 PM EDT)Anatomical Region LateralityModalityOtherSpecimen (Source)Anatomical Location / Laterality Collection Method / VolumeCollection TimeReceived Time04/14/2025 3:07 PM EDT Narrative 04/15/2025 9:10 AM EDT Maribell Alba MD 04/15/2025 9:12 AM Limited Ultrasound Bladder Examination US BLADDER (POC) ED USE ONLY Date/Time: 04/15/2025 9:10 AM Performed by: Maribell Alba MD Authorized by: Maribell Alba MD ?? Indication: Patient has Urinary retention and requires examination for assessment for outlet obstruction. Procedure in detail: Using the curvilinear probe, the bladder was examined in both axial and sagittal planes and volumetrically was No Yes still images or video images were saved for this exam. Conclusion: Ultrasound of bladder was Negative for urinary outflow obstruction. This limited imaging study was performed by: Resident/KATHI with Attending supervision. Dr. alba supervised and interpreted this ultrasound exam. I was present for the entire procedure. Maribell Alba MD Authorizing ProviderResult TypeResult StatusJohn Kevin Alba MDIMAGESEdited Result - Final * XR CHEST 1V FRONTAL PORT (04/14/2025 2:02 PM EDT)Anatomical RegionLaterality ModalityChestRadiographic ImagingSpecimen (Source)Anatomical Location / LateralityCollection Method / VolumeCollection TimeReceived Time04/14/2025 2:02 PM EDT Impressions 04/14/2025 2:09 PM EDT IMPRESSION: Shallow lung volumes. ??No focal infiltrate or consolidation. Information Assurance Engineer: ANJELICAB ?? Transcribe Date/Time: Apr 14 2025 ??2:03P Dictated by : REID DANIELLE MD This examination was interpreted and the report reviewed and electronically signed by: REID DANIELLE MD on Apr 14 2025 ??2:07PM ??EST Narrative 04/14/2025 2:09 PM EDT * * *Final Report* * * DATE OF EXAM: Apr 14 2025 ??2:02PM ?? EGX ?? [id number] ??- ??XR CHEST 1V FRONTAL PORT ??/ PROCEDURE REASON: Other ? * * * * Physician Interpretation * * * * EXAMINATION: ??CHEST RADIOGRAPH (PORTABLE SINGLE VIEW AP) Exam Date/Time: ??04/14/2025 2:02 PM CLINICAL HISTORY: Other, Hypoxia MQ: ??XCPR_5 Comparison: ??07/31/2024 RESULT: Lines, tubes, and devices: ??None. Lungs and pleura: ??Shallow lung volumes with prominence of the bronchovascular lung markings. ??No focal infiltrate or consolidation. ?? There is patchy linear atelectasis in the right midlung. ??No pleural effusion or pneumothorax. Cardiomediastinal silhouette: ??Stable cardiomediastinal silhouette, accentuated by portable AP technique and pectus excavatum visible on 04/13/2025 CT abdomen/pelvis.. Other: ??. Procedure Note Provider, [facility] - 04/14/2025 * * *Final Report* * * DATE OF EXAM: Apr 14 2025 2:02PM EGX 5376 - XR CHEST 1V FRONTAL PORT / PROCEDURE REASON: Other * * * * Physician Interpretation * * * * EXAMINATION: CHEST RADIOGRAPH (PORTABLE SINGLE VIEW AP) Exam Date/Time: 04/14/2025 2:02 PM CLINICAL HISTORY: Other, Hypoxia MQ: XCPR_5 Comparison: 07/31/2024 RESULT: Lines, tubes, and devices: None. Lungs and pleura: Shallow lung volumes with prominence of the bronchovascular lung markings. No focal infiltrate or consolidation. There is patchy linear atelectasis in the right midlung. No pleural effusion or pneumothorax. Cardiomediastinal silhouette: Stable cardiomediastinal silhouette, accentuated by portable AP technique and pectus excavatum visible on 04/13/2025 CT abdomen/pelvis.. Other: . IMPRESSION IMPRESSION: Shallow lung volumes. No focal infiltrate or consolidation. Information Assurance Engineer: [email or web address] Transcribe Date/Time: Apr 14 2025 2:03P Dictated by : REID DANIELLE MD This examination was interpreted and the report reviewed and electronically signed by: REID DANIELLE MD on Apr 14 2025 2:07PM EST Authorizing ProviderResult TypeResult StatusJohn R Alba MDRAD-PAMAFinal Result * (ABNORMAL) CYSTATIN C (04/14/2025 12:47 PM EDT)ComponentValueRef RangeTest MethodAnalysis TimePerformed AtPathologist SignatureCystatin C1.89(H)0.61 - 0.95 mg/L1 10:22 PM EDTCKETTERING MEM[facility] MAIN LABCystatin C eGFR34(L) >=60 mL/min/1.73m 04/14/2025 10:22 PM EDTCKETTERING MEMORIAL [facility] MAIN LABComment:Estimated Glomerular Filtration Rate (eGFR) is calculated using the 2012 CKD-EPI cystatin C equation. This equation utilizes serum cystatin C, sex, and age as parameters. The cystatin C assay has traceable calibration to the ERM-DA471/[facility] reference material. Refer to KDIGO guidelines for clinical interpretation. In patients with unstable renal function, e.g. those with acute kidney injury, the eGFR may not accurately reflect actual GFR.Specimen (Source)Anatomical Location / LateralityCollection Method / VolumeCollection TimeReceived TimeBloodBLOOD SPECIMEN / UnknownVenipuncture / Dinuwua2504/14/2025 12:47 PM EDT1 12:57 PM EDT Narrative Authorizing ProviderResult TypeResult StatusMaribell Alba MDLABORATORYFinal ResultPerforming OrganizationAddressCity/State/ZIP CodePhone Number [facility] [address] * PROTHROMBIN TIME (04/14/2025 12:47 PM EDT)ComponentValueRef RangeTest Method Analysis TimePerformed AtPathologist SignaturePT Sec11.59.7 - 13.0 sec 04/14/2025 1:09 PM EDTCCITY HOSPITAL LABINR1.10.9 - 1. 1:09 PM EDTCKETTERING MEMORIAL HOSPITAL MAIN LABComment: Vitamin K Antagonist (VKA) Therapeutic Range: INR 2 to 3 (Target INR of 2.5) Note: For patients treated with VKA drugs, such as warfarin, the [place] [employer] 2012 Guideline recommends a therapeutic INR range of 2 to 3 (target INR of 2.5). This recommendation includes high-risk patients with antiphospholipid syndrome with previous arterial or venous thromboembolism, current-generation mechanical or bioprosthetic aortic heart valve replacement. Note: Patients with mechanical aortic valve replacement and additional risk factors for thromboembolic events (atrial fibrillation, previous thromboembolism, LV dysfunction, hypercoagulable conditions) or an older generation mechanical AVR (i.e., ball in-Cage) or any mechanical MVR should have a INR therapeutic range of 2.5 to 3.5 (target INR of 3). Aspen GH, et al. Chest 2012, 141:7S-47S Savanah RA, et al. [facility] 2017, 70: 252-289 Specimen (Source)Anatomical Location / LateralityCollection Method / Volume Collection TimeReceived TimeBloodBLOOD SPECIMEN / UnknownVenipuncture / Unknown 04/14/2025 12:47 PM EDT1 12:57 PM EDT Narrative Authorizing ProviderResult TypeResult StatusDenangie Snider MDLABORATORYFinal Result Performing OrganizationAddressCity/State/ZIP CodePhone Number [facility] [address] * (ABNORMAL) COMPLETE BLOOD COUNT AND DIFFERENTIAL (04/14/2025 12:47 PM EDT) ComponentValueRef RangeTest MethodAnalysis TimePerformed AtPathologist ErxyasujfCCW81.47(H)3.70 - 11.00 k/uL04/14/2025 1:02 PM [facility] LABRBC4.193.90 - 5.20 m/uL04/14/2025 1:02 PM [facility] Qcfnyyoxbx22.3(L)11.5 - 15.5 g/dL04/14/2025 1:02 PM [facility] ZEAMmrbdrmfno19.1(L)36.0 - 46.0 %04/14/2025 1:02 PM [facility] JAQYVW98.480.0 - 100.0 fL04/14/2025 1:02 PM [facility] LABMCH 24.6(L)26.0 - 34.0 pg04/14/2025 1:02 PM [facility] MAMZWOB00.2 (L)30.5 - 36.0 g/dL04/14/2025 1:02 PM [facility] LABRDW-CV15.9 (H)11.5 - 15.0 %04/14/2025 1:02 [facility] LABPlatelet Count [id number] - 400 k/uL04/14/2025 1:02 PM [facility] LABMPV9.69.0 - 12.7 fL04/14/2025 1:02 PM [facility] LABNeutrophils %83.0% 04/14/2025 1:02 PM [facility] LABAbs Neut9.52(H)1.45 - 7.50 k/uL 04/14/2025 1:02 PM [facility] LABLymphocytes %8.6%04/14/2025 1:02 PM [facility] LABAbs Lymph0.99(L)1.00 - 4.00 k/uL04/14/2025 1:02 PM [facility] LABMonocytes %6.2%04/14/2025 1:02 PM EDT [facility] LABAbs Mono0.71<0.87 k/uL04/14/2025 1:02 PM [facility] LABEosinophils %1.6%04/14/2025 1:02 PM [facility] LABAbs Eosin0.18<0.46 k/uL04/14/2025 1:02 PM [facility] Basophils %0.3%04/14/2025 1:02 PM [facility] LABAbs Baso0.03 <0.11 k/uL04/14/2025 1:02 PM [facility] LABImmature Granulocytes %0.3%04/14/2025 1:02 PM [facility] LABAbs Immature Gran0.04 <0.10 k/uL04/14/2025 1:02 PM [facility] LABNRBC0.0/100 WBC 04/14/2025 1:02 PM [facility] LABAbsolute nRBC<0.01<0.01 k/uL 04/14/2025 1:02 PM [facility] LABDiff JqmbNldn18/17/2025 1:[facility] LABSpecimen (Source)Anatomical Location / Laterality Collection Method / VolumeCollection TimeReceived TimeBloodBLOOD SPECIMEN / UnknownVenipuncture / Frzqonj2604/14/2025 12:47 PM EDT1 12:57 PM EDT Narrative Authorizing ProviderResult TypeResult StatusNew Snider MDLABORATORYFinal Result Performing OrganizationAddressCity/State/ZIP CodePhone Number [facility] [address] * (ABNORMAL) BASIC METABOLIC PANEL (04/14/2025 12:47 PM EDT)ComponentValueRef RangeTest MethodAnalysis TimePerformed AtPathologist SyoiqccwqQkdguds608(H)74 - 99 mg/dL04/14/2025 1:15 PM [facility] LABComment: The [place] [employer] (ADA) provides guidance for cutoff values for fasting glucose andrandom glucose. The ADA defines fasting as no caloric intake for at least 8 hours. Fasting plasma glucose results between 100 to 125 mg/dL indicate increased risk for diabetes (prediabetes). Fasting plasma glucose results greater than or equal to 126 mg/dL meet the criteria for diagnosis of diabetes. In the absence of unequivocal hyperglycemia, results should be confirmed by repeat testing. In a patient with classic symptoms of hyperglycemia or hyperglycemic crisis, random plasma glucose results greater than or equal to 200 mg/dL meet the criteria for diagnosis of diabetes. Reference: Standards of Medical Care in Diabetes 2016, [place] [employer]. Diabetes Care. 2016.39(Suppl 1). BUN22(H)7 - 21 mg/dL04/14/2025 1:15 PM [facility] LABCreatinine 0.890.58 - 0.96 mg/dL04/14/2025 1:15 PM [facility] EISJsqbon705(L) 136 - 144 mmol/L1 1:15 PM [facility] LABPotassium5.13.7 - 5.1 mmol/L1 1:15 PM [facility] RGQQcruywrg1865 - 107 mmol/L1 1:15 PM [facility] VBJFE01762 - 30 mmol/L 04/14/2025 1:15 PM [facility] LABAnion Gap98 - 15 mmol/L1 1:15 PM [facility] LABCalcium, Total9.98.5 - 10.2 mg/dL04/14/2025 1:15 PM [facility] LABEstimated Glomerular Filtration Rate85>=60 mL/min/1.73m 04/14/2025 1:15 PM [facility] LABComment:Estimated Glomerular Filtration Rate (eGFR) is calculated using the 2020 CKD-EPI creatinine equation. This equation utilizes serum creatinine, sex, and age as parameters. The creatinine assay has traceable calibration to isotope dilution-mass spectrometry. Refer to KDIGO guidelines for clinical interpretation. In patients with unstable renal function, e.g. those with acute kidney injury, the eGFRmay not accurately reflect actual GFR.Specimen (Source)Anatomical Location / LateralityCollection Method / VolumeCollection TimeReceived TimeBloodBLOOD SPECIMEN / UnknownVenipuncture / Gdsjjxc8404/14/2025 12:47 PM EDT1 12:57 PM EDT Narrative Authorizing ProviderResult TypeResult StatusNew Snider MDLABORATORYFinal Result Performing OrganizationAddressCity/State/ZIP CodePhone Number [facility] [address] documented in this encounter Visit Diagnoses Diagnosis Kidney stone- Primary Calculus of kidney Left nephrolithiasis Suprapubic catheter dysfunction, initial encounter Hydronephrosis with urinary obstruction due to ureteral calculus Hydronephrosis with urinary obstruction due to ureteral calculus Left nephrolithiasis Complicated UTI (urinary tract infection) Urinary tract infection, site not specified Kidney stones Calculus of kidney Nephrolithiasis Calculus of kidney documented in this encounter Admitting Diagnoses Diagnosis Kidney stone Calculus of kidney Kidney stones Calculus of kidney documented in this encounter Administered Medications Medication OrderMAR ActionAction DateDoseRateSite acetaminophen 1,000 mg tab(s) (TYLENOL) 1,000 mg, ORAL, EVERY 6 HOURS, First dose on Thu04/14/25 at 2100, Until Discontinued Given04/16/2025 2:00 PM EDT1,000 beTgqoi3704/16/2025 4:50 AM EDT1,000 mgGiven 04/15/2025 11:00 PM EDT1,000 mg acetaminophen 1,000 mg tab(s) (TYLENOL) 1,000 mg, ORAL, ONCE, 1 dose, On Thu04/14/25 at 1900 Given04/14/2025 7:20 PM EDT1,000 mg buPROPion 75 mg tab(s) (WELLBUTRIN) 75 mg, ORAL, DAILY, First dose on Thu04/15/25 at 0900, Until Discontinued Given04/16/2025 9:38 AM EDT75 shKanjq6104/15/2025 8:16 AM EDT75 mg busPIRone 30 mg tab(s) (BUSPAR) 30 mg, ORAL, 2 TIMES DAILY, First dose on Thu04/14/25 at 2100, Until Discontinued Given04/16/2025 9:37 AM EDT30 pfGbkta9504/15/2025 10:14 PM EDT30 xiSwfky7104/15/2025 8:17 AM EDT30 mg cyclobenzaprine 5 mg tab(s) (FLEXERIL) 5 mg, ORAL, 3 TIMES DAILY, First dose on Thu04/14/25 at 2100, Until Discontinued Given04/16/2025 2:00 PM EDT5 abHsbns1604/16/2025 9:38 AM EDT5 fkNgrxg6704/15/2025 10:15 PM EDT5 mg docusate sodium 100 mg cap(s) (COLACE) 100 mg, ORAL, 2 TIMES DAILY, First dose on Thu04/14/25 at 2100, Until Discontinued, Swallow whole;DO NOT crush, chew, or open. Given04/16/2025 9:37 AM HLW999 wqYjmcw7204/15/2025 10:15 PM KGW927 mgGiven 04/15/2025 8:17 AM JMD398 mg furosemide 40 mg tab(s) (LASIX) 40 mg, ORAL, DAILY, First dose on Thu04/15/25 at 0900, Until Discontinued Given04/16/2025 9:38 AM EDT40 nuSfbmx6404/15/2025 8:17 AM EDT40 mg gabapentin 1,800 mg tab(s) (NEURONTIN) 1,800 mg, ORAL, 3 TIMES DAILY, First dose on Thu04/14/25 at 2100, Until Discontinued Given10/ 2:00 PM EDT1,800 tgBtzdk1504/16/2025 9:38 AM EDT1,800 mgGiven 04/15/2025 10:12 PM EDT1,800 mg heparin 5,000 Units injection 5,000 Units, SUBCUTANEOUS, EVERY 8 HOURS, First dose on 04/15/25 at 0600, Until Discontinued Given04/16/2025 5:00 AM EDT5,000 UnitsArm, ZmapnPmttu42/18/2025 10:13 PM EDT 5,000 UnitsAbdomen, LLQ HYDROmorphone 0.2 mg injection (DILAUDID) 0.2 mg, INTRAVENOUS, EVERY 3 HOURS NEEDED, Starting on Thu04/14/25 at 2038, Until 04/15/25 at 2322, breakthrough pain, When patient is NPO or pain not relieved by oral pain medication Caution: IV hydromorphone is approximately 8 times MORE POTENT than IV morphine. For example, ailmgyrzjmiqt1re IV = morphine 8mg IV Given04/15/2025 9:53 AM EDT0.2 mg hydrOXYzine HCl 25 mg tab(s) (ATARAX) 25 mg, ORAL, ONCE, 1 dose, On Thu04/16/25 at 1300 Given04/16/2025 2:00 PM EDT25 mg keTORolac 15 mg injection (Toradol) 15 mg, INTRAVENOUS, ONCE, 1 dose, On Thu04/14/25 at 1330, Ketorolac (Toradol) is indicated for theshort-term (up to 5 days) management of moderately severe acute pain. Continuation of ketorolac (Toradol) beyond 5 days increases the risk of developing serious adverse events. Please verify the duration of therapy for ketorolac (Toradol)., Pharmacist may modify dose per [facility] dose optimization consult agreement: Yes Given04/14/2025 1:13 PM EDT15 mg lactated ringers 1,000 mL iv bolus 1,000 mL, INTRAVENOUS, at 999 mL/hr, Administer over 1 Hours, ONCE, 1 dose, On Thu04/14/25 at 1730 Rate/Dose Pjfwbe2704/14/2025 6:45 PM TIB424 mL/hrNew Bag/Syringe/Qiofwk1504/14/2025 5:30 PM EDT1,000 mL999 mL/hr lactated ringers 500 mL iv bolus 500 mL, INTRAVENOUS, at 999 mL/hr, Administer over 0.5 Hours, ONCE, 1 dose, On Thu04/14/25 at 1330 New Bag/Syringe/Qpsqzs7804/14/2025 1:21 PM VNR942 mL999 mL/hr lactated ringers iv infusion 100 mL/hr, INTRAVENOUS, CONTINUOUS, Starting on Thu04/14/25 at 2100, Until Thu04/16/25 at 1801 New Bag/Syringe/Rzcfyu4204/16/2025 9:54 AM KJZ318 mL/hr100 mL/hrNew Bag/Syringe/Zgxytd9104/15/2025 10:31 PM JDC840 mL/hr100 mL/hrNew Bag/Syringe/Fgvheo9204/15/2025 12:25 AM OSP153 mL/hr100 mL/hr lactated ringers iv infusion 100 mL/hr, INTRAVENOUS, CONTINUOUS, Starting on 04/15/25 at 1530, Until 04/15/25 at 1637, Recovery or Phase I (only) Rate Ohjaly3004/15/2025 3:26 PM QUH181 mL/hr100 mL/hr lamoTRIgine (LaMICtal) tab(s) 250 mg 250 mg, ORAL, 2 TIMES DAILY, First dose on Thu04/14/25 at 2100, Until Discontinued Given04/16/2025 9:38 AM MUR629 gkUyvqz0704/15/2025 10:15 PM BXV805 mgGiven 04/15/2025 8:17 AM KXM614 mg levETIRAcetam 1,000 mg tab(s) (KEPPRA) 1,000 mg, ORAL, DAILY, First dose on Thu04/14/25 at 2100, Until Discontinued Given04/16/2025 9:38 AM EDT1,000 luHgxwt3404/15/2025 8:17 AM EDT1,000 mg levETIRAcetam 2,000 mg tab(s) (KEPPRA) 2,000 mg, ORAL, AT BEDTIME, First dose on Thu04/14/25 at 2100, Until Discontinued Given04/15/2025 10:12 PM EDT2,000 fjKgsgf6504/14/2025 11:16 PM EDT2,000 mg lidocaine 4 % 1 patch (SALONPAS) 1 patch, TRANSDERMAL, ONCE, 1 dose, On Thu04/14/25 at 1900, APPLY TO: left flank - Remove patch after 12 hours. Given04/14/2025 7:20 PM EDT1 patchOther melatonin 6 mg tab(s) 6 mg, ORAL, DAILY AT 8 PM, First dose on Thu04/15/25 at 2000, Until Discontinued Given04/15/2025 10:15 PM EDT6 mg meropenem 1 g in NaCl 0.9% 100 mL Vial-Bag (MERREM) 1 g, INTRAVENOUS, at 200 mL/hr, Administer over 30 Minutes, EVERY 8 HOURS, First dose on Thu04/15/25 at 1530, Until Discontinued, Antimicrobial indication: Empiric, Infectious source(s): Urinary/renal, Pharmacist may modify dose per [facility] dose optimization consult agreement: Yes New Bag/Syringe/Ugdrgv3004/16/2025 4:50 AM EDT1 g200 mL/hrNew Bag/Syringe/Bottle 04/15/2025 10:13 PM EDT1 g200 mL/hr ondansetron (PF) 4 mg injection (ZOFRAN) 4 mg, INTRAVENOUS, ONCE, 1 dose, On Thu04/14/25 at 1330, Give IV push over 2 minutes Given04/14/2025 1:13 PM EDT4 mg oxyCODONE-acetaminophen 5-325 mg 2 tablet (PERCOCET) 2 tablet, ORAL, STAT, 1 dose, On Thu04/14/25 at 1600 Given04/14/2025 4:12 PM [address] 20 mg tab(s) (PROTONIX) 20 mg, ORAL, DAILY AT 6 AM, First dose on Thu04/15/25 at 0600, Until Discontinued, omeprazole tab/cap(s) (PRILOSEC) substituted to pantoprazole tab(s) (PROTONIX) per [facility]acy [facility] Therapeutics Committee Swallow whole; DO NOT crush or chew. Given04/16/2025 5:00 AM EDT20 ueXsqcy0404/15/2025 6:05 AM EDT20 mg phosphorus 500 mg tab(s) (K PHOS NEUTRAL) 500 mg, ORAL, AT BEDTIME, First dose on Thu04/14/25 at 2200, Until Discontinued, Administer with 180 mL to 240 mL of water. Given04/15/2025 10:14 PM VVO187 xlSwvdj73/ 11:16 PM UCV159 mg piperacillin-tazobactam iv piggyback 3.375 g in dextrose (iso-osmotic) 50 mL (ZOSYN) 3.375 g, INTRAVENOUS, at 100 mL/hr, Administer over 30 Minutes, EVERY 6 HOURS, First dose on Thu04/14/25 at 2100, Until Discontinued, Refrigerate, Antimicrobial indication: Empiric, Infectious source(s): Urinary/renal, Pharmacist may modify dose per [facility] dose optimization consult agreement: Yes New Bag/Syringe/Sbiqld0904/15/2025 1:15 PM EDT3.375 g100 mL/hrNew Bag/Syringe/Vqjyig3404/15/2025 6:05 AM EDT3.375 g100 mL/hrNew Bag/Syringe/Bottle 04/15/2025 12:25 AM EDT3.375 g100 mL/hr polyethylene glycol 3350 17 g packet 17 g, ORAL, DAILY, First dose on Thu04/15/25 at 0900, Until Discontinued, Mix powder in 240 ml (8 oz) of water before admin. NOTE: 1 packet=1 tablespoonful=1 capful Given04/16/2025 9:39 AM EDT17 vQglpo4504/15/2025 8:18 AM EDT17 g prazosin 1 mg cap(s) (MINIPRESS) 1 mg, ORAL, AT BEDTIME, First dose on Thu04/14/25 at 2100, Until Discontinued Given04/15/2025 10:00 PM EDT1 mg QUEtiapine 150 mg tab(s) (SEROquel) 150 mg, ORAL, AT BEDTIME, First dose on Thu04/14/25 at 2100, Until Discontinued Given04/15/2025 10:15 PM WZC856 neOvvcw9104/14/2025 11:16 PM YGM888 mg sertraline 200 mg tab(s) (ZOLOFT) 200 mg, ORAL, DAILY, First dose on Thu04/15/25 at 0900, Until Discontinued Given04/16/2025 9:38 AM BZS045 ooPdoxg5404/15/2025 8:17 AM UMP000 mg tamsulosin 0.4 mg cap(s) (FLOMAX) 0.4 mg, ORAL, DAILY, First dose on Thu04/15/25 at 1730, Until Discontinued, Swallow whole; DO NOT crush, chew, or open. Given04/16/2025 9:38 AM EDT0.4 roYcqrn0004/15/2025 5:53 PM EDT0.4 mg traMADol 50 mg tab(s) (ULTRAM) 50 mg, ORAL, EVERY 6 HOURS NEEDED, Starting on Thu04/14/25 at 2038, Until Thu04/16/25 at 1801,Moderate Pain (4-6) - Enteral, Severe Pain (>/=7) - Enteral Given04/15/2025 8:16 AM EDT50 mg trospium 20 mg tab(s) (SANCTURA) 20 mg, ORAL, 2 TIMES DAILY BEFORE MEALS, First dose on Thu04/15/25 at 0700, Until Discontinued, oxybutynin ER tab(s) (DITROPAN) substituted to trospium IR tab(s) (SANCTURA) per Pharmacy & Therapeutics Committee Given04/16/2025 6:00 AM EDT20 fyJvouq5204/15/2025 5:53 PM EDT20 arBjybn5604/15/2025 6:05 AM EDT20 mgdocumented in this encounter Active and Recently Administered Medications Times are shown in EDT.Medication Order/ acetaminophen 1,000 mg tab(s) (TYLENOL) 1,000 mg, ORAL, EVERY 6 HOURS, First dose on Thu04/14/25 at 2100, Until Discontinued * 2316 (Given - Provider: Kelly Escobar RN) * 0605 (Given - Provider: Kelly Escobar RN) * 1200 (Not Given - Provider: Isabell Merchant RN - Reason: Hold for Procedure/Surgery) * 1428 (Held on Transfer - Provider: Reg In Adtr - Reason: Hold Unreviewed Transfer Orders) * 1711 (Released - Provider: Isabell Merchant RN) * 1753 (Given - Provider: Isabell Merchant RN) * 2300 (Given - Provider: Rosalva Carlos RN) * 0450 (Given - Provider: Rosalva Carlos RN) * 1400 (Given - Provider: Bernice Watson RN) acetaminophen 1,000 mg tab(s) (TYLENOL) (COMPLETED) 1,000 mg, ORAL, ONCE, 1 dose, On Thu04/14/25 at 1900 * 1920 (Given - Provider: May Latyon RN) buPROPion 75 mg tab(s) (WELLBUTRIN) 75 mg, ORAL, DAILY, First dose on Thu04/15/25 at 0900, Until Discontinued * 0816 (Given - Provider: Isabell Merchant RN) * 1428 (Held on Transfer - Provider: Reg In Adtr - Reason: Hold Unreviewed Transfer Orders) * 1711 (Released - Provider: Isabell Merchant RN) * 0938 (Given - Provider: Bernice Watson, ROLAND) busPIRone 30 mg tab(s) (BUSPAR) 30 mg, ORAL, 2 TIMES DAILY, First dose on Thu04/14/25 at 2100, Until Discontinued * 2316 (Given - Provider: Kelly Escobar RN) * 0817 (Given - Provider: Isabell Merchant RN) * 1428 (Held on Transfer - Provider: Reg In Adtr - Reason: Hold Unreviewed Transfer Orders) * 1711 (Released - Provider: Isabell Merchant RN) * 2214 (Given - Provider: Rosalva Carlos RN) * 0937 (Given - Provider: Bernice Watson, ROLAND) cyclobenzaprine 5 mg tab(s) (FLEXERIL) 5 mg, ORAL, 3 TIMES DAILY, First dose on Thu04/14/25 at 2100, Until Discontinued * 2315 (Given - Provider: Kelly Escobar, ROLAND) * 0900 (Given - Provider: Isabell Merchant RN) * 1300 (Not Given - Provider: Isabell Merchant RN - Reason: Hold for Procedure/Surgery) * 1428 (Held on Transfer - Provider: Reg In Adtr - Reason: Hold Unreviewed Transfer Orders) * 1711 (Released - Provider: Isabell Merchant RN) * 2215 (Given - Provider: Rosalva Carlos RN) * 0938 (Given - Provider: Bernice Watson, ROLAND) * 1400 (Given - Provider: Bernice Watson, ROLAND) docusate sodium 100 mg cap(s) (COLACE) 100 mg, ORAL, 2 TIMES DAILY, First dose on Thu04/14/25 at 2100, Until Discontinued, Swallow whole;DO NOT crush, chew, or open. * 2316 (Given - Provider: Kelly Escobar RN) * 0817 (Given - Provider: Isabell Merchant RN) * 1428 (Held on Transfer - Provider: Reg In Adtr - Reason: Hold Unreviewed Transfer Orders) * 1711 (Released - Provider: Isabell Merchant RN) * 2215 (Given - Provider: Rosalva Carlos RN) * 0937 (Given - Provider: Bernice Watson RN) furosemide 40 mg tab(s) (LASIX) 40 mg, ORAL, DAILY, First dose on 04/15/25 at 0900, Until Discontinued * 0817 (Given - Provider: Isabell Merchant RN) * 1428 (Held on Transfer - Provider: Reg In Adtr - Reason: Hold Unreviewed Transfer Orders) * 171 (Released - Provider: Isabell Merchant RN) * 0938 (Given - Provider: Bernice Watson RN) gabapentin 1,800 mg tab(s) (NEURONTIN) 1,800 mg, ORAL, 3 TIMES DAILY, First dose on Thu04/14/25 at 2100, Until Discontinued * 2316 (Given - Provider: Kelly Escobar RN) * 0817 (Given - Provider: Isabell Merchant RN) * 1300 (Not Given - Provider: Isabell Merchant RN - Reason: Hold for Procedure/Surgery) * 1428 (Held on Transfer - Provider: Reg In Adtr - Reason: Hold Unreviewed Transfer Orders) * 171 (Released - Provider: Isabell Merchant RN) * 2212 (Given - Provider: Rosalva Carlos, ROLAND) * 0938 (Given - Provider: Bernice Watson, ROLAND) * 1400 (Given - Provider: Bernice Watson, ROLAND) heparin 5,000 Units injection 5,000 Units, SUBCUTANEOUS, EVERY 8 HOURS, First dose on 04/15/25 at 0600, Until Discontinued * 0605 (Not Given - Provider: Kelly Escobar RN - Reason: Patient Declined. LIP Notified) * 1400 (Not Given - Provider: Isabell Merchant RN - Reason: Hold for Procedure/Surgery) * 1428 (Held on Transfer - Provider: Reg In Adtr - Reason: Hold Unreviewed Transfer Orders) * 1711 (Released - Provider: Isabell Merchant RN) * 2213 (Given - Provider: Rosalva Carlos RN) * 0500 (Given - Provider: Rosalva Carlos RN) * 1400 (Not Given - Provider: Bernice Watson, ROLAND - Reason: Patient Declined. LIP Notified) hydrOXYzine HCl 25 mg tab(s) (ATARAX) (COMPLETED) 25 mg, ORAL, ONCE, 1 dose, On Thu04/16/25 at 1300 * 1400 (Given - Provider: Bernice Watson, ROLAND) keTORolac 15 mg injection (Toradol) (COMPLETED) 15 mg, INTRAVENOUS, ONCE, 1 dose, On Thu04/14/25 at 1330, Ketorolac (Toradol) is indicated for theshort-term (up to 5 days) management of moderately severe acute pain. Continuation of ketorolac (Toradol) beyond 5 days increases the risk of developing serious adverse events. Please verify the duration of therapy for ketorolac (Toradol)., Pharmacist may modify dose per [facility] dose optimization consult agreement: Yes * 1313 (Given - Provider: Chelsea Orellana RN) lactated ringers 1,000 mL iv bolus (COMPLETED) 1,000 mL, INTRAVENOUS, at 999 mL/hr, Administer over 1 Hours, ONCE, 1 dose, On Thu04/14/25 at 1730 * 1730 (New Bag/Syringe/Bottle - Provider: Chelsea Orellana RN) * 1845 (Rate/Dose Change - Provider: aMy Layton RN - Comment: rate slowed due to pt bending herarm) * 195 (Infusion Complete - Provider: May Layton, ROLAND) * 1999 (Infusion Complete - Provider: May Layton, ROLAND) lactated ringers 500 mL iv bolus (COMPLETED) 500 mL, INTRAVENOUS, at 999 mL/hr, Administer over 0.5 Hours, ONCE, 1 dose, On Thu04/14/25 at 1330 * 1321 (New Bag/Syringe/Bottle - Provider: Chelsea Orellana RN) * 1351 (Infusion Complete - Provider: Chelsea Orellana RN) lamoTRIgine (LaMICtal) tab(s) 250 mg 250 mg, ORAL, 2 TIMES DAILY, First dose on Thu04/14/25 at 2100, Until Discontinued * 2100 (Due) * 0817 (Given - Provider: Isabell Merchant RN) * 1428 (Held on Transfer - Provider: Reg In Adtr - Reason: Hold Unreviewed Transfer Orders) * 1711 (Released - Provider: Isabell Merchant RN) * 2215 (Given - Provider: Rosalva Carlos RN) * 0938 (Given - Provider: Bernice Watson RN) levETIRAcetam 1,000 mg tab(s) (KEPPRA) 1,000 mg, ORAL, DAILY, First dose on Thu04/14/25 at 2100, Until Discontinued * 2099 (Not Given - Provider: Kelly Escobar RN - Reason: Other (specify) - Comment: pt states takes only 2000mg at bedtime) * 0817 (Given - Provider: Isabell Merchant RN) * 1428 (Held on Transfer - Provider: Reg In Adtr - Reason: Hold Unreviewed Transfer Orders) * 171 (Released - Provider: Isabell Merchant RN) * 0938 (Given - Provider: Bernice Watson RN) levETIRAcetam 2,000 mg tab(s) (KEPPRA) 2,000 mg, ORAL, AT BEDTIME, First dose on Thu04/14/25 at 2100, Until Discontinued * 2316 (Given - Provider: Kelly Escobar RN) * 1428 (Held on Transfer - Provider: Reg In Adtr - Reason: Hold Unreviewed Transfer Orders) * 171 (Released - Provider: Isabell Merchant RN) * 221 (Given - Provider: Rosalva Carlos RN) lidocaine 4 % 1 patch (SALONPAS) (COMPLETED)(Linked Group 1) 1 patch, TRANSDERMAL, ONCE, 1 dose, On Thu04/14/25 at 1900, APPLY TO: left flank - Remove patch after 12 hours. * 1920 (Given - Provider: May Layton RN - Comment: left flank) melatonin 6 mg tab(s) 6 mg, ORAL, DAILY AT 8 PM, First dose on Thu04/15/25 at 2000, Until Discontinued * 1428 (Held on Transfer - Provider: Reg In Adtr - Reason: Hold Unreviewed Transfer Orders) * 1711 (Released - Provider: Isabell Merchant RN) * 2215 (Given - Provider: Rosalva Carlos RN) meropenem 1 g in NaCl 0.9% 100 mL Vial-Bag (MERREM) 1 g, INTRAVENOUS, at 200 mL/hr, Administer over 30 Minutes, EVERY 8 HOURS, First dose on 04/15/25 at 1530, Until Discontinued, Antimicrobial indication: Empiric, Infectious source(s): Urinary/renal, Pharmacist may modify dose per [facility] dose optimization consult agreement: Yes * 1530 (Not Given - Provider: Isabell Merchant RN - Reason: Hold for Procedure/Surgery) * 2213 (New Bag/Syringe/Bottle - Provider: Rosalva Carlos RN) * 2243 (Infusion Complete - Provider: Rosalva Carlos RN) * 0450 (New Bag/Syringe/Bottle - Provider: Rosalva Carlos RN) * 0520 (Infusion Complete - Provider: Rosalva Carlos RN) * 1400 (Due) ondansetron (PF) 4 mg injection (ZOFRAN) (COMPLETED) 4 mg, INTRAVENOUS, ONCE, 1 dose, On Thu04/14/25 at 1330, Give IV push over 2 minutes * 1313 (Given - Provider: Chelsea Orellana RN) oxyCODONE-acetaminophen 5-325 mg 2 tablet (PERCOCET) (COMPLETED) 2 tablet, ORAL, STAT, 1 dose, On Thu04/14/25 at 1600 * 1612 (Given - Provider: Chelsea Orellana RN) pantoprazole DR 20 mg tab(s) (PROTONIX) 20 mg, ORAL, DAILY AT 6 AM, First dose on Thu04/15/25 at 0600, Until Discontinued, omeprazole tab/cap(s) (PRILOSEC) substituted to pantoprazole tab(s) (PROTONIX) per [facility]acy [facility] The[facility] Committee Swallow whole; DO NOT crush or chew. * 0605 (Given - Provider: Kelly Escobar RN) * 1428 (Held on Transfer - Provider: Reg In Adtr - Reason: Hold Unreviewed Transfer Orders) * 1711 (Released - Provider: Isabell Merchant RN) * 0500 (Given - Provider: Rosalva Carlos RN) phosphorus 500 mg tab(s) (K PHOS NEUTRAL) 500 mg, ORAL, AT BEDTIME, First dose on Thu04/14/25 at 2200, Until Discontinued, Administer with 180 mL to 240 mL of water. * 2316 (Given - Provider: Kelly Escobar RN) * 1428 (Held on Transfer - Provider: Reg In Adtr - Reason: Hold Unreviewed Transfer Orders) * 1711 (Released - Provider: Isabell Merchant RN) * 2214 (Given - Provider: Rosalva Carlos RN) piperacillin-tazobactam iv piggyback 3.375 g in dextrose (iso-osmotic) 50 mL (ZOSYN) (CANCELED) 3.375 g, INTRAVENOUS, at 100 mL/hr, Administer over 30 Minutes, EVERY 6 HOURS, First dose on Thu04/14/25 at 2100, Until Discontinued, Refrigerate, Antimicrobial indication: Empiric, Infectious source(s): Urinary/renal, Pharmacist may modify dose per [facility] dose optimization consult agreement: Yes * 0025 (New Bag/Syringe/Bottle - Provider: Kelly Escobar RN) * 0055 (Infusion Complete - Provider: Kelly Escobar RN) * 0605 (New Bag/Syringe/Bottle - Provider: Kelly Escobar RN) * 0635 (Infusion Complete - Provider: Isabell Merchant RN) * 1315 (New Bag/Syringe/Bottle - Provider: Isabell Merchant RN) * 1345 (Infusion Complete - Provider: Isabell Merchant RN) * 1428 (Held on Transfer - Provider: Reg In Adtr - Reason: Hold Unreviewed Transfer Orders) * 1449 (Released - Provider: Godwin Mcmahon MD) polyethylene glycol 3350 17 g packet 17 g, ORAL, DAILY, First dose on Thu04/15/25 at 0900, Until Discontinued, Mix powder in 240 ml (8 oz) of water before admin. NOTE: 1 packet=1 tablespoonful=1 capful * 0818 (Given - Provider: Isabell Merchant RN) * 1428 (Held on Transfer - Provider: Reg In Adtr - Reason: Hold Unreviewed Transfer Orders) * 1711 (Released - Provider: Isabell Merchant RN) * 0939 (Given - Provider: Bernice Watson, ROLAND) prazosin 1 mg cap(s) (MINIPRESS) 1 mg, ORAL, AT BEDTIME, First dose on Thu04/14/25 at 2100, Until Discontinued * 2100 (Due) * 1428 (Held on Transfer - Provider: Reg In Adtr - Reason: Hold Unreviewed Transfer Orders) * 1711 (Released - Provider: Isabell Merchant RN) * 2200 (Given - Provider: Rosalva Carlos RN) QUEtiapine 150 mg tab(s) (SEROquel) 150 mg, ORAL, AT BEDTIME, First dose on Thu04/14/25 at 2100, Until Discontinued * 2316 (Given - Provider: Kelly Escobar RN) * 1428 (Held on Transfer - Provider: Reg In Adtr - Reason: Hold Unreviewed Transfer Orders) * 1711 (Released - Provider: Isabell Merchant RN) * 2215 (Given - Provider: Rosalva Carlos RN) sertraline 200 mg tab(s) (ZOLOFT) 200 mg, ORAL, DAILY, First dose on Thu04/15/25 at 0900, Until Discontinued * 0817 (Given - Provider: Isabell Merchant RN) * 1428 (Held on Transfer - Provider: Reg In Adtr - Reason: Hold Unreviewed Transfer Orders) * 1711 (Released - Provider: Isabell Merchant RN) * 0938 (Given - Provider: Bernice Watson, ROLAND) tamsulosin 0.4 mg cap(s) (FLOMAX) 0.4 mg, ORAL, DAILY, First dose on 04/15/25 at 1730, Until Discontinued, Swallow whole; DO NOT crush, chew, or open. * 1753 (Given - Provider: Isabell Merchant RN) * 0938 (Given - Provider: Bernice Watson, ROLAND) trospium 20 mg tab(s) (SANCTURA) 20 mg, ORAL, 2 TIMES DAILY BEFORE MEALS, First dose on 04/15/25 at 0700, Until Discontinued, oxybutynin ER tab(s) (DITROPAN) substituted to trospium IR tab(s) (SANCTURA) per [facility] The[facility] * 0605 (Given - Provider: Kelly Escobar RN) * 1428 (Held on Transfer - Provider: Reg In Adtr - Reason: Hold Unreviewed Transfer Orders) * 1600 (Canceled Entry - Provider: Isabell Merchant RN) * 1711 (Released - Provider: Isabell Merchant RN) * 1753 (Given - Provider: Isabell Merchant RN) * 0600 (Given - Provider: Rosalva Carlos RN) * 1600 (Due) Medication Order/ lactated ringers iv infusion 100 mL/hr, INTRAVENOUS, CONTINUOUS, Starting on Thu04/14/25 at 2100, Until 04/16/25 at 1801 * 2100 (Canceled Entry - Provider: Kelly Escobar RN) * 0025 (New Bag/Syringe/Bottle - Provider: Kelly Escobar RN) * 1428 (Held on Transfer - Provider: Reg In Adtr - Reason: Hold Unreviewed Transfer Orders) * 1711 (Released - Provider: Isabell Merchant RN) * 2231 (New Bag/Syringe/Bottle - Provider: Rosalva Carlos RN) * 0954 (New Bag/Syringe/Bottle - Provider: Bernice Watson RN) * 1801 (Due: Order Ending - Provider: Reg In Adtr - Comment: [Order ends at this time. Document the following action when infusion is complete: Infusion Complete]) lactated ringers iv infusion (CANCELED) 100 mL/hr, INTRAVENOUS, CONTINUOUS, Starting on 04/15/25 at 1530, Until 04/15/25 at 1637, Recovery or Phase I (only) * 1526 (Rate Verify - Provider: Skylar Arauz, ROLAND) * 1637 (Infusion Complete - Provider: Isabell Merchant RN - Comment: [Order ends at this time. Document the following action when infusion is complete: Infusion Complete]) Medication Order/ bisacodyl 10 mg suppository (DULCOLAX) 10 mg, RECTAL, ONCE DAILY NEEDED, Starting on Thu04/14/25 at 2038, Until 04/16/25 at 1801, Constipation - Second Line - Rectal, FOR RECTAL USE * 1428 (Held on Transfer - Provider: Reg In Adtr - Reason: Hold Unreviewed Transfer Orders) * 1711 (Released - Provider: Isabell Merchant, ROLAND) bismuth subsalicylate 524 mg oral liquid (BISMATROL) 524 mg, ORAL, EVERY 6 HOURS NEEDED, Starting on Thu04/14/25 at 2038, Until 04/16/25 at 1801, GI upset, Shake Well. Max Dose = 4200 mg/day * 1428 (Held on Transfer - Provider: Reg In Adtr - Reason: Hold Unreviewed Transfer Orders) * 1711 (Released - Provider: Isabell Merchant, ROLAND) calcium carbonate 500 mg chewable tab(s) (TUMS) 500 mg, ORAL, EVERY 8 HOURS NEEDED, Starting on Thu04/14/25 at 2038, Until 04/16/25 at 1801, indigestion, product contains 500 mg calcium carbonate (equivalent to 200 mg elemental calcium) * 1428 (Held on Transfer - Provider: Reg In Adtr - Reason: Hold Unreviewed Transfer Orders) * 1711 (Released - Provider: Isabell Merchant, RN) HYDROmorphone 0.2 mg injection (DILAUDID) (CANCELED) 0.2 mg, INTRAVENOUS, EVERY 3 HOURS NEEDED, Starting on Thu04/14/25 at 2038, Until 04/15/25 at 2322, breakthrough pain, When patient is NPO or pain not relieved by oral pain medication Caution: IV hydromorphone is approximately 8 times MORE POTENT than IV morphine. For example, [id number] IV = morphine 8mg IV * 0953 (Given - Provider: Isabell Merchant, ROLAND) * 1428 (Held on Transfer - Provider: Reg In Adtr - Reason: Hold Unreviewed Transfer Orders) * 1711 (Released - Provider: Isabell Merchant, ROLAND) lidocaine 4 % 1 patch (SALONPAS) 1 patch, TRANSDERMAL, AT BEDTIME NEEDED, Starting on Thu04/14/25 at 2038, Until 04/16/25 [id number], pain, APPLY TO: BACK - Remove patch after 12 hours. * 1428 (Held on Transfer - Provider: Reg In Adtr - Reason: Hold Unreviewed Transfer Orders) * 1711 (Released - Provider: Iasbell Merchant, RN) NaCl 0.9% iv flush bag 20 mL, INTRAVENOUS, NEEDED, Starting on Thu04/14/25 at 2037, Until Thu04/16/25 at 1801, See admin instructions, If no compatible primary is already running, infuse NaCl 0.9% as primary to flush tubing after non-chemotherapy, non-immunotherapy intermittent infusions. Administer at the same rateas intermittent infusion. Select the Flush Bag file on smart pump. * 1428 (Held on Transfer - Provider: Reg In Adtr - Reason: Hold Unreviewed Transfer Orders) * 1711 (Released - Provider: Isabell Merchant, RN) ondansetron (PF) 4 mg injection (ZOFRAN) 4 mg, INTRAVENOUS, EVERY 6 HOURS NEEDED, Starting on Thu04/14/25 at 2037, Until Thu04/16/25 [id number], Nausea/Vomiting - First Line - Parenteral, Give IV push over 2 minutes * 1428 (Held on Transfer - Provider: Reg In Adtr - Reason: Hold Unreviewed Transfer Orders) * 1711 (Released - Provider: Isabell Merchant, RN) senna 8.6 mg tab(s) (SENOKOT) 8.6 mg, ORAL, ONCE DAILY NEEDED, Starting on Thu04/14/25 at 2037, Until Thu04/16/25 at 1801, Constipation - First Line - Enteral * 1428 (Held on Transfer - Provider: Reg In Adtr - Reason: Hold Unreviewed Transfer Orders) * 1711 (Released - Provider: Isabell Merchant, RN) traMADol 50 mg tab(s) (ULTRAM) 50 mg, ORAL, EVERY 6 HOURS NEEDED, Starting on Thu04/14/25 at 2037, Until 04/16/25 at 1801,Moderate Pain (4-6) - Enteral, Severe Pain (>/=7) - Enteral * 0816 (Given - Provider: Isabell Merchant, RN) * 1428 (Held on Transfer - Provider: Reg In Adtr - Reason: Hold Unreviewed Transfer Orders) * 1711 (Released - Provider: Isabell Merchant, RN) Order Group 1: lidocaine 4 % 1 patch (SALONPAS) (COMPLETED)Jump to med 1 patch, TRANSDERMAL, ONCE, 1 dose, On Thu04/14/25 at 1900, APPLY TO: left flank - Remove patch after 12 hours. And lidocaine patch - REMOVE () ONCE, Remove patch for 12 hours per day. THIS IS USED ONLY TO DOCUMENT PATCH REMOVAL. Use Remvd Patch action. And lidocaine - VERIFY PATCH () ONCE, THIS IS USED ONLY TO DOCUMENT THAT THE PATCH IS VERIFIED ON OR OFF PER ORDER. Use Patch On or Patch Off action. documented in this encounter Care Teams Team MemberRelationshipSpecialtyStart DateEnd Date Isaias Saleh MD [address] [place] [id number] ReferringUrology02/26/22 William Cruz, [employer] [address] [place] [address] ReferringFamily Ymolbcid25/15/25documented as of this encounter
--- OUTSIDE RECORDS SUMMARY | 2025-04-14 20:35 | XMS_ITS | Continuity of Care Document ---
Author Organization [facility] Address [address] [place] [address] Phone Care Team Providers Care Sand Caster Apprentice Name Role Phone Jonnie, Ashli Alexander DO Attending Provider Care Teams Patient Care Team Team Status: Inactive Member Role/Relationship Status Dates Ashli Cristina DO Attending Provider Active Start: April 13, 2025 End: April 13, 2025 Chief Complaint and Reason for Visit Chief Complaint Admit Date Unknown April 13, 2025 9 :20pm Social History Smoking Status Unknown if ever smoked Observation Status Observation Response Date of Response Legal Sex Female (finding) Sex Assigned At BirthFemaleApril 1985 Procedures Procedure Date Performed Status Urine Culture April 13, 2025 active Advance Directives Advance Directive Response Recorded Date/ Time Advance Directives No July 4:22pm Insurance Providers Guarantor Devorah Lerma Address [address] [phone] Info.Home Phone: Coverage Status Update:2025 Payer Group Member ID Coverage Type Subscriber Relationship to Subscriber Effective Date Expiration Date Medicaid Id: [id number] L Smith Id: [id number] [address] [facility] [address] Home Phone: Email: DECLINED [id number] Medicaid [id number] L Smith Id: [id number] [address] [facility] [place] [address] Home Phone: Email: DECLINED [id number] Encounters Encounter Location(s) Arrival/Admit Date Discharge/Departure Date Discharge/Departure Disposition Provider(s) Departed Referred -[facility] April 13, 2025 9:20pm April 13, 2025 9:21pm Discharged to home care or self care (routine discharge) Ashli Alexander Marker , DO Plan of Treatment Future Tests Future scheduled test information is unavailable Pending Tests Test Name Ordered Date Scheduled Date Urine Culture April 13, 2025 9:20pm Future Visits Future appointment information is unavailable Future Procedures Procedure Name Ordered Date Scheduled Date Urine Culture April 14, 2025 1:05pm Octobe r 2024 9:20pm Future Medications Future medication information is unavailable Patient Instructions Patient instructions are unavailable
--- OUTSIDE RECORDS SUMMARY | 2025-04-15 13:15 | XMS_ITS | Encounter Summary ---
Author Organization [facility] Address [address] [place] [address] Care Team Providers Care Cage Maker Name Role Phone Isaias Saleh MD Unavailable [phone] William Cruz CNP Unavailable [phone] Source Comments In the event this information is protected by the Federal Confidentiality of Alcohol and Drug AbusePatient Records regulations: The Federal rules restrict any use of the information to criminally investigate or prosecute any alcohol or drug abuse patient.[facility] Reason for Visit * ReasonCommentsFlank PainSeen at OSH and told she has left kidney stone, unable to flush suprapubic catheter this morning * Auth/Cert (Routine)SpecialtyDiagnoses / ProceduresReferred By ContactReferred To ContactHOSP INPATIENT Diagnoses Kidney stone Kidney stones Procedures NA HOSP MAIN [address] [place] [address] Phone: tel: Referral IDStatusReasonStart DateExpiration DateVisits RequestedVisits [id number] Encounter Details DateTypeDepartmentCare Team (Latest Contact Info)Pyruqofokhy74/18/2025 1:15 PM EDT - 04/15/2025 2:56 PM EDTSurgery Admitting [address] [place] [address] Daryl Meneses MD [address] [place] [address] CYSTOSCOPY, INSERTION STENT URETERAL J Surgery Details Date/TimeStatusLocationORServicePatient ClassCase ClassCase TypeTrauma Case? 04/15/2025 1:15 PMPosted[facility] MAIN ZKUJCWBLLC82XoiyhmjNbqnjygocRegtdkSxrog 1 ProcedureLRBAnesOp RegionWound ClassCommentsCYSTOSCOPY, INSERTION STENT URETERAL JLeftGeneralBladderClean Contaminated SurgeonSurgeon RoleServsaint francis hospital & medical centerDaryl Kenyon, SHMmtlgbfVazvyct3Bahgr, Alireza, ARIesident - Iwnvusjwq5bmxqlacfnq in this encounter Social History Tobacco UseTypesPacks/DayYears UsedDateSmoking Tobacco: NeverSmokeless [...] times have you moved where you were living?002/12/2025At any time in the past 12 months, [...] or from getting things needed for daily living?04/16/2025Housing Stability Vital SignAnswerDate RecordedIn the last 12 [...] threatened to shut off services in your home?No04/16/2025rea Deprivation IndexAnswerDate RecordedNational Score (1-100), lower number is lower gvkd070311/17/2024State Score (1-10), lower number is lower ducj585Data from: https://www.neighborhoodatlas.medicine.[facility].edu/. Last address used for calculation3 spring11/17/2024CommentsNoSex and Gender Information ValueDate RecordedSex Assigned at SawkfFhxjyl34/30/2025 6:31 PM ESTLegal Sex Tusbew9505/30/2012 8:16 AM ESTGender VexwezqjIeypos17/30/2025 6:31 PM ESTSexual OrientationNot on filedocumented as of this encounter Last Filed Vital Signs Vital SignReadingTime TakenCommentsBlood Iytobync830/7410 12:03 PM EDT Yatmw25666 12:03 PM AWSUshcebiaonx19.6 ??C (99.7 ??F)04/15/2025 12:03 PM EDTRespiratory Lwji7436 12:03 PM EDTOxygen Zipkbxmfib17%04/15/2025 12:03 PM EDTInhaled Oxygen Concentration--Nojquc184.3 kg (230 lb)04/14/2025 11:43 AM UUSJmwnff749.4 cm (5')04/14/2025 11:43 AM EDTBody Mass Index44.9204/14/2025 11:43 AM EDTdocumented in this encounter Functional Status * Are you deaf or do you have serious difficulty hearing?AnswerDate of MujtkvykyzFxsuyzPo08/19/2025 3:00 PM Bernice Carmona RN * Are you blind or do you have serious difficulty seeing, even when wearing glasses?AnswerDate of ZisotrwyneXzzjdiRr19/19/2025 3:00 PM Bernice Carmona RN * Do you have serious difficulty walking or climbing stairs?AnswerDate of IjpqmhbizuKekjkqTfd01/19/2025 3:00 PM Bernice Carmona RN * Do you have difficulty dressing or bathing?AnswerDate of AssessmentAuthorYes 04/16/2025 3:00 PM Bernice Carmona RN * Because of a physical, mental, or emotional condition, do you have difficulty doing errands alone such as visiting a doctor's office or shopping?AnswerDate of KvivakxclnRkdxvuEl30/19/2025 3:00 PM Bernice Carmona RN documented as of this encounter Mental Status * Because of a physical, mental, or emotional condition, do you have serious difficulty concentrating, remembering, or making decisions?AnswerEntry Date HcyggeUp12/19/2025 3:00 PM Bernice Carmona RN documented in [...] notify the doctor???s office or call the [facility] veterinary x ray operator at [phone] and ask for the urology resident insulation machine operator. If you are unable to urinate after 8 hours and become uncomfortable, go to the [facility] Emergency Room. If a catheter is in place, empty the bag when full. Follow the instructions given to you in the hospital. Your catheter will be removed during your office visit. Follow up: If not already arranged, the physician's office should call or mail you follow- up information. Please call the physician's office or appointment line ([phone]) if you do not receive your follow-up [...] in-office procedure, you do NOT need a test car driver to take you home. Also, there [...] make appointments: Urology Office and Appointment Line: [phone] [facility] (Not Urology) Appointment Line: [phone] [facility] Radiology: [phone] [facility] Interventional Radiology: [phone] Outpatient Lab: [phone] or [phone] documented in this encounter Medications at Time [...] ESCOBEDO Mobile Relation: Brother Secondary Emergency Contact: LermaYenny Mobile Relation: Sister Preferred language: PERSIAN Mother: LÁZARO ESCOBEDO Admission Status: Inpatient Insurance Provider: [place] Discharge Planning requested by: Per Department Practice Potential Transition Plans No Services Indicated Advance Directives Current Living Arrangements and Support Lives with: Alone Type of Residence: Assisted Living Facility Does the patient have to climb stairs at home?: No Support: Other: See Comment correction/Nurse How do you manage to accomplish the following: Needs Assistance: Ambulation, Bathe/Shower, Dress, Meals/Meal Prep, Medication Management, Going tothe bathroom Dependent: Transportation to appointments/community Current Services/Equipment Current Post-Acute Service(s): DME Current DME Type: Wheelchair-electric Discharge Planning Patient Goal(s): General wellness, Be able to go home [place] of Choice Explained: [place] of [place] Given: No Reason Not Given: [...] from the original note were not included. [facility] UROLOGY POST OP CHECK Name: Devorah Lerma Bed: G090 033/[id number] Date: 04/16/2025 After Hours Urology Service Pager: [phone] ASSESSMENT AND PLAN Devorah Lerma is a [...] Godwin Mcmahon MD Urology Resident PGY-2 Pager: [phone] Kidney Transplant Pager: [phone] For weekend or after hours issues [place] [phone] ([facility]) [place] [phone] ([place]) SUBJECTIVE -See above OBJECTIVE: Vital Signs BP [...] was discussed with the patient or authorized vendor representatives. The patient or authorized vendor representatives has agreed to proceed with the sensitive [...] from the original note were not included. [facility] UROLOGY POST OP CHECK Name: Devorah Lerma Bed: G090 033/[id number] Date: 04/15/2025 After Hours Urology Service Pager: [phone] ASSESSMENT AND PLAN Devorah Lerma is a [...] surgery Annelise Breaux MD Resident PGY-2 Urology [facility]ney [place] [facility] Pager [phone] After hours and on weekend insulation machine operator pager [phone] SUBJECTIVE -See above OBJECTIVE: Vital Signs BP 138/73 Pulse 94 Temp 37.2 ??C (99 ??F) (Oral) Resp 20 Ht 152.4 cm (5') Wt 104.3 kg (230 lb) LMP 02/06/2009 SpO2 91% BMI 44.92 kg/m?? Input and Output Intake/Output Summary (Last 24 hours) at 04/15/20252105 Last data filed at 04/15/2025 1816 Gross per 24 hour Intake 2300 ml Output 2125 ml Net 175 ml Participation of a fellow, resident, medical student, or advanced practice provider student in performing the sensitive examination was discussed with the patient or authorized vendor representatives. The patient or authorized vendor representatives has agreed to proceed with the sensitive [...] from the original note were not included. [facility] UROLOGY PROGRESS NOTE Name: Devorah Lerma Bed: G090 033/G090-33 Date: 04/15/2025 After Hours Urology Service Pager: [phone] ASSESSMENT AND PLAN Devorah Lerma is a [...] Godwin Mcmahon MD Urology Resident PGY-2 Pager: [phone] Kidney Transplant Pager: [phone] For weekend or after hours issues [place] [phone] ([facility]) or [phone] ([place]) SUBJECTIVE -See above OBJECTIVE: Vital Signs BP [...] was discussed with the patient or authorized vendor representatives. The patient or authorized vendor representatives has agreed to proceed with the sensitive [...] age 5 yr - 11 yr, monovalent ([employer]) 02/15/2022 COVID-19 original vaccine, full dose, monovalent [...] Management Management of the patient was discussed with:job service consultant, admitting team, job service consultant and admitting team Radiology Reports US BLADDER (POC) ED USE ONLY Final Result XR CHEST 1V FRONTAL PORT Final Result IMPRESSION: Shallow lung volumes. No focal infiltrate or consolidation. Technical Service Engineer: PSCB Transcribe Date/Time: Apr 14 2025 [...] TRANSDERMAL Given SEE ABOVE ED STAFF ATTENDING [facility] Emergency Department Diagnosis Clinical Impression ICD-10-CM 1. [...] Alba MD Date: 04/15/2025 Time: 8:18 AM QUEEN MARIBELL Kevin 04/15/25 0821 [1] Social History Tobacco Use [...] * Plan of Care - Arlene Sharma [facility] - 04/16/2025 2:55 PM EDT Images from [...] this time from discharge medication list. Arlene Sharma, [facility] Pager: [phone] 04/16/2025 2:55 PM Medication List START taking [...] Your Medications These medications were sent to [facility] [address] [place] [address] Hours: Thursday-Thursday 7am-8pm, Thursday, Thursday and Holidays 9am-5pm acetaminophen 500 mg tablet cefdinir 300 mg capsule oxybutynin 5 mg tablet tamsulosin 0.4 mg * Plan of Care - Mike Gaffney CPhT - 04/16/2025 8:37 AM EDT Images from the original note were not included. PHARMACY BEDSIDE DELIVERY SERVICE Patient Name: Devorah Lerma The marked outpatient medications were Filled at: [facility] and delivered to the patient's bedside [...] Plan of Treatment DateTypeDepartmentCare Team (Latest Contact Info)Swdilkjqlpp08/30/2025 11:30 AM EDTOffice Visit Gynecology [address] [id number] [place] [address] [place] [address] Menorrhagia with regular cycle [N92.0] Patient interested in injections to help her ipzicgj2005/01/2025 9:20 AM ESTHospital Encounter Admitting [facility] [place] [address] Axel Ruth MD [address] [place] [address] Nephrolithiasis [N20.0]05/01/2025 9:20 AM EST - 05/01/2025 12:00 PM ESTSurgery Admitting [facility] [place] [address] Axel Ruth MD [address] [place] [address] CYSTOURETHROSCOPY W/ URETEROSCOPY AND/OR PYELOSCOPY W/ LITHOTRIPSY INCLUDE INSERTION OF INDWELLING URETERAL STENT05/04/2025 10:30 AM ESTOffice Visit Urology [address] [address] Axel Ruth MD [address] [place] [address] Surgical consult will bring furmdus2407/11/2025 9:00 AM ESTAppointment Radiology [address] [address] [address] FLANK WO IVCON07/11/2025 9:30 AM ESTOffice Visit Urology [address] [address] Farzana Davis, EVA.IN SERVICE EDUCATOR [address] [place] [address] 3 month f/u with CT prior per cc chartNamePriorityAssociated DiagnosesDate/Time CYSTOURETHROSCOPY W/ URETEROSCOPY AND/OR PYELOSCOPY W/ LITHOTRIPSY INCLUDE INSERTION OF INDWELLING URETERAL STENT Nephrolithiasis 05/01/2025 9:20 AM ESTdocumented as of this encounter Procedures Procedure NamePriorityDate/TimeAssociated DiagnosisCommentsLAB EXTRA TUBES Hpggsaj1704/16/2025 5:38 AM EDT EXTRA DRAW OPFRHCawduyj24/19/2025 5:38 AM EDTURINE CEKLPCALasfuvk98/19/2025 5:09 AM EDT URINALYSIS (WITH MICROSCOPIC) WITH CULTURE IF SYEHKQFMZAvblrzd70/19/2025 5:09 AM EDT COMPLETE BLOOD UPFCPIaqaoma65/19/2025 12:39 AM EDT BASIC METABOLIC DUHNXDfbhogb91/19/2025 12:39 AM EDT CYSTO W/INSERT URETERAL STENT04/15/2025 2:13 PM EDT Left nephrolithiasis HCG QUAL RCYTLP25 1:12 PM EDT COMPLETE BLOOD XJINYWxhdbtu07/18/2025 6:41 AM EDT BASIC METABOLIC VCUYEKbdqmkw65/18/2025 6:41 AM EDT URINE NLMTDCVIIFN02/17/2025 7:35 PM EDT URINALYSIS (WITH MICROSCOPIC) WITH CULTURE IF WULXMIIXIRBEY30/17/2025 7:35 PM EDT US BLADDER (POC) ED USE YJTYRIWB03/17/2025 3:07 PM EDT XR CHEST 1V FRONTAL HGDTZVMT70/17/2025 2:02 PM EDT CYSTATIN CAdd-on04/14/2025 12:47 PM EDT PROTHROMBIN DNMGXJHV76/17/2025 12:47 PM EDT CBC + YSXUGWOK75/17/2025 12:47 PM EDT BASIC METABOLIC HRCNYGESG54/17/2025 12:47 PM EDT documented in this encounter Results * EXTRA DRAW URINE (04/16/2025 5:38 AM EDT)Specimen (Source)Anatomical Location / LateralityCollection Method / VolumeCollection TimeReceived TimeUrineURINE SPECIMEN / Focwuya5504/16/2025 5:38 AM EDT1 5:38 AM EDT Narrative Authorizing ProviderResult TypeResult StatusMaribell Alba MDLABORATORYFinal ResultPerforming OrganizationAddressCity/State/ZIP CodePhone Number [facility] [address] [place] [address] * URINE CULTURE IF INDICATED (04/16/2025 5:09 AM EDT)ComponentValueRef RangeTest MethodAnalysis TimePerformed AtPathologist SignatureCulture, Urine<10,000 CFU/ml Normal urogenital flora04/17/2025 7:00 AM [facility]TCAD[facility] Specimen (Source)Anatomical Location / LateralityCollection Method / Volume Collection TimeReceived TimeUrineURINE SPECIMEN OBTAINED VIA SUPRAPUBIC INDWELLING URINARY CATHETER / UnknownNon Blood / Azqqgyj7804/16/2025 5:09 AM EDT 04/16/2025 5:36 AM EDT Narrative Authorizing ProviderResult TypeResult StatusMaribell Alba MDMICROBIOLOGYFinal ResultPerforming OrganizationAddressCity/State/ZIP CodePhone Number [facility] [address] * (ABNORMAL) URINALYSIS (WITH MICROSCOPIC) WITH CULTURE IF INDICATED (04/16/2025 5:09 AM EDT)ComponentValueRef RangeTest MethodAnalysis TimePerformed At Pathologist WchzwyxqnAtfxeVpsfnfPdstxm41/19/2025 6:25 AM [facility] LABClarityCloudy(A)Clear04/16/2025 6:25 AM [facility] Glucose, ZqkurBwdyetubUjhvvqom73/19/2025 6:25 AM [facility] Bilirubin, LrpotIlgrmqeqYvlraims44/19/2025 6:25 AM [facility] LABKetones, DuoabXopobjmcGnwxwmks91/19/2025 6:25 AM [facility] LABSpecific [place], Ur1.0191.005 - 1.5797304/16/2025 6:25 AM [facility] LABHemoglobin/Blood,Ur2+(A)Tvoyqonr31/19/2025 6:25 AM [facility] LABpH, Urine7.05.0 - 8.010 6:25 AM [facility] LABProtein, Urine1+(A)Nebrwmsr10/19/2025 6:25 AM [facility] LABUrobilinogen1.0 EU/dL0.2-1.0 EU/dL04/16/2025 6:25 AM [facility] REYLxckmuudSugzmpgqTxpvihxr13/19/2025 6:25 AM [facility] LABLeuk Esterase3+(A)Lejyzmph49/19/2025 6:25 AM [facility] WBC, Urine>20 /HPF(A)0-5 /HPF04/16/2025 6:25 AM [facility] RBC, Urine>20 /HPF(A)0-2 /HPF04/16/2025 6:25 AM [facility] Bacteria uL1,140.6(H)Negative uL04/16/2025 6:25 AM [facility] LABSquamous Epithelial CellsModerate/HPF04/16/2025 6:25 AM [facility] LABCasts, Hyaline4-10 /LPF(A)0 /LP04/16/2025 6:25 AM [facility] LABSpecimen (Source)Anatomical Location / LateralityCollection Method / VolumeCollection TimeReceived TimeUrineURINE SPECIMEN OBTAINED VIA SUPRAPUBIC INDWELLING URINARY CATHETER / UnknownNon Blood / Jzmpzzg2904/16/2025 5:09 AM EDT1 5:36 AM EDT Narrative [facility] - 04/16/2025 6:25 AM EDT Urine received in non-preservative tube. Interpret results with caution. To ensure optimal and accurate results, transfer urine to the BD Vacutainer Plus urine preservative tube. This test was developed and its performance characteristics determined by [facility]'s [facility] Pathology [facility] Laboratory Medicine [place] ([facility]). It has not been cleared or approved by the FDA. -[facility] is regulated under CLIA as qualified to perform high-complexity testing. Thistest is used for clinical purposes. It should not be regarded as investigational or for research. Authorizing ProviderResult TypeResult StatusMaribell Alba MDLABORATORYFinal ResultPerforming OrganizationAddressCity/State/ZIP CodePhone Number [facility] [address] * (ABNORMAL) BASIC METABOLIC PANEL (04/16/2025 12:39 AM EDT)ComponentValueRef RangeTest MethodAnalysis TimePerformed AtPathologist KztrbpbxtDorotju305(H)74 - 99 mg/dL04/16/2025 1:55 AM [facility] LABComment: The [place] Diabetes Association (ADA) provides guidance for cutoff [...] Standards of Medical Care in Diabetes 2016, [place] Diabetes Association. Diabetes Care. 2016.39(Suppl 1). NLH797 - 21 mg/dL04/16/2025 1:55 AM [facility] LABCreatinine0.65 0.58 - 0.96 mg/dL04/16/2025 1:55 AM [facility] USTJknsus942334 - 144 mmol/L1 1:55 AM [facility] LABPotassium3.73.7 - 5.1 mmol/L1 1:55 AM [facility] UYMYuzyflxx97480 - 107 mmol/L 04/16/2025 1:55 AM [facility] NCVAA89037 - 30 mmol/L1 1:55 AM [facility] LABAnion Zee739 - 15 mmol/L1 1:55 AM [facility] LABCalcium, Total9.48.5 - 10.2 mg/dL04/16/2025 1:55 AM [facility] LABEstimated Glomerular Filtration Afdu719>=60 mL/min/1.73m 04/16/2025 1:55 AM [facility] MA[facility] LABComment:Estimated Glomerular Filtration Rate (eGFR) [...] VolumeCollection TimeReceived TimeBloodBLOOD SPECIMEN / UnknownVenipuncture / Vewkvxt2904/16/2025 12:39 AM EDT1 1:06 AM EDT Narrative Authorizing ProviderResult TypeResult StatusMaribell Alba MDLABORATORYFinal ResultPerforming OrganizationAddressCity/State/ZIP CodePhone Number [facility] [address] * (ABNORMAL) COMPLETE BLOOD COUNT (04/16/2025 12:39 AM EDT)ComponentValueRef RangeTest MethodAnalysis TimePerformed AtPathologist SignatureWBC8.913.70 - 11.00 k/uL04/16/2025 1:28 AM EDTCADAMS COUNTY [facility] MAIN LABRBC3.87(L)3.90 - 5.20 m/uL04/16/2025 1:28 AM [facility] LABHemoglobin9.8(L)11.5 - 15.5 g/dL04/16/2025 1:28 AM [facility] LBTItzkrygxxz35.8(L)36.0 - 46.0 %04/16/2025 1:28 AM [facility] FWJEKT47.280.0 - 100.0 fL 04/16/2025 1:28 AM [facility] BSHMXO08.3(L)26.0 - 34.0 pg 04/16/2025 1:28 AM [facility] ENUAFXA65.830.5 - 36.0 g/dL 04/16/2025 1:28 AM [facility] LABRDW-CV15.9(H)11.5 - 15.0 % 04/16/2025 1:28 AM [facility] LABPlatelet Xbmdr335813 - 400 k/uL 04/16/2025 1:28 AM [facility] EWOLEN51.99.0 - 12.7 fL04/16/2025 1:28 AM [facility] LABAbsolute nRBC<0.01<0.01 k/uL04/16/2025 1:28 AM [facility] LABSpecimen (Source)Anatomical Location / LateralityCollection Method / VolumeCollection TimeReceived TimeBloodBLOOD SPECIMEN / UnknownVenipuncture / Rkoyirf7504/16/2025 12:39 AM EDT1 1:06 AM EDT Narrative Authorizing ProviderResult TypeResult StatusJocelinemayte Alba [facility] HOSPITALORATORYFinal ResultPerforming OrganizationAddressCity/State/ZIP CodePhone Number [facility] [address] [place] [address], * HCG, QUALITATIVE, URINE (04/15/2025 1:12 PM EDT)ComponentValueRef RangeTest MethodAnalysis TimePerformed AtPathologist SignatureHCG Qualitative, IqavqLxzzitvmHvascpyw98/18/2025 1:39 PM EDLUTHERAN [facility] MAIN LABComment: This test is intended to aid in the early detection of . Very dilute urine samples, as indicated by a low specific gravity, may not contain vendor representatives levels of hCG. This test detects intact [...] TimeReceived TimeUrineURINE SPECIMEN / UnknownNon Blood / Gbrqbpu2004/15/2025 1:12 PM EDT1 1:16 PM EDT Narrative Authorizing ProviderResult TypeResult Kimberlee Kevin Queen JOLIEFISH CREEKTORYFinal ResultPerforming OrganizationAddressCity/State/ZIP CodePhone Number [facility] [address] [place] [address], * (ABNORMAL) BASIC METABOLIC PANEL (04/15/2025 6:41 AM EDT)ComponentValueRef RangeTest MethodAnalysis TimePerformed AtPathologist FtdypzmnyLrpktft690(H)74 - 99 mg/dL04/15/2025 8:48 AM EDLUTHERAN [facility]OSP[facility] MAIN LABComment: The [place] Diabetes Association (ADA) provides guidance for cutoff [...] Standards of Medical Care in Diabetes 2016, [place] Diabetes Association. Diabetes Care. 2016.39(Suppl 1). BUN22(H)7 - 21 mg/dL04/15/2025 8:48 AM [facility] LABCreatinine 0.870.58 - 0.96 mg/dL04/15/2025 8:48 AM [facility] JPOBdobjr750552 - 144 mmol/L1 8:48 AM [facility] LABPotassium4.53.7 - 5.1 mmol/L1 8:48 AM [facility] QYIHchgotbx10830 - 107 mmol/L1 8:48 AM [facility] VTPTO99014 - 30 mmol/L 04/15/2025 8:48 AM [facility] LABAnion Tqz851 - 15 mmol/L 04/15/2025 8:48 AM [facility] LABCalcium, Total9.28.5 - 10.2 mg/dL 04/15/2025 8:48 AM [facility] LABEstimated Glomerular Filtration Rate87>=60 mL/min/1.73m 04/15/2025 8:48 AM [facility] LABComment:Estimated Glomerular Filtration Rate (eGFR) [...] VolumeCollection TimeReceived TimeBloodBLOOD SPECIMEN / UnknownVenipuncture / Kypqbqb6804/15/2025 6:41 AM EDT1 7:02 AM EDT Narrative Authorizing ProviderResult TypeResult StatusMaribell Alba MDLABORATORYFinal ResultPerforming OrganizationAddressCity/State/ZIP CodePhone Number [facility] [address] * (ABNORMAL) COMPLETE BLOOD COUNT (04/15/2025 6:41 AM EDT)ComponentValueRef RangeTest MethodAnalysis TimePerformed AtPathologist SignatureWBC9.883.70 - 11.00 k/uL04/15/2025 8:24 AM EDTCADAMS COUNTY [facility] MAIN LABRBC3.86(L)3.90 - 5.20 m/uL04/15/2025 8:24 AM [facility] LABHemoglobin9.8(L)11.5 - 15.5 g/dL04/15/2025 8:24 AM [facility] KDTHrskbnztxk05.9(L)36.0 - 46.0 %04/15/2025 8:24 AM [facility] XHINEC84.680.0 - 100.0 fL 04/15/2025 8:24 AM [facility] ODCIFW75.4(L)26.0 - 34.0 pg 04/15/2025 8:24 AM [facility] XITVLKT21.730.5 - 36.0 g/dL 04/15/2025 8:24 AM [facility] LABRDW-CV16.2(H)11.5 - 15.0 % 04/15/2025 8:24 AM [facility] LABPlatelet Vvppi150159 - 400 k/uL 04/15/2025 8:24 AM [facility] GSCNQB57.59.0 - 12.7 fL04/15/2025 8:24 AM [facility] LABAbsolute nRBC<0.01<0.01 k/uL04/15/2025 8:24 AM [facility] LABSpecimen (Source)Anatomical Location / LateralityCollection Method / VolumeCollection TimeReceived TimeBloodBLOOD SPECIMEN / UnknownVenipuncture / Ldbkren6104/15/2025 6:41 AM EDT10/ 7:03 AM EDT Narrative Authorizing ProviderResult TypeResult StatusMaribell Alba MDLABORATORYFinal ResultPerforming OrganizationAddressCity/State/ZIP CodePhone Number [facility] [address] * (ABNORMAL) URINE CULTURE IF INDICATED (04/14/2025 7:35 PM EDT)ComponentValue Ref RangeTest MethodAnalysis TimePerformed AtPathologist SignatureCulture, UrineMixed microbiota:04/18/2025 6:52 AM EDTCADAMS COUNTY [facility] MAIN LABCulture, Urine>=100,000 CFU/ml Proteus mirabilis(A) MINIMUM INHIBITORY CONCENTRATION(VITEK) 04/18/2025 6:52 AM EDTCADAMS COUNTY HOS[facility]ITAL MAIN LABComment:Culture, Urine10,000 - <50,000 CFU/ml Klebsiella pneumoniae(A)04/18/2025 6:52 AM EDTCADAMS COUNTY HOSPITAL MAIN LABComment:Insignificant colony count. No further workup.Specimen (Source) Anatomical Location / LateralityCollection Method / VolumeCollection Time Received TimeUrineMID-STREAM URINE SPECIMEN / UnknownNon Blood / Unknown 04/14/2025 7:35 PM EDT1 8:00 PM EDT Narrative [facility] [facility] - 04/18/2025 6:52 AM EDT Testing or reporting of additional agents was requested. This test was developed and its performance characteristics determined by the [facility]'s [facility] [place] ([facility]). It has not been cleared or approved by the FDA. [facility] is regulated under CLIA as qualified [...] 64: Resistant Authorizing ProviderResult TypeResult StatusDenangie Snider [facility] HOSPITALICROBIOLOGYEdited Result - FinalPerforming OrganizationAddressCity/State/ZIP CodePhone Number [facility] [address] * (ABNORMAL) URINALYSIS (WITH MICROSCOPIC) WITH CULTURE IF INDICATED (04/14/2025 7:35 PM EDT)ComponentValueRef RangeTest MethodAnalysis TimePerformed At Pathologist VmdcslddmTxbgeJdnsdxWzzntr64/17/2025 8:20 PM EDTCLEVEL[facility] MAIN LABClarityTurbid(A)Clear04/14/2025 8:20 PM EDTCLEVEL[facility] LAB Glucose, IfhcuGtkuvpcuMnzwhqsk31/17/2025 8:20 PM EDTCAV[facility] Bilirubin, YgsivJlvuyzxqYhqsuznb75/17/2025 8:20 PM EDTCLEVELAND CLINIC MAIN LABKetones, PwkjkNskcnvegSxlaljkv71/17/2025 8:20 PM EDTCAVITA [facility]ALTH SYSTEMAND [facility]INIC MAIN LABSpecific [place], Ur1.0171.005 - 1.7732004/14/2025 8:20 PM EDTCBUC[facility] LABHemoglobin/Blood,Ur2+(A)Njmoeacj69/17/2025 8:20 PM EDTCAVITA [facility]ALTH SYSTEMAND [facility]INIC MAIN LABpH, Urine6.55.0 - 8.010 8:20 PM [facility]TCAD[facility] LABProtein, UrineTrace(A)Qlwokuwj40/17/2025 8:20 PM EDTCADAMS [facility] MAIN LABUrobilinogen0.2 EU/dL0.2-1.0 EU/dL04/14/2025 8:20 PM EDTCADAMS [facility] MAIN LRQVakbkrkcLiwvucfyPbgrujdb27/17/2025 8:20 PM EDLUTHER[facility] MAIN LABLeuk Esterase3+(A)Dkzlpsig83/17/2025 8:20 PM EDTCADAMS [facility] MAIN LABWBC, Urine>20 /HPF(A)0-5 /HPF04/14/2025 8:20 PM EDTCADAMS [facility] MAIN LABRBC, Urine>20 /HPF(A)0-2 /HPF04/14/2025 8:20 PM EDLUTHER[facility] MAIN LABBacteria uL7,080.3(H)Negative uL04/14/2025 8:20 PM EDTCADAMS COUNTY [facility] MAIN LABSquamous Epithelial CellsModerate/HPF04/14/2025 8:20 PM EDLUTHER[facility] MAIN LABCasts, Hyaline4-10 /LPF(A)0 /LPF10 8:20 PM EDLUTHER[facility] MAIN LABSpecimen (Source)Anatomical Location / LateralityCollection Method / VolumeCollection TimeReceived TimeUrineMID-STREAM URINE SPECIMEN / UnknownNon Blood / Jojsdkx9404/14/2025 7:35 PM EDT1 8:00 PM EDT Narrative [facility] - 04/14/2025 8:20 PM EDT This test was developed and its performance characteristics determined by [facility]'s Daryl JTl [facility] Pathology and Laboratory Medicine [place] ([facility]). It has not been cleared or approved by the FDA. [facility] is regulated under CLIA as qualified to perform high-complexity testing. This test is used for clinical purposes. It should not be regarded as investigational or for research. Authorizing ProviderResult TypeResult StatusNew Snider MDLABORATORYFinal Result Performing OrganizationAddressCity/State/ZIP CodePhone Number [facility] [address] [place] [address], * US BLADDER (POC) ED USE ONLY [...] lung volumes. ??No focal infiltrate or consolidation. Technical Service Engineer: ANJELICAB ?? Transcribe Date/Time: Apr 14 [...] CT abdomen/pelvis.. Other: ??. Procedure Note Provider, [facility] - 04/14/2025 * * *Final Report* * [...] lung volumes. No focal infiltrate or consolidation. Technical Service Engineer: RICO Transcribe Date/Time: Apr 14 2025 2:03P Dictated by : REID DANIELLE MD This examination was interpreted and the report reviewed and electronically signed by: REID DANIELLE MD on Apr 14 2025 2:07PM EST Authorizing ProviderResult TypeResult StatusJomayte Alba MDRAD-PAMAFinal Result * (ABNORMAL) CYSTATIN C (04/14/2025 12:47 PM EDT)ComponentValueRef RangeTest MethodAnalysis TimePerformed AtPathologist SignatureCystatin C1.89(H)0.61 - 0.95 mg/L1 10:22 PM EDTCADAMS COUNTY HOSPITAL MAIN LABCystatin C eGFR34(L) >=60 mL/min/1.73m 04/14/2025 10:22 PM EDLUTHERAN [facility]OSPITAL MAIN LABComment:Estimated Glomerular Filtration Rate (eGFR) is calculated using the 2012 CKD-EPI cystatin C equation. This equation utilizes serum cystatin C, sex, and age as parameters. The cystatin C assay has traceable calibration to the ERM-DA471/[facility] reference material. Refer to KDIGO guidelines for clinical interpretation. In patients with unstable renal function, e.g. those with acute kidney injury, the eGFR may not accurately reflect actual GFR.Specimen (Source)Anatomical Location / LateralityCollection Method / VolumeCollection TimeReceived TimeBloodBLOOD SPECIMEN / UnknownVenipuncture / Aeixclh6704/14/2025 12:47 PM EDT1 12:57 PM EDT Narrative Authorizing ProviderResult TypeResult StatusMaribell Alba MDLABORATORYFinal ResultPerforming OrganizationAddressCity/State/ZIP CodePhone Number [facility] [address] * PROTHROMBIN TIME (04/14/2025 12:47 PM EDT)ComponentValueRef RangeTest Method Analysis TimePerformed AtPathologist SignaturePT Sec11.59.7 - 13.0 sec 04/14/2025 1:09 PM EDTCADAMS COUNTY HOSPITAL MAIN LABINR1.10.9 - 1. 1:09 PM EDTCADAMS COUNTY HOS[facility]ITAL MAIN LABComment: Vitamin K Antagonist (VKA) Therapeutic Range: INR 2 to 3 (Target INR of 2.5) Note: For patients treated with VKA drugs, such as warfarin, the [place] [employer] 2012 Guideline recommends [...] Chest 2012, 141:7S-47S Savanah RA, et al. [facility] 2017, 70: 252-289 Specimen (Source)Anatomical Location / LateralityCollection Method / Volume Collection TimeReceived TimeBloodBLOOD SPECIMEN / UnknownVenipuncture / Unknown 04/14/2025 12:47 PM EDT1 12:57 PM EDT Narrative Authorizing ProviderResult TypeResult StatusNew Snider MDLABORATORYFinal Result Performing OrganizationAddressCity/State/[facility] CodePhone Number [facility] [address] * (ABNORMAL) COMPLETE BLOOD COUNT AND DIFFERENTIAL (04/14/2025 12:47 PM EDT) ComponentValueRef RangeTest MethodAnalysis TimePerformed AtPathologist LhektubxpBNT91.47(H)3.70 - 11.00 k/uL04/14/2025 1:02 PM [facility] LABRBC4.193.90 - 5.20 m/uL04/14/2025 1:02 PM [facility] Clpoxtzpnd05.3(L)11.5 - 15.5 g/dL04/14/2025 1:02 PM [facility] VTTZrooadcxxt71.1(L)36.0 - 46.0 %04/14/2025 1:02 PM [facility] RPXZKM03.480.0 - 100.0 fL04/14/2025 1:02 PM [facility] LABMCH 24.6(L)26.0 - 34.0 pg04/14/2025 1:02 PM [facility] AZAMWMP17.2 (L)30.5 - 36.0 g/dL04/14/2025 1:02 PM [facility] LABRDW-CV15.9 (H)11.5 - 15.0 %04/14/2025 1:02 PM EDTCAVITA [facility] MAIN LABPlatelet Count [id number] - 400 k/uL04/14/2025 1:02 PM EDTCAVITA [facility] SYSTEM[facility]IN LABMPV9.69.0 - 12.7 fL04/14/2025 1:02 PM EDTCAVITA [facility] SYSTEM[facility] MAIN LABNeutrophils %83.0% 04/14/2025 1:02 PM EDTCAVITA [facility] SYSTEM[facility] MAIN LABAbs Neut9.52(H)1.45 - 7.50 k/uL 04/14/2025 1:02 PM EDTCAVITA [facility] MAIN LABLymphocytes %8.6%04/14/2025 1:02 PM EDTCAVITA [facility] MAIN LABAbs Lymph0.99(L)1.00 - 4.00 k/uL04/14/2025 1:02 PM EDTCAVITA [facility] SYSTEM[facility] MAIN LABMonocytes %6.2%04/14/2025 1:02 PM EDT [facility] LABAbs Mono0.71<0.87 k/uL04/14/2025 1:02 PM EDTCAVITA [facility]IN LABEosinophils %1.6%04/14/2025 1:02 PM EDTCAVITA [facility] MAIN LABAbs Eosin0.18<0.46 k/uL04/14/2025 1:02 PM EDTCAVITA [facility] LAB Basophils %0.3%04/14/2025 1:02 PM EDTCAV[facility] MAIN LABAbs Baso0.03 <0.11 k/uL04/14/2025 1:02 PM EDTCAVITA [facility] MA[facility] LABImmature Granulocytes %0.3%04/14/2025 1:02 PM EDTCAVITA [facility] SYSTEM[facility] MAIN LABAbs Immature Gran0.04 <0.10 k/uL04/14/2025 1:02 PM EDTCAVITA [facility] MAIN LABNRBC0.0/100 WBC 04/14/2025 1:02 PM EDTCAVITA [facility] SYSTEM[facility] MAIN LABAbsolute nRBC<0.01<0.01 k/uL 04/14/2025 1:02 PM EDTCAVITA [facility] MAIN LABDiff FaheRfqz44/17/2025 1:02 PM EDTCLEVELAND CLINIC MAIN LABSpecimen (Source)Anatomical Location / Laterality Collection Method / VolumeCollection TimeReceived TimeBloodBLOOD SPECIMEN / UnknownVenipuncture / Jlpubeh9504/14/2025 12:47 PM EDT1 12:57 PM EDT Narrative Authorizing ProviderResult TypeResult StatusNew Snider MDLABORATORYFinal Result Performing OrganizationAddressCity/State/ZIP CodePhone Number [facility] [address] * (ABNORMAL) BASIC METABOLIC PANEL (04/14/2025 12:47 PM EDT)ComponentValueRef RangeTest MethodAnalysis TimePerformed AtPathologist GdturqezdAsqmxgv583(H)74 - 99 mg/dL04/14/2025 1:15 PM [facility] LABComment: The [place] [employer] (ADA) provides guidance for cutoff [...] Standards of Medical Care in Diabetes 2016, [place] [employer]. Diabetes Care. 2016.39(Suppl 1). BUN22(H)7 - 21 mg/dL04/14/2025 1:15 PM [facility] LABCreatinine 0.890.58 - 0.96 mg/dL04/14/2025 1:15 PM [facility] RSBUrhpet320(L) 136 - 144 mmol/L1 1:15 PM [facility] LABPotassium5.13.7 - 5.1 mmol/L1 1:15 PM [facility] CRXIubjfpim8936 - 107 mmol/L1 1:15 PM [facility] KSTKY37063 - 30 mmol/L 04/14/2025 1:15 PM [facility] LABAnion Gap98 - 15 mmol/L1 1:15 PM [facility] LABCalcium, Total9.98.5 - 10.2 mg/dL04/14/2025 1:15 PM [facility] LABEstimated Glomerular Filtration Rate85>=60 mL/min/1.73m 04/14/2025 1:15 PM [facility] LABComment:Estimated Glomerular Filtration Rate (eGFR) [...] VolumeCollection TimeReceived TimeBloodBLOOD SPECIMEN / UnknownVenipuncture / Rnivcte9404/14/2025 12:47 PM EDT1 12:57 PM EDT Narrative Authorizing ProviderResult TypeResult StatusNew Snider MDLABORATORYFinal Result Performing OrganizationAddressCity/State/ZIP CodePhone Number [facility] [address] [phone], documented in this encounter Visit Diagnoses Diagnosis Kidney stone- Primary Calculus of kidney Left nephrolithiasis Suprapubic catheter dysfunction, initial encounter Hydronephrosis with urinary obstruction due to ureteral calculus Hydronephrosis with urinary obstruction due to ureteral calculus Left nephrolithiasis Complicated UTI (urinary tract infection) Urinary tract infection, site not specified Left nephrolithiasis Nephrolithiasis Calculus of kidney documented in this encounter Admitting Diagnoses Diagnosis Kidney stone Calculus of kidney Kidney stones Calculus of kidney documented in this encounter Administered Medications Medication OrderMAR ActionAction DateDoseRateSite acetaminophen 1,000 mg tab(s) (TYLENOL) 1,000 mg, ORAL, EVERY 6 HOURS, First dose on Thu04/14/25 at 2100, Until Discontinued Given04/16/2025 2:00 PM EDT1,000 ciTpsqp9804/16/2025 4:50 AM EDT1,000 mgGiven 04/15/2025 11:00 PM EDT1,000 mg buPROPion 75 mg tab(s) (WELLBUTRIN) 75 mg, ORAL, DAILY, First dose on Thu04/15/25 at 0900, Until Discontinued Given04/16/2025 9:38 AM EDT75 jvSpndi3904/15/2025 8:16 AM EDT75 mg busPIRone 30 mg tab(s) (BUSPAR) 30 mg, ORAL, 2 TIMES DAILY, First dose on Thu04/14/25 at 2100, Until Discontinued Given04/16/2025 9:37 AM EDT30 gfFqgxx2804/15/2025 10:14 PM EDT30 wfWzcue3604/15/2025 8:17 AM EDT30 mg cyclobenzaprine 5 mg tab(s) (FLEXERIL) 5 mg, ORAL, 3 TIMES DAILY, First dose on Thu04/14/25 at 2100, Until Discontinued Given04/16/2025 2:00 PM EDT5 niMjbgp3804/16/2025 9:38 AM EDT5 bsXsqbt2304/15/2025 10:15 PM EDT5 mg docusate sodium 100 mg cap(s) (COLACE) 100 mg, ORAL, 2 TIMES DAILY, First dose on Thu04/14/25 at 2100, Until Discontinued, Swallow whole;DO NOT crush, chew, or open. Given04/16/2025 9:37 AM ZDP677 eeRikjn8004/15/2025 10:15 PM TVA524 mgGiven 04/15/2025 8:17 AM IEZ542 mg furosemide 40 mg tab(s) (LASIX) 40 mg, ORAL, DAILY, First dose on Thu04/15/25 at 0900, Until Discontinued Given04/16/2025 9:38 AM EDT40 qbFyhxh0404/15/2025 8:17 AM EDT40 mg gabapentin 1,800 mg tab(s) (NEURONTIN) 1,800 mg, ORAL, 3 TIMES DAILY, First dose on Thu04/14/25 at 2100, Until Discontinued Given04/16/2025 2:00 PM EDT1,800 ccCykzp2704/16/2025 9:38 AM EDT1,800 mgGiven 04/15/2025 10:12 PM EDT1,800 mg heparin 5,000 Units injection 5,000 Units, SUBCUTANEOUS, EVERY 8 HOURS, First dose on Thu04/15/25 at 0600, Until Discontinued Given04/16/2025 5:00 AM EDT5,000 UnitsArm, LedwyFmudm19/18/2025 10:13 PM EDT 5,000 UnitsAbdomen, LLQ lactated ringers iv infusion 100 mL/hr, INTRAVENOUS, CONTINUOUS, Starting on Thu04/14/25 at 2100, Until Thu04/16/25 at 1801 New Bag/Syringe/Bzstgb4804/16/2025 9:54 AM PXF996 mL/hr100 mL/hrNew Bag/Syringe/Otdbmi8304/15/2025 10:31 PM UBN211 mL/hr100 mL/hrNew Bag/Syringe/Qlxrhb6804/15/2025 12:25 AM NOW494 mL/hr100 mL/hr lamoTRIgine (LaMICtal) tab(s) 250 mg 250 mg, ORAL, 2 TIMES DAILY, First dose on Thu04/14/25 at 2100, Until Discontinued Given04/16/2025 9:38 AM ZXA349 cxDpcdk1704/15/2025 10:15 PM BPX972 mgGiven 04/15/2025 8:17 AM IJV480 mg levETIRAcetam 1,000 mg tab(s) (KEPPRA) 1,000 mg, ORAL, DAILY, First dose on Thu04/14/25 at 2100, Until Discontinued Given04/16/2025 9:38 AM EDT1,000 jpMrgfy9504/15/2025 8:17 AM EDT1,000 mg levETIRAcetam 2,000 mg tab(s) (KEPPRA) 2,000 mg, ORAL, AT BEDTIME, First dose on Thu04/14/25 at 2100, Until Discontinued Given04/15/2025 10:12 PM EDT2,000 niBnhbv4104/14/2025 11:16 PM EDT2,000 mg melatonin 6 mg tab(s) 6 mg, ORAL, [...] source(s): Urinary/renal, Pharmacist may modify dose per [facility] dose optimization consult agreement: Yes New Bag/Syringe/Fcccgp5404/16/2025 4:50 AM EDT1 g200 mL/hrNew Bag/Syringe/Bottle 04/15/2025 10:13 PM EDT1 g200 mL/hr pantoprazole DR 20 mg tab(s) (PROTONIX) 20 mg, ORAL, DAILY AT 6 AM, First dose on 04/15/25 at 0600, Until Discontinued, omeprazole tab/cap(s) (PRILOSEC) substituted to pantoprazole tab(s) (PROTONIX) per Pharmacy and Therapeutics Committee Swallow whole; DO NOT crush or chew. Given04/16/2025 5:00 AM EDT20 kvXkyib0604/15/2025 6:05 AM EDT20 mg phosphorus 500 mg tab(s) (K PHOS NEUTRAL) 500 mg, ORAL, AT BEDTIME, First dose on Thu04/14/25 at 2200, Until Discontinued, Administer with 180 mL to 240 mL of water. Given04/15/2025 10:14 PM JBE366 qvJlhgd9404/14/2025 11:16 PM GWW564 mg polyethylene glycol 3350 17 g packet 17 g, ORAL, DAILY, First dose on Thu04/15/25 at 0900, Until Discontinued, Mix powder in 240 ml (8 oz) of water before admin. NOTE: 1 packet=1 tablespoonful=1 capful Given04/16/2025 9:39 AM EDT17 pItyob5304/15/2025 8:18 AM EDT17 g prazosin 1 mg cap(s) (MINIPRESS) 1 mg, ORAL, AT BEDTIME, First dose on Thu04/14/25 at 2100, Until Discontinued Given04/15/2025 10:00 PM EDT1 mg QUEtiapine 150 mg tab(s) (SEROquel) 150 mg, ORAL, AT BEDTIME, First dose on Thu04/14/25 at 2100, Until Discontinued Given04/15/2025 10:15 PM VBD034 buYhbbh1704/14/2025 11:16 PM VPC096 mg sertraline 200 mg tab(s) (ZOLOFT) 200 mg, ORAL, DAILY, First dose on 04/15/25 at 0900, Until Discontinued Given04/16/2025 9:38 AM WMU937 reYsumt1604/15/2025 8:17 AM ARI796 mg tamsulosin 0.4 mg cap(s) (FLOMAX) 0.4 mg, ORAL, DAILY, First dose on 04/15/25 at 1730, Until Discontinued, Swallow whole; DO NOT crush, chew, or open. Given04/16/2025 9:38 AM EDT0.4 lqUnbtl4504/15/2025 5:53 PM EDT0.4 mg traMADol 50 mg tab(s) (ULTRAM) 50 mg, ORAL, EVERY 6 HOURS NEEDED, Starting on Thu04/14/25 at 203, Until Thu04/16/25 at 1801,Moderate Pain (4-6) - Enteral, Severe Pain (>/=7) - Enteral Given04/15/2025 8:16 AM EDT50 mg trospium 20 mg tab(s) (SANCTURA) 20 mg, ORAL, 2 TIMES DAILY BEFORE MEALS, First dose on Thu04/15/25 at 0700, Until Discontinued, oxybutynin ER tab(s) (DITROPAN) substituted to trospium IR tab(s) (SANCTURA) per Pharmacy & Therapeutics Committee Given04/16/2025 6:00 AM EDT20 xgDxfqv2804/15/2025 5:53 PM EDT20 hzWzbse2204/15/2025 6:05 AM EDT20 mgdocumented in this encounter [...] RN) * 1400 (Given - Provider: Bernice Watson, ROLAND) acetaminophen 1,000 mg tab(s) (TYLENOL) (COMPLETED) 1,000 mg, ORAL, ONCE, 1 dose, On Thu04/14/25 at 1900 * 1920 (Given - Provider: May Layton RN) buPROPion 75 mg tab(s) (WELLBUTRIN) 75 mg, ORAL, DAILY, First dose on Thu04/15/25 at 0900, Until Discontinued * 0816 (Given - Provider: Isabell Mecrhant RN) * 1428 (Held on Transfer - [...] Discontinued * 2315 (Given - Provider: Kelly Escobar RN) * 0900 (Given - Provider: Isabell Merchant RN) * 1300 (Not Given - Provider: Isabell Merchant RN - Reason: Hold for Procedure/Surgery) * 1428 (Held on Transfer - Provider: Reg In Adtr - Reason: Hold Unreviewed Transfer Orders) * 1711 (Released - Provider: Isabell Merchant RN) * 2215 (Given - Provider: Rosalva Carlos RN) * 0938 (Given - Provider: Bernice Watson RN) * 1400 (Given - Provider: Bernice Watson RN) docusate sodium 100 mg cap(s) (COLACE) 100 [...] RN) * 2212 (Given - Provider: Rosalva Carlos RN) * 0938 (Given - Provider: Bernice Watson RN) * 1400 (Given - Provider: Bernice Watson RN) heparin 5,000 Units injection 5,000 Units, SUBCUTANEOUS, EVERY 8 HOURS, First dose on Thu04/15/25 at 0600, Until Discontinued * 0605 (Not [...] * 1400 (Not Given - Provider: Bernice Watson RN - Reason: Patient Declined. LIP Notified) hydrOXYzine HCl 25 mg tab(s) (ATARAX) (COMPLETED) 25 mg, ORAL, ONCE, 1 dose, On Thu04/16/25 at 1300 * 1400 (Given - Provider: Bernice Watson RN) keTORolac 15 mg injection (Toradol) (COMPLETED) 15 mg, INTRAVENOUS, ONCE, 1 dose, On Thu04/14/25 at 1330, Ketorolac (Toradol) is indicated for theshort-term (up to 5 days) management of moderately severe acute pain. Continuation of ketorolac (Toradol) beyond 5 days increases the risk of developing serious adverse events. Please verify the duration of therapy for ketorolac (Toradol)., Pharmacist may modify dose per [facility] dose optimization consult agreement: Yes * 1313 (Given - Provider: Chelsea Orellana RN) lactated ringers 1,000 mL iv bolus (COMPLETED) 1,000 mL, INTRAVENOUS, at 999 mL/hr, Administer over 1 Hours, ONCE, 1 dose, On Thu04/14/25 at 1730 * 1730 (New Bag/Syringe/Bottle - Provider: Chelsea Orellana RN) * 184 (Rate/Dose Change - Provider: May Layton RN - Comment: rate slowed due to pt bending herarm) * 1952 (Infusion Complete - Provider: May Layton RN) * 1999 (Infusion Complete - Provider: May Layton, ROLAND) lactated ringers 500 mL iv bolus (COMPLETED) 500 mL, INTRAVENOUS, at 999 mL/hr, Administer over 0.5 Hours, ONCE, 1 dose, On Thu04/14/25 at 1330 * 1321 (New Bag/Syringe/Bottle - Provider: Chelsea Orellana, ROLAND) * 1351 (Infusion Complete - Provider: Chelsea [...] Thu04/14/25 at 2100, Until Discontinued * 2100 (Not Given - Provider: Kelly Escobar RN [...] RN) * 2212 (Given - Provider: Rosalva Carlos RN) lidocaine [...] source(s): Urinary/renal, Pharmacist may modify dose per [facility] dose optimization consult agreement: Yes * 1530 [...] minutes * 1313 (Given - Provider: Chelsea Orellana, ROLAND) oxyCODONE-acetaminophen 5-325 mg 2 tablet (PERCOCET) (COMPLETED) [...] source(s): Urinary/renal, Pharmacist may modify dose per [facility] dose optimization consult agreement: Yes * 0025 (New Bag/Syringe/Bottle - Provider: Kelly Escobar RN) * 0055 (Infusion Complete - Provider: Kelly Escobar RN) * 0605 (New Bag/Syringe/Bottle - Provider: Kelly Escobar RN) * 0635 (Infusion Complete - Provider: Isabell Merchant, ROLAND) * 1315 (New Bag/Syringe/Bottle - Provider: Isabell [...] RN) * 2215 (Given - Provider: Rosalva Carlos, ROLAND) sertraline 200 mg tab(s) (ZOLOFT) 200 mg, [...] 0938 (Given - Provider: Bernice Watson RN) trospium 20 mg tab(s) (SANCTURA) 20 mg, [...] Thu04/14/25 at 2100, Until Thu04/16/25 at 1801 * 2100 (Canceled Entry - Provider: Kelly Escobar RN) * 0025 (New Bag/Syringe/Bottle - Provider: Kelly Escobar RN) * 1428 (Held on Transfer - Provider: Reg In Adtr - Reason: Hold Unreviewed Transfer Orders) * 1711 (Released - Provider: Isabell Merchant RN) * 2231 (New Bag/Syringe/Bottle - Provider: Rosalva Carlos RN) * 0954 (New Bag/Syringe/Bottle - Provider: Bernice Watson, RN) * 1801 (Due: Order Ending - Provider: Reg In Adtr - Comment: [Order ends at this time. Document the following action when infusion is complete: Infusion Complete]) lactated ringers iv infusion (CANCELED) 100 mL/hr, INTRAVENOUS, CONTINUOUS, Starting on 04/15/25 at 1530, Until 04/15/25 at 1637, Recovery or Phase I (only) * 1526 (Rate Verify - Provider: Skylar Arauz RN) * 1637 (Infusion Complete - Provider: Isabell Merchant RN - Comment: [Order ends at this time. Document the following action when infusion is complete: Infusion Complete]) Medication Order bisacodyl 10 mg suppository (DULCOLAX) 10 mg, RECTAL, ONCE DAILY NEEDED, Starting on Thu04/14/25 at 2037, Until 04/16/25 at 1801, Constipation - Second Line - Rectal, FOR RECTAL USE * 1428 (Held on Transfer - Provider: Reg In Adtr - Reason: Hold Unreviewed Transfer Orders) * 1711 (Released - Provider: Isabell Merchant RN) bismuth subsalicylate 524 mg oral liquid (BISMATROL) 524 mg, ORAL, EVERY 6 HOURS NEEDED, Starting on Thu04/14/25 at 2037, Until 04/16/25 at 1801, GI upset, Shake Well. Max Dose = 4200 mg/day * 1428 (Held on Transfer - Provider: Reg In Adtr - Reason: Hold Unreviewed Transfer Orders) * 1711 (Released - Provider: Isabell Merchant RN) calcium carbonate 500 mg chewable tab(s) (TUMS) 500 mg, ORAL, EVERY 8 HOURS NEEDED, Starting on Thu04/14/25 at 2037, Until 04/16/25 at 1801, indigestion, product contains 500 mg calcium carbonate (equivalent to 200 mg elemental calcium) * 1428 (Held on Transfer - Provider: Reg In Adtr - Reason: Hold Unreviewed Transfer Orders) * 1711 (Released - Provider: Isabell Merchant RN) HYDROmorphone 0.2 mg injection (DILAUDID) (CANCELED) 0.2 mg, INTRAVENOUS, EVERY 3 HOURS NEEDED, Starting on Thu04/14/25 at 2037, Until 04/15/25 at 2322, breakthrough pain, When patient is NPO or pain not relieved by oral pain medication Caution: IV hydromorphone is approximately 8 times MORE POTENT than IV morphine. For example, dhpakypotsilx9ud IV = morphine 8mg IV * 0953 (Given - Provider: Isabell Merchant RN) * 1428 (Held on Transfer - Provider: Reg In Adtr - Reason: Hold Unreviewed Transfer Orders) * 1711 (Released - Provider: Isabell Merchant, RN) lidocaine 4 % 1 patch (SALONPAS) 1 patch, TRANSDERMAL, AT BEDTIME NEEDED, Starting on Thu04/14/25 at 2037, Until 04/16/25 [id number], pain, APPLY TO: BACK - Remove patch after 12 hours. * 1428 (Held on Transfer - Provider: Reg In Adtr - Reason: Hold Unreviewed Transfer Orders) * 1711 (Released - Provider: Isabell Merchant RN) NaCl 0.9% iv flush bag 20 mL, INTRAVENOUS, NEEDED, Starting on Thu04/14/25 at 2037, Until 04/16/25 at 1801, See admin instructions, If no [...] Starting on Thu04/14/25 at 2037, Until 04/16/25 [id number], Nausea/Vomiting - First Line - Parenteral, Give IV push over 2 minutes * 1428 (Held on Transfer - Provider: Reg In Adtr - Reason: Hold Unreviewed Transfer Orders) * 1711 (Released - Provider: Isabell Merchant, ROLAND) senna 8.6 mg tab(s) (SENOKOT) 8.6 mg, ORAL, ONCE DAILY NEEDED, Starting on Thu04/14/25 at 2037, Until 04/16/25 at 1801, Constipation - First Line - [...] Enteral * 0816 (Given - Provider: Isabell Merchant RN) * 1428 (Held on Transfer - Provider: Reg In Adtr - Reason: Hold Unreviewed Transfer Orders) * 1711 (Released - Provider: Isabell Merchant RN) Order Group 1: lidocaine 4 % [...] this encounter Care Teams Team MemberRelationshipSpecialtyStart DateEnd Isaias Saleh MD [address] [place] [address] ReferringUrology02/26/22 William Cruz, IN SERVICE EDUCATOR [address] [facility] [place] [address] ReferringFamily Cuvbadfl20/15/25documented as of this encounter
--- OUTSIDE RECORDS SUMMARY | 2025-04-15 14:28 | XMS_ITS | Encounter Summary ---
Author Organization [facility] Address [address] [place] [address] Care Team Providers Care Revenue Field Auditor Name Role Phone Isaias Saleh MD Unavailable [phone] William Cruz CNP Unavailable [phone] Source Comments In the event this information is protected by the Federal Confidentiality of Alcohol and Drug AbusePatient Records regulations: The Federal rules restrict any use of the information to criminally investigate or prosecute any alcohol or drug abuse patient.[facility] Reason for Visit * Auth/Cert (Routine)SpecialtyDiagnoses / ProceduresReferred By ContactReferred To [facility] INPATIENT Diagnoses Kidney stone Kidney stones Procedures NA HOSP MAIN [address] [place] [address] Phone: tel: Referral IDStatusReasonStart DateExpiration DateVisits RequestedVisits [id number] Encounter Details DateTypeDepartmentCare Team (Latest Contact Info)Zrpewzypjse06/18/2025 2:28 PM EDTAnesthesia Event Admitting [address] [place] [address] Brendon Garces MD [address] [place], [place] [id number] Jeb Servin MD [address] [place], [place] [id number] Anesthesia Record Procedure NameResponsible AnesthesiologistAnesthesia Start TimeAnesthesia Stop TimeCYSTOSCOPY, INSERTION STENT URETERAL J (Left: Bladder)Brendon Garces MD 04/15/25 [id number] 5296AodmMxplJdzttDbbmvqk66/18/409443766491Lh StartI have re-evaluated the patient immediately prior to induction.1428An Start Aslv5487Kq InductionI have re-evaluated the patient immediately prior to induction.1435An Nechqozvky5715Uteruirhdk Lxxsm3957Ewzdrywe/Procedure Fcgjx7159Ftpeg Nnmlsow9728 Procedure Ldk4802Aacrwi2088Pd ExtubationPatient : Airway suctioned clear; following commands with adequate responsiveness; strength and spontaneous ventilation confirmed; stable dfddeerdpevi0190pd stop kvcx5527Zozdzpy to RNI completed my handoff to the receiving nurse during which we: 1. Identified the patient 2. Identified the responsible provider 3. Reviewed the pertinent medical history 4. Discussed the surgical course 5. Reviewed intra-op anesthesia management and issues during anesthesia 6. Set expectations for post-procedure period 7. Allowed opportunity for questions and acknowledgement of understanding.1530An Stop* NameTotaldexAMETHasone 4 mg/mL8 mgfentaNYL (PF)50 mcg lidocaine (PF) 1%100 wwlcahyvnu379 onekjyqbsiyzyemcx943 ltvnjejnhtwiGWYZZ24.5 uhYC346 mL * Agents Name ETO2 ETN2O Inspired N2O Set O2% Inspired Sevoflurane Sevoflurane * Blood No blood administrations on file. OlxeEzoqaliEpzyccuxmWqwjrhpBxhoe54/24/25 (originally 08/09); 1145; Y; Pressure Inj; No; Ischium; Right08/22/24 1145 by Skylar Guillaume RNWound08/09/24; 0835; N; Surgical; Flank; Right; 04/15/25; 1456; Lwbsvj46/11/25 0835 by Karen Kirby, RN04/15/25 1456 by Sumi Mitchell, PICkqnk21/24/25; 1143; Y; Other; Rash; Breast; Lower, Right; rash under breast; 04/16/25; Jhkmhm03/24/25 1143 by Skylar Guillaume, RN04/16/25 0000 by Bernice Watson, VENlexj54/25/25; 0830; Surgical; (puncture); Flank; Left, Lower; 04/15/25; 1456; Adflgs71/25/25 0830 by Enrike García, RN04/15/25 1456 by Sumi Mitchell, RNPIV04/14/25; 1246; Left; Forearm; 20 Gauge; Yes; 04/16/25; 1246 by Anahy Ba, Medic 04/16/25 1901 by Adtalexandra, Reg InAirwayEndotracheal Tube; 04/15/25; 1435 (created via procedure documentation); 7 mm; Cuffed; No; 04/15/25; [id number] 1435 by Sis Watson MD04/15/25 1515 by Sis Watson MDGU Surgically Inserted Drain [facility] Facility; Suprapubic; Midline; Pelvic; 04/16/25; 1455 by04/16/25 1901 by Cristiane Reg Indocumented in this encounter Social History Tobacco UseTypesPacks/DayYears [...] place to sleep or slept in a mcfp (including now)?No10/06/2023Housing Stability Vital SignAnswerDate RecordedIn the last 12 months, was there a time when you were not able to pay the mortgage or rent on time?No08/10/2024In the past 12 months, how many times have you moved where you were living?t any time in the past 12 months, were you homeless or living in a mcfp (including now)?No08/10/2024 Hunger Vital SignAnswerDate RecordedWithin the [...] were you homeless or living in a mcfp (including now)?No04/16/2025HC UtilitiesAnswerDate Recorded In the past 12 months has the electric, gas, oil, or water company threatened to shut off services in your home?No04/16/2025rea Deprivation IndexAnswerDate RecordedNational Score (1-100), lower number is lower jmjm250711/17/2024State Score (1-10), lower number is lower ayqs731Data from: https://www.neighborhoodatlas.medicine.[facility].edu/. Last address used for calculationspring11/17/2024CommentsNoSex and Gender Information ValueDate RecordedSex Assigned at KomoeFflvhd95/30/2025 6:31 PM ESTLegal Sex Mmeoty1805/30/2012 8:16 AM ESTGender SnjdhskpYmausp54/30/2025 6:31 PM ESTSexual OrientationNot on filedocumented as of this encounter Last Filed Vital Signs Vital SignReadingTime TakenCommentsBlood Ziruwlzb229/4476804/15/2025 3:13 PM EDT Dhthv18610/18/2025 3:19 PM EDTTemperature--Respiratory Rate--Oxygen Saturation 95%04/15/2025 3:19 PM EDTInhaled Oxygen Concentration--Weight--Height--Body Mass Index--documented in this encounter Functional Status * Are you deaf or do you have serious difficulty hearing?AnswerDate of GhdxlyweooJgoylxQi77/12/2025 2:00 PM Ashli Mcgrath RN * Are you blind or do you have serious difficulty seeing, even when wearing glasses?AnswerDate of OttrerpckiCwhjzpLt09/12/2025 2:00 PM Ashli Mcgrath RN * Do you have serious difficulty walking or climbing stairs?AnswerDate of NyzuzetgsgXukovxAmu29/12/2025 2:00 PM Ashli Mcgrath RN * Do you have difficulty dressing or bathing?AnswerDate of AssessmentAuthorYes 08/10/2024 2:00 PM Ashli Mcgrath RN * Because of a physical, mental, or emotional condition, do you have difficulty doing errands alone such as visiting a doctor's office or shopping?AnswerDate of WxtlilkdqzSkufvcRuz83/12/2025 2:00 PM Ashli Mcgrath RN documented as of this encounter Mental Status * Because of a physical, mental, or emotional condition, do you have serious difficulty concentrating, remembering, or making decisions?AnswerEntry Date EubzdcOyi72/12/2025 2:00 PM Ashli Mcgrath RN documented in this encounter Procedure Notes * Brendon Garces MD - 04/15/2025 3:43 PM EDT POST ANESTHESIA EVALUATION NOTE : 1985 Procedure Summary Date: 04/15/25 [address] Start: 1428 Anesthesia Stop: 1530 Procedure: CYSTOSCOPY, INSERTION STENT URETERAL J (Left: Bladder) Diagnosis: Left nephrolithiasis (Left nephrolithiasis [N20.0]) Surgeons: Daryl Meneses MD Responsible Provider: Brendon Garces MD Anesthesia Type: general ASA Status: 3 - Emergent Anesthesia Type: general Airway Type: ETT Last Vitals Vitals Value Taken Time BP 142/69 04/15/25 15:30 Temp 04/15/25 15:43 Pulse 102 04/15/25 15:41 Resp 22 04/15/25 15:41 SpO2 97 % 04/15/25 15:41 Vitals shown include unfiled device data. Post Anesthesia Patient Status Patient Evaluation: bedside. Anticipated Disposition: inpatient floor planned admission. Neurological Status: aware and responsive. Pulmonary Status: breathing comfortably on room air Airway Control: returned to baseline unsupported. Cardiovascular Status: stable. Pain Management: clinically adequate Postoperative Hydration: acceptable. Intraoperative Events: no significant anesthesia events Post Operative Nausea/Vomiting Status: no significant post operative nausea or vomiting Recommendation: continue current plan of care. Anesthesia Observations No Documentation SIGNATURE: Brendon Melendez MD PATIENT NAME: Devorah Lerma DATE: April 15, 2025 TIME: 3:43 PM CSN: [id number] * Sis Watson MD - 04/15/2025 2:39 PM EDTAssociated Order(s): Airway ANESTHESIOLOGY PROCEDURE NOTE Airway General Information Procedure Start Time/Medication Administration: 04/15/2025 2:35 PM Procedure End Time: 04/15/2025 2:37 PM Patient location during procedure: OR Timeout Performed Pre-procedure: timeout performed Consent Obtained: Yes Patient identity confirmed: arm band and patient Staffing Resident: Aki Brady DO Performed by: resident Indications and Patient Condition Indications for airway management: anesthesia Preoxygenated: yes anesthesia circuit Patient position: sniffing Method: asleep Difficult Mask: No Final Airway Details Final airway type: endotracheal airwayFinal Endotracheal Airway: ETT Cuffed: yes Successful intubation technique: direct laryngoscopy Endotracheal tube insertion site: oral Blade: Mayra Blade size: #4 ETT size (mm): 7.0 Measured from: lips Measurement (cm): 21 Placement verified by: capnometry Cormack-Lehane Classification: grade I - full view of glottis Number of attempts at approach: 1 Failed airway: no Unrecognized esophageal intubation: no Airway not difficult SIGNATURE: Sis Watson MD PATIENT NAME: Devorah Lerma DATE: April 15, 2025 TIME: 2:39 PM CSN: [id number] * Brendon Garces MD - 04/15/2025 2:21 PM EDT ANESTHESIOLOGY DAY OF SURGERY NOTE : 1985 Procedure Information Date/Time: 04/15/25 1315 Procedure: CYSTOSCOPY, INSERTION STENT URETERAL J (Left: Bladder) Location: MAIN OR[facility] Surgeons: Daryl Meneses MD Estimated body mass index is 44.92 kg/m?? as calculated from the following: Height as of this encounter: 152.4 cm (5'). Weight as of this encounter: 104.3 kg (230 lb). Most recent hematocrit and potassium results: Hematocrit 31.9 04/15/2025 Potassium 4.5 04/15/2025 Relevant Problems GI (+) GERD (gastroesophageal reflux disease) -RENAL (+) Hydronephrosis with urinary obstruction due to ureteral calculus (+) Hyperoxaluria (+) Kidney stone (+) Left nephrolithiasis (+) Nephrolithiasis (+) Renal calculi (+) Staghorn calculus NEURO-PSYCH (+) Seizure disorder (HCC) I - PHYSICAL EVALUATION AIRWAY Patient intubated: No. Tracheostomy tube not present Mallampati: II. TM distance: >3 FB. Neck ROM: full ROM without neurological symptoms. Mouth opening: <2 FB. Short neck: yes. Thick neck: yes Microretrognathia/Micronagthia/Recessed Chin: No DENTAL Dental findings: teeth intact. Additional exam findings: no II - ANESTHESIA PLAN ASA Score: 3; emergent. Anesthetic Plan: general Airway type: ETT The patient is not a current smoker. NPO Status: adequate Beta Halima Administration of chronic beta halima medication not planned. Monitoring Plan Monitoring plan: standard ASA. Post Procedure Analgesic Plan Postoperative analgesic plan: parenteral or oral opioids. Informed Consent Anesthetic risks, benefits, alternatives, personnel and consent discussed: yes. Patient / Responsible Green Party agrees to proceed: yes Patient / Surrogate agrees to blood products: Yes DNR status not reviewed with patient and/or family prior to surgery. Significant changes in the patient condition since the History and Physical, not otherwise documented in primary service progress note: no. Potential Anesthesia issues that may suggest increased risk of complications or contraindication toplanned procedure: other. Discussed the possibility of lip / dental damage: no No vitals data found for the desired time range. Facility-Administered Medications as of 04/15/2025 Medication Dose Route Frequency ??? melatonin 6 mg tab(s) 6 mg ORAL DAILY (8 PM) ??? [COMPLETED] keTORolac 15 mg injection (Toradol) 15 mg INTRAVENOUS ONCE ??? [COMPLETED] ondansetron (PF) 4 mg injection (ZOFRAN) 4 mg INTRAVENOUS ONCE ??? [COMPLETED] lactated ringers 500 mL iv bolus 500 mL INTRAVENOUS ONCE ??? [COMPLETED] oxyCODONE-acetaminophen 5-325 mg 2 tablet (PERCOCET) 2 tablet ORAL STAT ??? [COMPLETED] lactated ringers 1,000 mL iv bolus 1,000 mL INTRAVENOUS ONCE ??? furosemide 40 mg tab(s) (LASIX) 40 mg ORAL DAILY ??? prazosin 1 mg cap(s) (MINIPRESS) 1 mg ORAL AT BEDTIME ??? bisacodyl 10 mg suppository (DULCOLAX) 10 mg RECTAL DAILY PRN ??? bismuth subsalicylate 524 mg oral liquid (BISMATROL) 524 mg ORAL q 6 H PRN ??? calcium carbonate 500 mg chewable tab(s) (TUMS) 500 mg ORAL q 8 H PRN ??? polyethylene glycol 3350 17 g packet 17 g ORAL DAILY ??? senna 8.6 mg tab(s) (SENOKOT) 8.6 mg ORAL DAILY PRN ??? buPROPion 75 mg tab(s) (WELLBUTRIN) 75 mg ORAL DAILY ??? busPIRone 30 mg tab(s) (BUSPAR) 30 mg ORAL BID ??? QUEtiapine 150 mg tab(s) (SEROquel) 150 mg ORAL AT BEDTIME ??? sertraline 200 mg tab(s) (ZOLOFT) 200 mg ORAL DAILY ??? acetaminophen 1,000 mg tab(s) (TYLENOL) 1,000 mg ORAL q 6 H ??? cyclobenzaprine 5 mg tab(s) (FLEXERIL) 5 mg ORAL TID ??? gabapentin 1,800 mg tab(s) (NEURONTIN) 1,800 mg ORAL TID ??? lamoTRIgine (LaMICtal) tab(s) 250 mg 250 mg ORAL BID ??? levETIRAcetam 1,000 mg tab(s) (KEPPRA) 1,000 mg ORAL DAILY ??? levETIRAcetam 2,000 mg tab(s) (KEPPRA) 2,000 mg ORAL AT BEDTIME ??? lidocaine 4 % 1 patch (SALONPAS) 1 patch TRANSDERMAL AT BEDTIME PRN ??? docusate sodium 100 mg cap(s) (COLACE) 100 mg ORAL BID ??? NaCl 0.9% iv flush bag 20 mL INTRAVENOUS PRN ??? lactated ringers iv infusion 100 mL/hr INTRAVENOUS CONTINUOUS ??? traMADol 50 mg tab(s) (ULTRAM) 50 mg ORAL q 6 H PRN ??? HYDROmorphone 0.2 mg injection (DILAUDID) 0.2 mg INTRAVENOUS q 3 H PRN ??? ondansetron (PF) 4 mg injection (ZOFRAN) 4 mg INTRAVENOUS q 6 H PRN ??? heparin 5,000 Units injection 5,000 Units SUBCUTANEOUS q 8 H ??? piperacillin-tazobactam iv piggyback 3.375 g in dextrose (iso-osmotic) 50 mL (ZOSYN) 3.375 g INTRAVENOUS q 6 H ??? [COMPLETED] acetaminophen 1,000 mg tab(s) (TYLENOL) 1,000 mg ORAL ONCE ??? [COMPLETED] lidocaine 4 % 1 patch (SALONPAS) 1 patch TRANSDERMAL ONCE And ??? lidocaine patch - REMOVE OTHER ONCE And ??? lidocaine - VERIFY PATCH OTHER ONCE ??? trospium 20 mg tab(s) (SANCTURA) 20 mg ORAL BID AC ??? pantoprazole DR 20 mg tab(s) (PROTONIX) 20 mg ORAL DAILY (6 AM) ??? phosphorus 500 mg tab(s) (K PHOS NEUTRAL) 500 mg ORAL AT BEDTIME Outpatient Medications as of 04/15/2025 Medication Sig ??? CALCIUM CITRATE PO Take by mouth. ??? ciprofloxacin HCl (CIPRO) 500 mg tablet TAKE 1 TABLET BY MOUTH TWICE DAILY HOLD ZANAFLEX WHILE USING (Patient not taking: Reported on 04/10/2025) ??? oxybutynin ER (DITROPAN XL) 10 mg 24 hr tablet Take 1 tablet by mouth once daily. ??? Methenamine Hippurate (HIPREX) 1 gram tablet [...] and 2 tablets (2000 mg) in PM I have interviewed and examined the patient. I have reviewed the medical record and/or the pre-anesthesia evaluation, pertinent labs, and test results. This contains updated information obtained within 48 hours of Surgery/Procedure. SIGNATURE: Brendon Melendez MD PATIENT NAME: Devorah Lerma DATE: April 15, 2025 TIME: 2:21 PM CSN: [id number] documented in this encounter Plan of Treatment DateTypeDepartmentCare Team (Latest Contact Info)Whnslbgdbdk33/30/2025 11:30 AM EDTOffice Visit Gynecology [address] [address] Shaye Pittman DO [address] [place] [address] Menorrhagia with regular cycle [N92.0] Patient interested in injections to help her lvrddxy2605/01/2025 9:20 AM ESTHospital Encounter Admitting [address] [place] [address] Axel Ruth MD [address] [place] [address] Nephrolithiasis [N20.0]05/01/2025 9:20 AM EST - 05/01/2025 12:00 PM ESTSurgery Admitting [address] [place] [address] Axel Ruth MD [address] [place] [address] CYSTOURETHROSCOPY W/ URETEROSCOPY AND/OR PYELOSCOPY W/ LITHOTRIPSY INCLUDE INSERTION OF INDWELLING URETERAL STENT05/04/2025 10:30 AM ESTOffice Visit Urology [address] [address] Axel Ruth MD [address] [place] [address] Surgical consult will bring nmxofjh7307/11/2025 9:00 AM ESTAppointment Radiology [address] [address] [address] FLANK WO IVCON07/11/2025 9:30 AM ESTOffice Visit Urology [address] [address] Farzana Davis APRN.TEST CENTER MANAGER [address] [place] [address] 3 month f/u with CT prior per cc chartNamePriorityAssociated DiagnosesDate/Time CYSTOURETHROSCOPY W/ URETEROSCOPY AND/OR PYELOSCOPY W/ LITHOTRIPSY INCLUDE INSERTION OF INDWELLING URETERAL STENT Nephrolithiasis 05/01/2025 9:20 AM ESTdocumented as of this encounter Procedures Procedure NamePriorityDate/TimeAssociated DiagnosisCommentsINTUBATIONRoutine 04/15/2025 2:35 PM EDT documented in this encounter Results * Airway (04/15/2025 2:35 PM EDT) Narrative Sis Watson MD - 04/15/2025 2:35 PM EDT Sis Watson MD 04/15/2025 2:40 PM Airway General Information Procedure Start Time/Medication Administration: 04/15/2025 2:35 PM Procedure End Time: 04/15/2025 2:37 PM Patient location during procedure: OR Timeout Performed Pre-procedure: timeout performed Consent Obtained: Yes Patient identity confirmed: arm band and patient Staffing Resident: Aki Brady DO Performed by: resident Indications and Patient Condition Indications for airway management: anesthesia Preoxygenated: yes ? anesthesia circuit Patient position: sniffing Method: asleep Difficult Mask: No Final Airway Details Final airway type: endotracheal airwayFinal Endotracheal Airway: ETT Cuffed: yes Successful intubation technique: direct laryngoscopy Endotracheal tube insertion site: oral Blade: Mayra Blade size: #4 ETT size (mm): 7.0 Measured from: lips Measurement (cm): 21 Placement verified by: capnometry Cormack-Lehane Classification: grade I - full view of glottis Number of attempts at approach: 1 Failed airway: no Unrecognized esophageal intubation: no Airway not difficult Authorizing ProviderResult TypeResult StatusSaaydekleber Garces MDANESTHESIA ORDERABLESFinal Result documented in this encounter Visit Diagnoses Not on filedocumented in this encounter Administered Medications Medication OrderMAR ActionAction DateDoseRateSite dexAMETHasone sodium phosphate injection (DECADRON) INTRAVENOUS, NEEDED, Starting on 04/15/25 at 1442, Until 04/15/25 at 1542, Anesthesia Intraprocedure Given04/15/2025 2:42 PM EDT8 mg diphenhydrAMINE injection (BENADRYL) INTRAVENOUS, NEEDED, Starting on 04/15/25 at 1449, Until 04/15/25 at 1542, Anesthesia Intraprocedure Given04/15/2025 2:49 PM EDT12.5 mg fentaNYL 50 mcg/mL injection (SUBLIMAZE) INTRAVENOUS, NEEDED, Starting on 04/15/25 at 1434, Until 04/15/25 at 1542, Anesthesia Intraprocedure Given04/15/2025 2:34 PM EDT50 mcg lactated ringers iv infusion INTRAVENOUS, X (ONE-STEP ONLY) CONTINUOUS PRN, Starting on 04/15/25 at 1428, Until 04/15/25at 1542, Anesthesia Intraprocedure New Bag/Syringe/Nojuty8104/15/2025 2:28 PM EDT lidocaine (PF) 10 mg/mL (1 %) injection (XYLOCAINE) INTRAVENOUS, NEEDED, Starting on 04/15/25 at 1434, Until 04/15/25 at 1542, Anesthesia Intraprocedure Given04/15/2025 2:34 PM FXC049 mg propofol injection (DIPRIVAN) INTRAVENOUS, NEEDED, Starting on 04/15/25 at 1434, Until 04/15/25 at 1542, Anesthesia Intraprocedure Given04/15/2025 2:34 PM UHY322 mg succinylcholine injection (QUELICIN) INTRAVENOUS, NEEDED, Starting on 04/15/25 at 1434, Until 04/15/25 at 1542, Anesthesia Intraprocedure Given04/15/2025 2:34 PM DYE980 mgdocumented in this encounter Care Teams Team MemberRelationshipSpecialtyStart DateEnd Isaias Saleh MD [address] [place] [address] ReferringUrology02/26/22 William Cruz, TEST CENTER MANAGER [address] [facility] [place] [address] ReferringFamily Iloykzjc70/15/25documented as of this encounter
--- OUTSIDE RECORDS SUMMARY | 2025-04-21 08:30 | XMS_ITS ---
Author Organization [facility] Address [address] [place] [address] Care Team Providers Care Shower Attendant Name Role Phone Swathi Osorio Primary Care Provider [phone] Sangita Miller [phone] REASON FOR VISIT GEORGI / 1:00 PM / 45 MIN Social History Sex Assigned At : Social History Observation Description Sex Assigned At Female Encounters Encounter Location Date Provider Diagnosis [facility] [address] [place] [address] 2024 Sangita Miller Plan Of Treatment Next Appt Details Provider Name:Tonia Cooper , 06/15/2025 04:00:00 PM, [address], [place], [address], Provider Name:Sangita Miller, 08/04/2025 10:15:00 AM, [address] [place], [address], Provider Name:Swathi huston, 08/04/2025 11:00:00 AM, [address] [facility] [place], [address], Progress Notes * ANDRÉS GRACIADOB:1985 (39 yo F)Acc No.[id number]:04/21/2025 Alicia Mayfield Patient: ANDRÉS OLIVEROS Provider:?Sangita MillerDOB:1985???Age:39 Y ???Sex:FemaleDate:04/21/2025Phone:[phone]:[address] [place] [address] [facility], [id number]:Swathi Osorio Subjective: * Chief Complaints: * H YLTON / 1:00 PM / 45 MIN Billing Information: * Procedure Codes: * Electronic signature of NERY Dumont FNP on 04/22/2025 at 04:27 PM EDT Sign off status: Pending * Appointment Provider: Florecita Miller Date: Generated for Printing/Faxing/eTransmitting on:?04/22/2025 04:27 PM EDT
--- OUTSIDE RECORDS SUMMARY | 2025-04-21 09:00 | XMS_ITS ---
Author Organization [facility] Servic es Address [address] [place] [address] Care Team Providers Care Return Checker Name Role Phone Swathi Osorio Primary Care Provider Naveed, Sharla Unavailable [phone] REASON FOR VISIT JAY FROM [facility] [place] [facility]; TRANSPORT Medications Medication SIG (Take, Route, Frequency, Duration) Notes Start Date End Date Status Chlorhexidine 0.12% rinseActiveDesitin 40 % Pasteas directed ExternallyActiveBenzonatate 100 MG Capsule1 capsule as needed Orally Three times a dayActiveCalcium Carbonate 500mgActiveAlbuterol Sulfate (2.5 MG/3ML) 0.083% Nebulization Solution3 mL as needed Inhalation every 6 hrsActiveOndansetron 4 MG Tablet Disintegrating1 tablet on the tongue and allow to dissolve Orally Once a dayActiveSystane 0.4- 0.3 % Solutionas directed OphthalmicActiveLidocaine 4 % Patch1 patch as needed Externally Four times a dayActiveMeclizine HCl 25 MG Tablet1 tablet as needed Orally every 12 hrsActiveAdvil 200 MG Tablet1 tablet with food or milk as needed Orally Three times a dayActivePepto BismolActiveNorco5-325 tabletActive HYDROcodone-Acetaminophen 5-325 MG TabletOral; Duration: 4 DaysActiveoxyCODONE HCl 5 MG Tablet1 tablet as needed Orally every 6 hrsActiveQUEtiapine Fumarate 150 MG Tablet1 tablet at bedtime Orally Once a day; Duration: 30 daysActive buPROPion HCl 75 MG Tablet2 tablets in the AM Orally daily; Duration: 30 days ActivePotassium Citrate ER 10 MEQ (1080 MG) Tablet Extended Release1 tablet with meals Oral 3 times a day; Duration: 30 daysActiveSertraline HCl 100 MG Tablet2 tablets Orally Once a day; Duration: 30 daysActivePrazosin HCl 2 MG Capsule1 capsule at bedtime Orally Once a day; Duration: 30 daysActivebusPIRone HCl 30 MG Tablet1 tablet Orally Twice a day; Duration: 30 daysActiveAcetaminophen Extra Strength 500 MG Tablet 2 tablets Orally every 8 hours; Duration: 30 days As needed for pain or fever greater than 100.1 5ActiveBacitracin 500 UNIT/GM OintmentAPPLY TOPICALLY TO SITE AROUND SUPRAPUBIC TUBE FOUR TIMES DAILY FOR 5 DAYS External; Duration: 7 Days ActiveMelatonin 3 MG Tablet1 tablet at bedtime Orally Once a day; Duration: 30 11/17/2024tiveCalmoseptine 0.44-20.6 % Ointmentas directed Externally 3 times a day; Duration: 30 days/6ActiveNaproxen 500 MG Tablet Oral; Duration: 15 DaysActiveVitamin B-6 100 MG TabletTAKE 1 TAB BY MOUTH ONCE EVERY DAY (SUPPLEMENT)ActivelamoTRIgine 200 MG TabletTAKE 1 TAB BY MOUTH TWICE A DAY (SEIZURES)ActiveCyclobenzaprine HCl 5 MG TabletTAKE 1 TAB BY MOUTH ONCE EVERY DAYActiveFurosemide 40 MG TabletTAKE 1 TAB BY MOUTH ONCE EVERY DAY (EDEMA) ActiveLaMICtal 25 MG Tablet1 tablet Orally; Duration: 30 daysActiveMidodrine HCl 2.5 MG TabletTAKE 1 TAB BY MOUTH THREE TIMES A DAY (LOW BP) HOLD IF SBP OVER 130 ActiveD3 High Potency 25 MCG CapsuleTAKE 1 CAP BY MOUTH ONCE EVERY DAY (VITAMIN D DEFICIENCY)ActiveGabapentin 600 MG TabletTAKE 3 TABS (1800MG) BY MOUTH TWICE A DAYActiveVitamin C 500 MG TabletTAKE 1 TAB BY MOUTH TWICE A DAY FOR SUPPLEMENTAL VIT CActiveLoratadine 10 MG TabletTAKE 1 TAB BY MOUTH ONCE EVERY DAY (ALLERGIES) ActivebuPROPion HCl 75 MG Tablet2 tablets Oral daily; Duration: 30 daysActive Prazosin HCl 2 MG Capsule1 capsule at bedtime Orally Once a day; Duration: 30 days5ActiveDepo-Provera 150 MG/ML Suspension Prefilled Syringe1 mL Intramuscular every 3 months; Duration: 30 5Active tiZANidine HCl 2 MG TabletTAKE 1 TAB BY MOUTH TWICE A DAY (SPASMS)ActivePriLOSEC OTC 20 MG Tablet Delayed Release1 tablet 1/2 to 1 hour before morning meal Orally Once a day; Duration: 90 daysActiveSenokot 8.6 MG Tablet2 tablets at bedtime as needed Orally Once a day; Duration: 30 daysActiveKeppra 1000 MG Tablet 1 tablet in AM 2 tablets in PM Orally every 12 hrs; Duration: 90 days 1000mg every morning and 2000mg at bedtime ActiveLORazepam 0.5 MG Tablet 1 tablet Orally twice a day; Duration: 10 days As needed 5ActiveRisperDAL 0.5 MG Tablet1 tablet Orally twice a day; Duration: 30 daysActiveMyrbetriq 50 MG Tablet Extended Release 24 HourOral; Duration: 30 Days ActiveoxyBUTYnin Chloride ER 10 MG Tablet Extended Release 24 Hour1 tablet Orally Once a day; Duration: 30 daysActivePolyethylene Glycol 3350 17 GM Packet1 packet mixed with 8 ounces of fluid Orally Once a dayActiveFiberCon 625 MG Tablet2 tablets as needed Orally Three times a dayActiveClaritin 10 MG Tablet1 tablet Orally Once a dayActiveAcetaminophen Extra Strength 500 MG Tablet1 tablet as needed Orally every 8 hours; Duration: 30 daysActivelevETIRAcetam 1000 MG Tablet1 tablet Orally every 12 hrsActiveZanaflex 4 MG Tablet1 tablet at bedtime as needed Orally Once a dayActive Social History Sex Assigned At : Social History Observation Description Sex Assigned At Female Encounters Encounter Location Date Provider Diagnosis [facility] [address] [place] [address] 04/21/2025 Sharla Lucio Plan Of Treatment Next Appt Details Provider Name:Tonia Kenneth , 06/15/2025 04:00:00 PM, [address], [address], Provider Name:Sangita Miller, 08/04/2025 10:15:00 AM, [address] [place], [address], Provider Name:Swathi huston, 08/04/2025 11:00:00 AM, [address] [place], [address], Progress Notes * ANDRÉS GRACIADOB:1985 (39 yo F)Acc No.[id number]:04/21/2025 Behavioral Health Patient: ANDRÉS OLIVEROS :?Sharla Lucio, CNPDOB:1985???Age:39 Y ???Sex:FemaleDate:04/21/2025Phone:[phone]:[address] [place], [place] [id number]:Swathi Osorio Subjective: * Chief Complaints: * T OC FROM [facility]; TRANSPORT * Medications: Davian Glynn , Notes to Pharmacist: 5-325 tabletPepto Bismol oxyCODONE HCl 5 MG Tablet 1 tablet as needed Orally every 6 hrs HYDROcodone-Acetaminophen 5-325 MG Tablet Oral Systane 0.4-0.3 % Solution as directed Ophthalmic Ondansetron 4 MG Tablet Disintegrating 1 tablet on the tongue and allow to dissolve Orally Once a day Meclizine HCl 25 MG Tablet 1 tablet as needed Orally every 12 hrs Lidocaine 4 % Patch 1 patch as needed Externally Four times a day Advil 200 MG Tablet 1 tablet with food or milk as needed Orally Three times a day Desitin 40 % Paste as directed Externally Chlorhexidine , Notes to Pharmacist: 0.12% rinseCalcium Carbonate , Notes to Pharmacist: 500mgBenzonatate 100 MG Capsule 1 capsule as needed Orally Three times a day Albuterol Sulfate (2.5 MG/3ML) 0.083% Nebulization Solution 3 mL as needed Inhalation every 6 hrs levETIRAcetam 1000 MG Tablet 1 tablet Orally every 12 hrs Zanaflex 4 MG Tablet 1 tablet at bedtime as needed Orally Once a day Polyethylene Glycol 3350 17 GM Packet 1 packet mixed with 8 ounces of fluid Orally Once a day Claritin 10 MG Tablet 1 tablet Orally Once a day FiberCon 625 MG Tablet 2 tablets as needed Orally Three times a day Acetaminophen Extra Strength 500 MG Tablet 1 tablet as needed Orally every 8 hours oxyBUTYnin Chloride ER 10 MG Tablet Extended Release 24 Hour 1 tablet Orally Once a day Senokot 8.6 MG Tablet 2 tablets at bedtime as needed Orally Once a day LORazepam 0.5 MG Tablet 1 tablet Orally twice a day As neededKeppra 1000 MG Tablet 1 tablet in AM 2 tablets in PM Orally every 12 hrs 1000mg every morning and 2000mg at bedtimeMyrbetriq 50 MG Tablet Extended Release 24 Hour Oral RisperDAL 0.5 MG Tablet 1 tablet Orally twice a day Prazosin HCl 2 MG Capsule 1 capsule at bedtime Orally Once a day , stop date 04/23/2025uPROPion HCl 75 MG Tablet 2 tablets Oral daily Depo-Provera 150 MG/ML Suspension Prefilled Syringe 1 mL Intramuscular every 3 months , stop date 05/31/2025PriLOSEC OTC 20 MG Tablet Delayed Release 1 tablet 1/2 to 1 hour before morning meal Orally Once a day tiZANidine HCl 2 MG Tablet TAKE 1 TAB BY MOUTH TWICE A DAY (SPASMS) D3 High Potency 25 MCG Capsule TAKE 1 CAP BY MOUTH ONCE EVERY DAY (VITAMIN D DEFICIENCY) Midodrine HCl 2.5 MG Tablet TAKE 1 TAB BY MOUTH THREE TIMES A DAY (LOW BP) HOLD IF SBP OVER 130 Vitamin C 500 MG Tablet TAKE 1 TAB BY MOUTH TWICE A DAY FOR SUPPLEMENTAL VIT C Gabapentin 600 MG Tablet TAKE 3 TABS (1800MG) BY MOUTH TWICE A DAY Loratadine 10 MG Tablet TAKE 1 TAB BY MOUTH ONCE EVERY DAY (ALLERGIES) Vitamin B-6 100 MG Tablet TAKE 1 TAB BY MOUTH ONCE EVERY DAY (SUPPLEMENT) Cyclobenzaprine HCl 5 MG Tablet TAKE 1 TAB BY MOUTH ONCE EVERY DAY lamoTRIgine 200 MG Tablet TAKE 1 TAB BY MOUTH TWICE A DAY (SEIZURES) Furosemide 40 MG Tablet TAKE 1 TAB BY MOUTH ONCE EVERY DAY (EDEMA) LaMICtal 25 MG Tablet 1 tablet Orally Naproxen 500 MG Tablet Oral Bacitracin 500 UNIT/GM Ointment APPLY TOPICALLY TO SITE AROUND SUPRAPUBIC TUBE FOUR TIMES DAILY FOR 5 DAYS External Acetaminophen Extra Strength 500 MG Tablet 2 tablets Orally every 8 hours As needed for pain or fever greater than 100.1, stop date 05/04/2025almoseptine 0.44-20.6 % Ointment as directed Externally 3 times a day , stop date 03/05/2026Melatonin 3 MG Tablet 1 tablet at bedtime Orally Once a day Potassium Citrate ER 10 MEQ (1080 MG) Tablet Extended Release 1 tablet with meals Oral 3 times a day buPROPion HCl 75 MG Tablet 2 tablets in the AM Orally daily Sertraline HCl 100 MG Tablet 2 tablets Orally Once a day busPIRone HCl 30 MG Tablet 1 tablet Orally Twice a day Prazosin HCl 2 MG Capsule 1 capsule at bedtime Orally Once a day QUEtiapine Fumarate 150 MG Tablet 1 tablet at bedtime Orally Once a day Taking [place] , Notes to Pharmacist: 5-325 tabletTaking Pepto Bismol Taking oxyCODONE HCl 5 MG Tablet 1 tablet as needed Orally every 6 hrs Taking HYDROcodone-Acetaminophen 5-325 MG Tablet Oral Taking Systane 0.4-0.3 % Solution as directed Ophthalmic Taking Ondansetron 4 MG Tablet Disintegrating 1 tablet on the tongue and allow to dissolve Orally Once a day Taking Meclizine HCl 25 MG Tablet 1 tablet as needed Orally every 12 hrs Taking Lidocaine 4 % Patch 1 patch as needed Externally Four times a day Taking Advil 200 MG Tablet 1 tablet with food or milk as needed Orally Three times a day Taking Desitin 40 % Paste as directed Externally Taking Chlorhexidine , Notes to Pharmacist: 0.12% rinseTaking Calcium Carbonate , Notes to Pharmacist: 500mgTaking Benzonatate 100 MG Capsule 1 capsule as needed Orally Three times a day Taking Albuterol Sulfate (2.5 MG/3ML) 0.083% Nebulization Solution 3 mL as needed Inhalation every 6 hrs Taking levETIRAcetam 1000 MG Tablet 1 tablet Orally every 12 hrs Taking Zanaflex 4 MG Tablet 1 tablet at bedtime as needed Orally Once a day Taking Polyethylene Glycol 3350 17 GM Packet 1 packet mixed with 8 ounces of fluid Orally Once a day Taking Claritin 10 MG Tablet 1 tablet Orally Once a day Taking FiberCon 625 MG Tablet 2 tablets as needed Orally Three times a day Taking Acetaminophen Extra Strength 500 MG Tablet 1 tablet as needed Orally every 8 hours Taking oxyBUTYnin Chloride ER 10 MG Tablet Extended Release 24 Hour 1 tablet Orally Once a day Taking Senokot 8.6 MG Tablet 2 tablets at bedtime as needed Orally Once a day Taking LORazepam 0.5 MG Tablet 1 tablet Orally twice a day As neededTaking Keppra 1000 MG Tablet 1 tablet in AM 2 tablets in PM Orally every 12 hrs 1000mg every morning and 2000mg at bedtimeTaking Myrbetriq 50 MG Tablet Extended Release 24 Hour Oral Taking RisperDAL 0.5 MG Tablet 1 tablet Orally twice a day Taking Prazosin HCl 2 MG Capsule 1 capsule at bedtime Orally Once a day , stop date 04/23/2025Taking buPROPion HCl 75 MG Tablet 2 tablets Oral daily Taking Depo-Provera 150 MG/ML Suspension Prefilled Syringe 1 mL Intramuscular every 3 months , stop date 05/31/2025Taking PriLOSEC OTC 20 MG Tablet Delayed Release 1 tablet 1/2 to 1 hour before morning meal Orally Once a day Taking tiZANidine HCl 2 MG Tablet TAKE 1 TAB BY MOUTH TWICE A DAY (SPASMS) Taking D3 High Potency 25 MCG Capsule TAKE 1 CAP BY MOUTH ONCE EVERY DAY (VITAMIN D DEFICIENCY) Taking Midodrine HCl 2.5 MG Tablet TAKE 1 TAB BY MOUTH THREE TIMES A DAY (LOW BP) HOLD IF SBP OVER 130 Taking Vitamin C 500 MG Tablet TAKE 1 TAB BY MOUTH TWICE A DAY FOR SUPPLEMENTAL VIT C Taking Gabapentin 600 MG Tablet TAKE 3 TABS (1800MG) BY MOUTH TWICE A DAY Taking Loratadine 10 MG Tablet TAKE 1 TAB BY MOUTH ONCE EVERY DAY (ALLERGIES) Taking Vitamin B-6 100 MG Tablet TAKE 1 TAB BY MOUTH ONCE EVERY DAY (SUPPLEMENT) Taking Cyclobenzaprine HCl 5 MG Tablet TAKE 1 TAB BY MOUTH ONCE EVERY DAY Taking lamoTRIgine 200 MG Tablet TAKE 1 TAB BY MOUTH TWICE A DAY (SEIZURES) Taking Furosemide 40 MG Tablet TAKE 1 TAB BY MOUTH ONCE EVERY DAY (EDEMA) Taking LaMICtal 25 MG Tablet 1 tablet Orally Taking Naproxen 500 MG Tablet Oral Taking Bacitracin 500 UNIT/GM Ointment APPLY TOPICALLY TO SITE AROUND SUPRAPUBIC TUBE FOUR TIMES DAILY FOR 5 DAYS External Taking Acetaminophen Extra Strength 500 MG Tablet 2 tablets Orally every 8 hours As needed for pain or fever greater than 100.1, stop date 05/04/2025Taking Calmoseptine 0.44-20.6 % Ointment as directed Externally 3 times a day , stop date 03/05/2026Taking Melatonin 3 MG Tablet 1 tablet at bedtime Orally Once a day Taking Potassium Citrate ER 10 MEQ (1080 MG) Tablet Extended Release 1 tablet with meals Oral 3 times a day Taking buPROPion HCl 75 MG Tablet 2 tablets in the AM Orally daily Taking Sertraline HCl 100 MG Tablet 2 tablets Orally Once a day Taking busPIRone HCl 30 MG Tablet 1 tablet Orally Twice a day Taking Prazosin HCl 2 MG Capsule 1 capsule at bedtime Orally Once a day Taking QUEtiapine Fumarate 150 MG Tablet 1 tablet at bedtime Orally Once a day Billing Information: * Procedure Codes: * Electronic signature of YIFAN Curiel on 04/22/2025 at 04:27 PM EDTSign off status: Pending * Provider: Davian Lucio CNP Date: Generated for Printing/Faxing/eTransmitting on:?04/22/2025 04:27 PM EDT
--- OUTSIDE RECORDS SUMMARY | 2025-04-21 11:30 | XMS_ITS | Encounter Summary ---
Author Organization [facility] Address [address] [place] [address] Care Team Providers Care Flight Control Specialist Name Role Phone Isaias Saleh MD Unavailable [phone] William Cruz CNP Unavailable [phone] William Cruz CNP Primary Care Provider [phone] Source Comments In the event this information is protected by the Federal Confidentiality of Alcohol and Drug AbusePatient Records regulations: The Federal rules restrict any use of the information to criminally investigate or prosecute any alcohol or drug abuse patient.[facility] Encounter Details DateTypeDepartmentCare Team (Latest Contact Info)Xwwrykczxpj97/24/2025 11:30 AM EDTPAT Pre Anesthesia [address] [place] [address] 5, [address] [place] [address] Cerebral palsy, unspecified type (HCC) (Primary Dx); Cauda equina syndrome (HCC); Obesity, Class III, BMI >= 40; Gastroesophageal reflux disease, unspecified whether esophagitis present; Seizure disorder (HCC); Anemia due to other cause, not classified; Suprapubic catheter (HCC); Anxiety and depression; PONV (postoperative nausea and vomiting); Difficult intravenous access Social History Tobacco UseTypesPacks/DayYears UsedDateSmoking Tobacco: NeverPassive Smoke Exposure: NeverSmokeless Tobacco: Never Tobacco Cessation:Counseling Given: Not Answered Alcohol UseStandard Drinks/WeekCommentsNot Asked0 (1 standard drink = 0.6 oz pure alcohol)rarelyOverall Financial Resource Strain (CARDIA)AnswerDate Recorded How hard is it for you to pay for the very basics like food, housing, medical care, and heating?Not hard at all07/22/2022Housing Stability Vital SignAnswer Date RecordedUnable to Pay for Housing in the Last YearNot on file10/06/2023In the last 12 months, how many places have you lived?In the last 12 months, was there a time when you did not have a steady place to sleep or slept in veniceelter (including now)?No10/06/2023Housing Stability Vital SignAnswerDate RecordedIn the last 12 months, was there a time when you were not able to pay the mortgage or rent on time?No08/10/2024In the past 12 months, how many times have you moved where you were living?t any time in the past 12 months, were you homeless or living in a skilled nursing (including now)?No08/10/2024 Hunger Vital SignAnswerDate RecordedWithin the [...] were you homeless or living in a skilled nursing (including now)?No04/16/2025HC UtilitiesAnswerDate Recorded In the past 12 months has the [employer], gas, oil, or water [employer] threatened to shut off services in your home?No04/16/2025rea Deprivation IndexAnswerDate RecordedNational Score (1-100), lower number is lower honz984811/17/2024State Score (1-10), lower number is lower kiip495Data from: https://www.neighborhoodatlas.[facility].edu/. Last address used for calculation3 spring11/17/2024CommentsNoSex and Gender Information ValueDate RecordedSex Assigned at HafncIcjocm68/30/2025 6:31 PM ESTLegal Sex Auidnj1905/30/2012 8:16 AM ESTGender MsinrsvkWybiux27/30/2025 6:31 PM ESTSexual OrientationNot on filedocumented as of this encounter Last Filed Vital Signs Vital SignReadingTime TakenCommentsBlood Rfaeyfvw623/5804/21/2025 9:21 AM EDT Fvzeo920504/21/2025 9:21 AM CHWEubeqoaatap29.3 ??C (97.3 ??F)04/21/2025 9:21 AM EDTRespiratory Allk8027 9:21 AM EDTOxygen Xkjhyzglwy45%04/21/2025 9:21 AM EDTInhaled Oxygen Concentration--Htzcmj128.3 kg (230 lb)04/21/2025 9:21 AM EDTPer patient gtbyrqprtyAghkbj241.4 cm (5')04/21/2025 9:21 AM EDTBody Mass Index44.9204/21/2025 9:21 AM EDTdocumented in this encounter Functional Status * Are you deaf or do you have serious difficulty hearing?AnswerDate of XrxnvlwcqyHpvlgrKq55/19/2025 3:00 PM Bernice Carmona RN * Are you blind or do you have serious difficulty seeing, even when wearing glasses?AnswerDate of TzvaytxbzyJlgyotTy59/19/2025 3:00 PM Bernice Carmona RN * Do you have serious difficulty walking or climbing stairs?AnswerDate of EdooqknofzLtllyaHmh64/19/2025 3:00 PM Bernice Carmona RN * Do you have difficulty dressing or bathing?AnswerDate of AssessmentAuthorYes 04/16/2025 3:00 PM Bernice Carmona RN * Because of a physical, mental, or emotional condition, do you have difficulty doing errands alone such as visiting a doctor's office or shopping?AnswerDate of GiwvtdlfekLmaxvkKr13/19/2025 3:00 PM Bernice Carmona RN documented as of this encounter Mental Status * Because of a physical, mental, or emotional condition, do you have serious difficulty concentrating, remembering, or making decisions?AnswerEntry Date PjepiiUa50/19/2025 3:00 PM Bernice Carmona RN documented in this encounter Patient Instructions * Patient Instructions* Latoya Blanchard PA-C - 04/21/2025 9:58 AM EDT Images from the original note were not included. [facility] PATIENT PREOPERATIVE INSTRUCTIONS No ref. provider found has scheduled you for your procedure at this surgery center: [facility]: --[address] [place] [id number]. - To obtain your arrival time for surgery, call your physician's office the day before your surgery. - If you have received different instructions about finding out your arrival time from your surgeon, please follow those instructions. - If your surgery is scheduled for Thursday, call the Thursday before. Your surgeon???s sales representative consultant will tell you what time to call the office. - If you have not reached the departmental sales representative consultant by 5 P.M., call [phone] after 5 P.M. the day before your surgery. Please read below carefully for your personalized instructions. Dietary Restrictions: - No solid food after midnight. - You may have 12 ounces of clear liquids (water, clear juices such as apple juice or gatorade, carbonated beverages, clear tea, black coffee, jello) until 2 hours before scheduled arrival at facility. Medications: Unless instructed differently below, stay on all of your medications until your surgery. If you start any new medications after today's visit, please contact your surgeon. Pre-Surgery Med Instructions Medication Instructions tamsulosin (FLOMAX) 0.4 mg If you normally take this medication in the morning, take the morning ofsurgery. oxybutynin (DITROPAN) 5 mg tablet Do not take the day of surgery CALCIUM CITRATE PO Do not take the day of surgery ondansetron (ZOFRAN) 4 mg tablet Continue as needed Senna 8.6 mg tab Do not take the day of surgery buPROPion (WELLBUTRIN) 75 mg tablet If you normally take this medication in the morning, take the morning of surgery. calcium carbonate (TUMS) 500 mg chew Do not take the day of surgery cholecalciferol (VITAMIN D3) 1,000 unit tab tablet Do not take the day of surgery omeprazole (PRILOSEC) 20 mg capsule If you normally take this medication in the morning, take the morning of surgery. lidocaine (SALONPAS) 4 % patch Do not wear on the day of surgery prazosin (MINIPRESS) 1 mg cap Take the night prior to surgery as usual bismuth subsalicylate (BISMATROL) 262 mg/15 mL oral liquid Do not take the day of surgery ascorbic acid, vitamin C, (VITAMIN C) 500 mg tablet Do not take the day of surgery busPIRone (BUSPAR) 5 mg tablet If you normally take this medication in the morning, take the morning of surgery. polyethylene glycol 3350 17 gram packet Do not take the day of surgery tiZANidine (ZANAFLEX) 2 mg tablet Do not take the day of surgery pyridoxine, vitamin B6, (VITAMIN B6) 100 mg tablet Do not take the day of surgery melatonin 3 mg capsules Stop 7 days prior to surgery bisacodyl (DULCOLAX) 10 mg supp Do not take the day of surgery cyclobenzaprine (FLEXERIL) 5 mg tablet Do not take the day of surgery potassium phosphate, monobasic (K-PHOS ORIGINAL) 500 mg tablet Do not take the day of surgery furosemide (LASIX) 40 mg tablet Do not take the day of surgery loratadine (CLARITIN) 10 mg tablet Continue as needed QUEtiapine 150 mg tablet If you normally take this medication in the morning, take the morning of surgery. risperiDONE (RISPERDAL) 0.5 mg tablet If you normally take this medication in the morning, take themorning of surgery. GABAPENTIN 600 MG TAB If you normally take this medication in the morning, take the morning of surgery. lamoTRIgine (LAMICTAL) 200 mg tablet If you normally take this medication in the morning, take the morning of surgery. sertraline (ZOLOFT) 100 mg tablet If you normally take this medication in the morning, take the morning of surgery. levETIRAcetam (KEPPRA) 1,000 mg tablet If you normally take this medication in the morning, take the morning of surgery. If you start any new medications after today's visit, please contact the surgeon's office. Blood Thinning Medications: - Stop NSAIDS (Ibuprofen, Advil, Aleve, Motrin, Celebrex, Mobic, etc.) 7 days before surgery, as directed by your surgeon. - Stop Aspirin 7 days before surgery, as directed by your surgeon. - Stop ALL herbal and dietary supplements 7 days before surgery. - You may take Tylenol (Acetaminophen) or any of your pain medications that do not contain aspirin or NSAIDS as needed. Important Reminders: - Candy, mints, and tobacco products are NOT permitted the morning of surgery. - Hearing aids, dentures and glasses may be worn the morning of surgery. - NO jewelry, body piercings, makeup, hairpins or contacts are to be worn the day of surgery. If you develop symptoms such as a fever, cold, or flu, or have other changes to your health within TWO DAYS of scheduled surgery or the morning of surgery, please contact the surgery center above. Personal Belongings: -Please have photo ID and insurance cards. -If you do not have a copy of advance directives on file with us, please bring a copy with you on the day of surgery. - Leave ALL valuables and money at home or with family members. - Please bring high-quality footwear, such as sneakers, to the hospital for ambulating post-surgery. For Outpatient Procedures: - YOU MUST HAVE A RESPONSIBLE MOHS SURGEON/GENERAL DERMATOLOGIST TAKE YOU HOME. A JOURNEYMAN APPRENTICE ELECTRICIANS OR HEAD ATHLETIC TRAINER CANNOT BE MADE A RESPONSIBLE MOHS SURGEON/GENERAL DERMATOLOGIST. - We recommend that a responsible person stays with you overnight to take care of you. - You cannot stay in a hotel alone after outpatient surgery. You will not be permitted to have yoursurgery, if you do not have someone to take care of you. Arrival Time for Surgery: - The Surgery Center or hospital where you are having surgery will call the afternoon before surgery (or Thursday for Thursday surgery) with a scheduled arrival time. - If you have not heard by 4 pm, please contact the surgery center above. Please be aware that emergency situations arise, which may delay or change your surgical time. If this happens, we will notify you as soon as possible and regret any inconvenience. If you already have an Advance Directive, please fax a copy to [phone] or email to for it to be added to your chart. If you do not have an Advance Directive, you can find the appropriate form and more information at [email or web address]. We recommend that youcomplete the Advance Directive form found on the website and bring it with you the day of your surgery. It can be witnessed and scanned into your chart that day. Latoya Blanchard PA-C documented in this encounter H&P Notes * Latoya Blanchard PA-C - 04/21/2025 9:17 AM EDT Images from the original note were not included. [facility] HISTORY AND PHYSICAL EXAMINATION SERVICE DATE: 04/21/2025 SERVICE TIME: 9:33 AM PRIMARY CARE PHYSICIAN: William Cruz CNP Assessment Patient has the following medical conditions which may affect maggie-operative course: Cerebral Palsy -Cerebral palsy with neurogenic bladder s/p suprapubic catheter (monthly exchanges) c/b recurrent UTI -Patient is WC dependent and a Jerrell lift transfer -On tizanidine and flexeril Cauda equina syndrome (HCC) -C/b neurogenic bladder s/p suprapubic catheter (monthly exchanges) c/b recurrent UTI Obesity, Class III, BMI >= 40 -Body mass index is 44.92 kg/m??. GERD (gastroesophageal reflux disease) -Managed on rx Seizure disorder (HCC) -Suspected absence seizure approx 1 month ago, however no post-ictal episode described, pt was staring into space for ~20 seconds. Reports she has seizures when she is stressed -Follows OP with neurology, looking to switch to neurology with [facility] -Managed on keppra and lamictal Other specified anemias -04/16/25 Hgb 9.8 Suprapubic catheter (HCC) -Managed on oxybutynin and prazosin -Suprapubic catheter complicated by recurrent UTIs Anxiety and depression -Managed on Wellbutrin, quetiapine, risperidone, buspirone, Zoloft, Atarax PRN, prazosin PONV (postoperative nausea and vomiting) -Has occurred with one long surgery in the past (10-11 hours per pt), has not had issues after shorter procedures Difficult intravenous access -Has required US guidance ANESTHESIA FINDINGS: Intubation History: No history of difficult intubation Significant Anesthesia Considerations: potential postop nausea/vomiting potential difficult IV/vein access Airway History: No history of difficult airway Nicole Activity Status Index: METS: DASI Score: 0 (WC dependent, she is a jerrell lift transfer) Patient is partially dependent. Clinical Frailty Scale: 5. Mildly frail STOP-Bang Score: Snores loudly BMI greater than 35 kg/m^2 Has a large neck STOP-Bang Score: 3 I - PHYSICAL EVALUATION AIRWAY Patient intubated: No. Tracheostomy tube not present Mallampati: II. TM distance: >3 FB. Neck ROM: full ROM without neurological symptoms. Mouth opening: >3 FB. Short neck: yes. Thick neck: yes Upper lip bite test: unable. Microretrognathia/Micronagthia/Recessed Chin: No DENTAL Dental findings: missing tooth/teeth, loose elements and broken. II - ANESTHESIA PLAN Anesthetic plan additional comments: *PACC/TCI - anesthesia choice. Informed Consent Prepared for Surgery: optimally prepared for surgery. 04/16 CBC, BMP and 07/31 EKG reviewed/accepted CONSULTS: Patient does not require consults for optimization at this time Planned Anesthetic: anesthesia choice The Following Tests/Procedures Have Been Initiated: EKG, labs reviewed and accepted REASON FOR VISIT: Devorah Lerma is a 39 year old female who is scheduled for Procedure(s): CYSTOURETHROSCOPY W/ URETEROSCOPY AND/OR PYELOSCOPY W/ LITHOTRIPSY INCLUDE INSERTION OF INDWELLING URETERAL STENT (Bilateral) at the request of Axel Hull MD for consultation. My final recommendation will be communicated back to the requesting physician by way of shared medical record or letter. Subjective The patient has the following: COVID-19 Immunization Status Current Care Gaps Covid-19 Vaccine ( season) Overdue since 02/27/2025 08/06/2022 Imm Admin: COVID-19 vaccine, age 12+ yr, bivalent (MODERNA) 02/15/2022 Imm Admin: COVID-19 original vaccine, age 5 yr - 11 yr, monovalent (PFIZER-BIONTECH) 10/09/2020 Imm Admin: COVID-19 original vaccine, full dose, monovalent (MODERNA) Only the first 3 history entries have been loaded, but more history exists. CHIEF COMPLAINT: Nephrolithiasis [N20.0] HPI: Devorah Lerma is a 39 year old female with PMH including cerebral palsy, morbid obesity, seizures, GERD, cauda equina c/b neurogenic bladder s/p suprapubic catheter, and anemia who presents [facility] today for preop exam. Patient is scheduled for the above procedure on 05/01/25. Patient has recurrent episodes of nephrolithiasis. Denies fevers, chills, chest pain, and SOB. REVIEW OF SYSTEMS: General: Negative for: fever. Neurological: Positive for: cerebral palsy and seizures. Negative for: TIA and strokes. Respiratory: Negative for: asthma, COPD, current cough, pneumonia within 6 weeks, tobacco use, URI < 2 weeks and obstructive sleep apnea. Cardiovascular: Negative for: angina, anticoagulation therapy, arrhythmia, atrial fibrillation, CAD, chest pain, CHF, DVT/PE, hyperlipidemia, hypertension, recent MD and murmur/valvular heart disease. GI: Positive for: GERD and nausea Negative for: abdominal pain, dysphagia, hepatitis, liver disease and vomiting. : Suprapubic catheter Positive for: nephrolithiasis. Negative for: on dialysis, hematuria and renal failure. Endocrine: Negative for: diabetes mellitus, hyperthyroidism, hypothyroidism and steroid for chronic problem. Hematology: Positive for: anemia. Negative for: factor V Leiden, von Willebrand disease and chronic anti- coagulation/platelet meds. Oncology: No history of CA metastasis, chemo within 30 days, or radiotherapy within 90 days. No history of oncological symptoms or problems. Psych: Positive for: anxiety and depression. Musculoskeletal: Positive for: back pain. Skin: Negative for lesions, rash and itching. The patient has the following comorbidities: Obesity Seizures/Epilepsy Continue current outpatient treatment plan and current medications for these conditions, except where otherwise noted. PAST MEDICAL HISTORY Diagnosis Date Anxiety and depression Cauda equina syndrome with neurogenic bladder (HCC) Cerebral palsy (HCC) History of COVID-19 Nephrolithiasis Obesity Other specified infantile cerebral palsy Recurrent UTI Urge incontinence PAST SURGICAL HISTORY Procedure Laterality Date PAST SURGICAL HISTORY OF ureteral stent PAST SURGICAL HISTORY OF Right ureteral stent extraction PAST SURGICAL HISTORY OF chest surgery - bone and ribs PAST SURGICAL HISTORY OF muscle tendon procedure at age 3 PAST SURGICAL HISTORY OF suprapubic catheter FAMILY HISTORY Problem Relation Age of Onset Anesthesia Problems No Family History SOCIAL HISTORY[1] Prior to Admission medications as of 04/21/25 0930 Medication Sig Last Dose Taking tamsulosin (FLOMAX) 0.4 mg Take 1 capsule by mouth once daily. Stop two days after your stent is removed. Yes oxybutynin (DITROPAN) 5 mg tablet Take 1 tablet by mouth three times a day. Yes CALCIUM CITRATE PO Take by mouth. Yes ondansetron (ZOFRAN) 4 mg tablet Take 1 tablet by mouth every 8 hours as needed for nausea/vomitingfor up to 30 doses. Yes Senna 8.6 mg tab Take 8.6 mg by mouth daily at bedtime. Yes buPROPion (WELLBUTRIN) 75 mg tablet Take 75 mg by mouth once daily. Yes calcium carbonate (TUMS) 500 mg chew Take 500 mg by mouth every 8 hours as needed (indigestion). Yes cholecalciferol (VITAMIN D3) 1,000 unit tab tablet Take 1,000 Units by mouth once daily. Yes omeprazole (PRILOSEC) 20 mg capsule Take 20 mg by mouth once daily. Yes lidocaine (SALONPAS) 4 % patch Apply 1 Patch as directed at bedtime as needed. Yes prazosin (MINIPRESS) 1 mg cap Take 1 mg by mouth daily at bedtime. Yes bismuth subsalicylate (BISMATROL) 262 mg/15 mL oral liquid Take 30 mL by mouth every 6 hours as needed. Until diarrhea stops, for a total of 16 ounces, then d/c. Yes ascorbic acid, vitamin C, (VITAMIN C) 500 mg tablet Take 500 mg by mouth two times a day. Yes busPIRone (BUSPAR) 5 mg tablet Take 5 mg by mouth two times a day. Yes polyethylene glycol 3350 17 gram packet Take 17 g by mouth once daily. Dissolve dose in 4 - 8 ounces of liquid and take as directed. Yes tiZANidine (ZANAFLEX) 2 mg tablet Take 2 mg by mouth two times a day. Yes pyridoxine, vitamin B6, (VITAMIN B6) 100 mg tablet Take 100 mg by mouth once daily. Yes melatonin 3 mg capsules Take 6 mg by mouth daily at bedtime. Patient taking differently: Take 5 mg by mouth daily at bedtime. Yes bisacodyl (DULCOLAX) 10 mg supp 10 mg by RECTAL route once daily as needed for constipation (if no results from MOM). Yes cyclobenzaprine (FLEXERIL) 5 mg tablet Take 5 mg by mouth three times a day. For bladder spasm Yes potassium phosphate, monobasic (K-PHOS ORIGINAL) 500 mg tablet Take 500 mg by mouth once daily. Yes furosemide (LASIX) 40 mg tablet Take 40 mg by mouth once daily. Yes loratadine (CLARITIN) 10 mg tablet Take 10 mg by mouth once daily. Yes QUEtiapine 150 mg tablet Take 150 mg by mouth daily at bedtime. Yes risperiDONE (RISPERDAL) 0.5 mg tablet Take 0.5 mg by mouth twice daily. Yes GABAPENTIN 600 MG TAB Take 1,800 mg by mouth three times a day. Yes lamoTRIgine (LAMICTAL) 200 mg tablet Take 200 mg by mouth two times a day. Take with 2 x 25 mg tablet to total 250 mg Yes sertraline (ZOLOFT) 100 mg tablet Take 200 mg by mouth once daily. Yes levETIRAcetam (KEPPRA) 1,000 mg tablet Take by mouth. Take 1 tablet (1000 mg) in AM and 2 tablets (2000 mg) in PM Yes acetaminophen (TYLENOL) 500 mg tablet Take 2 tablets by mouth every 6 hours as needed for pain. cefdinir (OMNICEF) 300 mg capsule Take 1 capsule by mouth two times a day for 7 days. oxybutynin ER (DITROPAN XL) 10 mg 24 hr tablet Take 1 tablet by mouth once daily. Patient not taking: Reported on 04/10/2025 Ibuprofen 200 mg cap Take 3 capsules by mouth every 8 hours as needed for pain (for pain). albuterol (PROVENTIL) 2.5 mg /3 mL (0.083 %) nebulizer solution Use 2.5 mg via nebulizer every 6 hours as needed for wheezing/shortness of breath. Patient not taking: Reported on 04/10/2025 lamoTRIgine (LAMICTAL) 25 mg tablet Take 50 mg by mouth two times a day. Take with lamotrigine 200 mg to total 250 mg Chlorhexidine Gluconate (PERIDEX) 0.12 % solution Use 15 mL as instructed every 12 hours as needed (mouth pain). zinc oxide-cod liver oil (DESITIN 40%) 40 % paste Apply 1 application to affected area as needed. sodium phosphate-sodium bisphosphate (FLEET ENEMA) enema 1 Enema by RECTAL route once daily as needed for constipation (if no results from suppository). Patient not taking: Reported on 04/10/2025 No medication comments found. ALLERGIES Allergen Reactions Baclofen Mental Status Change The pt has seizures from this medication Amoxicillin-Pot Cla* Diarrhea masssive amounts of diarrhea stools UP TO HER ELBOWS Grapefruit Other: See Comments Objective PHYSICAL EXAM: General: alert and oriented, healthy appearance and morbidly obese. Pertinent negatives noted - notdistressed. Skin: normal color, no rash or lesions. HEENT: EOM intact. Cardiovascular: regular rate and rhythm, normal S1 and S2, no rub, murmurs, or gallop. Respiratory: normal breath sounds, no wheezes or crackles. No chest wall deformity or tenderness. Abdomen: bowel sounds present. Extremities: no deformity, no edema or tenderness, no joint swelling or clubbing. Neurological: normal cognition and motor skills. Positive for abnormal gait and limb weakness. PAIN ASSESSMENT: VITALS: BP 125/58 Pulse 88 Temp (Src) 97.3 (Temporal) Resp 18 Ht 5' 0 (1.52m) Wt 230 lb (104.3kg) SpO2 95% LMP 04/03/2025 BMI 44.92 kg/(m^2). Diagnostic tests reviewed for today's visit: Lab Value Units Date High Low HB 9.8 g/dL 04/16/2025 15.5 11.5 HCT 31.8 % 04/16/2025 46.0 36.0 WBC 8.91 k/uL 04/16/2025 11.00 3.70 PLT 164 k/uL 04/16/2025 400 150 NA 140 mmol/L 04/16/2025 144 136 K 3.7 mmol/L 04/16/2025 5.1 3.7 GLUC 179 mg/dL 04/16/2025 99 74 BUN 15 mg/dL 04/16/2025 21 7 CREAT 0.65 mg/dL 04/16/2025 0.96 0.58 PTSEC 11.5 sec 04/14/2025 13.0 9.7 INR 1.1 no uni* 04/14/2025 1.3 0.9 APTT No results within date range. ALT No results within date range. AST No results within date range. TBILI No results within date range. TSH No results within date range. Lab Value Units Date High Low HCGQT No results within date range. UHCG No results within date range. HCG, BODY* No results within date range. Lab Value Units Date High Low ABORHD No results within date range. ABSCREEN No results within date range. No results found for: HBA1C Recent Results (from the past 8760 hours) ECG COMPLETE Collection Time: 07/31/24 1:04 PM Result Value Ventricular Rate 108 Atrial Rate 108 P-R Interval 134 QRS Duration 78 QT Interval 360 QTC Calculation (Bazett) 482 Calculated P [place] 54 Calculated R [place] 13 Calculated T [place] 43 Impression SINUS TACHYCARDIA OTHERWISE NORMAL ECG NOTE: PLEASE SEE PHYSICIAN'S NOTE FROM E.D. VISIT Confirmed by MD DARON, BRIDGETTE ([id number]), deputy editor in chief MARINA MONGE ([id number]) on 07/31/2024 6:04:07 PM No results found for this or any previous visit (from the past 31675 hours). Instructions Given to Patient: Instructions located in the after visit summary. Patient given verbal and written preop instructions and voices comprehension and compliance. SIGNATURE: Latoya Blanchard PA-C PATIENT NAME: Devorah Lerma DATE: April 21, 2025 TIME: 9:17 AM PAGER/CONTACT #: [1] Social History Tobacco Use Smoking status: Never Passive exposure: Never Smokeless tobacco: Never Substance Use Topics Drug use: Never documented in this encounter Plan of Treatment DateTypeDepartmentCare Team (Latest Contact Info)Vuxnhgecveh25/30/2025 11:30 AM EDTOffice Visit Gynecology [address] [address] Shaye Pittman DO [address] [place] [address] Menorrhagia with regular cycle [N92.0] Patient interested in injections to help her oxwbwlo0905/01/2025 9:20 AM ESTHospital Encounter Admitting [address] [place] [address] Axel Ruth MD [address] [place] [address] Nephrolithiasis [N20.0]05/01/2025 9:20 AM EST - 05/01/2025 12:00 PM ESTSurgery Admitting [facility] [place] [address] [place] [address] [place] [address] CYSTOURETHROSCOPY W/ URETEROSCOPY AND/OR PYELOSCOPY W/ LITHOTRIPSY INCLUDE INSERTION OF INDWELLING URETERAL STENT05/04/2025 10:30 AM ESTOffice Visit Urology [address] [address] [place] [address] [place] [address] Surgical consult will bring hqcwxvg0907/11/2025 9:00 AM ESTAppointment Radiology [address] [address] [address] FLANK WO IVCON07/11/2025 9:30 AM ESTOffice Visit Urology [address] [address] Farzana Davis, EVA.JACKER FEEDER [address] [place] [address] 3 month f/u with CT prior per cc chartNamePriorityAssociated DiagnosesDate/Time CYSTOURETHROSCOPY W/ URETEROSCOPY AND/OR PYELOSCOPY W/ LITHOTRIPSY INCLUDE INSERTION OF INDWELLING URETERAL STENT Nephrolithiasis 05/01/2025 9:20 AM ESTdocumented as of this encounter Goals GoalPatient Goal TypeAssociated ProblemsRecent ProgressPatient-Stated?Author Autogenerated Goal Care PlanAutogenerated ProblemNoCanArie rushingmy Tdocumented as of this encounter Visit Diagnoses Diagnosis Cerebral palsy, unspecified type (HCC)- Primary Cauda equina syndrome (HCC) Cauda equina syndrome without mention of neurogenic bladder Obesity, Class III, BMI >= 40 Morbid obesity Gastroesophageal reflux disease, unspecified whether esophagitis present Seizure disorder (HCC) Unspecified epilepsy without mention of intractable epilepsy Anemia due to other cause, not classified Suprapubic catheter (HCC) Other cystostomy status Anxiety and depression Dysthymic disorder PONV (postoperative nausea and vomiting) Nausea with vomiting Difficult intravenous access Other specified conditions influencing health status Nephrolithiasis Calculus of kidney * Assessment & Plan Note - Latoya Blanchard PA-C - 04/21/2025 11:44 AM EDT Associated Problem(s): Difficult intravenous access -Has required US guidance * Assessment & Plan Note - Latoya Blanchard PA-C - 04/21/2025 11:44 AM EDT Associated Problem(s): PONV (postoperative nausea and vomiting) -Has occurred with one long surgery in the past (10-11 hours per pt), has not had issues after shorter procedures * Assessment & Plan Note - Latoya Blanchard PA-C - 04/21/2025 11:41 AM EDT Associated Problem(s): Anxiety and depression -Managed on Wellbutrin, quetiapine, risperidone, buspirone, Zoloft, Atarax PRN, prazosin * Assessment & Plan Note - Latoya Blanchard PA-C - 04/21/2025 9:27 AM EDT Associated Problem(s): Suprapubic catheter (HCC) -Managed on oxybutynin and prazosin -Suprapubic catheter complicated by recurrent UTIs * Assessment & Plan Note - Latoya Blanchard PA-C - 04/21/2025 9:26 AM EDT Associated Problem(s): Other specified anemias -04/16/25 Hgb 9.8 * Assessment & Plan Note - Latoya Blanchard PA-C - 04/21/2025 9:26 AM EDT Associated Problem(s): Seizure disorder (HCC) -Suspected absence seizure approx 1 month ago, however no post-ictal episode described, pt was staring into space for ~20 seconds. Reports she has seizures when she is stressed -Follows OP with neurology, looking to switch to neurology with [facility] -Managed on keppra and lamictal * Assessment & Plan Note - Latoya Blanchard PA-C - 04/21/2025 9:26 AM EDT Associated Problem(s): GERD (gastroesophageal reflux disease) -Managed on rx * Assessment & Plan Note - Latoya Blanchard PA-C - 04/21/2025 9:25 AM EDT Associated Problem(s): Obesity, Class III, BMI >= 40 -Body mass index is 44.92 kg/m??. * Assessment & Plan Note - Latoya Blanchard PA-C - 04/21/2025 9:25 AM EDT Associated Problem(s): Cauda equina syndrome (HCC) -C/b neurogenic bladder s/p suprapubic catheter (monthly exchanges) c/b recurrent UTI * Assessment & Plan Note - Latoya Blanchard PA-C - 04/21/2025 9:25 AM EDT Associated Problem(s): Cerebral palsy (HCC) -Cerebral palsy with neurogenic bladder s/p suprapubic catheter (monthly exchanges) c/b recurrent UTI -Patient is WC dependent and a Jerrell lift transfer -On tizanidine and flexeril documented in this encounter Additional Health Concerns Active ProblemsNoted DateDiagnosed DateAutogenerated Depmfuq6004/17/2025documented as of this encounter Care Teams Team MemberRelationshipSpecialtyStart DateEnd Date William Cruz, JACKER FEEDER [address] [place] [address] PCP - GeneralFamily Clabncyd61/21/25 Isaias Saleh MD [address] [place] [address] ReferringUrology02/26/22 William Cruz, JACKER FEEDER [address] [facility] [place] [address] ReferringFamily Vpopsinf74/15/25documented as of this encounter
[2025-04-22 16:26] VITALS: BP 107/89; PULSE 98; TEMP 36.9; O2SAT 98; BMI 44.9
--- OUTSIDE RECORDS SUMMARY | 2025-04-22 16:26 | XMS_ITS | Patient Health Record ---
Author Organization [facility] Address [address] [place] [address] Care Team Providers Care Test Deskman Name Role Phone Swathi Osorio Primary Care Provider Dr. Akshat Weslh Unavailable [phone] Sangita Miller Unavailable [phone] Zuly Guzman Unavailable [phone] Shon John Unavailable [phone] Akshat Parson Unavailable [phone] Sharla Lucio Unavailable [phone] Skylar John Unavailable [phone] Parisa Gómez Unavailable [phone] Allergies Allergen (clinical drug ingredient) Drug/Non Drug Allergy documented on EMR Reaction Allergy Type Onset Date Status amoxicillin / clavulanate Augmentin Unknown Drug Aller gy ActiveGrapefruit FlavorUnknownDrug AllergyActivebaclofenBaclofenUnknownDrug AllergyActive Reason For Referral No Information Medications Medication SIG (Take, Route, Frequency, Duration) Notes Start Date End Date Status Acetaminophen Extra Strength 500 MG Tabl et 1 tablet as needed Orally every 8 hours; Duration: 30 days ActiveChlorhexidine0.12% rinseActiveDesitin 40 % Pasteas directed Externally ActiveBenzonatate 100 MG Capsule1 capsule as needed Orally Three times a day ActiveCalcium Mfapznnob363pjRtjtutkiyCSOABrvbme 1000 MG Tablet1 tablet Orally every 12 hrsActiveAlbuterol Sulfate (2.5 MG/3ML) 0.083% Nebulization Solution3 mL as needed Inhalation every 6 hrsActivePolyethylene Glycol 3350 17 GM Packet1 packet mixed with 8 ounces of fluid Orally Once a dayActiveZanaflex 4 MG Tablet1 tablet at bedtime as needed Orally Once a dayActiveFiberCon 625 MG Tablet2 tablets as needed Orally Three times a dayActiveClaritin 10 MG Tablet1 tablet Orally Once a dayActivePrazosin HCl 2 MG Capsule1 capsule at bedtime Orally Once a day; Duration: 30 daysActivebusPIRone HCl 30 MG Tablet1 tablet Orally Twice a day; Duration: 30 daysActiveQUEtiapine Fumarate 150 MG Tablet1 tablet at bedtime Orally Once a day; Duration: 30 daysActiveAcetaminophen Extra Strength 500 MG Tablet 2 tablets Orally every 8 hours; Duration: 30 days As needed for pain or fever greater than 100.1 /5ActiveBacitracin 500 UNIT/GM OintmentAPPLY TOPICALLY TO SITE AROUND SUPRAPUBIC TUBE FOUR TIMES DAILY FOR 5 DAYS External; Duration: 7 Days ActivePepto BismolActiveMelatonin 3 MG Tablet1 tablet at bedtime Orally Once a day; Duration: 30 days5ActiveCalmoseptine 0.44-20.6 % Ointmentas directed Externally 3 times a day; Duration: 30 days509/6Active Norco5-325 tabletActiveHYDROcodone-Acetaminophen 5-325 MG TabletOral; Duration: 4 DaysActivebuPROPion HCl 75 MG Tablet2 tablets in the AM Orally daily; Duration: 30 daysActiveoxyCODONE HCl 5 MG Tablet1 tablet as needed Orally every 6 hrsActivePotassium Citrate ER 10 MEQ (1080 MG) Tablet Extended Release1 tablet with meals Oral 3 times a day; Duration: 30 daysActiveOndansetron 4 MG Tablet Disintegrating1 tablet on the tongue and allow to dissolve Orally Once a day ActiveSystane 0.4-0.3 % Solutionas directed OphthalmicActiveSertraline HCl 100 MG Tablet2 tablets Orally Once a day; Duration: 30 daysActiveLidocaine 4 % Patch 1 patch as needed Externally Four times a dayActiveMeclizine HCl 25 MG Tablet1 tablet as needed Orally every 12 hrsActiveAdvil 200 MG Tablet1 tablet with food or milk as needed Orally Three times a dayActiveFurosemide 40 MG TabletTAKE 1 TAB BY MOUTH ONCE EVERY DAY (EDEMA)ActiveNaproxen 500 MG TabletOral; Duration: 15 DaysActiveLaMICtal 25 MG Tablet1 tablet Orally; Duration: 30 daysActive Midodrine HCl 2.5 MG TabletTAKE 1 TAB BY MOUTH THREE TIMES A DAY (LOW BP) HOLD IF SBP OVER 819TveyusC4 High Potency 25 MCG CapsuleTAKE 1 CAP BY MOUTH ONCE EVERY DAY (VITAMIN D DEFICIENCY)ActiveGabapentin 600 MG TabletTAKE 3 TABS (1800MG) BY MOUTH TWICE A DAYActiveVitamin C 500 MG TabletTAKE 1 TAB BY MOUTH TWICE A DAY FOR SUPPLEMENTAL VIT CActiveVitamin B-6 100 MG TabletTAKE 1 TAB BY MOUTH ONCE EVERY DAY (SUPPLEMENT)ActiveLoratadine 10 MG TabletTAKE 1 TAB BY MOUTH ONCE EVERY DAY (ALLERGIES)ActivelamoTRIgine 200 MG TabletTAKE 1 TAB BY MOUTH TWICE A DAY (SEIZURES)ActiveCyclobenzaprine HCl 5 MG TabletTAKE 1 TAB BY MOUTH ONCE EVERY DAYActivetiZANidine HCl 2 MG TabletTAKE 1 TAB BY MOUTH TWICE A DAY (SPASMS)ActivePriLOSEC OTC 20 MG Tablet Delayed Release1 tablet 1/2 to 1 hour before morning meal Orally Once a day; Duration: 90 daysActiveSenokot 8.6 MG Tablet2 tablets at bedtime as needed Orally Once a day; Duration: 30 days ActiveoxyBUTYnin Chloride ER 10 MG Tablet Extended Release 24 Hour1 tablet Orally Once a day; Duration: 30 daysActiveKeppra [...] Extended Release 24 HourOral; Duration: 30 Days ActivebuPROPion HCl 75 MG Tablet2 tablets Oral daily; Duration: 30 daysActive Prazosin HCl 2 MG Capsule1 capsule at bedtime Orally Once a day; Duration: 30 days5ActiveDepo-Provera 150 MG/ML Suspension Prefilled Syringe1 mL Intramuscular every 3 months; Duration: 30 days512/5Active Social History Tobacco Use: Social History Observation Description Date Details (start date - stop date) Never Smoker NA - NA Sex Assigned At : Social History Observation Description Sex Assigned At Female Social History GeneralSocial InfoQuestionAnswerNotesDepression Screening (PHQ-9):Little interest or pleasure in doing thingsSeveral daysFeeling down, depressed, or hopelessSeveral daysTrouble falling or staying asleep, or sleeping too muchNot at allFeeling tired or having little energyNot at allPoor appetite or overeating Not at allFeeling bad about yourself-or that you are a failure or have let yourself or your family downSeveral daysTrouble concentrating on things, such as reading the newspaper or watching televisionNot at allMoving or speaking so slowly that other people could have noticed. Or the opposite being so fidgetyor restless that you have been moving around a lot more than usualNot at all Thoughts that you would be better off , or of hurting yourself in some way Several days(Consider Suicide Assessment Risk)Total Xkfge9EqjgqwluxmmpkHvjstck DepressionDrug/Alcohol:Social Bubbles and BeyondQuestionAnswerNotesAUDIT-C (Standard)Did you have a drink containing alcohol in the past year?RqDpvuxd8IvdetgezgttuqjCziophju Tobacco Use:Social InfoQuestionAnswerNotesTobacco Control (Standard)Tobacco use: Nonsmoker Problems Problem Type SNOMED Code ICD Code Onset Dates Problem Status W/U Status Risk Notes Problem Hypokalemia (93255160) Hypokalemia (E87.6 ) ActiveconfirmedProblemModerate recurrent major depression (76193498)Major depressive disorder, recurrent, moderate (F33.1)ActiveconfirmedProblem Posttraumatic stress disorder (02635826)Post-traumatic stress disorder, chronic (F43.12)ActiveconfirmedProblemMuscle weakness (62342953)Muscle weakness (generalized) (M62.81)ActiveconfirmedProblemCalculus of kidney (12795051) Calculus of kidney (N20.0)ActiveconfirmedProblemNeurogenic dysfunction of the urinary bladder (061058352)Neuromuscular dysfunction of bladder, unspecified (N31.9)ActiveconfirmedProblemMixed incontinence (804027228)Mixed incontinence (N39.46)ActiveconfirmedProblemOral phase dysphagia (532421363)Dysphagia, oral phase (R13.11)ActiveconfirmedProblemOropharyngeal dysphagia (65747905)Dysphagia, oropharyngeal phase (R13.12)ActiveconfirmedProblemUnspecified symptoms and signs involving the genitourinary system (R39.9)ActiveconfirmedProblemDysarthria (9638948)Dysarthria and anarthria (R47.1)ActiveconfirmedProblemReduced mobility (6005350)Other reduced mobility (Z74.09)ActiveconfirmedProblemNeeds assistance at home (956118579)Need for assistance at home and no other household member able to render care (Z74.2)ActiveconfirmedProblemHistory of urinary stone (722543686)Personal history of urinary calculi (Z87.442)ActiveconfirmedProblem Other cystostomy status (Z93.59)ActiveconfirmedProblemAnxiety (47624789)Anxiety (F41.9)ActiveconfirmedProblemObesity (807901223)Obesity (BMI 30-39.9) (E66.9) ActiveconfirmedProblemPressure ulcer (L89.90)ActiveconfirmedProblemConstipation (20682014)Constipation (K59.00)ActiveconfirmedProblemConstipation (75116997) Constipation, unspecified constipation type (K59.00)ActiveconfirmedProblemEdema (571112166)Edema, unspecified type (R60.9)ActiveconfirmedProblemHydronephrosis (42070670)Hydronephrosis, unspecified hydronephrosis type (N13.30)Active confirmedProblemCerebral palsy (635990125)Cerebral palsy, unspecified type (G80.9)ActiveconfirmedProblemDysmenorrhea (706744544)Painful menstrual periods (N94.6)ActiveconfirmedProblemSeizure (63611730)Convulsions, unspecified convulsion type (R56.9)ActiveconfirmedProblemDevelopmental delay (579953429) Developmental disability (F89)ActiveconfirmedProblemAllergic rhinitis (27763401) Chronic allergic rhinitis (J30.9)Activeconfirmed Vital Signs Heart Rate 100 /min 03/06/2025 Yxscsbafcqb34.1 degrees Rpstardjhl03/08/2025Respiratory Rate18 /min12/12/2024 Mspojdnu19 %03/06/2025lood pressure eyvaxkapj43 mm Hg03/06/20252657Cjbkib05 in 03/06/2025lood pressure ogtbkuwk496 mm Hg03/06/20259032Mrddhi061 lbs03/06/2025MI 44.91 kg/m203/06/2025 Encounters Encounter Location Date Provider Diagnosis [facility] [address] [place] [address] 11/04/2024 [facility] [place] [address] [facility] [place] [address] 11/07/2024[facility] [place] [address]/[facility] [place] [address]/[facility] [place] [address]/[facility] [address] [place] [address]/[facility] [place] [address]/09/2024[facility] [place] [address]/11/2024 [facility] [place] [address] 12/06/2024[facility] [place] [address]/04/2025[place] [address] [place] [address]/[facility] [place] [address]/[facility] [place] [address]/[facility] [place] [address]/[facility] [place] [address]/[facility] [place] [address]/ [facility] [place] [address] 01/03/2025[facility] [place] [address]/[facility] [place] [address]/[facility] [place] [address]/[facility] [place] [address]/[facility] [place] [address]/[facility] [place] [address]/ [facility] [place] [address]/[facility] [place] [address]/[facility] [address] [place] [address]/[facility] [address] [place] [address]/[facility] Okerpxsi[address] [place] [address]/ Swathi CastilloJill [place] [address] [place] [address]/ [facility] [address] [place] [address]/[facility] [address] [place] [address]/02/2025[facility] [address] [place] [address]/02/2025[facility] [address] [place] [address]/04/2025[facility] [address] [place] [address]/05/2025 [facility] [address] [place] [address] Health [address] [place] [address]/[facility] [address] [place] [address]/06/2024[facility] [address] [place] [address]/07/2024[facility] [address] [place] [address]/08/2024 [facility] [address] [place] [address]/08/2024[facility] [address] [place] [address]/[facility] F41.9[place] [address] [place] [address]/01/2025Kip SoviakEric [place] [address] [facility] [place] [address]/01/2025[address]Eric [address] [address] [facility] [place] [address]/02/2025Hannah SchoenCerebral palsy, unspecified type G80.9 ; Major depressive disorder, recurrent, moderate F33.1 ; Neuromuscular dysfunction of bladder, unspecified N31.9 ; Anxiety F41.9 ; Constipation, unspecified constipation type K59.00 and Help needed for obtaining assistive device Z75.8[facility] [place] [address] [facility] [place] [address] 12/12/2024Jennifer KearneyMixed incontinence N39.46 ; Cerebral palsy, unspecified type G80.9 ; Anxiety F41.9 ; Muscle weakness (generalized) M62.81 ; Developmental disability F89 ; Encounter to establish care with new provider Z76.89 and Convulsions, unspecified convulsion type R56.9[facility] [address] [place] [address]/11/2024Valerie CastilloPainful menstrual periods N94.6[facility] [address] [place] [address]/01/2025Valerie CastilloGeneralized pain R52 ; UTI (urinary tract infection) N39.0 ; Constipation K59.00 and Hypotension I95.9[facility] [address] [facility] [place] [address]/10/2024Joseph VelizMajor depressive disorder, recurrent, moderate F33.1[facility] [address] [place] [address]/09/2024Joseph Blaise Cracked tooth K03.81 ; Encounter for dental examination and cleaning with abnormal findings Z01.21 and Other dental procedure status Z98.818[facility] [address] [facility] [place] [address]/03/2025Kip SoviakAnxiety F41.9[facility] [address] [facility] [place] [address]/Kip SoviakAnxiety F41.9[facility] [address] [place] [address]/11/2024[facility] PetersLack of access to transportation Z91.89[facility] [address] [place] [address]/01/2025Mary PetersLack of access to transportation Z91.89[facility] [address] [place] [address]/[facility] [place] [address] [address]/[facility]S [address] [place] [address]/02/2025[facility] PetersJac[facility] [place] [address]/10/2024[facility]S [address] [place] [address]/03/2025[facility] [address]mp[address] [place] [address]/[facility]S [address] [place] [address]/09/2024[facility] PetersVtck of access to transportation Z91.89 Assessments Encounter Date Diagnosis (ICD Code) Assessment Notes Treatment Notes Treatment Clinical Notes Section Notes 02/01/2025 Painful menstrual periods (ICD-1 0 - N94.6) Patient has never been sexually active. She is experiencing heavy menses and pain. Cycles are regular, monthly. We did discuss possible [employer] STRAIGHTENER evaluation. She requires tayler lift for transfering. Discussed control pills vs. Depo Provera. Patient would like to proceed with Depo Provera.03/06/2025Generalized pain (ICD-10 - R52)03/10/2025Pressure ulcer (ICD-10 - L89.90)04/17/2025nxiety (ICD-10 - F41.9)03/06/2025Lack of access to transportation (ICD-10 - Z91.89)Pt transported to and from yigxddnmgbz69/08/2025UTI (urinary tract infection) (ICD- 10 - N39.0)Continue fosfomycin as directed by ER until gone.12/01/2024Major depressive disorder, recurrent, moderate (ICD-10 - F33.1)12/06/2024nxiety (ICD- 10 - F41.9) Patient will increase buspirone to [...] contact information was provided to the patient/guardian. 01/23/2025nxiety (ICD-10 - F41.9) Recommended treatment is: _ [...] contact information was provided to the patient/guardian. 01/30/2025Lack of access to transportation (ICD-10 - Z91.89)Pt transported to and from ohbnpeucyby28/04/2025racked tooth (ICD-10 - K03.81)11/04/2024erebral palsy, unspecified type (ICD-10 - G80.9)Hx of cerebral palsy. Continue with current medication regimen and monitor for any changes in muscle tone or adverse effects. Discussed importance of stretching and strenthening exercises at home. Adaptive equipment request have been sent. Patient verbalizes understanding. 12/12/2024Mixed incontinence (ICD-10 - N39.46)12/12/2024erebral palsy, unspecified type (ICD-10 - G80.9)02/01/2025Lack of access to transportation (ICD-10 - Z91.89)Pt transported to and from cmlqebskxyy90/16/2025nxiety (ICD-10 - F41.9)01/30/2025Encounter for dental examination and cleaning with abnormal findings (ICD-10 - Z01.21)11/04/2024Major depressive disorder, recurrent, moderate (ICD-10 - F33.1)Discussed setting up appointment with [facility] for further treatment and medication management. Discussed calling 911 or goig to ER if SI/HI presents. Patient verbalizes understanding. 03/06/2025onstipation (ICD-10 - K59.00)Patient had episode of constipation last week. Has BM this morning. Still feels constipated. She does have 3 PRN medications available; MiraLax, Colace, and senakot. I encourage care provider to utilize PRN medications.03/06/2025Hypotension (ICD-10 - I95.9)Patient has not been taking midodrine due to parameters. Care provider states it has been over 3 weeks now. Will discontinue midodrine.12/12/2024Muscle weakness (generalized) (ICD-10 - M62.81)11/04/2024Neuromuscular dysfunction of bladder, unspecified (ICD-10 - N31.9)Continue following with Urology in [facility] for management and mdeication as prescribed. Paperwork faxed for urinary incontinece supplies.01/30/2025Other dental procedure status (ICD-10 - Z98.818)11/04/2024 Anxiety (ICD-10 - F41.9)Discussed setting up an appointment with [facility] behavioral health provider for further treatment and medication management. Discussed calling 911 or going to ER if SI/HI presents. Patient verbalizes understanding. 11/04/2024onstipation, unspecified constipation type (ICD-10 - K59.00)Discussed with patient importance of encouraging fluid intake throughout day, adding more natural fiber intake with fruits and vegetables.Discussed using stool softener daily to mainitain regular bowel movements. [facility].12/12/2024 Developmental disability (ICD-10 - F89)12/12/2024Encounter to establish care with new provider (ICD-10 [...] briefs and perianal wipes given to case reviewer. Patient will need the shower chair for [...] Patient will need one hour for appointments. 11/04/2024Help needed for obtaining assistive device (ICD-10 - Z75.8)Discussed need of shower chair, raised toilet seat. digital BP cuff, tayler sling, and urinary incontinence supplies. Rx and paperwork faxed for supplies.12/12/2024 Convulsions, unspecified convulsion type (ICD-10 - R56.9)Keppra refill sent to [facility] in [place]. Patient has been with out Keppra for 2 days. All future refills to be sent to [facility] pharmacy and placed in bubble packs.12/12/2024 OtherBody Mass Index: Care Instructions material was lihmfwf9302/01/2025OtherBody Mass Index: Care Instructions material was published, Body Mass Index: Care Instructions material was wibfgqn9503/06/2025OtherBody Mass Index: Care Instructions material was published, Body Mass Index: Care Instructions material was printed Plan Of Treatment Next Appt Details Provider Name:Tonia Cooper , 06/15/2025 04:00:00 PM, [address], [place], [address], Provider Name:Sangita Miller, 08/04/2025 10:15:00 AM, [address] [place], [address], Provider Name:Swathi J Darcie huston, 08/04/2025 11:00:00 AM, [address], [place], [address], Insurance Providers Payer Name Payer Address Payer Phone Subscriber Number Group Number Insured Name Patient Relationship to Insured Coverage Start Date Coverage End Date [place] [address] [place] [address] [id number] SHANKAR GRACIAelf - patient is the [id number] 2024DENTAL [place] [address] [place] [id number], CRYSTALSelf - patient is the [id number] 2025 Medical (General) History Medical History History ICD Code Cerebral Palsy ScoliosisSeizureskidney stonesSurgical History Surgery Date(Month/Year) Tendon released in upper legs 1988 Surgery for pigeon chest 1997 Stents for Kidney stones Hospitalization History Reason Date(Month/Year) 2024
--- OUTSIDE RECORDS SUMMARY | 2025-04-22 16:26 | XMS_ITS | Clinical Summary ---
Author Organization [facility] Address [facility] [place] [address] Care Team Providers Care Rectification Printer Name Role Phone Isaias Saleh MD Unavailable [phone] William Cruz BODY LINE FINISHER Unavailable William Cruz BODY LINE FINISHER Primary Care Provider Allergies Active AllergyReactionsCriticalityNoted DateCommentsAmoxicillin-Pot Clavulanate Yyokgnvk48/13/2022 masssive amounts of diarrhea stools UP TO HER ELBOWS BaclofenMental Status WxvaycCndd18/10/2008 The pt has seizures from this medication GrapefruitOther: See Imzvjypr86/13/2022 Medications MedicationSigDispense QuantityRefillsLast FilledStart DateEnd DateStatus sertraline (ZOLOFT) 100 mg tablet Take 200 mg by mouth once daily. 0 ctive levETIRAcetam (KEPPRA) 1,000 mg tablet Take by mouth. Take 1 tablet (1000 mg) in AM and 2 tablets (2000 mg) in PM 0 ctive GABAPENTIN 600 MG TAB Take 1,800 mg by mouth three times a day.ctive lamoTRIgine (LAMICTAL) 200 mg tablet Take 200 mg by mouth two times a day. Take with 2 x 25 mg tablet to total 250 mg ctive bisacodyl (DULCOLAX) 10 mg supp 10 mg by RECTAL route once daily as needed for constipation (if no results from MOM).Active cyclobenzaprine (FLEXERIL) 5 mg tablet Take 5 mg by mouth three times a day. For bladder spasmActive sodium phosphate-sodium bisphosphate (FLEET ENEMA) enema 1 Enema by RECTAL route once daily as needed for constipation (if no results from suppository).Active potassium phosphate, monobasic (K-PHOS ORIGINAL) 500 mg tablet Take 500 mg by mouth once daily.Active furosemide (LASIX) 40 mg tablet Take 40 mg by mouth once daily.Active loratadine (CLARITIN) 10 mg tablet Take 10 mg by mouth once daily.Active QUEtiapine 150 mg tablet Take 150 mg by mouth daily at bedtime.Active risperiDONE (RISPERDAL) 0.5 mg tablet Take 0.5 mg by mouth twice daily.Active melatonin 3 mg capsules Take 6 mg by mouth daily at bedtime.Active tiZANidine (ZANAFLEX) 2 mg tablet Take 2 mg by mouth two times a day.05/24/2023ctive pyridoxine, vitamin B6, (VITAMIN B6) 100 mg tablet Take 100 mg by mouth once daily.Active ascorbic acid, vitamin C, (VITAMIN C) 500 mg tablet Take 500 mg by mouth two times a day.Active busPIRone (BUSPAR) 5 mg tablet Take 5 mg by mouth two times a day.Active polyethylene glycol 3350 17 gram packet Take 17 g by mouth once daily. Dissolve dose in 4 - 8 ounces of liquid and take as directed.Active zinc oxide-cod liver oil (DESITIN 40%) 40 % paste Apply 1 application to affected area as needed.10/08/2023ctive bismuth subsalicylate (BISMATROL) 262 mg/15 mL oral liquid Take 30 mL by mouth every 6 hours as needed. Until diarrhea stops, for a total of 16 ounces, then d/c. 473 mL ctive Chlorhexidine Gluconate (PERIDEX) 0.12 % solution Use 15 mL as instructed every 12 hours as needed (mouth pain).Active lidocaine (SALONPAS) 4 % patch Apply 1 Patch as directed at bedtime as needed.Active prazosin (MINIPRESS) 1 mg cap Take 1 mg by mouth daily at bedtime.5Active albuterol (PROVENTIL) 2.5 mg /3 mL (0.083 %) nebulizer solution Use 2.5 mg via nebulizer every 6 hours as needed for wheezing/shortness of breath.Active lamoTRIgine (LAMICTAL) 25 mg tablet Take 50 mg by mouth two times a day. Take with lamotrigine 200 mg to total 250 mgActive Senna 8.6 mg tab Take 8.6 mg by mouth daily at bedtime.Active buPROPion (WELLBUTRIN) 75 mg tablet Take 75 mg by mouth once daily.Active calcium carbonate (TUMS) 500 mg chew Take 500 mg by mouth every 8 hours as needed (indigestion).Active cholecalciferol (VITAMIN D3) 1,000 unit tab tablet Take 1,000 Units by mouth once daily.Active omeprazole (PRILOSEC) 20 mg capsule Take 20 mg by mouth once daily.Active Ibuprofen 200 mg cap Take 3 capsules by mouth every 8 hours as needed for pain (for pain).08/10/2024 Active ondansetron (ZOFRAN) 4 mg tablet Take 1 tablet by mouth every 8 hours as needed for nausea/vomiting for up to 30 doses. 30 tablet 5Active oxybutynin ER (DITROPAN XL) 10 mg 24 hr tablet Take 1 tablet by mouth once daily. 90 tablet 5Active Additional Information Patient not taking.Reason: Duplicate Entry, Reported on 04/10/2025 CALCIUM CITRATE PO Take by mouth.Active tamsulosin (FLOMAX) 0.4 mg Take 1 capsule by mouth once daily. Stop two days after your stent is removed. 30 capsule 04/16/2025 12:40 PM EDT15Active acetaminophen (TYLENOL) 500 mg tablet Take 2 tablets by mouth every 6 hours as needed for pain. 120 tablet 04/16/2025 12:40 PM EDT15Active oxybutynin (DITROPAN) 5 mg tablet Take 1 tablet by mouth three times a day. 90 tablet 04/16/2025 12:40 PM EDT15Active cefdinir (OMNICEF) 300 mg capsule Take 1 capsule by mouth two times a day for 7 days. 14 capsule 04/16/2025 12:40 PM EDT15Active midodrine (PROAMATINE) 2.5 mg tablet Take 2.5 mg by mouth three times daily.04/16/2025Discontinued magnesium hydroxide (MOM) 400 mg/5 mL suspension Take 30 mL by mouth once daily as needed for constipation (if no BM in 3 days). 04/16/2025Discontinued oxybutynin (DITROPAN) 5 mg tablet Take 1 tablet by mouth three times a day. 90 tablet Discontinued meclizine (ANTIVERT) 25 mg tab Take 25 mg by mouth every 8 hours as needed (dizziness). Discontinued menthol (BIOFREEZE, MENTHOL,) 4 % topical gel Apply 1 Application to affected area every 8 hours as needed (low back pain). Discontinued benzonatate (TESSALON PERLE) 100 mg capsule Take 100 mg by mouth every 8 hours as needed for cough.04/16/2025Discontinued guaiFENesin (MUCINEX) 600 mg 12 hr tablet Take 1 tablet by mouth two times a day as needed for cold/allergy symptoms. 30 tablet Discontinued acetaminophen (TYLENOL) 325 mg tablet Take 2 tablets by mouth every 6 hours as needed for pain for up to 40 doses. 40 tablet Discontinued Methenamine Hippurate (HIPREX) 1 gram tablet Take 1 tablet by mouth two times a day. 30 tablet Discontinued ciprofloxacin HCl (CIPRO) 500 mg tablet TAKE 1 TABLET BY MOUTH TWICE DAILY HOLD ZANAFLEX WHILE USING Discontinued oxybutynin ER (DITROPAN XL) 10 mg 24 hr tablet Take 1 tablet by mouth once daily. 90 tablet Discontinued Active Problems ProblemNoted DateDiagnosed DatePONV (postoperative nausea and vomiting) 04/21/2025 Assessment & Plan (04/21/2025 11:44 AM EDT): -Has occurred with one long surgery in the past (10-11 hours per pt), has not had issues after shorter procedures Difficult intravenous uldbrz4904/21/2025 Assessment & Plan (04/21/2025 11:44 AM EDT): -Has required US guidance Kidney jutyzz4104/16/2025Hydronephrosis with urinary obstruction due to ureteral /18/2025Left vgirqryzccaaecs37/18/2025omplicated UTI (urinary tract infection)04/15/2025Kidney stone08/22/2024ute respiratory failure with hypoxia 08/03/20242924Xnyzxml16/05/2025Pseudomonas sllraklrm07/03/2025Enterococcus faecalis wypucsbvd53/03/1039Xmerdyadcwxijeh26/03/2025Influenza A007/31/2024nxiety and ncqfcveoyc04/24/2025 Assessment & Plan (04/21/2025 11:41 AM EDT): -Managed on Wellbutrin, quetiapine, risperidone, buspirone, Zoloft, Atarax PRN, prazosin Assessment & Plan (07/22/2024 1:45 PM EST): Assessment: On quetiapine, risperidone, buspirone and sertraline for depression Hydroxyzine for anxiety COVID-19007/22/2024 Assessment & Plan (07/22/2024 11:49 AM EST): Assessment: Noted to have bilateral wheezing on ascultation at [facility] On molnupiravir Orthostatic byiuyxsnhsv73/24/2025 Assessment & Plan (07/22/2024 2:02 PM EST): Assessment: On midodrine GERD (gastroesophageal reflux disease)07/22/2024 Assessment & Plan (04/21/2025 9:26 AM EDT): -Managed on rx Assessment & Plan (07/22/2024 2:14 PM EST): Assessment: On famotidine Endorses occasion vomiting, especially with concurrent kidney pain Other specified iizbaoz2207/22/2024 Assessment & Plan (04/21/2025 9:26 AM EDT): -04/16/25 Hgb 9.8 Assessment & Plan (07/22/2024 2:20 PM EST): Assessment: TIBC show iron deficiency Latest Reference Range & Units 10/04/23 19:47 10/04/23 20:00 10/05/23 12:59 10/05/23 17:54 10/06/23 19:15 10/07/23 06:41 10/08/23 03:43 Hemoglobin 11.5 - 15.5 g/dL 11.1 (L) 10.7 (L) 8.6 (L) 11.0 (L) 10.3 (L) 8.1 (L) 8.8 (L) (L): Data is abnormally low Scheduled for endoscopy in the future to further workup Cauda equina aqejvoao05/23/2025 Assessment & Plan (04/21/2025 9:25 AM EDT): -C/b neurogenic bladder s/p suprapubic catheter (monthly exchanges) c/b recurrent UTI Assessment & Plan (07/22/2024 11:27 AM EST): Assessment: C/b neurogenic bladder s/p suprapubic catheter (monthly exchanges) c/b recurrent UTI Enterococcal zckaeuuzq37/11/2024roteus mirabilis zihtcfyje82/11/2024Obesity, Class III, BMI >= 4004 Assessment & Plan (04/21/2025 11:39 AM EDT): -Body mass index is 44.92 kg/m??. 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 now s/p placement of right nephrostomy tube Abnormal pwbmzevvzo61/02/6118Fcpadhfmctxgq95/23/2023 Assessment & Plan (07/22/2024 11:37 AM EST): Assessment: Noted in 2022 Yvgljk1711/18/2022Staghorn vderqjrd15/26/2022uprapubic /13/2022 Assessment & Plan (04/21/2025 11:52 AM EDT): -Managed on oxybutynin and prazosin -Suprapubic catheter complicated by recurrent UTIs Assessment & Plan (07/22/2024 12:05 PM EST): Assessment: Hx of neurogenic bladder 2/2 spina bifida On oxybutynin and prazosin Suprapubic catheter complication by recurrent UTIs Most recently admitted for ESBL urosepsis s/p meropenem Flank pain03/11/2022hronic bilateral low back pain without /13/2022 Assessment & Plan (07/22/2024 2:15 PM EST): Assessment: On hydrocodone-acetaminophen (also for kidney stones) and gabapentin Hprevjnjju49/13/2022eizure itmuotwh76/08/2009 Assessment & Plan (04/21/2025 11:43 AM EDT): -Suspected absence seizure approx 1 month ago, however no post-ictal episode described, pt was staring into space for ~20 seconds. Reports she has seizures when she is stressed -Follows OP with neurology, looking to switch to neurology with [facility] -Managed on keppra and lamictal Assessment & Plan (07/22/2024 11:28 AM EST): Assessment: Cerebral palsy s/p selective dorsal rhizotomy in 2008. On keppra and lamictal Wheelchair bound Cerebral palsy03/06/2009 Assessment & Plan (04/21/2025 11:51 AM EDT): -Cerebral palsy with neurogenic bladder s/p suprapubic catheter (monthly exchanges) c/b recurrent UTI -Patient is WC dependent and a Jerrell lift transfer -On tizanidine and flexeril Assessment & Plan (07/22/2024 1:46 PM EST): Assessment: Cerebral palsy with neurogenic bladder s/p suprapubic catheter (monthly exchanges) c/b recurrent UTI On tizanidine and flexeril Recurrent UTI03/06/2009 Assessment & Plan (07/22/2024 12:04 PM EST): Assessment: See renal calculi Resolved Problems ProblemNoted DateDiagnosed DateResolved QrwxBcwwvnkwp31hest pain on dqomhymxo16 Encounters DateTypeDepartmentCare LvqmQqgghdhipii96/24/2025 11:30 AM EDTPAT Pre Anesthesia [address] [place] [address] 5, [place] Cerebral palsy, unspecified type (HCC) (Primary Dx); Cauda equina syndrome (HCC); Obesity, Class III, BMI >= 40; Gastroesophageal reflux disease, unspecified whether esophagitis present; Seizure disorder (HCC); Anemia due to other cause, not classified; Suprapubic catheter (HCC); Anxiety and depression; PONV (postoperative nausea and vomiting); Difficult intravenous ftevpe1504/21/20254903Hofzui56/23/8360Fouyqe40/21/2025 Patient Msg Urology [address] [address] Provider, [facility] UROLOGY PRE OP~SURGERY DATES AND IGRQVFQOLMWS48/20/2025Patient Update Urology [address] [address] Yue Jarvis RN 04/17/2025Telephone Urology [address] [address] Yue Jarvis RN Network Control Operator - Other04/15/2025 2:28 PM EDTAnesthesia Event Admitting [address] [place] [address] Brendon Garces MD Brizzolara, Aristo, MD 04/15/2025 1:15 PM EDT - 04/15/2025 2:56 PM EDTSurgery Admitting [facility] [place] [address] Daryl Meneses MD CYSTOSCOPY, INSERTION STENT URETERAL J04/14/2025 11:44 AM EDT - 04/16/2025 4:01 PM EDTHospital Encounter [place] [address] [address] [place] [address] Juan F Bolaños MD Kidney stone [N20.0] Discharge Disposition: Home04/14/20255096Xgnbiv80/15/2025Transcribe Orders Referring Physician [address] [place] [phone] William Cruz, STEVEN Menorrhagia with regular cycle (Primary Dx); Papanicolaou smear for cervical cancer zcmodklsm87/13/2025 9:00 AM EDTOffice Visit Urology [address] [address] Axel Ruth MD Neurogenic bladder (Primary Dx); Calculus of kidney; Presence of indwelling urinary catheter; Recurrent urinary tract umpnzsseu93/13/2025Patient Outreach Urology [address] [place] [address] Axel Ruth MD 04/03/2025 2:30 PM EDT - 04/03/2025 11:59 PM EDTHospital Encounter [facility] Radiology Ultrasound [address] [place] [address] Kidney stones [N20.0] Discharge Disposition: Home04/03/2025 2:29 PM EDTHospital Encounter [facility] Radiology General [address] [place] [address] Kidney stones [N20.0] Discharge Disposition: Home04/03/20259212Pnwird00/03/2025 Patient Msg Urology [address] [place] [id number] Axel Ruth MD Appointment Sbhoqmb1902/14/2025Telephone Urology [address] [address] Yue Jarvis RN Fkmugt3601/30/2025Patient Outreach Urology [address] [address] Axel Ruth MD from Last 3 Months Family History Medical HistoryRelationCommentsAnesthesia ProblemsNo Family History Social History Tobacco UseTypesPacks/DayYears UsedDateSmoking Tobacco: NeverPassive [...] steady place to sleep or slept in schleswigelter (including now)?No10/06/2023Housing Stability Vital SignAnswerDate RecordedIn the last 12 months, was there a time when you were not able to pay the mortgage or rent on time?No08/10/2024In the past 12 months, how many times have you moved where you were living?t any time in the past 12 months, were you homeless or living in a senior care (including now)?No08/10/2024 Hunger Vital SignAnswerDate RecordedWithin the [...] were you homeless or living in a senior care (including now)?No04/16/2025HC UtilitiesAnswerDate Recorded In the past 12 months has the [employer], gas, oil, or water company threatened to shut off services in your home?No04/16/2025rea Deprivation IndexAnswerDate RecordedNational Score (1-100), lower number is lower keta939811/17/2024State Score (1-10), lower number is lower tcrx707Data from: https://www.neighborhoodatlas.medicine.[facility].edu/. Last address used for calculationspring11/17/2024CommentsNoSex and Gender Information ValueDate RecordedSex Assigned at MdriwFkedgz78/30/2025 6:31 PM ESTLegal Sex Qrpgha2405/30/2012 8:16 AM ESTGender IqvxrtymZngjbh02/30/2025 6:31 PM ESTSexual OrientationNot on file Last Filed Vital Signs Vital SignReadingTime TakenCommentsBlood Pldzmwwy931/5804/21/2025 9:21 AM EDT Mwuhx402304/21/2025 9:21 AM ULYTvwocqalzxi37.3 ??C (97.3 ??F)04/21/2025 9:21 AM EDTRespiratory Qicv1057 9:21 AM EDTOxygen Pqoaswptva87%04/21/2025 9:21 AM EDTInhaled Oxygen Concentration--Enfppr864.3 kg (230 lb)04/21/2025 9:21 AM EDTPer patient ovbtgwxkowWqafff481.4 cm (5')04/21/2025 9:21 AM EDTBody Mass Index44.9204/21/2025 9:21 AM EDT Plan of Treatment DateTypeDepartmentCare Team (Latest Contact Info)Repuqiynoqc79/30/2025 11:30 AM EDTOffice Visit Gynecology [address] [address] Shaye Pittman DO [address] [place] [address] Menorrhagia with regular cycle [N92.0] Patient interested in injections to help her zdtqmlg3205/01/2025 9:20 AM ESTHospital Encounter Admitting [address] [place] [address] [place] [address] [place] [address] Nephrolithiasis [N20.0]05/01/2025 9:20 AM EST - 05/01/2025 12:00 PM ESTSurgery Admitting [facility] [place] [address] Axel Ruth MD [address] [place] [address] CYSTOURETHROSCOPY W/ URETEROSCOPY AND/OR PYELOSCOPY W/ LITHOTRIPSY INCLUDE INSERTION OF INDWELLING URETERAL STENT05/04/2025 10:30 AM ESTOffice Visit Urology [address] [address] [place] [address] [place] [address] Surgical consult will bring beeqxgb0907/11/2025 9:00 AM ESTAppointment Radiology [address] [address] [address] FLANK WO IVCON07/11/2025 9:30 AM ESTOffice Visit Urology [address] [address] Farzana Davis APRN.BODY LINE FINISHER [address] [place] [address] 3 month f/u with CT prior per cc chartNamePriorityAssociated DiagnosesDate/Time CYSTOURETHROSCOPY W/ URETEROSCOPY AND/OR PYELOSCOPY W/ LITHOTRIPSY INCLUDE INSERTION OF INDWELLING URETERAL STENT Nephrolithiasis 05/01/2025 9:20 AM ESTHealth MaintenanceDue DateLast DoneCommentsHIV Screening 10/02/2003Hepatitis C Lzwlmxesl42/05/2004DTaP,Tdap,Td Vaccine (1 - Tdap) 2004Hepatitis B Vaccine (1 of 3 - 19+ 3-dose series)2004Cervical Cancer Vikahffpx30/05/2007HPV Vaccine (1 - 3-dose SCDM series)2012Covid-19 Vaccine ( season)502/01/2023, 02/15/2022, 10/09/2020, Additional history existsInfluenza Vaccine (#1)503/, 07/14/2013, 05/22/2009, Additional history exists Goals GoalPatient Goal TypeAssociated ProblemsRecent ProgressPatient-Stated?Author Autogenerated Goal Care PlanAutogenerated ProblemNoCander, Torri T [employer] ImplantedTypeAreaManufacturerDevice IdentifierShelf Expiration DateModel / Serial / LotStent Bard Inlay 6fr 2 Pigtail Curve Blue Hydrophilic 26cm Ureteral - [id number] Implanted:Qty[facility]: Ureter [employer] FGWUEFNY32/25/[id number] / / [id number] Inlay [place] 7fr Taper [place] Green Polymer Phreecoat 26cm Ureteral - [id number] Implanted:Qty: 1 [facility] Ure[facility] [employer] JOWNDYCY13/24/[id number] / / [id number] Inlay [place] 7fr 22cm Implanted:Qty: 1 on 10/05/2023 at [facility] StentsRight: Ureter [employer] FTABRVYC89/26/[id number] / / [id number] Universa 6fr 24cm Soft Ureteral [id number] Implanted:Qty: 1 on 08/09/2024 at [facility] StentsRight: Ureter COOK [facility] QCSBQHL3902/22/2027G23374 / / [id number] Ureteral 6fr X 26cm Accepts Guidewire 0.038in Soft Polyurethane Aq Hy Implanted:Qty: 1 on 08/23/2024 at [facility] StentsLeft: Ureter [employer] [facility] EEZFQAY7506/07/2027G23376 / / [id number] Inlay [place] 6fr Taper [place] Green Polymer Phreecoat 26cm Ureteral - [id number] Implanted:Qty: 1 on 04/15/2025 at [facility] StentsLeft: Ureter AILYN TFHUSRXUH31/27/[id number] / / [id number] Procedures Procedure NamePriorityDate/TimeAssociated DiagnosisCommentsEXTRA DRAW URINE Idcxfqy8004/16/2025 5:38 AM EDTLAB EXTRA UJPKNBlyodsw85/19/2025 5:38 AM EDT URINE WXJUCXDNtjhmqn72/19/2025 5:09 AM EDT URINALYSIS (WITH MICROSCOPIC) WITH CULTURE IF ZFBQIGCNAKydjvjm44/19/2025 5:09 AM EDT BASIC METABOLIC RFJZYVnzxwkt25/19/2025 12:39 AM EDT COMPLETE BLOOD UEQTVKrrwrlg93/19/2025 12:39 AM EDT GZOZDGKCAVSmnhscm79/18/2025 2:35 PM EDT CYSTO W/INSERT URETERAL STENT04/15/2025 2:13 PM EDT Left nephrolithiasis HCG QUAL KHIRFM33 1:12 PM EDT BASIC METABOLIC ZHTOHUlineps43/18/2025 6:41 AM EDT COMPLETE BLOOD FGSQLRvexkmv43/18/2025 6:41 AM EDT URINE WQCKZFLXJUM16/17/2025 7:35 PM EDT URINALYSIS (WITH MICROSCOPIC) WITH CULTURE IF FVBIDZJRUFGPA56/17/2025 7:35 PM EDT US BLADDER (POC) ED USE BUHDTODD20/17/2025 3:07 PM EDT XR CHEST 1V FRONTAL AAZXJBWS72/17/2025 2:02 PM EDT CYSTATIN CAdd-on04/14/2025 12:47 PM EDT PROTHROMBIN IKOVOAGH24/17/2025 12:47 PM EDT CBC + JRJAJOKV49/17/2025 12:47 PM EDT BASIC METABOLIC KVGZMFOAN73/17/2025 12:47 PM EDT EXTERNAL BZUHBVL6004/14/2025 9:[address] OUTSIDE CD DICOM KIWTLV6204/13/2025 US KIDNEY/IQIRYSLVvejkcd96/06/2025 3:39 PM EDT Kidney stones XR ABDOMEN 1V GXFBGCTzagngg33/06/2025 3:04 PM EDT Kidney stones from Last 3 Months Results * EXTRA DRAW URINE (04/16/2025 5:38 AM EDT)Specimen (Source)Anatomical Location / LateralityCollection Method / VolumeCollection TimeReceived TimeUrineURINE SPECIMEN / Jtxakwf0004/16/2025 5:38 AM EDT1 5:38 AM EDT Narrative Authorizing ProviderResult TypeResult StatusJuan F Bolaños MDLABORATORYFinal ResultPerforming OrganizationAddressCity/State/ZIP CodePhone Number [facility] [address] [place] [phone], * URINE CULTURE IF INDICATED (04/16/2025 5:09 AM EDT) Only the most recent of2 resultswithin the time period is included. ComponentValueRef RangeTest MethodAnalysis TimePerformed AtPathologist Signature Culture, Urine<10,000 CFU/ml Normal urogenital flora04/17/2025 7:00 AM EDT [facility] LABSpecimen (Source)Anatomical Location / Laterality Collection Method / VolumeCollection TimeReceived TimeUrineURINE SPECIMEN OBTAINED VIA SUPRAPUBIC INDWELLING URINARY CATHETER / UnknownNon Blood / Unknown 04/16/2025 5:09 AM EDT1 5:36 AM EDT Narrative Authorizing ProviderResult TypeResult StatusJuan F Bolaños [facility]ITALICROBIOLOGYFinal ResultPerforming OrganizationAddressCity/State/ZIP CodePhone Number [facility] [address] [place] [phone], * (ABNORMAL) URINALYSIS (WITH MICROSCOPIC) WITH CULTURE IF INDICATED (04/16/2025 5:09 AM EDT) Only the most recent of2 resultswithin the time period is included. ComponentValueRef RangeTest MethodAnalysis TimePerformed AtPathologist Signature KbpxeLzvmqcCrmthy68/19/2025 6:25 AM EDTCLEVEL[facility] MAIN LABClarityCloudy(A) Clear04/16/2025 6:25 AM EDTCLEVELAND CLINIC MAIN LABGlucose, UrineNegative Jmrixrqt24/19/2025 6:25 AM EDTCLEVELAND CLINIC MAIN LABBilirubin, UrineNegative Mdckzpwq30/19/2025 6:25 AM EDTCLEVELAND CLINIC MAIN LABKetones, UrineNegative Vauzmmwr68/19/2025 6:25 AM EDTCLEVELAND CLINIC MAIN LABSpecific [place], Ur1.019 1.005 - 1.5448404/16/2025 6:25 AM EDTCLEVELAND CLINIC MAIN LABHemoglobin/Blood,Ur 2+(A)Fvtyqrfq25/19/2025 6:25 AM [facility] LABpH, Urine7.05.0 - 8.010/ 6:25 AM [facility] LABProtein, Urine1+(A)Negative 04/16/2025 6:25 AM [facility] LABUrobilinogen1.0 EU/dL0.2-1.0 EU/dL04/16/2025 6:25 AM [facility] LABNitritesNegativeNegative 04/16/2025 6:25 AM [facility] LABLeuk Esterase3+(A)Negative 04/16/2025 6:25 AM [facility] LABWBC, Urine>20 /HPF(A)0-5 /HPF 04/16/2025 6:25 AM [facility] LABRBC, Urine>20 /HPF(A)0-2 /HPF 04/16/2025 6:25 AM [facility] LABBacteria uL1,140.6(H)Negative uL 04/16/2025 6:25 AM [facility] LABSquamous Epithelial CellsModerate /HPF04/16/2025 6:25 AM [facility] LABCasts, Hyaline4-10 /LPF(A)0 /LP04/16/2025 6:25 AM [facility] LABSpecimen (Source)Anatomical Location / LateralityCollection Method / VolumeCollection TimeReceived TimeUrine URINE SPECIMEN OBTAINED VIA SUPRAPUBIC INDWELLING URINARY CATHETER / UnknownNon Blood / Nwgckxs3204/16/2025 5:09 AM EDT1 5:36 AM EDT Narrative [facility] - 04/16/2025 6:25 AM EDT Urine received in non-preservative tube. Interpret results with caution. To ensure optimal and accurate results, transfer urine to the BD Vacutainer Plus urine preservative tube. This test was developed and its performance characteristics determined by [facility] Medicine [place] ([facility]). It has not been cleared or approved by the FDA. [facility] is regulated under CLIA as qualified to perform high-complexity testing. Thistest is used for clinical purposes. It should not be regarded as investigational or for research. Authorizing ProviderResult TypeResult StatusJuan F Bolaños MDLABORATORYFinal ResultPerforming OrganizationAddressCity/State/ZIP CodePhone Number MAIN [facility] [address] [place], [place] [address] * (ABNORMAL) COMPLETE BLOOD COUNT (04/16/2025 12:39 AM EDT) Only the most recent of2 resultswithin the time period is included. ComponentValueRef RangeTest MethodAnalysis TimePerformed AtPathologist Signature WBC8.913.70 - 11.00 k/uL04/16/2025 1:28 [facility] MA[facility] LABRBC3.87 (L)3.90 - 5.20 m/uL04/16/2025 1:28 AM [facility] MAIN LABHemoglobin9.8 (L)11.5 - 15.5 g/dL04/16/2025 1:28 AM [facility] MAIN TDEFyyqflguon21.8 (L)36.0 - 46.0 %04/16/2025 1:28 AM [facility] MAIN YXXIYW35.280.0 - 100.0 fL04/16/2025 1:28 AM [facility] MAIN KQNBSH84.3(L)26.0 - 34.0 pg 04/16/2025 1:28 AM [facility] MAIN ZWQCEUS58.830.5 - 36.0 g/dL 04/16/2025 1:28 AM [facility] MAIN LABRDW-CV15.9(H)11.5 - 15.0 % 04/16/2025 1:28 AM [facility] MAIN LABPlatelet Nxzlf153448 - 400 k/uL 04/16/2025 1:28 AM [facility] MAIN LSLPQZ44.99.0 - 12.7 fL04/16/2025 1:28 AM [facility] MAIN LABAbsolute nRBC<0.01<0.01 k/uL04/16/2025 1:28 AM [facility] MAIN LABSpecimen (Source)Anatomical Location / Laterality Collection Method / VolumeCollection TimeReceived TimeBloodBLOOD SPECIMEN / UnknownVenipuncture / Uiuqvpr0304/16/2025 12:39 AM EDT1 1:06 AM EDT Narrative Authorizing ProviderResult TypeResult StatusJuan F Bolaños MDLABORATORYFinal ResultPerforming OrganizationAddressCity/State/ZIP CodePhone Number MAIN LAB [address] [place] [address], * (ABNORMAL) BASIC METABOLIC PANEL (04/16/2025 12:39 AM EDT) Only the most recent of3 resultswithin the time period is included. ComponentValueRef RangeTest MethodAnalysis TimePerformed AtPathologist Signature Zsllovb902(H)74 - 99 mg/dL04/16/2025 1:55 AM [facility] MAIN LAB Comment: The [place] Diabetes Association (ADA) provides guidance for cutoff [...] Standards of Medical Care in Diabetes 2016, [place] [employer]. Diabetes Care. 2016.39(Suppl 1). ZSF334 - 21 mg/dL04/16/2025 1:55 AM [facility] MAIN LABCreatinine0.65 0.58 - 0.96 mg/dL04/16/2025 1:55 AM [facility] MAIN ATQEufgdj092342 - 144 mmol/L1 1:55 AM [facility] MAIN LABPotassium3.73.7 - 5.1 mmol/L1 1:55 AM [facility] MAIN RAGOowcszqc88813 - 107 mmol/L 04/16/2025 1:55 AM [facility] MAIN VGZSI19525 - 30 mmol/L1 1:55 AM [facility] MAIN LABAnion Wla336 - 15 mmol/L1 1:55 AM [facility] MAIN LABCalcium, Total9.48.5 - 10.2 mg/dL04/16/2025 1:55 AM [facility] MAIN LABEstimated Glomerular Filtration Uudl792>=60 mL/min/1.73m 04/16/2025 1:55 AM [facility] MAIN LABComment:Estimated Glomerular Filtration Rate (eGFR) is [...] VolumeCollection TimeReceived TimeBloodBLOOD SPECIMEN / UnknownVenipuncture / Kaqzfvf7504/16/2025 12:39 AM EDT1 1:06 AM EDT Narrative Authorizing ProviderResult TypeResult StatusJuan F Bolaños MDLABORATORYFinal ResultPerforming OrganizationAddressCity/State/ZIP CodePhone Number MAIN LAB [facility] [address] * Airway (04/15/2025 2:35 PM EDT) Narrative [...] no Airway not difficult Authorizing ProviderResult TypeResult Statusroyal Garces MDANESTHESIA ORDERABLESFinal Result * HCG, QUALITATIVE, URINE (04/15/2025 1:12 PM EDT)ComponentValueRef RangeTest MethodAnalysis TimePerformed AtPathologist SignatureHCG Qualitative, QfwuePkajgwsjAyhrpqyg02/18/2025 1:39 PM EDTCSELECT [facility] MAIN LABComment: This test is intended to aid in the early detection of . Very dilute urine samples, as indicated by a low specific gravity, may not contain mechanical service representative levels of hCG. This test detects [...] TimeReceived TimeUrineURINE SPECIMEN / UnknownNon Blood / Njlniis6304/15/2025 1:12 PM EDT1 1:16 PM EDT Narrative Authorizing ProviderResult TypeResult StatusJuan F Bolaños MDLABORATORYFinal ResultPerforming OrganizationAddressCity/State/ZIP CodePhone Number [facility] LAB [facility] [place] [address], * US BLADDER (POC) ED USE ONLY (04/14/2025 3:07 PM EDT)Anatomical Region LateralityModalityOtherSpecimen (Source)Anatomical Location / Laterality Collection Method / VolumeCollection TimeReceived Time04/14/2025 3:07 PM EDT Narrative 04/15/2025 9:10 AM EDT Juan F Bolaños MD 04/15/2025 9:12 AM Limited Ultrasound Bladder Examination US BLADDER (POC) ED USE ONLY Date/Time: 04/15/2025 9:10 AM Performed by: Juan F Bolaños MD Authorized by: Juan F Bolaños MD ?? Indication: Patient has Urinary retention [...] performed by: Resident/KATHI with Attending supervision. Dr. bolaños supervised and interpreted this ultrasound exam. I was present for the entire procedure. Juan F Bolaños MD Authorizing ProviderResult TypeResult StatusJohn Kevin Bolaños MDIMAGESEdited Result - Final * XR CHEST 1V FRONTAL PORT (04/14/2025 2:02 PM EDT)Anatomical RegionLaterality ModalityChestRadiographic ImagingSpecimen (Source)Anatomical Location / LateralityCollection Method / VolumeCollection TimeReceived Time04/14/2025 2:02 PM EDT Impressions 04/14/2025 2:09 PM EDT IMPRESSION: Shallow lung volumes. ??No focal infiltrate or consolidation. Movie Theater Manager: RICO ?? Transcribe Date/Time: Apr 14 2025 ??2:03P [...] CT abdomen/pelvis.. Other: ??. Procedure Note Provider, [facility] [place] - 04/14/2025 * * *Final Report* * [...] lung volumes. No focal infiltrate or consolidation. Movie Theater Manager: RICO Transcribe Date/Time: Apr 14 2025 2:03P Dictated by : REID DANIELLE MD This examination was interpreted and the report reviewed and electronically signed by: REID DANIELLE MD on Apr 14 2025 2:07PM EST Authorizing ProviderResult TypeResult StatusJohn R Bolaños MDRAD-PAMAFinal Result * (ABNORMAL) CYSTATIN C (04/14/2025 12:47 PM EDT)ComponentValueRef RangeTest MethodAnalysis TimePerformed AtPathologist SignatureCystatin C1.89(H)0.61 - 0.95 mg/L1 10:[facility] LABCystatin C eGFR34(L) >=60 mL/min/1.73m 04/14/2025 10:22 PM EDTCSELECT [facility] MAIN LABComment:Estimated Glomerular Filtration Rate (eGFR) is calculated using the 2012 CKD-EPI cystatin C equation. This equation utilizes serum cystatin C, sex, and age as parameters. The cystatin C assay has traceable calibration to the ERM-DA471/[facility] reference material. Refer to KDIGO guidelines for clinical interpretation. In patients with unstable renal function, e.g. those with acute kidney injury, the eGFR may not accurately reflect actual GFR.Specimen (Source)Anatomical Location / LateralityCollection Method / VolumeCollection TimeReceived TimeBloodBLOOD SPECIMEN / UnknownVenipuncture / Bccibkr1404/14/2025 12:47 PM EDT1 12:57 PM EDT Narrative Authorizing ProviderResult TypeResult StatusJuan F Bolaños MDLABORATORYFinal ResultPerforming OrganizationAddressCity/State/ZIP CodePhone Number [facility] LAB [address] * PROTHROMBIN TIME (04/14/2025 12:47 PM EDT)ComponentValueRef RangeTest Method Analysis TimePerformed AtPathologist SignaturePT Sec11.59.7 - 13.0 sec 04/14/2025 1:09 PM EDTCSELECT [facility] MAIN LABINR1.10.9 - 1.310 1:09 PM EDUN[facility] MAIN LABComment: Vitamin K Antagonist (VKA) Therapeutic Range: INR 2 to 3 (Target INR of 2.5) Note: For patients treated with VKA drugs, such as warfarin, the [place] [employer] 2012 Guideline recommends [...] GH, et al. Chest 2012, 141:7S-47S Savanah MEJIA, et al. [facility] 2017, 70: 252-289 Specimen (Source)Anatomical Location / LateralityCollection Method / Volume Collection TimeReceived TimeBloodBLOOD SPECIMEN / UnknownVenipuncture / Unknown 04/14/2025 12:47 PM EDT1 12:57 PM EDT Narrative Authorizing ProviderResult TypeResult StatusNew Snider MDLABORATORYFinal Result Performing OrganizationAddressCity/State/ZIP CodePhone Number [facility] LAB [address] [place], [place] [address] * (ABNORMAL) COMPLETE BLOOD COUNT AND DIFFERENTIAL (04/14/2025 12:47 PM EDT) ComponentValueRef RangeTest MethodAnalysis TimePerformed AtPathologist JmxjqsevwOTK47.47(H)3.70 - 11.00 k/uL04/14/2025 1:02 PM [facility]UN[facility] MAIN LABRBC4.193.90 - 5.20 m/uL04/14/2025 1:02 PM [facility] MAIN LAB Vocrdzwksh79.3(L)11.5 - 15.5 g/dL04/14/2025 1:02 PM [facility] MAIN MDRYquaaruxrn35.1(L)36.0 - 46.0 %04/14/2025 1:02 PM [facility] MAIN XVOFOR43.480.0 - 100.0 fL04/14/2025 1:02 PM [facility] MAIN LABMCH 24.6(L)26.0 - 34.0 pg04/14/2025 1:02 PM [facility] MAIN LVFGEXT04.2 (L)30.5 - 36.0 g/dL04/14/2025 1:02 PM [facility] MAIN LABRDW-CV15.9 (H)11.5 - 15.0 %04/14/2025 1:02 PM [facility] MAIN LABPlatelet Count [id number] - 400 k/uL04/14/2025 1:02 PM [facility] MAIN LABMPV9.69.0 - 12.7 fL04/14/2025 1:02 PM [facility] MAIN LABNeutrophils %83.0% 04/14/2025 1:02 PM [facility] MAIN LABAbs Neut9.52(H)1.45 - 7.50 k/uL 04/14/2025 1:02 PM EDTCSELECT [facility] MAIN LABLymphocytes %8.6%04/14/2025 1:02 PM EDTCSELECT [facility] MAIN LABAbs Lymph0.99(L)1.00 - 4.00 k/uL04/14/2025 1:02 PM EDTCSELECT [facility] MAIN LABMonocytes %6.2%04/14/2025 1:02 PM EDT MAIN LABAbs Mono0.71<0.87 k/uL04/14/2025 1:02 PM EDTCSELECT [facility] MAIN LABEosinophils %1.6%04/14/2025 1:02 PM EDTCSELECT [facility] MAIN LABAbs Eosin0.18<0.46 k/uL04/14/2025 1:02 PM EDTCSELECT [facility] LAB Basophils %0.3%04/14/2025 1:02 PM EDTCSELECT [facility] MAIN LABAbs Baso0.03 <0.11 k/uL04/14/2025 1:02 PM EDTCSELECT [facility] MAIN LABImmature Granulocytes %0.3%04/14/2025 1:02 PM EDTCSELECT [facility] MAIN LABAbs Immature Gran0.04 <0.10 k/uL04/14/2025 1:02 PM EDTCSELECT [facility] MAIN LABNRBC0.0/100 WBC 04/14/2025 1:02 PM [facility] MAIN LABAbsolute nRBC<0.01<0.01 k/uL 04/14/2025 1:02 PM EDTCSELECT [facility] MAIN LABDiff JeifSbsq83/17/2025 1:02 PM EDTCSELECT [facility] MAIN LABSpecimen (Source)Anatomical Location / Laterality Collection Method / VolumeCollection TimeReceived TimeBloodBLOOD SPECIMEN / UnknownVenipuncture / Bbjpyiq6904/14/2025 12:47 PM EDT1 12:57 PM EDT Narrative Authorizing ProviderResult TypeResult StatusNew Snider MDLABORATORYFinal Result Performing OrganizationAddressCity/State/ZIP CodePhone Number MAIN LAB [address] [place] [id number], [place] * EXTERNAL IMAGING (04/14/2025 9:02 AM EDT)Anatomical RegionLateralityModality Other Narrative Authorizing ProviderResult TypeResult StatusExternal Provider PA-CRADIOLOGYFinal Result * CT-CT ABDOMEN PELVIS WO CON IMPORT (04/13/2025)Anatomical RegionLaterality ModalityOtherSpecimen (Source)Anatomical Location / LateralityCollection Method / VolumeCollection TimeReceived Time04/13/2025 Narrative 04/14/2025 11:11 AM EDT Images were obtained outside of [facility] Procedure Note Provider, [facility] [place] - 04/14/2025 Images were obtained outside of [facility] Authorizing ProviderResult TypeResult StatusCcf ProviderRADIOLOGYFinal Result * US KIDNEY/BLADDER (04/03/2025 3:39 PM EDT)Anatomical RegionLateralityModality AbdomenUltrasoundSpecimen (Source)Anatomical Location / LateralityCollection Method / VolumeCollection TimeReceived Time04/03/2025 3:39 PM EDT Impressions 04/04/2025 3:11 PM EDT IMPRESSION: NO HYDRONEPHROSIS. BILATERAL NEPHROLITHIASIS DESCRIBED. Movie Theater Manager: RICO ?? Transcribe Date/Time: Mar ??2024 ??3:04P Dictated by : CLAUDIO PURDY MD This examination was interpreted and the report reviewed and electronically signed by: CLAUDIO PURDY MD on Mar ??2024 ??3:09PM ??EST Narrative 04/04/2025 3:11 PM EDT * * *Final Report* * * DATE OF EXAM: Mar ??2024 ??3:39PM ?? VHU ?? 1055 ??- ??US KIDNEY/BLADDER ??/ PROCEDURE REASON: Kidney stones ? * * * * Physician Interpretation * * * * EXAMINATION: ?? RENAL ULTRASOUND CLINICAL HISTORY: Kidney stones TECHNIQUE: ??Sonography of the kidneys and urinary bladder was performed. ?? Images were obtained and stored in a permanent archive. MQ: ??UR_1 COMPARISON: 11/15/2024 RESULT: Right Kidney: ? -Renal length: 12.0 cm ? -Parenchyma: Normal parenchymal echogenicity. ??Normal parenchymal thickness. ? -Collecting system: No hydronephrosis. ? -Calculus: There are several less than 1.1 cm nonobstructing right renal stones, worse since 11/15/2024. ? -Lesion: ??None. Left Kidney: ? -Renal length: 12.3 cm ? -Parenchyma: Normal parenchymal echogenicity. ??Normal parenchymal thickness. ? -Collecting system: No hydronephrosis. ? -Calculus: There is 1 cm nonobstructing left upper renal stone, improved since 11/15/2024. ? -Lesion: ??None. Bladder: The urinary bladder is decompressed by Naidu catheter. Procedure Note Provider, [facility] - 04/04/2025 * * *Final Report* * * DATE OF EXAM: Apr 03 2025 3:39PM [facility] 1055 - US KIDNEY/BLADDER / PROCEDURE REASON: Kidney stones * * * * Physician Interpretation * * * * EXAMINATION: RENAL ULTRASOUND CLINICAL HISTORY: Kidney stones TECHNIQUE: Sonography of the kidneys and urinary bladder was performed. Images were obtained and stored in a permanent archive. MQ: UR_1 COMPARISON: 11/15/2024 RESULT: Right Kidney: -Renal length: 12.0 cm -Parenchyma: Normal parenchymal echogenicity. Normal parenchymal thickness. -Collecting system: No hydronephrosis. -Calculus: There are several less than 1.1 cm nonobstructing right renal stones, worse since 11/15/2024. -Lesion: None. Left Kidney: -Renal length: 12.3 cm -Parenchyma: Normal parenchymal echogenicity. Normal parenchymal thickness. -Collecting system: No hydronephrosis. -Calculus: There is 1 cm nonobstructing left upper renal stone, improved since 11/15/2024. -Lesion: None. Bladder: The urinary bladder is decompressed by Naidu catheter. IMPRESSION IMPRESSION: NO HYDRONEPHROSIS. BILATERAL NEPHROLITHIASIS DESCRIBED. Movie Theater Manager: RICO Transcribe Date/Time: Apr 04 2025 3:04P Dictated by : CLAUDIO PURDY MD This examination was interpreted and the report reviewed and electronically signed by: CLAUDIO PURDY MD on Apr 04 2025 3:09PM EST Authorizing ProviderResult TypeResult StatusJorkayla Faraz US-PAMA Final Result * XR ABDOMEN 1V SUPINE (04/03/2025 3:04 PM EDT)Anatomical RegionLaterality ModalityAbdomenOtherSpecimen (Source)Anatomical Location / Laterality Collection Method / VolumeCollection TimeReceived Time04/03/2025 3:04 PM EDT Impressions 04/04/2025 5:29 PM EDT IMPRESSION: Right-sided nephrolithiasis; unchanged.. Movie Theater Manager: PSCB ?? Transcribe Date/Time: Mar ??2024 ??5:24P Dictated by : GARO CASTANEDA MD This examination was interpreted and the report reviewed and electronically signed by: GARO CASTANEDA MD on Mar ?2024 ??5:26PM ??EST Narrative 04/04/2025 5:29 PM EDT * * *Final Report* * * DATE OF EXAM: Mar ??2024 ??3:04PM ?? VHX ?? 5289 ??- ??XR ABDOMEN 1V SUPINE ??/ PROCEDURE REASON: Kidney stones ? * * * * Physician Interpretation * * * * CLINICAL: TECHNIQUE: Single KUB of the abdomen. COMPARISON: 11/15/2024 FINDINGS: ??A nonspecific nonobstructive bowel gas pattern is present. ?? Again noted is right-sided nephrolithiasis similar to the prior. ??The osseous structures are grossly normal. Procedure Note Provider, [facility] [place] - 04/04/2025 * * *Final Report* * * DATE OF EXAM: Apr 03 2025 3:04PM VHX 5289 - XR ABDOMEN 1V SUPINE / PROCEDURE REASON: Kidney stones * * * * Physician Interpretation * * * * CLINICAL: TECHNIQUE: Single KUB of the abdomen. COMPARISON: 11/15/2024 FINDINGS: A nonspecific nonobstructive bowel gas pattern is present. Again noted is right-sided nephrolithiasis similar to the prior. The osseous structures are grossly normal. IMPRESSION IMPRESSION: Right-sided nephrolithiasis; unchanged.. Movie Theater Manager: PSCAleshia Transcribe Date/Time: Apr 04 2025 5:24P Dictated by : GARO CASTANEDA MD This examination was interpreted and the report reviewed and electronically signed by: GARO CASTANEDA MD on Apr 04 2025 5:26PM EST Authorizing ProviderResult TypeResult StatusJorge Michael-Prince MDRAD-PAMA Final Result from Last 3 Months Additional Health Concerns Active ProblemsNoted DateDiagnosed DateAutogenerated Tyafxyb5004/17/2025 Insurance Advance Directives TypeDate RecordedPatient RepresentativeExplanationAdvance Directive(s)08/01/2024 3:44 PM * Full Code (Latest Code Status on File) Date ActivatedDate InactivatedComments07/31/2024 5:24 PM2 1:06 AMQuestion AnswerCommentsFull Code Order Discussed With:* Patient and Surrogate Decision Maker Care Teams Team MemberRelationshipSpecialtyStart DateEnd Date William Cruz, STEVEN [address] [place] [address] PCP - GeneralFamily Egsqjvrb58/21/25 Isaias Saleh MD [address] [place] [id number] ReferringUrology02/26/22 William Cruz, BODY LINE FINISHER [address] [place] [address] ReferringFamily Bqqymcqj86/15/25
--- OUTSIDE RECORDS SUMMARY | 2025-04-22 16:27 | XMS_ITS | Encounter Summary ---
Author Organization [facility] Address [address] [place] [address] Care Team Providers Care Tire Care Manager Name Role Phone Isaias Saleh MD Unavailable [phone] William Cruz CNP Unavailable [phone] Source Comments In the event this information is protected by the Federal Confidentiality of Alcohol and Drug AbusePatient Records regulations: The Federal rules restrict any use of the information to criminally investigate or prosecute any alcohol or drug abuse patient.[facility] Reason for Referral * Consult, Test, Treat (Routine) - Pending ReviewSpecialtyDiagnoses / Procedures Referred By ContactReferred To Contact Diagnoses Menorrhagia with regular cycle Papanicolaou smear for cervical cancer screening Procedures OFFICE/OUTPATIENT [facility] 60 MINUTES William Cruz, INSURANCE ACCOUNT EXECUTIVE [address] [place] [address] Phone: tel: fax: Referral IDStatusReasonStart DateExpiration DateVisits RequestedVisits [id number] Review PCP Requested Referral Auto-Generated Referral Scheduling Instructions Please call [phone] to schedule your appointment. Please note a caregiver will also be contacting you to schedule your appointment Encounter Details DateTypeDepartmentCare Team (Latest Contact Info)Sfjtxxsvwin60/15/2025Transcribe Orders Referring Physician [address] [place] [address] William Cruz CNP [address] [address] Menorrhagia with regular cycle (Primary Dx); Papanicolaou smear for cervical cancer screening Social History Tobacco UseTypesPacks/DayYears UsedDateSmoking Tobacco: NeverSmokeless Tobacco: NeverAlcohol UseStandard Drinks/WeekCommentsNot Asked0 (1 standard drink = 0.6 oz pure alcohol)[facility] UtilitiesAnswerDate RecordedIn the past 12 months has [...] were you homeless or living in a residential (including now)?No08/10/2024rea Deprivation IndexAnswerDate RecordedNational Score (1-100), lower number is lower zaob411111/17/2024State Score (1-10), lower number is lower myye300Data from: https://www.neighborhoodatlas.[facility].edu/. Last address used for calculation3 spring11/17/2024CommentsNoSex and Gender Information ValueDate RecordedSex Assigned at JukyySqzhwb43/30/2025 6:31 PM ESTLegal Sex Ohfbxb0905/30/2012 8:16 AM ESTGender QbwerxrhPiwrej91/30/2025 6:31 PM ESTSexual OrientationNot on filedocumented as of this encounter Functional Status * Are you deaf or do you have serious difficulty hearing?AnswerDate of EhefolddwvDxadosUp07/12/2025 2:00 PM Ashli Mcgrath RN * Are you blind or do you have serious difficulty seeing, even when wearing glasses?AnswerDate of BsvzwtlmhuZcxoojZt85/12/2025 2:00 PM Ashli Mcgrath RN * Do you have serious difficulty walking or climbing stairs?AnswerDate of VttddqgvsyGaqqtpMdx91/12/2025 2:00 PM Ashli Mcgrath RN * Do you have difficulty dressing or bathing?AnswerDate of AssessmentAuthorYes 08/10/2024 2:00 PM Ashli Mcgrath RN * Because of a physical, mental, or emotional condition, do you have difficulty doing errands alone such as visiting a doctor's office or shopping?AnswerDate of BlneeeygdyUxenkmVku82/12/2025 2:00 PM Ashli Mcgrath RN documented as of this encounter Mental Status * Because of a physical, mental, or emotional condition, do you have serious difficulty concentrating, remembering, or making decisions?AnswerEntry Date HsdwllYed81/12/2025 2:00 PM Ashli Mcgrath RN documented in this encounter Plan of Treatment DateTypeDepartmentCare Team (Latest Contact Info)Ixxlvnarvkk34/30/2025 11:30 AM EDTOffice Visit Gynecology [address] [address] Shaye Pittman DO [address] [place] [address] Menorrhagia with regular cycle [N92.0] Patient interested in injections to help her bosghie7805/01/2025 9:20 AM ESTHospital Encounter Admitting [address] [place] [address] Axel Ruth MD [address] [place] [address] Nephrolithiasis [N20.0]05/01/2025 9:20 AM EST - 05/01/2025 12:00 PM ESTSurgery Admitting [address] [place] [address] Axel Ruth MD [address] [place] [address] CYSTOURETHROSCOPY W/ URETEROSCOPY AND/OR PYELOSCOPY W/ LITHOTRIPSY INCLUDE INSERTION OF INDWELLING URETERAL STENT05/04/2025 10:30 AM ESTOffice Visit Urology [address] [address] Axel Ruth MD [address] [place] [address] Surgical consult will bring tccxqme4307/11/2025 9:00 AM ESTAppointment Radiology [address] [address] [address] FLANK WO IVCON07/11/2025 9:30 AM ESTOffice Visit Urology [address] [address] Farzana Davis APRN.INSURANCE ACCOUNT EXECUTIVE [address] [place] [address] 3 month f/u with CT prior per cc chartNamePriorityAssociated DiagnosesDate/Time CYSTOURETHROSCOPY W/ URETEROSCOPY AND/OR PYELOSCOPY W/ LITHOTRIPSY INCLUDE INSERTION OF INDWELLING URETERAL STENT Nephrolithiasis 05/01/2025 9:20 AM ESTNameTypePriorityAssociated DiagnosesOrder ScheduleCONSULT TO WOMEN'S HEALTHReferralRoutine Menorrhagia with regular cycle Papanicolaou smear for cervical cancer screening 1 Occurrences starting 04/12/2025 until 04/12/2026documented as of this encounter Visit Diagnoses Diagnosis Menorrhagia with regular cycle- Primary Excessive or frequent menstruation Papanicolaou smear for cervical cancer screening Screening for malignant neoplasm of the cervix Nephrolithiasis Calculus of kidney documented in this encounter Care Teams Team MemberRelationshipSpecialtyStart DateEnd Date Isaias Saleh MD [address] [place] [address] ReferringUrology02/26/22 William Cruz, INSURANCE ACCOUNT EXECUTIVE [address] [place] [address] ReferringFamily Ebwbpcbn72/15/25documented as of this encounter
--- OUTSIDE RECORDS SUMMARY | 2025-04-22 16:27 | XMS_ITS | Encounter Summary ---
Author Organization [facility] Address [facility] [place] [address] Care Team Providers Care Sweep Molder Name Role Phone Isaias Saleh MD Unavailable [phone] William Cruz CNP Unavailable [phone] Source Comments In the event this information is protected by the Federal Confidentiality of Alcohol and Drug AbusePatient Records regulations: The Federal rules restrict any use of the information to criminally investigate or prosecute any alcohol or drug abuse patient.[facility] Encounter Details DateTypeDepartmentCare Team (Latest Contact Info)Gjylkoiasxy63/13/2025Patient Outreach Urology [address] [phone] Axel Ruth MD [address] [place] [address] Social History Tobacco UseTypesPacks/DayYears UsedDateSmoking Tobacco: NeverSmokeless Tobacco: NeverAlcohol UseStandard Drinks/WeekCommentsNot Asked0 (1 standard drink = 0.6 oz pure alcohol)[facility] UtilitiesAnswerDate RecordedIn the past 12 months [...] steady place to sleep or slept in [facility] (including now)?No 10/06/2023Housing Stability Vital SignAnswerDate RecordedIn the last 12 months, was there a time when you were not able to pay the mortgage or rent on time?No 08/10/2024In the past 12 months, how many times have you moved where you were living?t any time in the past 12 months, were you homeless or living in a alf (including now)?No08/10/2024rea Deprivation IndexAnswerDate RecordedNational Score (1-100), lower number is lower plzg136911/17/2024State Score (1-10), lower number is lower dpzg160Data from: https://www.neighborhoodatlas.[facility].edu/. Last address used for calculationspring11/17/2024CommentsNoSex and Gender Information ValueDate RecordedSex Assigned at MuqeyRhfqcc88/30/2025 6:31 PM ESTLegal Sex Mrxupq0605/30/2012 8:16 AM ESTGender MluriwhnSygkaz21/30/2025 6:31 PM ESTSexual OrientationNot on filedocumented as of this encounter Functional Status * Are you deaf or do you have serious difficulty hearing?AnswerDate of OhcpbzhopuHgnhavUo82/12/2025 2:00 PM Ashli Mcgrath RN * Are you blind or do you have serious difficulty seeing, even when wearing glasses?AnswerDate of BdpcopaimsVtxfuqNk77/12/2025 2:00 PM Ashli Mcgrath RN * Do you have serious difficulty walking or climbing stairs?AnswerDate of SgesitabzsSrrxmkIjr71/12/2025 2:00 PM Ashli Mcgrath RN * Do you have difficulty dressing or bathing?AnswerDate of AssessmentAuthorYes 08/10/2024 2:00 PM Ashli Mcgrath RN * Because of a physical, mental, or emotional condition, do you have difficulty doing errands alone such as visiting a doctor's office or shopping?AnswerDate of BwqdfjmmixKdtegeOix92/12/2025 2:00 PM Ashli Mcgrath RN documented as of this encounter Mental Status * Because of a physical, mental, or emotional condition, do you have serious difficulty concentrating, remembering, or making decisions?AnswerEntry Date UexkwxBup80/12/2025 2:00 PM Ashli Mcgrath RN documented in this encounter Plan of Treatment DateTypeDepartmentCare Team (Latest Contact Info)Dwbaesiosni55/30/2025 11:30 AM EDTOffice Visit Gynecology [address] [address] Shaye Pittman DO [address] [place] [address] Menorrhagia with regular cycle [N92.0] Patient interested in injections to help her pffsacs4605/01/2025 9:20 AM ESTHospital Encounter Admitting [address] [place] [address] Axel Ruth MD [address] [place] [address] Nephrolithiasis [N20.0]05/01/2025 9:20 AM EST - 05/01/2025 12:00 PM ESTSurgery Admitting [address] [place] [address] Axel Ruth MD [address] [place] [address] CYSTOURETHROSCOPY W/ URETEROSCOPY AND/OR PYELOSCOPY W/ LITHOTRIPSY INCLUDE INSERTION OF INDWELLING URETERAL STENT05/04/2025 10:30 AM ESTOffice Visit Urology [address] [phone] Axel Ruth MD [address] [place], [place] [phone] Surgical consult will bring envxalm7707/11/2025 9:00 AM ESTAppointment Radiology [address] [address] [address] FLANK WO IVCON07/11/2025 9:30 AM ESTOffice Visit Urology [address] [phone] Farzana Davis, EVA.HOURLY CAREGIVER [address] [place] [address] 3 month f/u with CT prior per cc chartNameTypePriorityAssociated DiagnosesOrder ScheduleUA DIP, URINE (POC)LabRoutine Screening for genitourinary condition 1 Occurrences starting 04/10/2025NamePriorityAssociated DiagnosesDate/Time CYSTOURETHROSCOPY W/ URETEROSCOPY AND/OR PYELOSCOPY W/ LITHOTRIPSY INCLUDE INSERTION OF INDWELLING URETERAL STENT Nephrolithiasis 05/01/2025 9:20 AM ESTdocumented as of this encounter Visit Diagnoses Diagnosis Screening for genitourinary condition Screening for other and unspecified genitourinary condition Nephrolithiasis Calculus of kidney documented in this encounter Care Teams Team MemberRelationshipSpecialtyStart DateEnd Date Isaias Saleh MD [address] [place] [address] ReferringUrology02/26/22 William Cruz, HOURLY CAREGIVER [address] [place] [address] ReferringFamily Pibwjpdl07/15/25documented as of this encounter
--- OUTSIDE RECORDS SUMMARY | 2025-04-22 16:27 | XMS_ITS | Encounter Summary ---
Author Organization [facility] Address [address] [place] [address] Care Team Providers Care Solaris Administrator Name Role Phone Isaias Saleh MD Unavailable [phone] William Cruz CNP Unavailable [phone] Source Comments In the event this information is protected by the Federal Confidentiality of Alcohol and Drug AbusePatient Records regulations: The Federal rules restrict any use of the information to criminally investigate or prosecute any alcohol or drug abuse patient.[facility] Encounter Details DateTypeDepartmentCare Team (Latest Contact Info)Esbdeuivnjb28/17/2025Travel Social History Tobacco UseTypesPacks/DayYears UsedDateSmoking Tobacco: NeverSmokeless Tobacco: NeverAlcohol UseStandard Drinks/WeekCommentsNot Asked0 (1 standard drink = 0.6 oz pure alcohol)[facility] UtilitiesAnswerDate RecordedIn the past 12 months has the [employer], [employer], or [employer] threatened to shut off services in your [...] were you homeless or living in a fpc (including now)?No08/10/2024rea Deprivation IndexAnswerDate RecordedNational Score (1-100), lower number is lower iejo465211/17/2024State Score (1-10), lower number is lower lpkj381Data from: https://www.neighborhoodatlas.medicine.[facility].edu/. Last address used for calculation3 spring11/17/2024CommentsNoSex and Gender Information ValueDate RecordedSex Assigned at HlvsgXfhred79/30/2025 6:31 PM ESTLegal Sex Detemh5905/30/2012 8:16 AM ESTGender PqlrnwuwWglami58/30/2025 6:31 PM ESTSexual OrientationNot on filedocumented as of this encounter Functional Status * Are you deaf or do you have serious difficulty hearing?AnswerDate of CmgzxrzxdlPrewdgYu04/12/2025 2:00 PM Ashli Mcgrath RN * Are you blind or do you have serious difficulty seeing, even when wearing glasses?AnswerDate of FsbjyaumkrYphpbdYw77/12/2025 2:00 PM Ashli Mcgrath RN * Do you have serious difficulty walking or climbing stairs?AnswerDate of HeognnniljYjffraYbt63/12/2025 2:00 PM Ashli Mcgrath RN * Do you have difficulty dressing or bathing?AnswerDate of AssessmentAuthorYes 08/10/2024 2:00 PM Ashli Mcgrath RN * Because of a physical, mental, or emotional condition, do you have difficulty doing errands alone such as visiting a doctor's office or shopping?AnswerDate of BqvbractysHitxfxBcd61/12/2025 2:00 PM Ashli Mcgrath RN documented as of this encounter Mental Status * Because of a physical, mental, or emotional condition, do you have serious difficulty concentrating, remembering, or making decisions?AnswerEntry Date XjrjhzBav54/12/2025 2:00 PM Ashli Mcgrath RN documented in this encounter Plan of Treatment DateTypeDepartmentCare Team (Latest Contact Info)Qgvdahpitas03/30/2025 11:30 AM EDTOffice Visit Gynecology [address] [address] Shaye Pittman DO [address] [place], [place] [phone] Menorrhagia with regular cycle [N92.0] Patient interested in injections to help her xnlvsed2705/01/2025 9:20 AM ESTHospital Encounter Admitting [address] [place] [address] Axel Ruth MD [address] [place] [address] Nephrolithiasis [N20.0]05/01/2025 9:20 AM EST - 05/01/2025 12:00 PM ESTSurgery Admitting [address] [place] [address] Axel Ruth MD [address] [place] [address] CYSTOURETHROSCOPY W/ URETEROSCOPY AND/OR PYELOSCOPY W/ LITHOTRIPSY INCLUDE INSERTION OF INDWELLING URETERAL STENT05/04/2025 10:30 AM ESTOffice Visit Urology [address] [address] Axel Ruth MD [address] [place] [address] Surgical consult will bring icojzvd0007/11/2025 9:00 AM ESTAppointment Radiology [address] [address] [address] FLANK WO IVCON07/11/2025 9:30 AM ESTOffice Visit Urology [address] [address] Farzana Davis APRN.POWERHOUSE MECHANIC HELPER [address] [place] [address] 3 month f/u with CT prior per cc chartNamePriorityAssociated DiagnosesDate/Time CYSTOURETHROSCOPY W/ URETEROSCOPY AND/OR PYELOSCOPY W/ LITHOTRIPSY INCLUDE INSERTION OF INDWELLING URETERAL STENT Nephrolithiasis 05/01/2025 9:20 AM ESTdocumented as of this encounter Visit Diagnoses Not on filedocumented in this encounter Care Teams Team MemberRelationshipSpecialtyStart DateEnd Date Isaias Saleh MD [address] [place] [phone] ReferringUrology02/26/22 William Cruz, POWERHOUSE MECHANIC HELPER [address] [place] [address] ReferringFamily Zjvatddn00/15/25documented as of this encounter
--- OUTSIDE RECORDS SUMMARY | 2025-04-22 16:27 | XMS_ITS | Encounter Summary ---
Author Organization [facility] Address [address] [place] [address] Care Team Providers Care Bookkeeper Name Role Phone Isaias Saleh MD Unavailable [phone] William Cruz CNP Unavailable [phone] William Cruz [facility] Primary Care Provider [phone] Source Comments In the event this information is protected by the Federal Confidentiality of Alcohol and Drug AbusePatient Records regulations: The Federal rules restrict any use of the information to criminally investigate or prosecute any alcohol or drug abuse patient.[facility] Encounter Details DateTypeDepartmentCare Team (Latest Contact Info)Gdwqddjbssr39/21/2025 Patient Msg Urology [address] [place], [place] [id number] Provider, Cc UROLOGY PRE OP~SURGERY DATES AND INSTRUCTIONS Social History Tobacco UseTypesPacks/DayYears UsedDateSmoking Tobacco: NeverSmokeless [...] place to sleep or slept in a snf (including now)?No10/06/2023Housing Stability Vital SignAnswerDate RecordedIn the last 12 months, was there a time when you were not able to pay the mortgage or rent on time?No08/10/2024In the past 12 months, how many times have you moved where you were living?t any time in the past 12 months, were you homeless or living in a snf (including now)?No08/10/2024 Hunger Vital SignAnswerDate RecordedWithin the [...] were you homeless or living in a snf (including now)?No04/16/2025HC UtilitiesAnswerDate Recorded In the past 12 months has the electric, gas, oil, or water company threatened to shut off services in your home?No04/16/2025rea Deprivation IndexAnswerDate RecordedNational Score (1-100), lower number is lower gvxy432111/17/2024State Score (1-10), lower number is lower cpjl085Data from: https://www.neighborhoodatlas.[facility]/. Last address used for calculationspring11/17/2024CommentsNoSex and Gender Information ValueDate RecordedSex Assigned at FkxmlDwyppx64/30/2025 6:31 PM ESTLegal Sex Belhgh1405/30/2012 8:16 AM ESTGender FonnrgasQjnlal57/30/2025 6:31 PM ESTSexual OrientationNot on filedocumented as of this encounter Functional Status * Are you deaf or do you have serious difficulty hearing?AnswerDate of JreayavsolPotglpOz66/19/2025 3:00 PM Bernice Carmona RN * Are you blind or do you have serious difficulty seeing, even when wearing glasses?AnswerDate of PxcdhxxigvYzhcmsNl34/19/2025 3:00 PM Bernice Carmona RN * Do you have serious difficulty walking or climbing stairs?AnswerDate of MprlwhhfqgKwktbyNnl89/19/2025 3:00 PM Bernice Carmona RN * Do you have difficulty dressing or bathing?AnswerDate of AssessmentAuthorYes 04/16/2025 3:00 PM Bernice Carmona RN * Because of a physical, mental, or emotional condition, do you have difficulty doing errands alone such as visiting a doctor's office or shopping?AnswerDate of XkmedkzkphUeqmdbZd05/19/2025 3:00 PM Bernice Carmona RN documented as of this encounter Mental Status * Because of a physical, mental, or emotional condition, do you have serious difficulty concentrating, remembering, or making decisions?AnswerEntry Date BtiktbEw56/19/2025 3:00 PM Bernice Carmona RN documented in this encounter Plan of Treatment DateTypeDepartmentCare Team (Latest Contact Info)Bjifgwtwqzc13/30/2025 11:30 AM EDTOffice Visit Gynecology [address] [address] Shaye Pittman DO [address] [place] [address] Menorrhagia with regular cycle [N92.0] Patient interested in injections to help her yzrjqcm8805/01/2025 9:20 AM ESTHospital Encounter Admitting [address] [place] [address] Axel Ruth MD [address] [place] [address] Nephrolithiasis [N20.0]05/01/2025 9:20 AM EST - 05/01/2025 12:00 PM ESTSurgery Admitting [facility] [place] [address] Axel Ruth MD [address] [place] [address] CYSTOURETHROSCOPY W/ URETEROSCOPY AND/OR PYELOSCOPY W/ LITHOTRIPSY INCLUDE INSERTION OF INDWELLING URETERAL STENT05/04/2025 10:30 AM ESTOffice Visit Urology [address] [address] Axel Ruth MD [address] [place] [address] Surgical consult will bring dbvptlg5107/11/2025 9:00 AM ESTAppointment Radiology [address] [address] [address] FLANK WO IVCON07/11/2025 9:30 AM ESTOffice Visit Urology [address] [address] Farzana Davis, HOME PARAPROFESSIONAL.PIPELINE DISPATCH OPERATOR [address] [place] [address] 3 month f/u with CT prior per cc chartNamePriorityAssociated DiagnosesDate/Time CYSTOURETHROSCOPY W/ URETEROSCOPY AND/OR PYELOSCOPY W/ LITHOTRIPSY INCLUDE INSERTION OF INDWELLING URETERAL STENT Nephrolithiasis 05/01/2025 9:20 AM ESTdocumented as of this encounter Goals GoalPatient Goal TypeAssociated ProblemsRecent ProgressPatient-Stated?Author Autogenerated Goal Care PlanAutogenerated ProblemNoCanTorri rushing Tdocumented as of this encounter Visit Diagnoses Not on filedocumented in this encounter Additional Health Concerns Active ProblemsNoted DateDiagnosed DateAutogenerated Qklomqv6204/17/2025documented as of this encounter Care Teams Team MemberRelationshipSpecialtyStart DateEnd Date William Cruz CNP [address] [place] [address] PCP - GeneralFamily Waecjxna25/21/25 Isaias Saleh MD [address] [place] [address] ReferringUrology02/26/22 William Cruz CNP [address] [place] [address] ReferringFamily Jymuuubs61/15/25documented as of this encounter
--- OUTSIDE RECORDS SUMMARY | 2025-04-22 16:27 | XMS_ITS | Encounter Summary ---
Author Organization [facility] Address [address] [place] [address] Care Team Providers Care Forensic Audit Expert Name Role Phone Isaias Saleh MD Unavailable [phone] William Cruz CNP Unavailable [phone] William Cruz CNP Primary Care Provider [phone] Source Comments In the event this information is protected by the Federal Confidentiality of Alcohol and Drug AbusePatient Records regulations: The Federal rules restrict any use of the information to criminally investigate or prosecute any alcohol or drug abuse patient.[facility] Encounter Details DateTypeDepartmentCare Team (Latest Contact Info)Xvkzkswdrfs58/24/2025Travel Social History Tobacco UseTypesPacks/DayYears UsedDateSmoking Tobacco: NeverPassive Smoke Exposure: NeverSmokeless Tobacco: NeverAlcohol UseStandard Drinks/WeekComments Not Asked0 (1 standard drink = 0.6 oz pure alcohol)rarelyOverall Financial Resource Strain (CARDIA)AnswerDate RecordedHow hard is it for you to pay for the very basics like food, housing, medical care, and heating?Not hard at all 07/22/2022Housing Stability Vital SignAnswerDate RecordedUnable to Pay for [...] homeless or living in a mcfp (including now)?No08/10/2024Hunger Vital SignAnswerDate Recorded Within the past 12 months, you worried that your food would run out before you got the money to buymore.Never true04/16/2025Within the past 12 months, the food you bought just didn't last and you didn't have money to get more.Never true 04/16/2025PRAPARE - TransportationAnswerDate RecordedIn the past 12 months, has lack of transportation kept you from medical appointments or from getting medications?No04/16/2025In the past 12 months, has lack of transportation kept you from meetings, work, or from getting things needed for daily living?No 04/16/2025Housing Stability Vital SignAnswerDate RecordedIn the last 12 months, was there a time when you were not able to pay the mortgage or rent on time?No 04/16/2025Number of Times Moved in the Last YearNot on file04/16/2025t any time in the past 12 months, were you homeless or living in a mcfp (including now)? No04/16/2025HC UtilitiesAnswerDate RecordedIn the past 12 months has the [employer], gas, oil, or water company threatened to shut off services in your home?No04/16/2025rea Deprivation IndexAnswerDate RecordedNational Score (1- 100), lower number is lower hdfw777711/17/2024State Score (1-10), lower number is lower pyqs217Data from: https://www.neighborhoodatlas.medicine.[facility]/. Last address used for calculationspring11/17/2024CommentsNoSex and Gender Information ValueDate RecordedSex Assigned at FuwugVolayd83/30/2025 6:31 PM ESTLegal Sex Ixeijg5005/30/2012 8:16 AM ESTGender AxqrtdinLawkuo95/30/2025 6:31 PM ESTSexual OrientationNot on filedocumented as of this encounter Functional Status * Are you deaf or do you have serious difficulty hearing?AnswerDate of VkoaomlznfVrxomaCs17/19/2025 3:00 PM Bernice Carmona RN * Are you blind or do you have serious difficulty seeing, even when wearing glasses?AnswerDate of MnqcamubwzTfzyzbKl18/19/2025 3:00 PM Bernice Carmona RN * Do you have serious difficulty walking or climbing stairs?AnswerDate of EdagxgqbbkDneuhqMun54/19/2025 3:00 PM Bernice Carmona RN * Do you have difficulty dressing or bathing?AnswerDate of AssessmentAuthorYes 04/16/2025 3:00 PM Bernice Carmona RN * Because of a physical, mental, or emotional condition, do you have difficulty doing errands alone such as visiting a doctor's office or shopping?AnswerDate of OvnnpbdijaIcwhyuWc24/19/2025 3:00 PM Bernice Carmona RN documented as of this encounter Mental Status * Because of a physical, mental, or emotional condition, do you have serious difficulty concentrating, remembering, or making decisions?AnswerEntry Date McebbjKy18/19/2025 3:00 PM Bernice Carmona RN documented in this encounter Plan of Treatment DateTypeDepartmentCare Team (Latest Contact Info)Inkiujcjcjv33/30/2025 11:30 AM EDTOffice Visit Gynecology [address] [place] [address] Zain Shaye, [address] [place] [address] Menorrhagia with regular cycle [N92.0] Patient interested in injections to help her yqxsihc5705/01/2025 9:20 AM ESTHospital Encounter Admitting [address] [place] [address] Axel Ruth MD [address] [place] [address] Nephrolithiasis [N20.0]05/01/2025 9:20 AM EST - 05/01/2025 12:00 PM ESTSurgery Admitting [address] [place] [address] Axel Ruth MD [address] [place] [address] CYSTOURETHROSCOPY W/ URETEROSCOPY AND/OR PYELOSCOPY W/ LITHOTRIPSY INCLUDE INSERTION OF INDWELLING URETERAL STENT05/04/2025 10:30 AM ESTOffice Visit Urology [address] [address] Axel Ruth MD [address] [place] [address] Surgical consult will bring upqxynq2407/11/2025 9:00 AM ESTAppointment Radiology [address] [address] [address] FLANK WO IVCON07/11/2025 9:30 AM ESTOffice Visit Urology [address] [address] Farzana Davis, EVA.HAIR MACHINE OPERATOR [address] [place] [address] 3 month f/u with CT prior per [...] Additional Health Concerns Active ProblemsNoted DateDiagnosed DateAutogenerated Owzybfs6904/17/2025documented as of this encounter Care Teams Team MemberRelationshipSpecialtyStart DateEnd Date William Cruz, HAIR MACHINE OPERATOR [address] [place] [address] PCP - GeneralFamily Zjcrcper25/21/25 Isaias Saleh MD [address] [place] [address] ReferringUrology02/26/22 William Cruz, HAIR MACHINE OPERATOR [address] [place] [address] ReferringFamily Rltxxxim66/15/25documented as of this encounter
--- OUTSIDE RECORDS SUMMARY | 2025-04-22 16:27 | XMS_ITS | Encounter Summary ---
Author Organization [facility] Address [facility] [place] [address] Care Team Providers Care Environmental Services Coordinator Name Role Phone Isaias Saleh MD Unavailable [phone] William Cruz CNP Unavailable [phone] William Cruz CNP Primary Care Provider [phone] Source Comments In the event this information is protected by the Federal Confidentiality of Alcohol and Drug AbusePatient Records regulations: The Federal rules restrict any use of the information to criminally investigate or prosecute any alcohol or drug abuse patient.[facility] Encounter Details DateTypeDepartmentCare Team (Latest Contact Info)Gaveebgaupf13/23/2025Travel Social History Tobacco UseTypesPacks/DayYears UsedDateSmoking Tobacco: NeverSmokeless [...] In the past 12 months has the [facility], gas, oil, or water company threatened to shut off services in your home?No04/16/2025rea Deprivation IndexAnswerDate RecordedNational Score (1-100), lower number is lower dfvp106611/17/2024State Score (1-10), lower number is lower aeua615Data from: https://www.neighborhoodatlas.medicine.[facility]/. Last address used for calculationspring11/17/2024CommentsNoSex and Gender Information ValueDate RecordedSex Assigned at QveoyFkhwaf60/30/2025 6:31 PM ESTLegal Sex Lmizdz6005/30/2012 8:16 AM ESTGender QupzkdcoBkapuh45/30/2025 6:31 PM ESTSexual OrientationNot on filedocumented as of this encounter Functional Status * Are you deaf or do you have serious difficulty hearing?AnswerDate of AlvcbljgunAqwcvnHb61/19/2025 3:00 PM Bernice Carmona RN * Are you blind or do you have serious difficulty seeing, even when wearing glasses?AnswerDate of MrccekwhhiBvkgedIg62/19/2025 3:00 PM Bernice Carmona RN * Do you have serious difficulty walking or climbing stairs?AnswerDate of KyayatxhrpYjitwvBzc38/19/2025 3:00 PM Bernice Carmona RN * Do you have difficulty dressing or bathing?AnswerDate of AssessmentAuthorYes 04/16/2025 3:00 PM Bernice Carmona RN * Because of a physical, mental, or emotional condition, do you have difficulty doing errands alone such as visiting a doctor's office or shopping?AnswerDate of BdwynnefbwMqlapwCz49/19/2025 3:00 PM Bernice Carmona RN documented as of this encounter Mental Status * Because of a physical, mental, or emotional condition, do you have serious difficulty concentrating, remembering, or making decisions?AnswerEntry Date MgtvyaCw60/19/2025 3:00 PM Bernice Carmona RN documented in this encounter Plan of Treatment DateTypeDepartmentCare Team (Latest Contact Info)Tzzvrrvrfkg35/30/2025 11:30 AM EDTOffice Visit Gynecology [address] [id number] Shaye Pittman DO [address] [place] [address] Menorrhagia with regular cycle [N92.0] Patient interested in injections to help her dmtmmvu8405/01/2025 9:20 AM ESTHospital Encounter Admitting [address] [place] [address] Axel Ruth MD [address] [place] [address] Nephrolithiasis [N20.0]05/01/2025 9:20 AM EST - 05/01/2025 12:00 PM ESTSurgery Admitting [address] [place] [address] Axel Ruth MD [address] [place], [place] [id number] CYSTOURETHROSCOPY W/ URETEROSCOPY AND/OR PYELOSCOPY W/ LITHOTRIPSY INCLUDE INSERTION OF INDWELLING URETERAL STENT05/04/2025 10:30 AM ESTOffice Visit Urology [address] [address] Axel Ruth MD [address] [place] [address] Surgical consult will bring hbardsn2107/11/2025 9:00 AM ESTAppointment Radiology [address] [address] [address] FLANK WO IVCON07/11/2025 9:30 AM ESTOffice Visit Urology [address] [address] Farzana Davis APRN.BABY FORMULA MIXER [address] [place] [address] 3 month f/u with CT prior per cc chartNamePriorityAssociated DiagnosesDate/Time CYSTOURETHROSCOPY W/ URETEROSCOPY AND/OR PYELOSCOPY W/ LITHOTRIPSY INCLUDE INSERTION OF INDWELLING URETERAL STENT Nephrolithiasis 05/01/2025 9:20 AM ESTdocumented as of this encounter Goals GoalPatient Goal TypeAssociated ProblemsRecent ProgressPatient-Stated?Author Autogenerated Goal Care PlanAutogenerated ProblemTorri Orlando Tdocumented as of this encounter Visit Diagnoses Not on filedocumented in this encounter Additional Health Concerns Active ProblemsNoted DateDiagnosed DateAutogenerated Xjpkikd9004/17/2025documented as of this encounter Care Teams Team MemberRelationshipSpecialtyStart DateEnd Date William Cruz, BABY FORMULA MIXER [address] [place] [address] PCP - [facility] Bggcwkko99/21/25 Isaias Saleh MD [address] [place] [address] ReferringUrology02/26/22 William Cruz, BABY FORMULA MIXER [address] [place] [address] ReferringFanew [facility] Sqkugmdy41/15/25documented as of this encounter
--- OUTSIDE RECORDS SUMMARY | 2025-04-22 16:27 | XMS_ITS | Clinical Summary ---
Author Organization [facility] Address [address] [facility] [place] [address] Phone Care Team Providers Care Music Therapy Specialist Name Role Phone Abi Le MD Primary Care Provider [phone] Allergies Active AllergyReactionsCriticalityNoted DateCommentsAmoxicillin-Pot Clavulanate OzaalgenOgq06/10/0446ObkleyaaJxjabsx32/10/3630TfbonaydraNtspbva85/10/2024 Medications MedicationSigDispense QuantityRefillsLast FilledStart DateEnd DateStatus albuterol 2.5 mg /3 mL (0.083 %) nebulizer solution Take 3 mL (2.5 mg) by nebulization every 6 hours if needed for wheezing.Active ascorbic acid (Vitamin C) 500 mg tablet Take 1 tablet (500 mg) by mouth 2 times a day.Active menthol (Biofreeze, menthol,) 4 % gel gel Apply 1 Application topically 3 times a day as needed.Active bisacodyl (Dulcolax, bisacodyl,) 10 mg suppository Insert 1 suppository (10 mg) into the rectum once daily as needed for constipation.Active busPIRone (Buspar) 5 mg tablet Take 1 tablet (5 mg) by mouth 2 times a day.Active cholecalciferol (Vitamin D-3) 25 MCG (1000 UT) capsule Take 1 capsule (25 mcg) by mouth once daily.Active cyclobenzaprine (Flexeril) 5 mg tablet Take 1 tablet (5 mg) by mouth 3 times a day.Active sodium phosphates (Fleet Enema) 19-7 gram/118 mL enema enema Insert 133 mL (1 enema) into the rectum once daily as needed for constipation. Active furosemide (Lasix) 40 mg tablet Take 1 tablet (40 mg) by mouth once daily.Active gabapentin (Neurontin) 600 mg tablet Take 3 tablets (1,800 mg) by mouth 2 times a day.Active potassium phosphate, monobasic, (K-Phos) 500 mg tablet Take 1 tablet (500 mg) by mouth once daily.Active levETIRAcetam (Keppra) 1,000 mg tablet Take 1 tablet (1,000 mg) by mouth once daily.Active levETIRAcetam (Keppra) 1,000 mg tablet Take 2 tablets (2,000 mg) by mouth once daily at bedtime.Active lamoTRIgine (LaMICtal) 200 mg tablet Take 1 tablet (200 mg) by mouth 2 times a day.Active lamoTRIgine (LaMICtal) 25 mg tablet Take 2 tablets (50 mg) by mouth 2 times a day.Active loratadine (Claritin) 10 mg tablet Take 1 tablet (10 mg) by mouth once daily.Active meclizine (Antivert) 25 mg tablet Take 1 tablet (25 mg) by mouth 3 times a day as needed for dizziness.Active midodrine (Proamatine) 2.5 mg tablet Take 1 tablet (2.5 mg) by mouth 3 times daily (morning, midday, late afternoon). Active melatonin 3 mg tablet Take 2 tablets (6 mg) by mouth as needed at bedtime for sleep.Active polyethylene glycol (Glycolax, Miralax) 17 gram packet Take 17 g by mouth every other day. Even daysActive oxybutynin (Ditropan) 5 mg tablet Take 1 tablet (5 mg) by mouth 3 times a day as needed.Active bismuth subsalicylate (Pepto Bismol) 262 mg/15 mL suspension Take 30 mL (524 mg) by mouth every 6 hours if needed for indigestion.Active magnesium hydroxide (Garcia Milk of Magnesia) 400 mg/5 mL suspension Take 30 mL by mouth once daily as needed for constipation.Active pyridoxine (Vitamin B-6) 100 mg tablet Take 1 tablet (100 mg) by mouth once daily.Active QUEtiapine (SEROquel) 100 mg tablet Take 1.5 tablets (150 mg) by mouth once daily at bedtime.Active sennosides (Senokot) 8.6 mg tablet Take 1 tablet (8.6 mg) by mouth once daily at bedtime.Active sertraline (Zoloft) 100 mg tablet Take 2 tablets (200 mg) by mouth once daily.Active benzonatate (Tessalon) 100 mg capsule Take 1 capsule (100 mg) by mouth 3 times a day as needed for cough. Do not crush or chew.Active ondansetron (Zofran) 4 mg tablet Take 1 tablet (4 mg) by mouth every 8 hours if needed for nausea or vomiting. Active acetaminophen (Tylenol) 325 mg tablet Take 2 tablets (650 mg) by mouth every 6 hours if needed for mild pain (1 - 3). Max 3gm/24hrActive lactobacillus acidophilus & bulgar (Lactinex) 1 million cell chewable tablet Chew 1 tablet once daily. Start 05/26/24 x 14daysActive benzocaine (Orajel) 10 % mucosal gel Use 1 Application in the mouth or throat every 4 hours if needed. Apply to tongueActive buPROPion (Wellbutrin) 75 mg tablet Take 1 tablet (75 mg) by mouth once daily.Active lidocaine 4 % patch Place 1 patch on the skin once daily as needed for mild pain (1 - 3). Remove & discard patch within 12 hours or as directed by MD.Active chlorhexidine (Peridex) 0.12 % solution Use 15 mL in the mouth or throat 2 times a day.Active prazosin (Minipress) 1 mg capsule Take 1 capsule (1 mg) by mouth once daily.Active omeprazole OTC (PriLOSEC OTC) 20 mg EC tablet Take 1 tablet (20 mg) by mouth once daily. Do not crush, chew, or split.Active risperiDONE (RisperDAL) 0.5 mg tablet Take 1 tablet (0.5 mg) by mouth 2 times a day.Active tiZANidine (Zanaflex) 2 mg tablet Take 1 tablet (2 mg) by mouth 2 times a day.Active Active Problems ProblemNoted DateDiagnosed DateChronic suprapubic lvyiztsh45/11/2024Obstructive zofdnaua20/10/2024Hydronephrosis with urinary obstruction due to renal calculus 06/07/2024Staghorn vhdlgrzo91/10/2024ESBL (extended spectrum beta-lactamase) producing bacteria saetsejjv39/10/5587Znoiaophqdwg81/10/2024 Family History Medical HistoryRelationNameCommentsAcute myocardial infarctionOtherGrandparent Cardiac arrhythmiaOtherGrandparentPrimary malignant neoplasm of lungOther GrandparentRelationNameStatusCommentsOtherGrandparent Social History Tobacco UseTypesPacks/DayYears UsedDateSmoking Tobacco: NeverSmokeless Tobacco: Never Tobacco Cessation:Counseling Given: Not Answered Alcohol UseStandard Drinks/WeekCommentsNever0 (1 standard drink = 0.6 oz pure alcohol)[facility] UtilitiesAnswerDate RecordedIn the past 12 months has the [employer], gas, oil, or water [employer] threatened to shut off services in your home?No 06/08/2024Humiliation, Afraid, Rape, and Kick questionnaireAnswerDate Recorded Within the last year, have you been afraid of your partner or ex-partner?No 06/08/2024Within the last year, have you been humiliated or emotionally abused in other ways by your partner or ex-partner?No06/08/2024Within the last year, have you been kicked, hit, slapped, or otherwise physically hurt by your partner or ex-partner?No06/08/2024Within the last year, have you been raped or forced to have any kind of sexual activity by your partner or ex-partner?No06/08/2024 AUDIT-CAnswerDate RecordedQ1: How often do you have a drink containing alcohol? Never06/08/2024Q2: How many drinks containing alcohol do you have on a typical day when you are drinking?Patient does not drink06/08/2024Q3: How often do you have six or more drinks on one occasion?Never06/08/2024Overall Financial Resource Strain (CARDIA)AnswerDate RecordedHow hard is it for you to pay for the very basics like food, housing, medical care, and heating?Not hard at all 06/08/2024HQ-2AnswerDate RecordedPatient Health Questionnaire-2 Score0 06/08/2024Hunger Vital SignAnswerDate RecordedWithin the past 12 months, you worried that your food would run out before you got the money to buymore.Never true12/11/2024Within the past 12 months, the food you bought just didn't last and you didn't have money to get more.Never true06/08/2024RAPARE - TransportationAnswerDate RecordedIn the past 12 months, has lack of transportation kept you from medical appointments or from getting medications?No 06/08/2024In the past 12 months, has lack of transportation kept you from meetings, work, or from getting things needed for daily living?No06/08/2024 Housing Stability Vital SignAnswerDate RecordedIn the last 12 months, was there a time when you were not able to pay the mortgage or rent on time?No06/08/2024In the past 12 months, how many times have you moved where you were living?1 06/08/2024t any time in the past 12 months, were you homeless or living in a penitentiary (including now)?No06/08/2024CommentsUnknownSex and Gender InformationValueDate RecordedSex Assigned at BirthNot on fileLegal SexFemale 06/07/2024 1:39 PM ESTGender IdentityNot on fileSexual OrientationNot on file Last Filed Vital Signs Vital SignReadingTime TakenCommentsBlood Ojssyqrc287/8906/22/2024 9:19 AM EST Qfjki00134/25/2024 9:19 AM DSHNqwuhubvrzz35.5 ??C (97.7 ??F)06/22/2024 9:19 AM ESTRespiratory Ijiy163108/23/2023 9:19 AM ESTOxygen Aqlongrorv78%06/22/2024 9:19 AM ESTraInhaled Oxygen Concentration--Nemcve745 kg (235 lb 14.3 oz)06/22/2024 9:19 AM BMICuqtmw202 cm (4' 11.84 )06/08/2024 2:00 AM ESTBody Mass Index46.31 06/08/2024 2:00 AM EST Plan of Treatment Health MaintenanceDue DateLast DoneCommentsHIV Lojdkfviy90/05/1986Lipid Panel 1985Yearly Adult Zsimlwfp06/05/1986Hepatitis C Xfaelqkly77/05/2004 Hepatitis B Vaccines (1 of 3 - 19+ 3-dose series)2004Cervical Cancer Hruuklhty81/05/2007HPV/Svwvdy04/10/2006Pap Smear2006DTaP/Tdap/Td Vaccines (1 - Tdap)10/02/2007HPV Vaccines (1 - 3-dose standard series)2012Influenza Vaccine (#1)503/, 07/14/2013, 05/22/2009, Additional history existsCOVID-19 Vaccine ( - season)502/01/2023, 02/15/2022, 10/09/2020, Additional history existsDiabetes Qgvjlzkol97/, 06/09/2024, 06/08/2024Zoster Vaccines (1 of 2)10/02/2035MMR VaccinesCompleted 01/31/1998Pneumococcal Vaccine: Pediatrics and At-Risk Adult PatientsAged Out 07/14/2013No longer eligible based on patient's age to complete this topicHIB VaccinesAged OutNo longer eligible based on patient's age to complete this topic Hepatitis A VaccinesAged OutNo longer eligible based on patient's age to complete this topicIPV VaccinesAged OutNo longer eligible based on patient's age to complete this topicMeningococcal VaccineAged OutNo longer eligible based on patient's age to complete this topicRotavirus VaccinesAged OutNo longer eligible based on patient's age to complete this topic Procedures Procedure NamePriorityDate/TimeAssociated DiagnosisCommentsBASIC METABOLIC PANEL Pending Sqiitjhee89/13/2024 6:07 AM EST from Last 3 Months or Most Recently Relevant to Health Maintenance Results * (ABNORMAL) Basic metabolic panel (06/10/2024 6:07 AM EST)ComponentValueRef RangeTest MethodAnalysis TimePerformed AtPathologist SampsfvlnIkiuqrm865(H)74 - 99 mg/dL LAB CHEMISTRY METHOD 06/10/2024 7:18 AM [facility] YESDysxpo708(L)136 - 145 mmol/L LAB CHEMISTRY METHOD 06/10/2024 7:18 AM [facility] LABPotassium3.63.5 - 5.3 mmol/L LAB CHEMISTRY METHOD 06/10/2024 7:18 AM [facility] LABComment:MILD HEMOLYSIS DETECTED. The result may be falsely elevated due to hemolysis or other interferents. Clinical correlation is recommended. Repeat testing may be considered.Chloride 37211 - 107 mmol/L LAB CHEMISTRY METHOD 06/10/2024 7:18 AM [facility] QLFLoxjjektkah2935 - 32 mmol/L LAB CHEMISTRY METHOD 06/10/2024 7:18 AM [facility] LABAnion Pyb5550 - 20 mmol/L LAB CHEMISTRY METHOD 06/10/2024 7:18 AM [facility] LABUrea Cycasmuf309 - 23 mg/dL LAB CHEMISTRY METHOD 06/10/2024 7:18 AM [facility] LABCreatinine0.510.50 - 1.05 mg/dL LAB CHEMISTRY METHOD 06/10/2024 7:18 AM [facility] LABeGFR>90>60 mL/min/1.73m*2 LAB CHEMISTRY METHOD 06/10/2024 7:18 AM [facility] LABComment: Calculations of estimated GFR are performed using the 2020 CKD-EPI Study Refit equation without therace variable for the IDMS-Traceable creatinine methods. https://jasn.asnjournals.org/content/early//ASN.7891553001 Calcium8.68.6 - 10.3 mg/dL LAB CHEMISTRY METHOD 06/10/2024 7:18 AM [facility] LABSpecimen (Source)Anatomical Location / LateralityCollection Method / VolumeCollection TimeReceived TimeBlood Venous blood specimen / UnknownVenipuncture / Beqynzc0806/10/2024 6:07 AM EST 06/10/2024 6:34 AM EST Narrative Authorizing ProviderResult TypeResult StatusJulifrancisco Gallegos WIND PROJECT MANAGER-CNPLAB BLOOD ORDERABLESFinal ResultPerforming OrganizationAddressCity/State/ZIP CodePhone Number [facility] [address] [place] [address] from Last 3 Months or Most Recently Relevant to Health Maintenance Insurance Advance Directives For more information, please contact: [phone] (Available ) TypeDate RecordedPatient RepresentativeExplanationHealthcare Power of [facility] 06/13/2024 * Full Code (Latest Code Status on File) Date ActivatedDate LlzfjzoxezqTzqsrmcq89/11/2024 1:43 AMQuestionAnswerComments Plan of Care:* Code Status Discussion Completed Decision Maker:* Patient * Full Code Date ActivatedDate SvbrknnkngeSharrlrp59/11/2024 12:55 AM06/08/2024 1:43 AM QuestionAnswerCommentsPlan of Care:* Code Status Discussion Completed Decision Maker:* Provider Rationale:* Patient lacks capacity. Unable to reach or identify Proxy * presumed Care Teams Team MemberRelationshipSpecialtyStart DateEnd Date Abi Le MD [address] [id number] PCP - GeneralInternal Rabcwuif59/11/24
--- OUTSIDE RECORDS SUMMARY | 2025-04-22 16:27 | XMS_ITS | Encounter Summary ---
Author Organization [facility] Address [address] [place] [address] Care Team Providers Care Customer Experience Manager Name Role Phone Isaias Saleh MD Unavailable [phone] William Cruz CNP Unavailable [phone] Source Comments In the event this information is protected by the Federal Confidentiality of Alcohol and Drug AbusePatient Records regulations: The Federal rules restrict any use of the information to criminally investigate or prosecute any alcohol or drug abuse patient.[facility] Reason for Visit * ReasonCommentsCare Coordinator - Other Encounter Details DateTypeDepartmentCare Team (Latest Contact Info)Yqlpxzrmtcq78/20/2025Telephone Urology [address] [address] [place] [phone] Yue Jarvis RN Religious Activities Director - Other Social History Tobacco UseTypesPacks/DayYears UsedDateSmoking Tobacco: NeverSmokeless [...] place to sleep or slept in a intermediate (including now)?No10/06/2023Housing Stability Vital SignAnswerDate RecordedIn the last 12 months, was there a time when you were not able to pay the mortgage or rent on time?No08/10/2024In the past 12 months, how many times have you moved where you were living?t any time in the past 12 months, were you homeless or living in a intermediate (including now)?No08/10/2024 Hunger Vital SignAnswerDate RecordedWithin the [...] homeless or living in a intermediate (including now)?No04/16/2025HC UtilitiesAnswerDate Recorded In the past 12 months has the electric, gas, oil, or water company threatened to shut off services in your home?No04/16/2025rea Deprivation IndexAnswerDate RecordedNational Score (1-100), lower number is lower heht361211/17/2024State Score (1-10), lower number is lower fuys435Data from: https://www.neighborhoodatlas.[facility].edu/. Last address used for calculation3 spring11/17/2024CommentsNoSex and Gender Information ValueDate RecordedSex Assigned at SjaykJymvcs21/30/2025 6:31 PM ESTLegal Sex Iadrjo1905/30/2012 8:16 AM ESTGender YsrdbynoRjbzll43/30/2025 6:31 PM ESTSexual OrientationNot on filedocumented as of this encounter Functional Status * Are you deaf or do you have serious difficulty hearing?AnswerDate of AmwtuquragEngjfcHs83/19/2025 3:00 PM Bernice Carmona RN * Are you blind or do you have serious difficulty seeing, even when wearing glasses?AnswerDate of VlxpqrjrjhJiyxlzZo43/19/2025 3:00 PM Bernice Carmona RN * Do you have serious difficulty walking or climbing stairs?AnswerDate of PsyevaesgmRxspkrMee87/19/2025 3:00 PM Bernice Carmona RN * Do you have difficulty dressing or bathing?AnswerDate of AssessmentAuthorYduglas 04/16/2025 3:00 PM Bernice Carmona RN * Because of a physical, mental, or emotional condition, do you have difficulty doing errands alone such as visiting a doctor's office or shopping?AnswerDate of JllmoqjutpYkgajtPp63/19/2025 3:00 PM Bernice Carmona RN documented as of this encounter Mental Status * Because of a physical, mental, or emotional condition, do you have serious difficulty concentrating, remembering, or making decisions?AnswerEntry Date KroqxzSd59/19/2025 3:00 PM Bernice Carmona RN documented in this encounter Miscellaneous Notes * Telephone Encounter - Yue Jarvis RN - 04/17/2025 11:39 AM EDT Patients career development facilitator returned call to discuss plan and surgery. Informed her that Dr. Rodriguez recommends patient be scheduled for bilateral URS. Offered first available date on 05/01, care partneraccepted. Informed her that patient will just need PACC prior to surgery since she had blood work and ucx done yesterday when she had stent placed. Informed career development facilitator address of [facility] and where to check patient in. Advised that arrival time will be given the Thursday before surgery and she should not have anything to eat or drink after midnight prior to procedure. marketing reporting analyst voiced understanding. Yue Jarvis RN April 17, 2025 11:43 AM * Telephone Encounter - Yue Jarvis RN - 04/17/2025 11:17 AM EDT After consulting with Dr. Rodriguez- patient needs scheduled for bilateral URS procedure. Called and spoke with patients brother to discuss patient. He states that patient is no longer at [facility]- deleted information out of patients contact notes. He states that office should call her career development facilitator Adri listed in chart. However, he states that the number under Adri is listed as his number and provided new number for career development facilitator below- updated this in patients my chartas well. Called Dari- patients career development facilitator to discuss surgery date and plan. No answer, left VM with phone number to return call. marketing reporting analyst Adri Phone number: [phone] Yue Jarvis RN April 17, 2025 11:26 AM ----- Message from Axel Ruth MD sent at 04/14/2025 10:21 AM EDT ----- I just saw this patient this week, I know she has stones in the kidney but high risk for surgery, Idon't need to see th patient but I will need to see the images and be sure if the stones ar in kidney or one have moved to ureter in order to decide management. So no need for appointment until I seethe CT images, optional if you want to save a slot on 04/28 in case we need to schedule her. Thanks, ----- Message ----- From: Aparna Arcos Sent: 04/14/2025 9:05 AM EDT To: Urol Stones Pool Good morning, Yue, this is the pt I called you about. I called and had the images PUSHed from CT and the report has been scanned into her chart and should be viewable momentarily. I made the apt 05/04 as that isDr. Rodriguez first available. That being said they are asking for something sooner as pt has stonein here ureter. Thanks, Aparna Santiago documented in this encounter Plan of Treatment DateTypeDepartmentCare Team (Latest Contact Info)Hqvbnjevmng61/30/2025 11:30 AM EDTOffice Visit Gynecology [address] [phone] Shaye Pittman DO [address] [place] [address] Menorrhagia with regular cycle [N92.0] Patient interested in injections to help her eurwdws5705/01/2025 9:20 AM ESTHospital Encounter Admitting [address] [place] [address] Axel Ruth MD [address] [place] [address] Nephrolithiasis [N20.0]05/01/2025 9:20 AM EST - 05/01/2025 12:00 PM ESTSurgery Admitting [address] [place] [address] Axel Ruth MD [address] [place] [address] CYSTOURETHROSCOPY W/ URETEROSCOPY AND/OR PYELOSCOPY W/ LITHOTRIPSY INCLUDE INSERTION OF INDWELLING URETERAL STENT05/04/2025 10:30 AM ESTOffice Visit Urology [address] [address] Axel Ruth MD [address] [place] [address] Surgical consult will bring jnonzbs4107/11/2025 9:00 AM ESTAppointment Radiology [address] [address] [address] FLANK WO IVCON07/11/2025 9:30 AM ESTOffice Visit Urology [address] [address] Farzana Davis, MAGAZINE SUPERVISOR.HEALTH INFORMATICS INSTRUCTOR [address] [place] [address] 3 month f/u with CT prior per cc chartNamePriorityAssociated DiagnosesDate/Time CYSTOURETHROSCOPY W/ URETEROSCOPY AND/OR PYELOSCOPY W/ LITHOTRIPSY INCLUDE INSERTION OF INDWELLING URETERAL STENT Nephrolithiasis 05/01/2025 9:20 AM ESTdocumented as of this encounter Goals GoalPatient Goal TypeAssociated ProblemsRecent ProgressPatient-Stated?Author Autogenerated Goal Care PlanAutogenerated ProblemNoCander, Torri Tdocumented as of this encounter Visit Diagnoses Not on filedocumented in this encounter Additional Health Concerns Active ProblemsNoted DateDiagnosed DateAutogenerated Czjruyb3504/17/2025documented as of this encounter Care Teams Team MemberRelationshipSpecialtyStart DateEnd Isaias Saleh MD [address] [place] [phone] ReferringUrology02/26/22 William Cruz, HEALTH INFORMATICS INSTRUCTOR [address] Venkat [facility] [place] [address] ReferringFamily Yoobpjaw18/15/25documented as of this encounter
--- OUTSIDE RECORDS SUMMARY | 2025-04-22 16:27 | XMS_ITS | Encounter Summary ---
Author Organization [facility] Address [facility] [place] [address] Care Team Providers Care Legal Administrative Secretary Name Role Phone Isaias Saleh MD Unavailable William Cruz CNP Unavailable [phone] Source Comments In the event this information is protected by the Federal Confidentiality of Alcohol and Drug AbusePatient Records regulations: The Federal rules restrict any use of the information to criminally investigate or prosecute any alcohol or drug abuse patient.[facility] Reason for Referral * Outpatient Procedure (Routine) - New RequestSpecialtyDiagnoses / Procedures Referred By ContactReferred To [facility] Diagnoses Nephrolithiasis Procedures STENT EXTRACTION CYSTO W/SIMPLE REMOVAL STONE & STENT Axel Ruth MD [address] [place] [address] Phone: tel: fax: [facility] [address] [place] [address] Referral IDStatusReasonSthooper bay DateExpiration DateVisits RequestedVisits [id number] Request Auto-Generated Referral * Consult, Test, Treat (Routine) - New RequestSpecialtyDiagnoses / Procedures Referred By ContactReferred To Contact Diagnoses Nephrolithiasis Procedures OFFICE/OUTPATIENT NEW HIGH MDM 60 MINUTES Axel Ruth MD [address] [place] [address] Phone: tel: fax: Referral IDStatusReraineStart DateExpiration DateVisits RequestedVisits [id number] Request PCP Requested Referral Encounter Details DateTypeDepartmentCare Team (Latest Contact Info)Hdjwixegvbw27/20/2025Patient Update Urology [address] [place] [address] Yue Jarvis RN Social History Tobacco UseTypesPacks/DayYears UsedDateSmoking Tobacco: NeverSmokeless [...] place to sleep or slept in a [place] (including now)?No10/06/2023Housing Stability Vital SignAnswerDate RecordedIn the last 12 months, was there a time when you were not able to pay the mortgage or rent on time?No08/10/2024In the past 12 months, how many times have you moved where you were living?t any time in the past 12 months, were you homeless or living in a [place] (including now)?No08/10/2024 Hunger Vital SignAnswerDate RecordedWithin the [...] were you homeless or living in a [place] (including now)?No04/16/2025HC UtilitiesAnswerDate Recorded In the past 12 months has the [employer], gas, oil, or water [employer] threatened to shut off services in your home?04/16/2025rea Deprivation IndexAnswerDate RecordedNational Score (1-100), lower number is lower tqtu903011/17/2024State Score (1-10), lower number is lower sqst455Data from: https://www.neighborhoodatlas.medicine.[facility].edu/. Last address used for calculationspring11/17/2024CommentsNoSex and Gender Information ValueDate RecordedSex Assigned at DccblPxszht84/30/2025 6:31 PM ESTLegal Sex Erasrk8505/30/2012 8:16 AM ESTGender EtlabiqzCvgdep47/ 6:31 PM ESTSexual OrientationNot on filedocumented as of this encounter Functional Status * Are you deaf or do you have serious difficulty hearing?AnswerDate of DxzxjbhukcXvgitxWz14/19/2025 3:00 PM Bernice Carmona RN * Are you blind or do you have serious difficulty seeing, even when wearing glasses?AnswerDate of SounkoirxiLdumgbVw57/19/2025 3:00 PM Bernice Carmona RN * Do you have serious difficulty walking or climbing stairs?AnswerDate of BihamexqclHytqkbSvg33/19/2025 3:00 PM Bernice Carmona RN * Do you have difficulty dressing or bathing?AnswerDate of AssessmentAuthorYes 04/16/2025 3:00 PM Bernice Carmona RN * Because of a physical, mental, or emotional condition, do you have difficulty doing errands alone such as visiting a doctor's office or shopping?AnswerDate of EdioaiqjsnDhcsaoKc49/19/2025 3:00 PM Bernice Carmona RN documented as of this encounter Mental Status * Because of a physical, mental, or emotional condition, do you have serious difficulty concentrating, remembering, or making decisions?AnswerEntry Date QsnnzqHp36/19/2025 3:00 PM Bernice Carmona RN documented in this encounter Plan of Treatment DateTypeDepartmentCare Team (Latest Contact Info)Bxuajdtapbm59/30/2025 11:30 AM EDTOffice Visit Gynecology [address] [address] Shaye Pittman DO [address] [place] [address] Menorrhagia with regular cycle [N92.0] Patient interested in injections to help her nhfohsq7205/01/2025 9:20 AM ESTHospital Encounter Admitting [address] [place] [address] Axel Ruth MD [address] [place] [address] Nephrolithiasis [N20.0]05/01/2025 9:20 AM EST - 05/01/2025 12:00 PM ESTSurgery Admitting [address] [place] [address] Axel Ruth MD [address] [place] [address] CYSTOURETHROSCOPY W/ URETEROSCOPY AND/OR PYELOSCOPY W/ LITHOTRIPSY INCLUDE INSERTION OF INDWELLING URETERAL STENT05/04/2025 10:30 AM ESTOffice Visit Urology [address] [address] Axel Ruth MD [address] [place] [address] Surgical consult will bring iibhftf4607/11/2025 9:00 AM ESTAppointment Radiology [address] [address] [address] FLANK WO IVCON07/11/2025 9:30 AM ESTOffice Visit Urology [address] [address] Farzana Davis APRN.FISHER [employer]OT [address] [place] [address] 3 month f/u with CT prior per cc chartNameTypePriorityAssociated DiagnosesOrder ScheduleSTENT EXTRACTIONProceduresRoutine Nephrolithiasis Ordered: 04/17/2025NamePriorityAssociated DiagnosesDate/TimeCYSTOURETHROSCOPY W/ URETEROSCOPY AND/OR PYELOSCOPY W/ LITHOTRIPSY INCLUDE INSERTION OF INDWELLING U RETERAL STENT Nephrolithiasis 05/01/2025 9:20 AM ESTNameTypePriorityAssociated DiagnosesOrder ScheduleREFER TO PACC / [facility] - PREOPERATIVE OPTIMIZATIONReferral Routine Nephrolithiasis 1 Occurrences starting 04/17/2025 until 04/17/2026documented as of this encounter Goals GoalPatient Goal TypeAssociated ProblemsRecent ProgressPatient-Stated?Author Autogenerated Goal Care PlanAutogenerated ProblemNoTorri Mas Tdocumented as of this encounter Visit Diagnoses Diagnosis Nephrolithiasis- Primary Calculus of kidney Nephrolithiasis Calculus of kidney documented in this encounter Additional Health Concerns Active ProblemsNoted DateDiagnosed DateAutogenerated Uojijht4604/17/2025documented as of this encounter Care Teams Team MemberRelationshipSpecialtyStart DateEnd Date Isaias Slaeh MD [address] [place] [address] ReferringUrology02/26/22 William Cruz, FISHER POT [address] [place] [address] ReferringFamily Zusrpiyf26/15/25documented as of this encounter
--- NOTE | 2025-04-22 17:00 | ED.GENADUL1 ---
HPI HPI - General Adult General Chief complaint: Urogenital-Female Stated complaint: Social Sciences Chair check Time Seen by Provider: 04/22/25 16:22 Source: patient Mode of arrival: Wheelchair Limitations: no limitations History of Present Illness HPI narrative: Patient is a 39-year-old female presenting to the emergency department for evaluation of her suprapubic catheter. Patient has a chronic indwelling Naidu catheter for the last 19 years. She has a history of cerebral palsy, recurrent nephrolithiasis, and is wheelchair-bound. She also mentions that in her recent ureteral stent placed in her left kidney and is currently on antibiotics. She states that yesterday she was having some leakage around the Naidu catheter site. However, today, the catheter seems to be draining appropriately. She states the catheter was replaced just 1 week ago. Other than not resolve the leaking of the catheter, she has no other complaints. She denies any abdominal pain. No nausea or vomiting. No chest pain or shortness of breath. No fevers or chills. Related Data Home Medications ?Medication ?Instructions ?Recorded ?Confirmed acetaminophen 500 mg tablet mg 04/13/25 ascorbic acid (vitamin C) 500 mg 04/13/25 tablet (Vitamin C) bupropion HCl 75 mg tablet mg PO 04/13/25 buspirone 30 mg tablet mg 04/13/25 buspirone 5 mg tablet mg 04/13/25 cholecalciferol (vitamin D3) 25 04/13/25 mcg (1,000 unit) capsule cyclobenzaprine 5 mg tablet mg 04/13/25 docusate sodium 100 mg capsule mg PO 04/13/25 doxycycline hyclate 100 mg capsule mg 04/13/25 furosemide 40 mg tablet mg 04/13/25 gabapentin 600 mg tablet mg 04/13/25 lamotrigine 200 mg tablet mg 04/13/25 melatonin 3 mg tablet mg 04/13/25 melatonin 5 mg tablet mg 04/13/25 potassium phosphate, monobasic 500 1,000 mg PO QID 04/13/25 04/13/25 mg soluble tablet (K-Phos Original) Allergies Allergy/AdvReac Type Severity Reaction Status Date / Time amoxicillin (From Augmentin) Allergy Intermediate Unknown Verified 04/22/25 16:25 clavulanic acid (From Allergy Intermediate Unknown Verified 04/22/25 16:25 Augmentin) baclofen Allergy Unknown Seizure Verified 04/22/25 16:26 Opioid HPI Opioid Management Most Recent Opioid Data: Last Pain Scale 9 04/13/25, 20:52 Review of Systems ROS Status of ROS 10 or more systems reviewed and unremarkable except as noted in history and below PFSH PFSH Social History Little interest or pleasure in doing things: not at all Feeling down, depressed, or hopeless: not at all Exam Narrative Exam Narrative: CONSTITUTIONAL: Well-appearing, answering questions and following commands appropriately SKIN: Was warm and dry. EYES: Sclerae white. EARS, NOSE, THROAT: Moist oral mucosa. RESPIRATORY: Nonlabored respirations. Speaking full sentence. CARDIOVASCULAR: Normal rate and regular rhythm. There is no S3, S4, murmur, rub. GASTROINTESTINAL: Abdomen is soft, nontender, nondistended. Suprapubic urinary catheter is in place and is clean/dry/intact. There is no drainage from the site. The catheter is draining yellow urine. There is no surrounding skin changes or purulent drainage to suggest infection/cellulitis. MUSCULOSKELETAL: No peripheral edema. NEUROLOGIC: Patient is awake and alert. Facies were symmetrical. Constitutional Vital Signs, click to edit/add: Last Vital Signs Temp 98.5 F 04/22/25 16:26 Pulse 98 H 04/22/25 16:26 Resp 20 04/22/25 16:26 BP 107/89 04/22/25 16:26 Pulse Ox 98 04/22/25 16:26 Course Vital Signs Vital signs: Vital Signs Temperature 98.5 F 04/22/25 16:26 Pulse Rate 98 H 04/22/25 16:26 Respiratory Rate 20 04/22/25 16:26 Blood Pressure 107/89 04/22/25 16:26 Pulse Oximetry 98 04/22/25 16:26 Temperature 98.5 F 04/22/25 16:26 Pulse Rate 98 H 04/22/25 16:26 Respiratory Rate 20 04/22/25 16:26 Blood Pressure 107/89 04/22/25 16:26 Pulse Oximetry 98 04/22/25 16:26 Medical Decision Making [facility] Narrative Medical decision making narrative: Patient is a 39-year-old female with a chronic suprapubic catheter, presenting to the emergency department for evaluation of her catheter as she was having some leakage yesterday. Her vital signs arrival today are within normal limits. She is afebrile and hemodynamically stable. Her abdomen soft and nontender. On examination of the suprapubic catheter, it appears to be in its proper place and is clean/dry/intact without leakage or purulent drainage. Nursing staff was able to flush the catheter with no resistance or leakage, and easy return of urine. The catheter seems to be functioning appropriately without evidence of infection or obstruction. She is already on antibiotics for UTI. I do believe the patient is stable for discharge. They were instructed to follow up with her urologist for further care. Return precautions were given including any new or worsening symptoms, including any new issues with the catheter. Patient and her caregiver understand and agrees to the plan. FINAL IMPRESSION: #Acute encounter for suprapubic catheter check DISPOSITION: Discharged home CONDITION: Good Discharge Plan Discharge Chief Complaint: Urogenital-Female Clinical Impression: Chronic suprapubic catheter Patient Disposition: Home, Self-Care Time of Disposition Decision: 16:50 Condition: Good Mode of Transportation: Private Vehicle Prescriptions / Home Meds: No Action K-Phos Original 500 mg tablet,soluble 1,000 mg PO QID lamotrigine 200 mg tablet furosemide 40 mg tablet buspirone 5 mg tablet gabapentin 600 mg tablet doxycycline hyclate 100 mg capsule melatonin 3 mg tablet acetaminophen 500 mg tablet ascorbic acid (vitamin C) [Vitamin C] 500 mg tablet buspirone 30 mg tablet bupropion HCl 75 mg tablet PO docusate sodium 100 mg capsule PO cholecalciferol (vitamin D3) 25 mcg (1,000 unit) capsule cyclobenzaprine 5 mg tablet melatonin 5 mg tablet Print Language: Tamazight Instructions: Naidu Catheter Placement and Care (ED) Referrals: LOUISA JACOBSEN [Primary Care Provider] - 1 week Discharge Date/Time: 04/22/25 16:55
== END 2025-04-22 16:55 | disposition home or self-care (01) ==
PROVIDERS: Emergency Provider Student in an Organized Health Care Education/Training Program
DX: Z46.6 Encounter for fitting and adjustment of urinary device (principal); G80.9 Cerebral palsy, unspecified; Z87.442 Personal history of urinary calculi; Z99.3 Dependence on wheelchair
CPT/HCPCS: 99281